=== PATIENT | male | born 1970 | race African-American/Black ===

== ENCOUNTER 2017-12-04 23:56 | Inpatient (IN) | payer SELFPAY ==
[2017-12-05 01:46] LABS: Absolute Lymphocytes (CBC) 1.4 K/uL (0.7-4.9); Absolute Monocytes 0.8 K/uL (0.1-1.3); Absolute Neutrophil 8.3 K/uL (1.8-8.0); Basophils % 0.5 % (0-1.3); Eosinophils % 2.3 % (0-4.4); Hematocrit 28.5 % (39.6-49.0); Lymphocytes % 12.9 % (15.3-44.8); MCH 25.9 pg (27.0-35.0); MCV 79.7 fL (80-100); MPV 8.2 fL (7.6-11.3); Monocytes % 7.1 % (3.3-12.3); RBC Red Blood Cell Count 3.58 M/uL (4.33-5.43)
[2017-12-05 01:47] LABS: Protime INR 1.27
[2017-12-05 01:53] LABS: Bicarbonate 27 mEq/L (21-31); Lipase 10 U/L (22-51); Potassium 4.7 mEq/L (3.6-5.0); Sodium Level 133 mEq/L (135-145)
[2017-12-05 02:01] LABS: ALT/SGPT 15 IU/L (10-60); AST/SGOT 14 IU/L (10-42); Albumin 3.2 g/dL (3.2-5.5); Alkaline Phosphatase 71 IU/L (42-121); BUN Blood Urea Nitrogen 13 mg/dL (6-20); Bilirubin Direct 0.1 mg/dL (0-0.2); Bilirubin Total 0.3 mg/dL (0.3-1.2); C-Reactive Protein 89.6 mg/L (<10.0); Glomerular Filtration Rate > 90 mL/min (=/>90); Protein, Total 7.6 g/dL (6.0-8.3)
[2017-12-05] MEDS ORDERED: ONDANSETRON 4 MG/2 ML VIAL ONE (02:03)
[2017-12-05] MEDS ORDERED: MORPHINE 4 MG/ML SYR ONE (02:03)
[2017-12-05] MEDS ORDERED: NA CHLORIDE 0.9% 1,000 ML ONE ×2 (02:03→03:19)
--- NOTE | 2017-12-05 02:03 | P.HP ---
Certification for Inpatient Patient admitted to: Inpatient With expected LOS: >2 Midnights Practitioner: I am a practitioner with admitting privileges, knowledge of patient current condition, hospital course, and medical plan of care. Services: Services provided to patient in accordance with Admission requirements found in Title 42 Section 412.3 of the Code of Federal Regulations Patient History Date of Service: 12/05/17 Reason for admission: diabetic ulcer History of Present Illness: Mr Del Valle is a 47 years old male with history of DM II, HTN, DVT anticoagulated with Eliquis, with multiple chronic diabetic ulcers in both feet. On his right foot, he use to have a small callous in the plantar area. About 1 month ago, the wound got worse, he went to [facility], and got wound care. About 1 week ago, his lesion expanded and become ulcerated on the stump of previously amputated toe. At this time he came back to [facility] and he was prescribed oral Clindamycin. Today, he was having dinner, when he start shaking and feeling pain all over. His took his temp and was 101.3 F, he then took Tylenol. At arrival to ED his temp was 100.2 F. Lab work shows normal WBC count. Allergies ketorolac tromethamine [From Toradol] Allergy (Unknown, Verified 12/22/12 00:49) Shortness of breath azithromycin [From Zithromax] Allergy (Unverified 04/13/17 05:32) Unknown promethazine [From Phenergan] Allergy (Unverified 05/14/17 22:09) Unknown sulfamethoxazole [From Bactrim] Allergy (Unverified 04/13/17 05:32) Unknown trimethoprim [From Bactrim] Allergy (Unverified 04/13/17 05:32) Unknown NSAIDS Allergy (Uncoded 04/13/17 05:32) Unknown - Past Medical/Surgical History -: diabetes mellitus II -: Hx of DVT -: HTN -: toes amputation - Family History Family History: Reviewed- Non-Contributory - Social History Smoking Status: Never smoker Alcohol use: Yes CD- Drugs: No Place of Residence: Home Review of Systems 10-point ROS is otherwise unremarkable Physical Examination - Physical Exam General: Alert, In no apparent distress HEENT: Atraumatic, PERRLA, Mucous membr. moist/pink, EOMI, Sclerae nonicteric Neck: Supple, 2+ carotid pulse no bruit, No LAD, Without JVD or thyroid abnormality Respiratory: Clear to auscultation bilaterally, Normal air movement Cardiovascular: Regular rate/rhythm, Normal S1 S2 Gastrointestinal: Normal bowel sounds, No tenderness Musculoskeletal: No tenderness Integumentary: Skin breakdown, Diabetic ulcer (bilateral feet ulcers. On the right foot, has an open wound with yellowish secretion on the stump of second toe previously amputated.) Neurological: Normal speech, Normal strength at 5/5 x4 extr, Normal tone, Normal affect Lymphatics: No axilla or inguinal lymphadenopathy - Studies Laboratory Data (last 24 hrs) 12/05/17 01:10: PT 15.0 H, INR 1.27, APTT 27.7 12/05/17 01:10: WBC 10.7, Hgb 9.3 L, Hct 28.5 L, Plt Count 517 H Assessment and Plan - Problems (Diagnosis) (1) diabetic ulcer Current Visit: Yes Status: Acute (2) Diabetes mellitus Current Visit: Yes Status: Acute Qualifiers: Diabetes mellitus type: type 2 Diabetes mellitus fci insulin use: without fci use Diabetes mellitus complication status: with skin complications Diabetes mellitus complication detail: with foot ulcer Qualified Code(s): E11.621 - Type 2 diabetes mellitus with foot ulcer; L97.509 - Non-pressure chronic ulcer of other part of unspecified foot with unspecified severity; L97.509 - Non-pressure chronic ulcer of other part of unspecified foot with unspecified severity; L97.509 - Non-pressure chronic ulcer of other part of unspecified foot with unspecified severity; L97.509 - Non-pressure chronic ulcer of other part of unspecified foot with unspecified severity (3) HTN (hypertension) Current Visit: Yes Status: Acute Qualifiers: Hypertension type: essential hypertension Qualified Code(s): I10 - Essential (primary) hypertension (4) Hx of deep venous thrombosis Current Visit: Yes Status: Acute - Plan Mr Del Valle will be admitted to the hospital due to worsening chronic diabetic ulcers. He has normal WBC count but is febrile. Procalcitonin is pending, lactic acid normal. He will be admitted to start IV abx, will consult surgery team, wound care team. Check HgbA1c, continue SSI for BS control while is in the hospital. - Advance Directives Does patient have a Living Will: No Does patient have a Durable POA for Healthcare: No - Code Status/Comfort Care Code Status Assessed: Yes Code Status: Full Code
[2017-12-05 02:09] LABS: Glucose Level 396 mg/dL (65-120)
--- NOTE | 2017-12-05 02:28 | ER ---
Nurse's Notes [facility] Name: Flex Del Valle Age: 47 yrs Sex: Male : 1970 Arrival Date: 12/05/2017 Time: 00:00 Bed 17 Private MD: Diagnosis: Cellulitis of right lower limb;Open wound of foot-Bilateral Presentation: 12/05 00:23 Presenting complaint: Patient states: diabetic foot ulcer to R foot for several days. aa1 States, "Even with my neuropathy it still hurts all the way up my leg." Pt currently taking clindamycin. Transition of care: patient was not received from another setting of care. Onset of symptoms was November 29, 2017. Care prior to arrival: None. 00:23 Method Of Arrival: Ambulatory aa1 00:23 Acuity: AB 3 aa1 Triage Assessment: 00:26 General: Appears in no apparent distress. comfortable, Behavior is calm, cooperative, aa1 appropriate for age. Historical: - Allergies: 00:26 Bactrim; aa1 00:26 NSAIDS; aa1 00:26 Phenergan; aa1 00:26 Zithromax; aa1 00:26 Baclofen; aa1 00:26 Toradol; aa1 00:26 Ibuprofen; aa1 - Home Meds: 00:26 Clindamycin Oral [Active]; aa1 - PMHx: 00:26 Diabetes - NIDDM; DVT; Hypertension; neuropathy; aa1 - PSHx: 00:26 multiple toe amputations; aa1 - Immunization history:: Flu vaccine is up to date. - Social history:: Smoking status: Patient/guardian denies using tobacco. Screenin:43 Abuse screen: Denies threats or abuse. Denies injuries from another. Nutritional bp screening: No deficits noted. Tuberculosis screening: No symptoms or risk factors identified. Fall Risk None identified. Assessment: 00:54 General: Appears in no apparent distress. uncomfortable, Behavior is calm, cooperative, bp appropriate for age. Pain: Complains of pain in right foot. Neuro: Level of Consciousness is awake, alert, obeys commands, Oriented to person, place, time, situation, Appropriate for age. Cardiovascular: Denies. Respiratory: Airway is patent Respiratory effort is even, unlabored, Respiratory pattern is regular, symmetrical. GI: No signs and/or symptoms were reported involving the gastrointestinal system. : No signs and/or symptoms were reported regarding the genitourinary system. EENT: No deficits noted. Derm: Wound noted right foot. Musculoskeletal: Circulation, motion, and sensation intact. Range of motion: intact in all extremities. 02:30 Reassessment: ALL CURRENT ORDERS COMPLETE, VS STABLE ON MONITOR. ADMIT PENDING. bp 03:49 Reassessment: ADMIT IN PROCESS. PT HAVE GLOBAL URTICARIA WITH SOME MILD AIRWAY bp INVOLVEMENT AFTER START OF LEVAQUIN. MD NOTIFIED AND MED ADMINISTERED. PT VS REMAIN STABLE ON MONITOR. Vital Signs: 00:26 BP 134 / 90; Pulse 111; Resp 18; Temp 100.2(O); Pulse Ox 98% on R/A; Weight 98.43 kg; aa1 Height 6 ft. 1 in. (185.42 cm); Pain 10/10; 02:01 BP 135 / 84; Pulse 101; Resp 18; Pulse Ox 99% ; bp 04:14 BP 136 / 89; Pulse 95; Resp 16; Pulse Ox 99% ; bp 00:26 Body Mass Index 28.63 (98.43 kg, 185.42 cm) aa1 ED Course: 00:00 Patient arrived in ED. al2 00:14 Saad Perez, ALF is Primary Nurse. bp 00:16 Jaime Ramirez PA is PHCP. cp 00:16 Bert Holder MD is Attending Physician. cp 00:24 Triage completed. aa1 00:26 Arm band placed on right wrist. Patient placed in an exam room, on a stretcher. aa1 00:43 Patient has correct armband on for positive identification. Bed in low position. Call bp light in reach. Side rails up X2. Adult w/ patient. 01:29 Wound culture swab sent to lab. Inserted saline lock: 20 gauge in right forearm, using kb1 aseptic technique. Blood collected. 01:39 XRAY Foot LEFT 2 View In Process Unspecified. EDMS 01:39 XRAY Foot RIGHT 2 View In Process Unspecified. EDMS 01:58 Wound Culture Sent. bp 02:05 X-ray completed. Portable x-ray completed in exam room. Patient tolerated procedure kp1 well. 02:26 Kd Cali MD is Hospitalizing Provider. cp 03:48 Urine Dipstick--Ancillary (enter results) Sent. bp 03:50 No provider procedures requiring assistance completed. Patient admitted, IV remains in bp place. Administered Medications: 01:30 Drug: NS 0.9% 1000 ml Route: IV; Rate: 1 bolus; Site: right forearm; bp 03:18 Follow up: IV Status: Completed infusion bp 01:59 Drug: morphine 4 mg Route: IVP; Site: right forearm; bp 02:30 Follow up: Response: Pain is decreased bp 02:00 Drug: Zofran 4 mg Route: IVP; Site: right forearm; bp 02:30 Follow up: Response: Pain is decreased bp 02:45 Drug: Insulin Regular Human 10 units {Co-Signature: kb1 (Colleen Knight RN).} Route: bp IVP; Site: right forearm; 03:49 Follow up: Response: No adverse reaction bp 02:45 Drug: LevaQUIN 750 mg Volume: 150 ml; Route: IVPB; Infused Over: 90 mins; Site: right bp forearm; 03:46 Follow up: IV Status: Order to discontinue infusion; PT EXPERIENCING ALLERGIC RXN bp 02:45 Drug: NS 0.9% 1000 ml Route: IV; Rate: 1 bolus; Site: right forearm; bp 04:56 Follow up: IV Status: Completed infusion bp 03:47 Drug: diphenhydrAMINE 25 mg Route: IVP; Site: right forearm; bp 03:48 Follow up: Response: Marked relief of symptoms bp 03:48 Not Given (Patient Refused; PT STATES HAS BLURRED VISION WITH VANCOMYCIN): vancoMYCIN 1 bp grams IVPB once over 2 hrs Point of Care Testing: Blood Glucose: 02:30 Blood Glucose: 381 mg/dL; bp 04:45 Blood Glucose: 296 mg/dL; bp Ranges: Intake: Outcome: 02:27 Decision to Hospitalize by Provider. cp 04:46 Admitted to Tele accompanied by nurse, via wheelchair, room 407, with chart, Report bp called to GOLDY MILNER 04:46 Condition: stable 04:46 Instructed on the need for admit. 05:18 Patient left the ED. bp Signatures: Dispatcher [employer] EDMS Shalonda Holman, RN RN aa1 Jaime Ramirez PA PA cp Poole, Kathy kp1 Saad Perez RN RN bp Love, Angelica al2 Brown, Kristina, RN RN kb1 Colleen Knight RN kb1 Corrections: (The following items were deleted from the chart) 00:55 00:44 General: Appears bp bp
--- NOTE | 2017-12-05 02:28 | EDPHYS ---
Physician Documentation [facility] Name: Flex Del Valle Age: 47 yrs Sex: Male : 1970 Arrival Date: 12/05/2017 Time: 00:00 Bed 17 Private MD: ED Physician Bert Holder HPI: 12/05 01:29 This 47 yrs old Black Male presents to ER via Ambulatory with complaints of BODY ACHES, cp Fever, Puncture Wound To Foot. Historical: - Allergies: 00:26 Bactrim; aa1 00:26 NSAIDS; aa1 00:26 Phenergan; aa1 00:26 Zithromax; aa1 00:26 Baclofen; aa1 00:26 Toradol; aa1 00:26 Ibuprofen; aa1 - Home Meds: 00:26 Clindamycin Oral [Active]; aa1 - PMHx: 00:26 Diabetes - NIDDM; DVT; Hypertension; neuropathy; aa1 - PSHx: 00:26 multiple toe amputations; aa1 - Immunization history:: Flu vaccine is up to date. - Social history:: Smoking status: Patient/guardian denies using tobacco. ROS: 01:35 Constitutional: Positive for body aches, fever, Negative for poor PO intake. cp 01:35 Eyes: Negative for injury, pain, redness, and discharge, ENT: Negative for injury, cp pain, and discharge, Cardiovascular: Negative for chest pain, palpitations, and edema, Respiratory: Negative for shortness of breath, cough, wheezing, and pleuritic chest pain, Abdomen/GI: Negative for abdominal pain, nausea, vomiting, diarrhea, and constipation. 01:35 Skin: Positive for of the right foot and left foot, open wounds. 01:35 Neuro: Negative for altered mental status, dizziness, headache, weakness. 01:35 All other systems are negative. Exam: 01:42 Head/Face: Normocephalic, atraumatic. cp 01:42 Constitutional: The patient appears in no acute distress, alert, awake, non-diaphoretic, non-toxic, well developed, well nourished. 01:42 Eyes: Periorbital structures: appear normal, Conjunctiva: normal, no exudate, no cp injection, Sclera: no appreciated abnormality, Lids and lashes: appear normal, bilaterally. 01:42 ENT: External ear(s): are unremarkable, Nose: is normal, Mouth: Lips: moist, Oral mucosa: pink and intact, moist, Posterior pharynx: is normal, airway is patent, no erythema, no exudate, Voice: is normal. 01:42 Neck: ROM/movement: is normal, is supple, without pain, no range of motions limitations, no nuchal rigidity. 01:42 Chest/axilla: Inspection: normal, Palpation: is normal, no crepitus, no tenderness. 01:42 Cardiovascular: Rate: tachycardic, Rhythm: regular, Pulses: Pulses are 2+ in right radial artery, right dorsalis pedis artery, left radial artery and left dorsalis pedis artery. Edema: is not appreciated, JVD: is not appreciated. 01:42 Respiratory: the patient does not display signs of respiratory distress, Respirations: normal, no use of accessory muscles, no retractions, no splinting, no tachypnea, Breath sounds: are clear throughout, no decreased breath sounds, no stridor, no wheezing. 01:42 Abdomen/GI: Inspection: abdomen appears normal, Bowel sounds: active, all quadrants, Palpation: abdomen is soft and non-tender, in all quadrants, rebound tenderness, is not appreciated, voluntary guarding, is not appreciated, involuntary guarding, is not appreciated. 01:42 Skin: noted multiple deep open wounds to bilateral feet with purulent material draining from dorsal wound noted to distal second metatarsal right foot. bilateral second toe amputation noted. 01:42 Neuro: Orientation: to person, place \T\ time. Mentation: lucid, able to follow commands, Cerebellar function: is grossly normal, Motor: moves all fours, strength is normal, Gait: is steady. 02:00 ECG was reviewed by the Attending Physician. cp Vital Signs: 00:26 BP 134 / 90; Pulse 111; Resp 18; Temp 100.2(O); Pulse Ox 98% on R/A; Weight 98.43 kg; aa1 Height 6 ft. 1 in. (185.42 cm); Pain 10/10; 02:01 BP 135 / 84; Pulse 101; Resp 18; Pulse Ox 99% ; bp 04:14 BP 136 / 89; Pulse 95; Resp 16; Pulse Ox 99% ; bp 00:26 Body Mass Index 28.63 (98.43 kg, 185.42 cm) aa1 MDM: 00:16 Patient medically screened. cp 02:20 Data reviewed: vital signs, nurses notes, lab test result(s), radiologic studies, plain cp films. 02:20 Counseling: I had a detailed discussion with the patient and/or guardian regarding: the cp historical points, exam findings, and any diagnostic results supporting the discharge/admit diagnosis, lab results, the need for further work-up and treatment in the hospital. 12/05 00:46 Order name: Wound Culture cp 12/05 00:46 Order name: Basic Metabolic Panel; Complete Time: 02:14 cp 12/05 02:14 Interpretation: Normal except: NA 133; CL 100; GLUC 396. cp 12/05 00:46 Order name: Blood Culture Adult (2) cp 12/05 00:46 Order name: C-Reactive Protein; Complete Time: 02:14 cp 12/05 00:46 Order name: CBC with Diff; Complete Time: 02:16 cp 12/05 02:15 Interpretation: Normal except: RBC 3.58; HGB 9.3; HCT 28.5; MCV 79.7; MCH 25.9; PLT cp 517; LATRICIA% 77.2; LYM% 12.9; NEUT A 8.3. 12/05 00:46 Order name: Lactate; Complete Time: 02:14 cp 12/05 00:46 Order name: LFT's; Complete Time: 02:14 cp 12/05 00:46 Order name: Lipase; Complete Time: 02:14 cp 12/05 00:46 Order name: Procalcitonin; Complete Time: 02:57 cp 12/05 02:57 Interpretation: Reviewed. cp 12/05 00:46 Order name: Protime (+inr); Complete Time: 02:14 cp 12/05 00:46 Order name: Ptt, Activated; Complete Time: 02:14 cp 12/05 00:46 Order name: Sed Rate; Complete Time: 02:16 cp 12/05 01:37 Order name: Wound Culture EDMS 12/05 03:00 Order name: Urine Dipstick--Ancillary (enter results) fc 12/05 00:46 Order name: XRAY Foot LEFT 2 View cp 12/05 00:46 Order name: XRAY Foot RIGHT 2 View cp 12/05 00:46 Order name: Accucheck; Complete Time: 01:59 cp 12/05 00:46 Order name: Cardiac monitoring; Complete Time: 01:27 cp 12/05 00:46 Order name: EKG - Nurse/Tech; Complete Time: 01:58 cp 12/05 00:46 Order name: IV Saline Lock - Large Bore; Complete Time: 01:30 cp 12/05 00:46 Order name: Labs collected and sent; Complete Time: 01:27 cp 12/05 03:42 Order name: Urine Dipstick-Ancillary EDMS 12/05 00:46 Order name: O2 Per Protocol; Complete Time: 01:27 cp 12/05 00:46 Order name: O2 Sat Monitoring; Complete Time: 01:26 cp 12/05 00:46 Order name: Urine Dipstick-Ancillary (obtain specimen); Complete Time: 02:59 cp EC:00 Rate is 93 beats/min. Rhythm is regular. RI interval is normal. QRS interval is normal. cp QT interval is normal. No ST changes noted. Interpreted by me. Reviewed by me. Administered Medications: 01:30 Drug: NS 0.9% 1000 ml Route: IV; Rate: 1 bolus; Site: right forearm; bp 03:18 Follow up: IV Status: Completed infusion bp 01:59 Drug: morphine 4 mg Route: IVP; Site: right forearm; bp 02:30 Follow up: Response: Pain is decreased bp 02:00 Drug: Zofran 4 mg Route: IVP; Site: right forearm; bp 02:30 Follow up: Response: Pain is decreased bp 02:45 Drug: Insulin Regular Human 10 units {Co-Signature: kb1 (Colleen Knight RN).} Route: bp IVP; Site: right forearm; 03:49 Follow up: Response: No adverse reaction bp 02:45 Drug: LevaQUIN 750 mg Volume: 150 ml; Route: IVPB; Infused Over: 90 mins; Site: right bp forearm; 03:46 Follow up: IV Status: Order to discontinue infusion; PT EXPERIENCING ALLERGIC RXN bp 02:45 Drug: NS 0.9% 1000 ml Route: IV; Rate: 1 bolus; Site: right forearm; bp 04:56 Follow up: IV Status: Completed infusion bp 03:47 Drug: diphenhydrAMINE 25 mg Route: IVP; Site: right forearm; bp 03:48 Follow up: Response: Marked relief of symptoms bp 03:48 Not Given (Patient Refused; PT STATES HAS BLURRED VISION WITH VANCOMYCIN): vancoMYCIN 1 bp grams IVPB once over 2 hrs Point of Care Testing: Blood Glucose: 02:30 Blood Glucose: 381 mg/dL; bp 04:45 Blood Glucose: 296 mg/dL; bp Ranges: Critical Glucose Levels:Adult <50 mg/dl or >400 mg/dl <40 mg/dl or >180 mg/dl Disposition: 03:00 Co-signature as Attending Physician, Bert Holder MD I agree with the assessment and tw4 plan of care. Disposition: 12/05/17 02:27 Hospitalization ordered by Kd Cali for Inpatient Admission. Preliminary diagnosis are Cellulitis of right lower limb, Open wound of foot - Bilateral. - Bed requested for Telemetry/MedSurg (Inpatient). - Status is Inpatient Admission. bp - Condition is Stable. - Problem is an ongoing problem. - Symptoms are unchanged. UTI on Admission? No Signatures: Dispatcher [employer] EDMS Wendie Saldaña RN RN Shalonda Mcgee RN RN aa1 Jaime Ramirez PA PA Saad Messina, Bert Patricio RN, MD MD tw4 Colleen Knight RN kb1 Corrections: (The following items were deleted from the chart) 02:14 02:14 Normal except: NA 133; CL 100. cp cp
[2017-12-05] MEDS ORDERED: INSULIN -REGULAR HUMAN 50 UNIT/0.5 ML ML ONE (03:18)
[2017-12-05] MEDS ORDERED: VANCOMYCIN/NS 1 gm 1 GM/250 ML BAG ONE (03:19)
[2017-12-05] MEDS ORDERED: Levofloxacin 750mg IV 750 MG/150 ML BAG IV ONE (03:19)
[2017-12-05 03:42] LABS: Urine Blood 1+ (NEG); Urine Glucose 2+ (NEG); Urine Protein NEGATIVE (NEG); Urine pH 5.5 (5.0-7.0)
[2017-12-05] MEDS ORDERED: DIPHENHYDRAMINE 50 MG/ML VIAL ONE (04:02)
[2017-12-05] MEDS ORDERED: ONDANSETRON 4 MG/2 ML VIAL IV PRN (04:23)
[2017-12-05] MEDS ORDERED: ACETAMINOPHEN 500 MG TAB PO PRN (04:23)
[2017-12-05] MEDS ORDERED: Levofloxacin 750mg IV 750 MG/150 ML BAG IV SCH (04:23)
[2017-12-05] MEDS: NA CHLORIDE 0.9% 1,000 ML IV SCH ×2 (05:51→15:03)
[2017-12-05] MEDS: PIPER/TAZO/NS 3.375gm 3.375 GM/100 ML BAG IVPB SCH ×2 (08:08→17:50)
[2017-12-05] MEDS: LINEZOLID 600 MG IVPB 600 MG/300 ML BAG IV SCH ×2 (08:08→21:04)
[2017-12-05] MEDS: INSULIN -REGULAR HUMAN 50 UNIT/0.5 ML ML SQ SCH ×5 (08:09→21:02)
[2017-12-05] MEDS ORDERED: VANCOMYCIN 1 GM in NA CHLORIDE 0.9% 500 ML IVPB SCH (09:00)
[2017-12-05 09:17] LABS: A1c Component 1.02 mg/dL; Hemoglobin A1c 11.9 % (4-6.0)
[2017-12-05] MEDS ORDERED: D50W 25 GM/50 ML SYRINGE IV PRN (10:51)
[2017-12-05] MEDS ORDERED: GLUCAGON 1 MG/VIAL IM PRN (10:51)
[2017-12-05] MEDS ORDERED: MAGNESIUM SULFATE 1 gm IVPB 1 GM/100 ML BAG IV ONE (11:00)
--- NOTE | 2017-12-05 11:14 | RAD REPORT ---
EXAM DESCRIPTION: RAD - Foot Right 2 View - 12/05/2017 1:39 am CLINICAL HISTORY: Diabetic foot ulcer COMPARISON: None. FINDINGS: The majority of the second toe is missing. Destructive changes involves the distal second toe metatarsal. A large soft tissue ulceration with swelling is present in the region. IMPRESSION: Osteomyelitis involving the distal second metatarsal with the majority of the second toe missing.
--- NOTE | 2017-12-05 11:19 | RAD REPORT ---
EXAM DESCRIPTION: RAD - Foot Left 2 View - 12/05/2017 1:39 am CLINICAL HISTORY: Diabetic foot ulcer. COMPARISON: None. FINDINGS: Partial amputation of the second toe seen. Amputation of the third toe also present. Erosi on at the distal aspect of the proximal phalanx of the great toe with adjacent soft tissue swelling i s likely related to gout. Ulceration is noted in the region of the heel.
--- NOTE | 2017-12-05 12:03 | EKG ---
Test Date: 2017-12-05 Test Time: 01:53:21 Stereo Compiler: BP MEASUREMENT RESULTS: Intervals: Rate: 93 LA: 154 QRSD: 86 QT: 354 QTc: 440 [place]: P: 49 LA: 154 QRS: 40 T: 43 INTERPRETIVE STATEMENTS: Normal sinus rhythm Normal ECG No previous ECG available for comparison Electronically Signed On 12-05-17 12:02:15 CDT by Garo Curiel
[2017-12-05] MEDS ORDERED: INSULIN DETEMIR 100 UNIT/1 ML INSULIN SQ ONE (12:28)
[2017-12-05] MEDS: COLLAGENASE 30 GM OINTMENT TOP SCH (12:58)
--- NOTE | 2017-12-05 13:49 | CON ---
Date of Consultation: 12/05/2017 Reason For Consultation: Infected wound, right foot. Ulcers, left foot. History Of Present Illness: The patient is a 47-year-old gentleman with multiple medical problems. Had chronic diabetic ulcers in both feet. On his right feet, he has small callus which got worse. H e went to Wound Care and became bigger, ulcerated, oozing pus and he had a fever. He was prescribed clindamycin and he continued to have temperature, therefore he came to the emergency room. He is awake, alert. No significant increasing pain in the foot because of his diabetic neuropathy. No sore throat, runny nose, cough, headaches, or dizziness. No chest pain. Review of Systems: Otherwise unremarkable. Medications: Azithromycin, promethazine, sulfa, trimethoprim, NSAIDS, Toradol. Past Medical History: Significant for type 2 diabetes, history of DVT, hypertension. Past Surgical History: Right second toe partial toe amputation. He does not smoke. Physical Examination: Vital Signs: Stable. He is afebrile. General: He is awake, alert, orient x3. Head and Neck: Cranial nerves 2 through 12 are grossly within normal limits. No neck masses. No JV D. Throat clear. Neck is supple. Chest: Clear. Heart: S1, S2. Abdomen: Soft. Extremities: Palpable dorsalis pedis and posterior tibial pulses, 2+ equal bilaterally. On the left heel there is a superficial ulcer stage 2-3 approximately 3 x 4 cm. No surrounding erythema, warmth , edema or purulence on the toe plantar aspect of the left great toe. There is also a superficial ul cer, again no evidence of infection. On the right foot in the second toe area, partial toe is expose d with a wound that is oozing pus. There is a swollen, red obvious infection. There is a plantar ul cer approximately 2 cm as well involved in the area. It is a bad diabetic infection. Laboratory Data: White count is 10.7, platelets are 517, sedimentation rate is 95, INR is 1.27. Didi christopher reviewed, glucose is 375, procalcitonin is 0.09, lactic acid is 12.3. X-ray results are pendi ng. Assessment: A 47-year-old gentleman with multiple medical problems with a diabetic foot infection, s evere on the right foot and couple of ulcers on the left foot. Recommendation: Continue IV antibiotics is ordered. The patient will need right second toe transmet atarsal amputation as this area will not heal with antibiotics alone. Details of the surgery, risks benefits and alternatives were explained to the patient. He understands and agrees; therefore we zuhair villarreal proceed with a right foot second toe transmetatarsal amputation. As he has been on Eliquis, subha villarreal wait until tomorrow to do the surgery and the plan of care was also discussed with /[place] Voice ID: [id number] Report ID: [id number]
[2017-12-05] MEDS: HYDROCODONE/APAP 7.5/325 MG TAB PO PRN ×2 (15:02→21:04)
--- NOTE | 2017-12-05 15:31 | PN ---
Subjective: The patient is seen and examined. Chart reviewed. Case discussed with RN and Dr. Hernandez . The patient is scheduled for surgery in a.m. He states that his pain and swelling is still there in his foot. The patient states that he has not taken Eliquis since May of last year. Review of Systems: Negative except as above. Medications: Reviewed. Physical Examination: Vital Signs: Temperature 98.6, heart rate 82, blood pressure 118/71, respirations 14, and O2 saturat ion 95% on room air. General: Awake, alert, oriented x3, in some mild distress. Somewhat ill-appearing male. CV: S1, S2. Regular rate and rhythm. Peripheral pulses are weak bilaterally. No murmurs. Respiratory: Moving air well bilaterally. No wheezing. Gastrointestinal: Abdomen is soft, nontender, nondistended. Positive bowel sounds. Extremities: No clubbing, cyanosis, or edema. Skin: The patient has both feet wrapped, clean, dry, and intact. Musculoskeletal: The patient has multiple toe amputations bilaterally. Neurologic: Nonfocal. The patient does have decreased sensation in his feet. Laboratory Data: Sodium 133, potassium 4.7, chloride 100, CO2 of 27, BUN 13, creatinine 0.85, and gl ucose 396. Hemoglobin A1c 11.9. Lactic acid 12.3. Calcium 8.9. Procalcitonin 0.09. Magnesium 1.7 . WBC 10.9, H and H 9.3 and 28.5, and platelets 517. Blood cultures pending. Foot x-ray pending. No physical report present. Assessment And Plan: A 47-year-old male with; 1.Diabetic foot ulcer, left. We will continue with IV antibiotics. Follow up on cultures. Dr. Ramírez sutherland is on the case. Plan is to take the patient to OR in a.m. The patient is not on any anticoagul ation. 2.Diabetes mellitus type 2 with hyperglycemia with long-term use of insulin, uncontrolled. Hemoglob in A1c 11.9%. We will continue sliding scale insulin. 3.History of lower extremity deep venous thrombosis provoked after surgery. The patient took Eliqui s for 1 month last year. We will repeat Doppler sonogram to rule out DVT. 4.Essential hypertension, stable. 5.Hypomagnesemia. We will replace and monitor. 6.Microcytic hypochromic anemia, likely anemia of chronic disease. We will monitor H and H. 7.Gastrointestinal and deep venous thrombosis prophylaxis with PPI and no Lovenox due to impending s urgery. /[place] Voice ID: [id number] Report ID: [id number]
--- NOTE | 2017-12-05 17:45 | RAD REPORT ---
EXAM DESCRIPTION: VAS - Extrem Venous W Compress Lito - 12/05/2017 5:28 pm CLINICAL HISTORY: Bilateral leg edema and swelling. COMPARISON: None. TECHNIQUE: Real-time sonographic interrogation of the left and right lower extremity deep venous sys tems was performed. FINDINGS: Normal compressibility, flow augmentation, phasic flow and spontaneous flow is identified in both the left and right lower extremity deep venous systems. IMPRESSION: No sonographic evidence of left or right lower extremity deep venous thrombosis.
[2017-12-05] MEDS: MORPHINE 4 MG/ML SYR IV PRN ×2 (17:49→23:10)
[2017-12-05] MEDS ORDERED: INSULIN DETEMIR 100 UNIT/1 ML INSULIN SQ SCH (21:00)
[2017-12-06] MEDS: NA CHLORIDE 0.9% 1,000 ML IV SCH ×6 (00:23→20:23)
[2017-12-06] MEDS: PIPER/TAZO/NS 3.375gm 3.375 GM/100 ML BAG IVPB SCH ×3 (00:45→16:24)
[2017-12-06] MEDS: MORPHINE 4 MG/ML SYR IV PRN ×4 (04:47→20:33)
[2017-12-06 06:27] LABS: Absolute Lymphocytes (CBC) 2.7 K/uL (0.7-4.9); Absolute Monocytes 0.6 K/uL (0.1-1.3); Absolute Neutrophil 3.4 K/uL (1.8-8.0); Basophils % 0.7 % (0-1.3); Eosinophils % 4.1 % (0-4.4); Hematocrit 28.6 % (39.6-49.0); Lymphocytes % 38.3 % (15.3-44.8); MCH 25.9 pg (27.0-35.0); MCV 80.1 fL (80-100); MPV 8.3 fL (7.6-11.3); Monocytes % 8.2 % (3.3-12.3); RBC Red Blood Cell Count 3.56 M/uL (4.33-5.43)
[2017-12-06 06:53] LABS: ALT/SGPT 12 IU/L (10-60); AST/SGOT 11 IU/L (10-42); Albumin 2.7 g/dL (3.2-5.5); Alkaline Phosphatase 65 IU/L (42-121); BUN Blood Urea Nitrogen 9 mg/dL (6-20); Bicarbonate 28 mEq/L (21-31); Bilirubin Total 0.4 mg/dL (0.3-1.2); Glomerular Filtration Rate > 90 mL/min (=/>90); Glucose Level 388 mg/dL (65-120); Magnesium 1.6 mg/dL (1.8-2.5); Potassium 4.6 mEq/L (3.6-5.0); Protein, Total 6.8 g/dL (6.0-8.3); Sodium Level 134 mEq/L (135-145)
[2017-12-06] MEDS ORDERED: MAGNESIUM SULFATE 1 gm IVPB 1 GM/100 ML BAG IV ONE (06:59)
[2017-12-06] MEDS: INSULIN -REGULAR HUMAN 50 UNIT/0.5 ML ML SQ SCH ×4 (07:30→20:35)
[2017-12-06] MEDS ORDERED: PROPOFOL 200 MG/20 ML VIAL IV ONE (07:37)
[2017-12-06] MEDS ORDERED: LIDOCAINE 2% MPF 5 ML VIAL ONE (07:38)
[2017-12-06] MEDS ORDERED: MEPERIDINE HCL 25 MG/0.5 ML ONE ×3 (08:16→09:39)
[2017-12-06] MEDS ORDERED: FENTANYL CITR 100 MCG/2 ML ONE ×3 (08:23→08:50)
[2017-12-06] MEDS ORDERED: ONDANSETRON 4 MG/2 ML VIAL ONE (08:33)
[2017-12-06] MEDS ORDERED: DEXAMETHASONE 10 MG/ML VIAL ONE (08:34)
--- NOTE | 2017-12-06 08:35 | P.OP ---
Preoperative diagnosis: Right Foot 2nd Toe osteo and diabetic infection with abscess Postoperative diagnosis: same Primary procedure: Right 2nd Toe T-M Amputation Anesthesia: gen Estimated blood loss: min Specimen: bone and infected tissue and pus Findings: as above Complications: None Transferred to: Recovery Room Condition: Good
[2017-12-06] MEDS ORDERED: INSULIN DETEMIR 100 UNIT/1 ML INSULIN SQ SCH (09:00)
[2017-12-06] MEDS: LINEZOLID 600 MG IVPB 600 MG/300 ML BAG IV SCH ×2 (09:00→20:38)
[2017-12-06] MEDS: COLLAGENASE 30 GM OINTMENT TOP SCH (09:00)
[2017-12-06] MEDS: MUPIROCIN 2% OINT 22GM TUBE TOP SCH ×2 (09:17→20:37)
[2017-12-06] MEDS ORDERED: CHLORHEXIDINE GLUCO 4% 120 ML TOP SCH (09:17)
[2017-12-06] MEDS: ASCORBIC ACID 500 MG TABLET PO SCH (10:11)
[2017-12-06] MEDS: ZINC SULFATE 220 MG CAP PO SCH (10:11)
[2017-12-06] MEDS: INSULIN DETEMIR 100 UNIT/1 ML INSULIN SQ SCH (10:12)
[2017-12-06] MEDS: HYDROCODONE/APAP 7.5/325 MG TAB PO PRN ×2 (14:10→21:47)
--- NOTE | 2017-12-06 15:39 | PN ---
Date of Progress Note: 12/06/2017 Subjective: The patient is seen and examined. Chart reviewed, case discussed with RN and Dr. Hernandez. The patient tolerated the procedure well. A chest pain is well controlled. Review of Systems: Negative except as above. Medications: Reviewed. Physical Examination: Vital Signs: Temperature 98.3, heart rate 92, blood pressure 129/79, respirations 20, O2 98% on room air. General: Awake, alert, oriented x3 in no acute distress. Obese, BMI 30.6. CV: S1, S2. No murmurs. Regular rate and rhythm. Peripheral pulses are present bilaterally. Respiratory: Moving air well bilaterally. No wheezing. No stridor. Gastrointestinal: Abdomen is soft, nontender, nondistended. Positive bowel sounds. Extremities: No clubbing, cyanosis, or edema. Musculoskeletal: The left right foot second toe amputation. Skin: Bilateral feet bandaged. Right foot incision site appear intact. Neurologic: Nonfocal. Decreased sensation in lower extremity. Laboratory Data: Sodium 134, potassium 4.6, chloride 101, CO2 28, BUN 9, creatinine 0.73, glucose 38 8, calcium 9, magnesium 1.6, albumin 2.78. WBC 7, H and H 9.2 and 28.6, platelets 512. Assessment And Plan: A 47-year-old male with. 1.Right foot diabetic wound infection ulcer with osteomyelitis, status post second toe amputation. 2.Diabetes mellitus type 2 with hyperglycemia with long-term use of insulin, uncontrolled. Hemoglob in A1c 11.9%. Levemir adjusted. We will switch over to moderate sliding scale. Diabetes education. Patient counseled. 3.History of lower extremity DVT on the left leg provoked after surgery. Repeat Doppler negative fo r any deep venous thrombosis. The patient has not been on any anticoagulation since last year. 4.Essential hypertension stable. 5.Hypomagnesemia, replace and monitor. 6.Microcytic hypochromic anemia, likely anemia of chronic disease. We will continue to monitor H an d H. 7.Obesity, BMI 30, counseled. 8.Gastrointestinal and deep venous thrombosis prophylaxis with PPI and we will initiate Lovenox 24 h ours post surgery. We will continue with SCDs for now. Plan ID consultation. Surgery recommends wo und care, collagenase with dry dressings. The patient is not a candidate for wound VAC due to lack o f insurance. SA/MODL Voice ID: [id number] Report ID: [id number]
[2017-12-06] MEDS: INSULIN LISPRO 100 UNIT/1 ML SQ SCH (16:23)
--- NOTE | 2017-12-06 20:24 | OP ---
Date of Procedure: 12/06/2017 Surgeon: Robert Hernandez MD Preoperative Diagnosis: Right foot second toe diabetic foot infection with osteomyelitis and abscess . Postoperative Diagnosis: Right foot second toe diabetic foot infection with osteomyelitis and absces s. Procedure: Right second toe transmetatarsal amputation. Estimated Blood Loss: Minimal. Specimen: Pus, necrotic tissue, and infected bone. Finding: As above. Anesthesia: General. Complications: None. Disposition: The patient tolerated the procedure in stable condition and taken to Recovery in good g eneral condition. Procedure In Detail: The patient was brought to the OR and placed in supine position. General anest hesia was began. The patient was prepped and draped in the usual sterile fashion. Marcaine 0.5% was infiltrated locally. A 15 blade and cautery used to make an ellipse of skin from the dorsum of the foot down through the first and second web space and down covering the plantar ulcer that was present . All tissue in this area was removed. Once this was removed, the metatarsal head was floating in t he wound. Without any bone cutters the head was removed and cultures were done. Cultures were done of the pus that was present as well. Then rongeurs were used to smooth out the rough edges of the me tatarsal shaft and a rasp was used to smoothen out the rough edges as well, and then wound was irriga judith. Bleeding controlled with cautery. All necrotic tissue was debrided and then collagenase dressi ng was applied. The patient tolerated the procedure in stable condition and taken to Recovery in good general condition. LING/MIREYAL Voice ID: [id number] Report ID: [id number]
[2017-12-07] MEDS: PIPER/TAZO/NS 3.375gm 3.375 GM/100 ML BAG IVPB SCH ×3 (00:54→17:00)
[2017-12-07] MEDS: MORPHINE 4 MG/ML SYR IV PRN ×2 (00:54→17:11)
[2017-12-07] MEDS: NA CHLORIDE 0.9% 1,000 ML IV SCH ×3 (00:58→16:23)
[2017-12-07] MEDS: HYDROCODONE/APAP 7.5/325 MG TAB PO PRN ×2 (04:21→11:22)
[2017-12-07 04:23] LABS: Absolute Lymphocytes (CBC) 2.2 K/uL (0.7-4.9); Absolute Monocytes 0.8 K/uL (0.1-1.3); Absolute Neutrophil 5.7 K/uL (1.8-8.0); Basophils % 0.9 % (0-1.3); Eosinophils % 0.3 % (0-4.4); Hematocrit 25.7 % (39.6-49.0); Lymphocytes % 24.6 % (15.3-44.8); MCH 26.2 pg (27.0-35.0); MCV 78.7 fL (80-100); MPV 8.2 fL (7.6-11.3); Monocytes % 8.9 % (3.3-12.3); RBC Red Blood Cell Count 3.26 M/uL (4.33-5.43)
[2017-12-07 04:35] LABS: ALT/SGPT 11 IU/L (10-60); AST/SGOT 11 IU/L (10-42); Albumin 2.6 g/dL (3.2-5.5); Alkaline Phosphatase 57 IU/L (42-121); BUN Blood Urea Nitrogen 11 mg/dL (6-20); Bicarbonate 26 mEq/L (21-31); Bilirubin Total 0.4 mg/dL (0.3-1.2); Glomerular Filtration Rate > 90 mL/min (=/>90); Glucose Level 366 mg/dL (65-120); Magnesium 1.6 mg/dL (1.8-2.5); Protein, Total 6.9 g/dL (6.0-8.3); Sodium Level 134 mEq/L (135-145)
[2017-12-07] MEDS ORDERED: MAGNESIUM SULFATE 1 gm IVPB 1 GM/100 ML BAG IV ONE (05:35)
[2017-12-07 06:24] VITALS: BMI 30.7
[2017-12-07] MEDS: INSULIN -REGULAR HUMAN 50 UNIT/0.5 ML ML SQ SCH ×3 (09:07→17:38)
[2017-12-07] MEDS: INSULIN LISPRO 100 UNIT/1 ML SQ SCH ×3 (09:07→17:39)
[2017-12-07] MEDS: INSULIN DETEMIR 100 UNIT/1 ML INSULIN SQ SCH (09:08)
[2017-12-07] MEDS: ZINC SULFATE 220 MG CAP PO SCH (09:09)
[2017-12-07] MEDS: ASCORBIC ACID 500 MG TABLET PO SCH (09:09)
[2017-12-07 10:26] VITALS: O2SAT 100
[2017-12-07] MEDS ORDERED: ACETIC ACID 0.25% IRRIG IRR ONE (10:26)
[2017-12-07] MEDS: MUPIROCIN 2% OINT 22GM TUBE TOP SCH (11:22)
[2017-12-07] MEDS: LINEZOLID 600 MG IVPB 600 MG/300 ML BAG IV SCH (15:08)
--- NOTE | 2017-12-07 15:43 | PN ---
Date of Progress Note: 12/07/2017 Subjective: The patient is awake, alert, feels better today. Objective: Vital Signs: Stable. Afebrile. Laboratory Data: Wound cultures done Thursday are growing Pseudomonas Klebsiella and Serratia. Sens itivities were reviewed. His white count is 8.8, platelets are down to 436. His left shift has norm alized. His dressing is clean, dry, intact. The toes around on the wound viable with good circulation. Assessment: Status post right foot second toe transmetatarsal amputation with a nonhealing wound. Recommendation: We will await the OR cultures, and then proceed with oral antibiotics as patient's s ource of osteo has been surgically removed. Wound care is ordered to rule out acetic acid to it for the Pseudomonas and once he is discharged, he can [facility]. Lia n of care discussed with Dr. Persaud. /[place] Voice ID: [id number] Report ID: [id number]
[2017-12-07 16:46] VITALS: BP 140/88; TEMP 98
[2017-12-07] MEDS: COLLAGENASE 30 GM OINTMENT TOP SCH (16:48)
--- NOTE | 2017-12-07 19:10 | P.DS ---
Admission Date: 12/05/17 Discharge Date: 12/07/17 Disposition: ROUTINE DISCHARGE Discharge Condition: GOOD Reason for Admission: diabetic ulcer Consultations: Gen Surgery ID Procedures: Procedure: Right second toe transmetatarsal amputation. - Problems (1) Diabetes mellitus Onset Date: 12/07/17 Status: Acute Qualifiers: Diabetes mellitus type: type 2 Diabetes mellitus correction insulin use: without correction use Diabetes mellitus complication status: with skin complications Diabetes mellitus complication detail: with foot ulcer Qualified Code(s): E11.621 - Type 2 diabetes mellitus with foot ulcer; L97.509 - Non-pressure chronic ulcer of other part of unspecified foot with unspecified severity; L97.509 - Non-pressure chronic ulcer of other part of unspecified foot with unspecified severity; L97.509 - Non-pressure chronic ulcer of other part of unspecified foot with unspecified severity; L97.509 - Non-pressure chronic ulcer of other part of unspecified foot with unspecified severity (2) HTN (hypertension) Onset Date: 12/07/17 Status: Acute Qualifiers: Hypertension type: essential hypertension Qualified Code(s): I10 - Essential (primary) hypertension (3) Hx of deep venous thrombosis Onset Date: 12/07/17 Status: Acute (4) diabetic ulcer Onset Date: 12/07/17 Status: Acute Brief History of Present Illness: Mr Del Valle is a 47 years old male with history of DM II, HTN, DVT anticoagulated with Eliquis, with multiple chronic diabetic ulcers in both feet. On his right foot, he use to have a small callous in the plantar area. About 1 month ago, the wound got worse, he went to [facility], and got wound care. About 1 week ago, his lesion expanded and become ulcerated on the stump of previously amputated toe. At this time he came back to [facility] and he was prescribed oral Clindamycin. Today, he was having dinner, when he start shaking and feeling pain all over. His took his temp and was 101.3 F, he then took Tylenol. At arrival to ED his temp was 100.2 F. Lab work shows normal WBC count. Hospital Course: Overall during the hospital stay patient remained stable. Patient was initially admitted to the hospital for right foot diabetic wound infection. Was found to have osteomyelitis. General surgery was consulted. Who took the patient to the OR and had right metatarsal amputation. Patient improved well after the amputation. Wound cultures were collected which grew Pseudomonas Serratia and Klebsiella from bilateral lower extremity. Patient was initially started on IV antibiotics and was switched over to p.o. Levaquin as the bacteria was sensitive to to Levaquin. ID was also consulted who agreed with the plan. Patient initially had a wound VAC placed however due to lack of insurance patient will not be able to get wound VAC at home. Surgery thus recommended acetic acid trip dressings along with collagenase. Patient was taught wound care along with . Patient to do self wound care at home. Will follow up with Surgery and ID specialist in 1-2 days. Patient to get Levaquin for total of 14 days. Patient was educated extensively in controlling diabetic mellitus here in the hospital and outside. Patient was educated again on diet and exercise as well. Long-term complications were also explained. All other chronic conditions remained stable while here in the hospital Vital Signs/Physical Exam: Temp Pulse Resp BP Pulse Ox 98.0 F 76 18 140/88 98 12/07/17 16:00 12/07/17 16:00 12/07/17 16:00 12/07/17 16:00 12/07/17 16:00 General: Alert, In no apparent distress HEENT: Atraumatic, PERRLA, EOMI Neck: Supple, JVD not distended Respiratory: Clear to auscultation bilaterally, Normal air movement Cardiovascular: Regular rate/rhythm, Normal S1 S2 Gastrointestinal: Normal bowel sounds, No tenderness Musculoskeletal: No tenderness Integumentary: Diabetic ulcer Neurological: Normal speech, Normal tone, Normal affect Lymphatics: No axilla or inguinal lymphadenopathy Laboratory Data at Discharge: WBC 8.8 K/uL (4.3-10.9) D 12/07/17 03:44 Hgb 8.5 g/dL (13.6-17.9) L 12/07/17 03:44 Hct 25.7 % (39.6-49.0) L 12/07/17 03:44 Plt Count 436 K/uL (152-406) H 12/07/17 03:44 PT 15.0 SECONDS (9.5-12.5) H 12/05/17 01:10 INR 1.27 12/05/17 01:10 APTT 27.7 SECONDS (24.3-36.9) 12/05/17 01:10 Sodium 134 mEq/L (135-145) L 12/07/17 03:44 Potassium 4.0 mEq/L (3.6-5.0) 12/07/17 03:44 BUN 11 mg/dL (6-20) 12/07/17 03:44 Creatinine 0.76 mg/dL (0.61-1.24) 12/07/17 03:44 Glucose 366 mg/dL (65-120) H 12/07/17 03:44 Magnesium 1.6 mg/dL (1.8-2.5) L 12/07/17 03:44 Total Bilirubin 0.4 mg/dL (0.3-1.2) 12/07/17 03:44 AST 11 IU/L (10-42) 12/07/17 03:44 ALT 11 IU/L (10-60) 12/07/17 03:44 Alkaline Phosphatase 57 IU/L (42-121) 12/07/17 03:44 Lipase 10 U/L (22-51) L 12/05/17 01:10 Home Medications: Metformin ER [Glucophage ER*] 1,000 mg PO BID 12/05/17 Levofloxacin [Levaquin] 750 mg PO DAILY #14 tab 12/07/17 New Medications: Levofloxacin [Levaquin] 750 mg PO DAILY #14 tab Patient Discharge Instructions: Please f/u with Dr Mcdaniels and Dr Hernandez in 1 week post discharge. New medication. Levofloxacin 500mg Daily for 14 days. Diet: Regular Activity: Ad henry Followup: Ruddy Mcdaniels MD [ACTIVE - CAN ADMIT] - 1-2 Weeks Robert Hernandez MD [ACTIVE - CAN ADMIT] - 1-2 Weeks
== END 2017-12-07 18:57 | disposition home or self-care (01) | DRG 617 ==
LOC: ER 23:56 → ERHOLD 12-05 02:27 → 4TH 12-05 04:24
PROVIDERS: ADMIT Internal Medicine; ATTEND Family Medicine
PROC: 0Y6R0Z0 Detachment at Right 2nd Toe, Complete, Open Approach (ICD-10-PCS; principal; 2017-12-06 08:00)
DX: E11.69 Type 2 diabetes mellitus with other specified complication (principal); M86.8X7 Other osteomyelitis, ankle and foot; E11.621 Type 2 diabetes mellitus with foot ulcer; E11.65 Type 2 diabetes mellitus with hyperglycemia; E83.42 Hypomagnesemia; D50.9 Iron deficiency anemia, unspecified; I10 Essential (primary) hypertension; E66.9 Obesity, unspecified; Z86.718 Personal history of other venous thrombosis and embolism
CPT/HCPCS: 36415; 80048; 80053; 80076; 81003; 82962; 83036; 83605; 83690; 83735; 84145; 85025; 85610; 85652; 85730; 86140; 87040; 87070; 87075; 87077; 87176; 87186; 87205; 88305; 88311; 93005; 93970; 96361; 96365; 96375; 97163; 99285; J1100; J2175; J2405; J2543; J3010; J3370; J3475; J3590; J7030

== ENCOUNTER 2018-11-03 11:07 | Emergency (ER) | payer SELFPAY ==
--- OUTSIDE RECORDS SUMMARY | 2018-11-03 11:08 | XMS REPORT ---
:1970 [facility] Address [address] [place] [address] Dr. Lee [address] [place] [id number] Care Team Providers Name Role Phone Unavailable Unavailable Unavailable Problems This patient has no known problems. Allergies, Adverse Reactions, Alerts This patient has no known allergies or adverse reactions. Medications This patient has no known medications.
--- NOTE | 2018-11-03 12:25 | RAD REPORT ---
EXAM DESCRIPTION: USExtrem Venous W Compress Bil11/03/2018 12:15 pm CLINICAL HISTORY: Bilateral leg pain COMPARISON: November 2017 FINDINGS: The common femoral, superficial femoral, popliteal and posterior tibial veins bilaterally are compressible and demonstrate augmentation. Doppler demonstrates good flow. IMPRESSION: No evidence of deep venous thrombosis involving either lower extremity.
[2018-11-03] MEDS ORDERED: HYDROCODONE/APAP 5/325 MG TAB ONE (13:25)
[2018-11-03 13:40] LABS: BUN Blood Urea Nitrogen 12 mg/dL (7-18); Bicarbonate 29 mmol/L (21-32); Glucose Level 262 mg/dL (74-106); Potassium 4.2 mmol/L (3.5-5.1); Sodium Level 138 mmol/L (136-145)
--- NOTE | 2018-11-03 14:12 | RAD REPORT ---
EXAM DESCRIPTION: CT - Chest For Pe Angio - 11/03/2018 1:58 pm CLINICAL HISTORY: Chest pain. bilateral leg swelling COMPARISON: Extrem Venous W Compress Lito dated 11/03/2018 TECHNIQUE: CT angiogram of the pulmonary arteries was performed with MIP. All CT scans are performed using dose optimization technique as appropriate and may include automated exposure control or mA/KV adjustment according to patient size. FINDINGS: No evidence of pulmonary thromboembolism. No acute aortic finding demonstrated. The lungs are clear. No significant pericardial or pleural fluid. No concerning bony finding. Bilateral renal stones seen. IMPRESSION: No evidence of pulmonary thromboembolism. No acute lung findings.
--- NOTE | 2018-11-03 14:15 | EDPHYS ---
Physician Documentation [facility] Name: Flex Del Valle Age: 48 yrs Sex: Male : 1970 Arrival Date: 11/03/2018 Time: 11:17 Bed 20 Private MD: out of town, doctor ED Physician Abdulaziz Booth HPI: 11/03 13:00 This 48 yrs old Black Male presents to ER via Wheelchair with complaints of Bilateral pm1 Leg Pain. 13:00 The patient presents with pain, that is acute. The complaints affect the left leg and pm1 right leg. Context: The problem was sustained at home, resulted from Long driving trip, the patient can fully bear weight, the patient is able to ambulate. Onset: The symptoms/episode began/occurred Onset since October 19, 2018. Modifying factors: The symptoms are alleviated by nothing. the symptoms are aggravated by nothing. Associated signs and symptoms: Pertinent positives: calf tenderness, Pertinent negatives fever, nausea, numbness, rash, swelling, tingling, vomiting, warmth, weakness, SOB, chest pain. Treatment prior to arrival includes: no previous treatment. Severity of symptoms: in the emergency department the symptoms are unchanged. The patient has experienced similar episodes in the past, a few times. The patient has not recently seen a physician. 13:00 Patient reports that he had a long car drive with his brother to [place] on October 19 pm1 th and was diagnosed with a DVT. Patient could not afford the Eliquis so he never took it. Historical: - Allergies: 11:34 Zithromax; tw2 11:34 Toradol; tw2 11:34 Phenergan; tw2 11:34 NSAIDS; tw2 11:34 Ibuprofen; tw2 11:34 Bactrim; tw2 11:34 BACLOFEN; tw2 11:34 Clindamycin; tw2 - PMHx: 11:34 Diabetes - NIDDM; DVT; Hypertension; neuropathy; tw2 - PSHx: 11:34 multiple toe amputations; tw2 - Immunization history:: Adult Immunizations. - Social history:: Smoking status: . - Ebola Screening: : Patient denies travel to an Ebola-affected area in the 21 days before illness onset. ROS: 13:00 Constitutional: Negative for fever, chills, and weight loss, Eyes: Negative for injury, pm1 pain, redness, and discharge, ENT: Negative for injury, pain, and discharge, Neck: Negative for injury, pain, and swelling, Cardiovascular: Negative for chest pain, palpitations, and edema, Respiratory: Negative for shortness of breath, cough, wheezing, and pleuritic chest pain, Abdomen/GI: Negative for abdominal pain, nausea, vomiting, diarrhea, and constipation, Back: Negative for injury and pain, : Negative for injury, bleeding, discharge, and swelling. 13:00 Skin: Negative for injury, rash, and discoloration, Neuro: Negative for headache, weakness, numbness, tingling, and seizure. 13:00 MS/extremity: Positive for pain, of the right leg and left leg, Negative for decreased range of motion, deformity. Exam: 13:00 Constitutional: This is a well developed, well nourished patient who is awake, alert, pm1 and in no acute distress. Head/Face: Normocephalic, atraumatic. Eyes: Pupils equal round and reactive to light, extra-ocular motions intact. Lids and lashes normal. Conjunctiva and sclera are non-icteric and not injected. Cornea within normal limits. Periorbital areas with no swelling, redness, or edema. ENT: Nares patent. No nasal discharge, no septal abnormalities noted. Tympanic membranes are normal and external auditory canals are clear. Oropharynx with no redness, swelling, or masses, exudates, or evidence of obstruction, uvula midline. Mucous membranes moist. Neck: Trachea midline, no thyromegaly or masses palpated, and no cervical lymphadenopathy. Supple, full range of motion without nuchal rigidity, or vertebral point tenderness. No Meningismus. Chest/axilla: Normal chest wall appearance and motion. Nontender with no deformity. No lesions are appreciated. Cardiovascular: Regular rate and rhythm with a normal S1 and S2. No gallops, murmurs, or rubs. Normal PMI, no JVD. No pulse deficits. Respiratory: Lungs have equal breath sounds bilaterally, clear to auscultation and percussion. No rales, rhonchi or wheezes noted. No increased work of breathing, no retractions or nasal flaring. Abdomen/GI: Soft, non-tender, with normal bowel sounds. No distension or tympany. No guarding or rebound. No evidence of tenderness throughout. Back: No spinal tenderness. No costovertebral tenderness. Full range of motion. Skin: Warm, dry with normal turgor. Normal color with no rashes, no lesions, and no evidence of cellulitis. 13:00 Musculoskeletal/extremity: Extremities: all appear grossly normal, with no appreciated pain with palpation, ROM: intact in all extremities, Sensation intact. 13:00 Neuro: Orientation: is normal, Motor: moves all fours, Sensation: is normal, no obvious gross deficits, Gait: is steady, at a normal pace, without difficulty. Vital Signs: 11:33 BP 133 / 82; Pulse 87; Resp 17; Temp 98.8(O); Pulse Ox 99% on R/A; Weight 111.13 kg tw2 (R); Height 6 ft. 1 in. (185.42 cm); Pain 8/10; 13:45 BP 128 / 76; Pulse 88; Resp 16; Temp 98.4(O); Pulse Ox 99% on R/A; Pain 3/10; ls4 11:33 Body Mass Index 32.32 (111.13 kg, 185.42 cm) tw2 MDM: 11:38 Patient medically screened. pm1 12:38 ED course: Patient surprised ultrasound is negative for DVT. I will get Ct chest. pm1 Patient currently without any shortness of breath or chest pain. 14:14 Data reviewed: vital signs. Data interpreted: Pulse oximetry: on room air is 99 %. pm1 Interpretation: normal. Counseling: I had a detailed discussion with the patient and/or guardian regarding: the historical points, exam findings, and any diagnostic results supporting the discharge/admit diagnosis, lab results, radiology results, the need for outpatient follow up, to return to the emergency department if symptoms worsen or persist or if there are any questions or concerns that arise at home. 03 12:38 Order name: BMP; Complete Time: 13:56 pm1 11/03 11:38 Order name: Extrem Venous W Compression Lito US; Complete Time: 12:30 pm1 11/03 12:38 Order name: IV Saline Lock; Complete Time: 12:52 pm1 11/03 12:38 Order name: CT Chest For PE Angio; Complete Time: 14:14 pm1 Administered Medications: 13:06 Drug: [place] 5 mg-325 mg 1 tabs Route: PO; ls4 13:36 Follow up: Response: No adverse reaction; Marked relief of symptoms ls4 Disposition: 11/04 07:24 Co-signature as Attending Physician, Abdulaziz Booth MD I agree with the assessment and kdr plan of care. Disposition: 11/03/18 14:15 Discharged to Home. Impression: Pain in left leg, Pain in right leg. - Condition is Stable. - Discharge Instructions: Musculoskeletal Pain. - Medication Reconciliation Form, Thank You Letter, Prescription Opioid Use form. - Follow up: Emergency Department; When: As needed; Reason: Worsening of condition. Follow up: Private Physician; When: 2 - 3 days; Reason: Recheck today's complaints, Continuance of care, Re-evaluation by your physician. - Problem is new. - Symptoms have improved. Signatures: Dispatcher [employer] EDMS Abdulaziz Booth MD MD [facility] Reji Asencio NP [employer] pm1 Niya Dinh RN RN tw2 Mary Ybarra RN RN ls4 Corrections: (The following items were deleted from the chart) 11/03 14:25 14:15 11/03/2018 14:15 Discharged to Home. Impression: Pain in left leg; Pain in right ls4 leg. Condition is Stable. Forms are Medication Reconciliation Form, Thank You Letter, Antibiotic Education, Prescription Opioid Use. Follow up: Emergency Department; When: As needed; Reason: Worsening of condition. Follow up: Private Physician; When: 2 - 3 days; Reason: Recheck today's complaints, Continuance of care, Re-evaluation by your physician. Problem is new. Symptoms have improved. pm1
--- NOTE | 2018-11-03 14:15 | ER ---
Nurse's Notes [facility] Name: lFex Del Valle Age: 48 yrs Sex: Male : 1970 Arrival Date: 11/03/2018 Time: 11:17 Bed 20 Private MD: out of town, doctor Diagnosis: Pain in left leg;Pain in right leg Presentation: 11/03 11:31 Presenting complaint: Patient states: i am having pain in my legs, it started a while tw2 back, my mother passed on the last month and we drove to [place], and i believe i have blood clots, more the left leg than the right. Transition of care: patient was not received from another setting of care. Onset of symptoms was November 03, 2018. Risk Assessment: Do you want to hurt yourself or someone else? Patient reports no desire to harm self or others. Initial Sepsis Screen: Does the patient meet any 2 criteria? No. Patient's initial sepsis screen is negative. Does the patient have a suspected source of infection? No. Patient's initial sepsis screen is negative. Care prior to arrival: None. 11:31 Method Of Arrival: Wheelchair tw2 11:31 Acuity: AB 4 tw2 Triage Assessment: 11:34 General: Appears in no apparent distress. Behavior is calm, cooperative, appropriate tw2 for age. Pain: Complains of pain in right leg and left leg. Historical: - Allergies: 11:34 Zithromax; tw2 11:34 Toradol; tw2 11:34 Phenergan; tw2 11:34 NSAIDS; tw2 11:34 Ibuprofen; tw2 11:34 Bactrim; tw2 11:34 BACLOFEN; tw2 11:34 Clindamycin; tw2 - PMHx: 11:34 Diabetes - NIDDM; DVT; Hypertension; neuropathy; tw2 - PSHx: 11:34 multiple toe amputations; tw2 - Immunization history:: Adult Immunizations. - Social history:: Smoking status: . - Ebola Screening: : Patient denies travel to an Ebola-affected area in the 21 days before illness onset. Screenin:46 Abuse screen: Denies threats or abuse. Denies injuries from another. Nutritional ls4 screening: No deficits noted. Tuberculosis screening: No symptoms or risk factors identified. Fall Risk None identified. Assessment: 11:59 General: Appears in no apparent distress. Behavior is calm, cooperative. Neuro: No ls4 deficits noted. Cardiovascular: Capillary refill < 3 seconds Patient's skin is warm and dry. Respiratory: No deficits noted. Musculoskeletal: Circulation, motion, and sensation intact. Capillary refill < 3 seconds, Range of motion: intact in all extremities. 12:38 Reassessment: Patient appears in no apparent distress at this time. Patient and/or ls4 family updated on plan of care and expected duration. Pain level reassessed. Patient is alert, oriented x 3, equal unlabored respirations, skin warm/dry/pink. 13:45 Reassessment: Patient appears in no apparent distress at this time. Patient and/or ls4 family updated on plan of care and expected duration. Pain level reassessed. Patient is alert, oriented x 3, equal unlabored respirations, skin warm/dry/pink. Vital Signs: 11:33 BP 133 / 82; Pulse 87; Resp 17; Temp 98.8(O); Pulse Ox 99% on R/A; Weight 111.13 kg tw2 (R); Height 6 ft. 1 in. (185.42 cm); Pain 8/10; 13:45 BP 128 / 76; Pulse 88; Resp 16; Temp 98.4(O); Pulse Ox 99% on R/A; Pain 3/10; ls4 11:33 Body Mass Index 32.32 (111.13 kg, 185.42 cm) tw2 ED Course: 11:17 Patient arrived in ED. mr 11:18 out of town, doctor is Private Physician. mr 11:32 Triage completed. tw2 11:34 Arm band placed on. tw2 11:37 Reji Asencio NP is PHCP. pm1 11:37 Abdulaziz Booth MD is Attending Physician. pm1 11:45 Mary Ybarra, ALF is Primary Nurse. ls4 11:46 Patient has correct armband on for positive identification. Bed in low position. Call ls4 light in reach. Side rails up X 1. 12:00 No provider procedures requiring assistance completed. ls4 12:15 Ultrasound completed. Patient tolerated well. Patient moved back from ultrasound. aa4 12:15 Extrem Venous W Compression Lito US In Process Unspecified. EDMS 12:50 Radiology exam delayed due to lab results not completed at this time. (BUN/Creatinine). jg6 12:52 Initial lab(s) drawn, by me, sent to lab. Inserted saline lock: 20 gauge in right ls4 antecubital area, using aseptic technique. Blood collected. 13:54 CT completed. Patient tolerated procedure well. Patient moved to CT via wheelchair. jg6 13:59 CT Chest For PE Angio In Process Unspecified. EDMS 14:24 IV discontinued, intact, bleeding controlled, No redness/swelling at site. Pressure ls4 dressing applied. Administered Medications: 13:06 Drug: [place] 5 mg-325 mg 1 tabs Route: PO; ls4 13:36 Follow up: Response: No adverse reaction; Marked relief of symptoms ls4 Outcome: 14:15 Discharge ordered by MD. pm1 14:24 Discharged to home ambulatory, with family. ls4 14:24 Condition: stable 14:24 Discharge instructions given to patient, family, Instructed on discharge instructions, follow up and referral plans. medication usage, Demonstrated understanding of instructions, follow-up care, medications. 14:25 Patient left the ED. ls4 Signatures: Dispatcher [employer] EDBernadine Bhatti mr Betancur, Yesy aa4 Reji Asencio, PIECER UP PIECER UP pm1 Niya Dinh RN RN tw2 Amparo David jg6 Mary Ybarra, RN RN ls4
[2018-11-03 14:32] VITALS: O2SAT 99
[2018-11-03 14:34] VITALS: BP 128/76; TEMP 98.4
== END 2018-11-03 14:25 | disposition home or self-care (01) ==
LOC: ER 11:07
DX: M79.604 Pain in right leg (principal); I10 Essential (primary) hypertension; Z88.1 Allergy status to other antibiotic agents; Z88.3 Allergy status to other anti-infective agents; Z88.5 Allergy status to narcotic agent; Z88.6 Allergy status to analgesic agent; Z88.8 Allergy status to other drugs, medicaments and biological substances; Z86.718 Personal history of other venous thrombosis and embolism
CPT/HCPCS: 36415; 71275; 80048; 93970; 99284; Q9967

== ENCOUNTER 2018-12-15 18:28 | Inpatient (IN) | payer OTHER, SELFPAY ==
--- OUTSIDE RECORDS SUMMARY | 2018-12-15 18:29 | XMS REPORT ---
:1970 [facility] Address [address] [place] [address] [address] [place] [address] Care Team Providers Name Role Phone Unavailable Unavailable Unavailable Problems This patient has no known problems. Allergies, Adverse Reactions, Alerts This patient has no known allergies or adverse reactions. Medications This patient has no known medications.
[2018-12-15 19:44] LABS: Absolute Lymphocytes (CBC) 1.8 K/uL (0.7-4.9); Absolute Monocytes 0.8 K/uL (0.1-1.3); Basophils % 0.4 % (0-1.3); Eosinophils % 0.5 % (0-4.4); Hematocrit 40.7 % (39.6-49.0); Monocytes % 6.5 % (3.3-12.3); RBC Red Blood Cell Count 4.83 M/uL (4.33-5.43)
[2018-12-15 19:45] LABS: Protime INR 1.07
[2018-12-15] MEDS ORDERED: NA CHLORIDE 0.9% 1,000 ML ONE ×2 (19:58→21:00)
[2018-12-15] MEDS ORDERED: FENTANYL CITR 100 MCG/2 ML ONE (19:58)
[2018-12-15] MEDS ORDERED: ONDANSETRON 4 MG/2 ML VIAL ONE (19:58)
[2018-12-15 20:05] LABS: ALT/SGPT 25 U/L (12-78); AST/SGOT 9 U/L (15-37); Albumin 4.3 g/dL (3.4-5.0); Alkaline Phosphatase 107 U/L (45-117); BUN Blood Urea Nitrogen 14 mg/dL (7-18); Bicarbonate 28 mmol/L (21-32); Bilirubin Direct 0.2 mg/dL (0-0.2); Bilirubin Total 0.7 mg/dL (0.2-1.0); Glucose Level 221 mg/dL (74-106); Magnesium 1.9 mg/dL (1.8-2.4); NT PRO-BNP 6 pg/mL (<125); Sodium Level 140 mmol/L (136-145); Troponin (Emerg Dept Use Only) < 0.02 ng/mL (0.0-0.045)
--- NOTE | 2018-12-15 20:23 | RAD REPORT ---
EXAM DESCRIPTION: Ian Single View12/15/2018 8:14 pm CLINICAL HISTORY: Chest pain COMPARISON: none FINDINGS: The lungs appear clear of acute infiltrate. The heart is normal size IMPRESSION: No acute abnormalities displayed
--- NOTE | 2018-12-15 20:29 | RAD REPORT ---
EXAM DESCRIPTION: USExtrem Venous W Compress Bil12/15/2018 8:24 pm CLINICAL HISTORY: Leg pain COMPARISON: October 2018 FINDINGS: The common femoral, superficial femoral, popliteal and posterior tibial veins bilaterally are compressible and demonstrate augmentation. Doppler demonstrates good flow. IMPRESSION: No evidence of deep venous thrombosis involving either lower extremity.
--- NOTE | 2018-12-15 21:20 | EDPHYS ---
Physician Documentation [facility] Name: Flex Del Valle Age: 48 yrs Sex: Male : 1970 Arrival Date: 12/15/2018 Time: 18:30 Bed 28 Private MD: ED Physician Figueroa Ramirez HPI: 12/15 19:10 This 48 yrs old Black Male presents to ER via Wheelchair with complaints of Leg Pain, cp Chest Pain. 19:10 The patient presents with pain, swelling, tenderness. The complaints affect the right cp leg and left leg. Context: resulted from an unknown cause, the patient can fully bear weight. Onset: The symptoms/episode began/occurred gradually, and became worse today. 19:10 Associated signs and symptoms: Pertinent positives: calf tenderness, warmth, Pertinent cp negatives vomiting. 19:10 Treatment prior to arrival includes: no previous treatment. cp Historical: - Allergies: 18:40 BACLOFEN; sv 18:40 Bactrim; sv 18:40 Clindamycin; sv 18:40 Ibuprofen; sv 18:40 NSAIDS; sv 18:40 Phenergan; sv 18:40 Toradol; sv 18:40 Zithromax; sv - PMHx: 18:40 Diabetes - NIDDM; DVT; Hypertension; neuropathy; sv - PSHx: 18:40 multiple toe amputations; sv - Immunization history:: Adult Immunizations up to date. - Social history:: Smoking status: Patient/guardian denies using tobacco, Patient/guardian denies using alcohol. - Ebola Screening: : No symptoms or risks identified at this time. ROS: 19:20 Constitutional: Positive for low grade fever, Negative for body aches, chills, poor PO cp intake. 19:20 Cardiovascular: Positive for chest pain, of the anterior aspect of left upper chest, cp Negative for palpitations. 19:20 ENT: Negative for drainage from ear(s), ear pain, sore throat, difficulty swallowing, cp difficulty handling secretions. 19:20 Respiratory: Negative for cough, shortness of breath, wheezing. 19:20 Abdomen/GI: Negative for abdominal pain, vomiting, diarrhea, constipation, black/tarry stool, rectal bleeding. 19:20 MS/extremity: Positive for pain, of the right leg and left leg. 19:20 Skin: Positive for of the right foot, pressure ulcers. 19:20 Neuro: Negative for altered mental status, headache, weakness. 19:20 All other systems are negative. Exam: 18:55 ECG was reviewed by the Attending Physician. cp 19:25 Constitutional: The patient appears in no acute distress, alert, awake, cp non-diaphoretic, non-toxic, well developed, well nourished, uncomfortable. 19:25 Head/Face: Normocephalic, atraumatic. cp 19:25 Eyes: Periorbital structures: appear normal, Conjunctiva: normal, no exudate, no injection, Sclera: no appreciated abnormality, Lids and lashes: appear normal, bilaterally. 19:25 ENT: External ear(s): are unremarkable, Ear canal(s): are normal, clear, TM's: dullness, bilaterally, Nose: is normal, Mouth: Lips: moist, Oral mucosa: pink and intact, moist, Posterior pharynx: is normal, airway is patent, no erythema, no exudate. 19:25 Chest/axilla: Inspection: normal, Palpation: is normal, no crepitus, no tenderness. 19:25 Cardiovascular: Rate: normal, Rhythm: regular. 19:25 Respiratory: the patient does not display signs of respiratory distress, Respirations: normal, no use of accessory muscles, no retractions, no splinting, no tachypnea, labored breathing, is not present, Breath sounds: are clear throughout, no decreased breath sounds, no stridor, no wheezing. 19:25 Abdomen/GI: Inspection: abdomen appears normal, Bowel sounds: active, all quadrants, Palpation: abdomen is soft and non-tender, in all quadrants, rebound tenderness, is not appreciated, voluntary guarding, is not appreciated, involuntary guarding, is not appreciated. 19:25 Musculoskeletal/extremity: tenderness noted medial aspect of right leg. 19:25 Skin: noted multiple pressure ulcer plantar surface of right foot, right great toe with erythema, mild swelling. Vital Signs: 18:40 BP 128 / 76; Pulse 99; Resp 20; Temp 100.3(O); Pulse Ox 96% ; sv 20:00 BP 122 / 84; Pulse 96; Resp 16; Pulse Ox 96% on R/A; jb4 21:00 BP 132 / 82; Pulse 88; Resp 19; Pulse Ox 100% on R/A; jb4 22:45 BP 122 / 82; Pulse 83; Resp 16; Pulse Ox 95% on R/A; jb4 23:15 BP 128 / 91; Pulse 83; Resp 16; Temp 97.9(O); Pulse Ox 95% on R/A; jb4 MDM: 19:08 Patient medically screened. cp 21:00 Data reviewed: vital signs, nurses notes, lab test result(s), EKG, radiologic studies, cp ultrasound. 21:00 Test interpretation: by ED physician or midlevel provider: ECG. Counseling: I had a cp detailed discussion with the patient and/or guardian regarding: the historical points, exam findings, and any diagnostic results supporting the discharge/admit diagnosis, lab results, radiology results, the need for further work-up and treatment in the hospital. Response to treatment: the patient's symptoms have mildly improved after treatment. 21:03 Physician consultation: Kd Cali MD was called at 21:00, was contacted at 21:00, cp regarding admission, to the medical/surgical unit. patient's condition, and will see patient in ED. 22:48 Physician consultation: Robert Hernandez MD was called at 22:48, was contacted at 22:48, regarding consult, patient's condition, and will see patient tomorrow. 12/15 19:27 Order name: Basic Metabolic Panel; Complete Time: 20:33 cp 12/15 20:34 Interpretation: Normal except: GLUC 221; GFR 85. cp 12/15 19:27 Order name: CBC with Diff; Complete Time: 20:33 cp 12/15 20:34 Interpretation: Normal except: WBC 12.8; HGB 13.1; MCV 84.3; LATRICIA% 78.6; LYM% 14.0; NEUT cp A 10.0. 12/15 19:27 Order name: LFT's; Complete Time: 20:33 cp 12/15 20:34 Interpretation: Normal except: AST 9; TP 9.0; GLOB 4.7; A/G 0.9. cp 12/15 19:27 Order name: Magnesium; Complete Time: 20:33 cp 12/15 19:27 Order name: NT PRO-BNP; Complete Time: 20:33 cp 12/15 19:27 Order name: PT-INR; Complete Time: 20:33 cp 12/15 19:27 Order name: Troponin (emerg Dept Use Only); Complete Time: 20:33 cp 12/15 19:27 Order name: XRAY Chest (1 view); Complete Time: 20:33 cp 12/15 19:31 Order name: Blood Culture Adult (2) cp 12/15 19:31 Order name: Procalcitonin cp 12/15 19:31 Order name: Lactate; Complete Time: 20:33 cp 12/15 20:35 Interpretation: Abnormal: LAC 2.2. cp 12/15 19:31 Order name: US Extremity Venous W Compression Lito; Complete Time: 20:33 cp 12/15 18:48 Order name: EKG; Complete Time: 18:49 sv 12/15 18:48 Order name: EKG - Nurse/Tech; Complete Time: 18:48 sv 12/15 19:27 Order name: Cardiac monitoring; Complete Time: 19:35 cp 12/15 19:27 Order name: IV Saline Lock; Complete Time: 19:35 cp 12/15 19:27 Order name: Labs collected and sent; Complete Time: 19:35 cp 12/15 19:27 Order name: O2 Per Protocol; Complete Time: 19:35 cp 12/15 19:27 Order name: O2 Sat Monitoring; Complete Time: 19:35 cp EC:55 Rate is 101 beats/min. Rhythm is regular. OH interval is normal. QRS interval is cp normal. QT interval is normal. Interpreted by me. Reviewed by me. Administered Medications: 19:50 Drug: Zofran 4 mg Route: IVP; Site: left forearm; mg2 21:24 Follow up: Response: No adverse reaction; Nausea is decreased jb4 19:50 Drug: fentaNYL (PF) 25 mcg Route: IVP; Site: left forearm; mg2 20:30 Follow up: Response: No adverse reaction; Pain is decreased jb4 19:50 Drug: NS 0.9% 1000 ml Route: IV; Rate: 1 bolus; Site: left forearm; mg2 20:45 Follow up: Response: No adverse reaction; IV Status: Completed infusion; IV Intake: jb4 1000ml 20:55 Drug: NS 0.9% 1000 ml Route: IV; Rate: 1 bolus; Site: left forearm; jb4 21:46 Follow up: Response: No adverse reaction; IV Status: Completed infusion; IV Intake: jb4 1000ml 20:58 Drug: fentaNYL (PF) 25 mcg Route: IVP; Site: left forearm; jb4 21:20 Follow up: Response: No adverse reaction; Pain is unchanged, physician notified jb4 21:28 Drug: morphine 4 mg Route: IVP; Site: left forearm; jb4 22:45 Follow up: Response: No adverse reaction; Pain is decreased jb4 21:30 Drug: Zosyn 3.375 grams Route: IVPB; Infused Over: 60 mins; Site: left forearm; jb4 22:30 Follow up: Response: No adverse reaction; IV Status: Completed infusion; IV Intake: jb4 100ml 22:56 Drug: vancoMYCIN 1 grams Route: IVPB; Infused Over: 2 hrs; Site: left forearm; jb4 23:27 Follow up: Response: No adverse reaction; IV Status: Infusion continued upon admission jb4 Disposition: 23:45 Chart complete. cp Disposition: 12/15/18 21:20 Hospitalization ordered by Kd Cali for Inpatient Admission. Preliminary diagnosis is Cellulitis and acute lymphangitis of other parts of limb - Right foot and leg. - Bed requested for Telemetry/MedSurg (Inpatient). - Status is Inpatient Admission. jb4 - Condition is Stable. - Problem is new. - Symptoms have improved. UTI on Admission? No Addendum: 12/21/2018 23:23 Co-signature as Attending Physician, Figueroa Ramirez MD. r n Signatures: Dispatcher [employer] EDTatyana Hill RN RN Figueroa Ramirez MD MD rn Page, Corey, PA PA Saba David RN RN Ernesto Mayorga RN RN [facility] Blaze Shepard RN RN mg2 Corrections: (The following items were deleted from the chart) 12/15 22:45 21:20 Hospitalization Ordered by Kd Cali MD for Inpatient Admission. Preliminary cg diagnosis is Cellulitis and acute lymphangitis of other parts of limb - Right foot and leg. Bed requested for Telemetry/MedSurg (Inpatient). Status is Inpatient Admission. Condition is Stable. Problem is new. Symptoms have improved. UTI on Admission? No. cp 23:32 22:45 12/15/2018 21:20 Hospitalization Ordered by Kd Cali MD for Inpatient jb4 Admission. Preliminary diagnosis is Cellulitis and acute lymphangitis of other parts of limb - Right foot and leg. Bed requested for Telemetry/MedSurg (Inpatient). Status is Inpatient Admission. Condition is Stable. Problem is new. Symptoms have improved. UTI on Admission? No. cg
--- NOTE | 2018-12-15 21:20 | ER ---
Nurse's Notes [facility] Name: Flex Del Valle Age: 48 yrs Sex: Male : 1970 Arrival Date: 12/15/2018 Time: 18:30 Bed 28 Private MD: Diagnosis: Cellulitis and acute lymphangitis of other parts of limb-Right foot and leg Presentation: 12/15 18:37 Transition of care: patient was not received from another setting of care. sv 18:37 Method Of Arrival: Wheelchair sv 18:37 Presenting complaint: Patient states: RLE pain started yesterday and reports chest pain sv a couple of days ago as well. Onset of symptoms was December 14, 2018. 18:37 Acuity: AB 3 sv 19:00 Risk Assessment: Do you want to hurt yourself or someone else? Patient reports no jb4 desire to harm self or others. Initial Sepsis Screen: Does the patient meet any 2 criteria? HR > 90 bpm. Yes Does the patient have a suspected source of infection? No. Patient's initial sepsis screen is negative. Care prior to arrival: None. Historical: - Allergies: 18:40 BACLOFEN; sv 18:40 Bactrim; sv 18:40 Clindamycin; sv 18:40 Ibuprofen; sv 18:40 NSAIDS; sv 18:40 Phenergan; sv 18:40 Toradol; sv 18:40 Zithromax; sv - PMHx: 18:40 Diabetes - NIDDM; DVT; Hypertension; neuropathy; sv - PSHx: 18:40 multiple toe amputations; sv - Immunization history:: Adult Immunizations up to date. - Social history:: Smoking status: Patient/guardian denies using tobacco, Patient/guardian denies using alcohol. - Ebola Screening: : No symptoms or risks identified at this time. Screenin:20 Abuse screen: Denies threats or abuse. Nutritional screening: No deficits noted. jb4 Tuberculosis screening: No symptoms or risk factors identified. Fall Risk IV access (20 points). Ambulatory Aid- Crutches/Cane/Walker (15 pts). Gait- Normal/Bed Rest/Wheelchair (0 pts) Mental Status- Oriented to own ability (0 pts). Total Virk Fall Scale indicates Low Risk Score (25-44 pts). Fall prevention measures have been instituted. Side Rails Up X 2 Placed close to Nursing Station Frequent Obs/Assesments occuring Family Present and informed to notify staff if they need to leave bedside. Assessment: 19:20 General: Appears in no apparent distress. uncomfortable, Behavior is calm, cooperative, jb4 appropriate for age. Pain: Complains of pain in anterior aspect of left upper chest and right foot Pain radiates to right leg Pain Quality of pain is described as aching, throbbing, Deep and tender. Pain began 2-3 days ago. Is continuous. Neuro: Level of Consciousness is awake, alert, obeys commands, Oriented to person, place, time, situation. Cardiovascular: Patient's skin is warm and dry. Rhythm is sinus tachycardia. Respiratory: Airway is patent Respiratory effort is even, unlabored, Respiratory pattern is regular, symmetrical. GI: No signs and/or symptoms were reported involving the gastrointestinal system. : No signs and/or symptoms were reported regarding the genitourinary system. EENT: No signs and/or symptoms were reported regarding the EENT system. Derm: Skin is dry, Skin is normal, Skin temperature is warm Reports Diabetic ulcers to the feet. 20:40 Reassessment: Patient appears in no apparent distress at this time. Patient and/or jb4 family updated on plan of care and expected duration. Pain level reassessed. Patient is alert, oriented x 3, equal unlabored respirations, skin warm/dry/pink. PT reports increase in pain after ultrasound. Provider notified, see MAR for orders. 21:20 Reassessment: Patient appears in no apparent distress at this time. Patient and/or jb4 family updated on plan of care and expected duration. Pain level reassessed. Patient is alert, oriented x 3, equal unlabored respirations, skin warm/dry/pink. PT reports that pain medication did not help, Provider notified, see MAR for orders. 22:20 Reassessment: Patient appears in no apparent distress at this time. Patient and/or jb4 family updated on plan of care and expected duration. Pain level reassessed. Patient is alert, oriented x 3, equal unlabored respirations, skin warm/dry/pink. Patient states feeling better. 23:30 Reassessment: Patient appears in no apparent distress at this time. Patient and/or jb4 family updated on plan of care and expected duration. Pain level reassessed. Patient is alert, oriented x 3, equal unlabored respirations, skin warm/dry/pink. PT transported upstairs to new room via wheelchair with cardio tech. Vancomycin infusion paused during transport. Report called to [facility]. Pt is awake, alert, and oriented x4. No s/s of distress noted. reports still having some pain but overall pain is better. has a 20 gauge IV to the left forearm, dressing is clean dry and intact. Family is with the patient during transport. Patient states feeling better. Vital Signs: 18:40 BP 128 / 76; Pulse 99; Resp 20; Temp 100.3(O); Pulse Ox 96% ; sv 20:00 BP 122 / 84; Pulse 96; Resp 16; Pulse Ox 96% on R/A; jb4 21:00 BP 132 / 82; Pulse 88; Resp 19; Pulse Ox 100% on R/A; jb4 22:45 BP 122 / 82; Pulse 83; Resp 16; Pulse Ox 95% on R/A; jb4 23:15 BP 128 / 91; Pulse 83; Resp 16; Temp 97.9(O); Pulse Ox 95% on R/A; jb4 ED Course: 18:30 Patient arrived in ED. mr 18:39 Triage completed. sv 18:40 Arm band placed on. sv 18:48 EKG completed in triage. Results shown to . sv 18:50 Placed in gown. Bed in low position. Call light in reach. Side rails up X 1. jp3 18:58 Ernesto Mayorga RN is Primary Nurse. jb4 19:02 Jaime Ramirez PA is PHCP. cp 19:02 Figueroa Ramirez MD is Attending Physician. cp 19:20 Inserted saline lock: 20 gauge in left forearm, using aseptic technique. Blood jb4 collected. Patient maintains SpO2 saturation greater than 95% on room air. 19:20 First set of blood cultures drawn by me. jb4 19:30 Warm blanket given. Pillow given. Pulse ox on. NIBP on. jp3 19:35 Second set of blood cultures drawn by me. jb4 19:50 Lactate Sent. jp3 19:50 Blood Culture Adult (2) Sent. jp3 19:50 Procalcitonin Sent. jp3 20:15 XRAY Chest (1 view) In Process Unspecified. EDMS 20:24 US Extremity Venous W Compression Lito In Process Unspecified. EDMS 21:19 Kd Cali MD is Hospitalizing Provider. cp 23:25 No provider procedures requiring assistance completed. Patient admitted, IV remains in jb4 place. Administered Medications: 19:50 Drug: Zofran 4 mg Route: IVP; Site: left forearm; mg2 21:24 Follow up: Response: No adverse reaction; Nausea is decreased jb4 19:50 Drug: fentaNYL (PF) 25 mcg Route: IVP; Site: left forearm; mg2 20:30 Follow up: Response: No adverse reaction; Pain is decreased jb4 19:50 Drug: NS 0.9% 1000 ml Route: IV; Rate: 1 bolus; Site: left forearm; mg2 20:45 Follow up: Response: No adverse reaction; IV Status: Completed infusion; IV Intake: jb4 1000ml 20:55 Drug: NS 0.9% 1000 ml Route: IV; Rate: 1 bolus; Site: left forearm; jb4 21:46 Follow up: Response: No adverse reaction; IV Status: Completed infusion; IV Intake: jb4 1000ml 20:58 Drug: fentaNYL (PF) 25 mcg Route: IVP; Site: left forearm; jb4 21:20 Follow up: Response: No adverse reaction; Pain is unchanged, physician notified jb4 21:28 Drug: morphine 4 mg Route: IVP; Site: left forearm; jb4 22:45 Follow up: Response: No adverse reaction; Pain is decreased jb4 21:30 Drug: Zosyn 3.375 grams Route: IVPB; Infused Over: 60 mins; Site: left forearm; jb4 22:30 Follow up: Response: No adverse reaction; IV Status: Completed infusion; IV Intake: jb4 100ml 22:56 Drug: vancoMYCIN 1 grams Route: IVPB; Infused Over: 2 hrs; Site: left forearm; jb4 23:27 Follow up: Response: No adverse reaction; IV Status: Infusion continued upon admission jb4 Intake: 20:45 IV: 1000ml; Total: 1000ml. jb4 21:46 IV: 1000ml; Total: 2000ml. jb4 22:30 IV: 100ml; Total: 2100ml. jb4 Outcome: 21:20 Decision to Hospitalize by Provider. cp 23:25 Admitted to [facility] accompanied by tech, via wheelchair, room 407, with chart, Report jb4 called to [facility] 23:25 Condition: stable 23:25 Discharge instructions given to patient, family, Instructed on the need for admit, Demonstrated understanding of instructions. 23:32 Patient left the ED. jb4 Signatures: Dispatcher [employer] EDTatyana Hill RN RN sv RiveraBernadine mr Ashley, IESHA Sandoval cp, James, RN RN jb4 Blaze Shepard RN RN [facility] Cayetano Petersen jp3
[2018-12-15] MEDS ORDERED: MORPHINE 4 MG/ML SYR ONE (21:40)
[2018-12-15] MEDS ORDERED: PIPER/TAZO/NS 3.375gm 3.375 GM/100 ML BAG ONE (21:41)
[2018-12-15] MEDS ORDERED: VANCOMYCIN 1 GM/VIAL ONE (21:41)
[2018-12-15] MEDS ORDERED: NA CHLORIDE 0.9% 250 ML ONE (21:41)
--- NOTE | 2018-12-15 22:50 | P.HP ---
Certification for Inpatient Patient admitted to: Inpatient With expected LOS: >2 Midnights Practitioner: I am a practitioner with admitting privileges, knowledge of patient current condition, hospital course, and medical plan of care. Services: Services provided to patient in accordance with Admission requirements found in Title 42 Section 412.3 of the Code of Federal Regulations Patient History Date of Service: 12/15/18 Reason for admission: diabetic foot ulcer History of Present Illness: Mr Del Valle is a 48 years old male with history of DM II poorly controlled, DVT/PE , diabetic neuropathy, chronic diabetic ulcer on his right foot, having frequent wound care follow up at [facility], last visit was today, and he was recommended to go to ER due to worsening wound condition. He also has had fever since yesterday, max temp at home was 100.9 F, no history of SOB, cough, but has had nausea and vomiting. Also he is complaining of right leg pain since yesterday as well. In ER temp was 100.4 F, lab work shows leukocytosis 12.8, elevated lactate and normal procalcitonin. Right foot ulcer has changed its color, has yellowish secretion. Allergies vancomycin Allergy (Intermediate, Verified 12/05/17 04:20) makes me unable to see ketorolac tromethamine [From Toradol] Allergy (Unknown, Verified 12/22/12 00:49) Shortness of breath azithromycin [From Zithromax] Allergy (Verified 12/06/17 07:33) Unknown baclofen Allergy (Verified 12/06/17 07:33) Unknown ibuprofen Allergy (Verified 12/06/17 07:33) Unknown levofloxacin [From Levaquin] Allergy (Verified 12/05/17 04:20) Itching/Hives/Rash promethazine [From Phenergan] Allergy (Verified 12/06/17 07:33) Unknown sulfamethoxazole [From Bactrim] Allergy (Verified 12/06/17 07:33) Unknown trimethoprim [From Bactrim] Allergy (Verified 12/06/17 07:33) Unknown NSAIDS Allergy (Uncoded 12/06/17 07:33) Unknown Home Medications: Metformin ER [Glucophage ER*] 1,000 mg PO BID 12/05/17 levoFLOXacin [Levaquin] 750 mg PO DAILY #14 tab 12/07/17 - Past Medical/Surgical History Diabetic: Yes -: diabetes mellitus II -: Hx of DVT -: HTN -: toes amputation - Family History Father -: Hypertension Mother -: Diabetes - Social History Smoking Status: Never smoker Alcohol use: Yes CD- Drugs: No Caffeine use: Yes Place of Residence: Home Review of Systems 10-point ROS is otherwise unremarkable Physical Examination - Physical Exam General: Alert, In no apparent distress HEENT: Atraumatic, PERRLA, Mucous membr. moist/pink, EOMI, Sclerae nonicteric Neck: Supple, 2+ carotid pulse no bruit, No LAD, Without JVD or thyroid abnormality Respiratory: Clear to auscultation bilaterally, Normal air movement Cardiovascular: Regular rate/rhythm, Normal S1 S2 Gastrointestinal: Normal bowel sounds, No tenderness Musculoskeletal: No tenderness Integumentary: Skin lesion, Tenderness/swelling, Warmth, Diabetic ulcer (right foot) Neurological: Normal gait, Normal speech, Normal strength at 5/5 x4 extr, Normal tone, Normal affect Lymphatics: No axilla or inguinal lymphadenopathy - Studies Laboratory Data (last 24 hrs) 12/15/18 19:35: PT 12.6 H, INR 1.07 12/15/18 19:35: WBC 12.8 H, Hgb 13.1 L, Hct 40.7, Plt Count 227 12/15/18 19:35: Sodium 140, Potassium 4.0, BUN 14, Creatinine 1.11, Glucose 221 H, Magnesium 1.9, Total Bilirubin 0.7, AST 9 L, ALT 25, Alkaline Phosphatase 107 Assessment and Plan - Problems (Diagnosis) (1) Diabetes mellitus Onset Date: 12/07/17 Current Visit: No Status: Acute Qualifiers: Diabetes mellitus type: type 2 Diabetes mellitus oysterman insulin use: without oysterman use Diabetes mellitus complication status: with skin complications Diabetes mellitus complication detail: with foot ulcer Qualified Code(s): E11.621 - Type 2 diabetes mellitus with foot ulcer; L97.509 - Non-pressure chronic ulcer of other part of unspecified foot with unspecified severity; L97.509 - Non-pressure chronic ulcer of other part of unspecified foot with unspecified severity; L97.509 - Non-pressure chronic ulcer of other part of unspecified foot with unspecified severity; L97.509 - Non-pressure chronic ulcer of other part of unspecified foot with unspecified severity (2) HTN (hypertension) Onset Date: 12/07/17 Current Visit: No Status: Acute Qualifiers: Hypertension type: essential hypertension Qualified Code(s): I10 - Essential (primary) hypertension (3) Hx of deep venous thrombosis Onset Date: 12/07/17 Current Visit: No Status: Acute (4) diabetic ulcer Onset Date: 12/07/17 Current Visit: No Status: Acute - Plan Will admit the patient to start empiric IV antibiotics, blood culture are in process, consult Dr Hernandez for evaluation and recommendations. Will keep the patient NPO after MN. - Advance Directives Does patient have a Living Will: No Does patient have a Durable POA for Healthcare: No - Code Status/Comfort Care Code Status Assessed: Yes Code Status: Full Code
[2018-12-15] MEDS ORDERED: ACETAMINOPHEN 500 MG TAB PO PRN (23:38)
[2018-12-15] MEDS ORDERED: DAPTOMYCIN IVPB SCH (23:38)
[2018-12-15] MEDS ORDERED: NA CHLORIDE 0.9% IVPB SCH (23:38)
[2018-12-15 23:55] VITALS: BMI 33.3
[2018-12-16] MEDS: NA CHLORIDE 0.9% 1,000 ML IV SCH ×4 (01:14→19:38)
[2018-12-16] MEDS ORDERED: TRAMADOL HCL 50 MG TAB PO ONE (02:14)
[2018-12-16] MEDS ORDERED: PIPER/TAZO/NS 3.375gm 3.375 GM/100 ML BAG ONE ×2 (02:38→06:04)
[2018-12-16 04:18] LABS: Absolute Lymphocytes (CBC) 2.1 K/uL (0.7-4.9); Absolute Monocytes 0.9 K/uL (0.1-1.3); Absolute Neutrophil 7.3 K/uL (1.8-8.0); Basophils % 0.6 % (0-1.3); Eosinophils % 1.2 % (0-4.4); Hematocrit 32.8 % (39.6-49.0); Lymphocytes % 20.1 % (15.3-44.8); MPV 9.4 fL (7.6-11.3); Monocytes % 8.5 % (3.3-12.3); RBC Red Blood Cell Count 3.93 M/uL (4.33-5.43)
[2018-12-16 04:38] LABS: BUN Blood Urea Nitrogen 13 mg/dL (7-18); Bicarbonate 28 mmol/L (21-32); Glucose Level 218 mg/dL (74-106); Potassium 4.1 mmol/L (3.5-5.1); Sodium Level 142 mmol/L (136-145)
--- NOTE | 2018-12-16 05:09 | EKG ---
Test Date: 2018-12-15 Test Time: 18:45:22 Machine Baster: ALLEGRA MEASUREMENT RESULTS: Intervals: Rate: 101 DC: 146 QRSD: 84 QT: 332 QTc: 430 Dunlap: P: 54 DC: 146 QRS: 69 T: 65 INTERPRETIVE STATEMENTS: Sinus tachycardia Otherwise normal ECG Compared to ECG 12/05/2017 01:53:21 Sinus rhythm no longer present Electronically Signed On 12-16-18 05:08:27 CDT by Garo Curiel
[2018-12-16] MEDS: PIPER/TAZO/NS 3.375gm 3.375 GM/100 ML BAG IVPB SCH ×3 (05:59→16:08)
[2018-12-16] MEDS: MORPHINE 2 MG/ML SYR IV PRN ×3 (06:40→19:54)
[2018-12-16] MEDS ORDERED: GLUCAGON 1 MG/VIAL IM PRN (06:48)
[2018-12-16] MEDS ORDERED: D50W 25 GM/50 ML SYRINGE IV PRN (06:48)
[2018-12-16] MEDS: INSULIN -REGULAR HUMAN 50 UNIT/0.5 ML ML SQ SCH ×4 (07:30→21:48)
[2018-12-16] MEDS ORDERED: REGADENOSON 0.4 MG/5 ML SYR IV ONE (08:50)
[2018-12-16] MEDS ORDERED: AMLODIPINE 10 MG TAB PO SCH (09:00)
[2018-12-16] MEDS ORDERED: LOSARTAN POTASSIUM 50 MG TABLET PO SCH (09:00)
[2018-12-16] MEDS: DAPTOmycin 400 MG in NA CHLORIDE 0.9% 100 ML IVPB SCH (09:15)
--- NOTE | 2018-12-16 09:42 | P.PN ---
Subjective Date of Service: 12/16/18 Primary Care Provider: Dr. Ernst([place], [place]); Wound care-Dr. Holder Chief Complaint: diabetic foot ulcer Subjective: Other (reported some chest pain.) Physical Examination - Vital Signs Temperature: 98.9 F Blood Pressure: 97/55 Pulse: 83 Respirations: 16 Pulse Ox (%): 96 - Physical Exam General: Alert, In no apparent distress, Oriented x3, Cooperative HEENT: Atraumatic Neck: Supple Respiratory: Clear to auscultation bilaterally, Normal air movement Cardiovascular: Normal pulses, Regular rate/rhythm Gastrointestinal: Normal bowel sounds, Soft and benign, Non-distended, No masses , No rebound, No guarding Integumentary: Other (Swelling to the right great toe. Mild erythema) Neurological: Normal speech, Normal strength at 5/5 x4 extr, Normal tone - Studies Laboratory Data (last 24 hrs) 12/15/18 19:35: PT 12.6 H, INR 1.07 12/15/18 19:35: WBC 12.8 H, Hgb 13.1 L, Hct 40.7, Plt Count 227 12/15/18 19:35: Sodium 140, Potassium 4.0, BUN 14, Creatinine 1.11, Glucose 221 H, Magnesium 1.9, Total Bilirubin 0.7, AST 9 L, ALT 25, Alkaline Phosphatase 107 Medications List Reviewed: Yes Assessment & Plan Discharge Plan: Home Plan to discharge in: 72 Hours Physician Review Additional Text: Impression: Right great toe diabetic ulcer and cellulitis suspect osteomyelitis with history of prior toe amputations bilaterally Diabetes mellitus type 2 Hypertension Chest pain Suspect PVD Suspect hyperlipidemia Obesity, BMI 33 Plan: Right great toe diabetic ulcer and cellulitis suspect osteomyelitis with history of prior toe amputations bilaterally: Continue IV antibiotic therapy. Will obtain MRI to evaluate for osteomyelitis. Will obtain arterial Doppler to evaluate for PVD. Venous Doppler negative. Blood cultures obtained. Patient may require debridement. Case discussed with surgery. Await MRI to determine plan of care. Diabetes mellitus type 2: Will provide sliding scale. Will start basal insulin. Will check A1c. Hypertension: Blood pressure slightly decreased this morning. Will monitor closely Chest pain: Repeat troponin unremarkable. Will check EKG. Will obtain echocardiogram to further evaluate. Cardiology consulted for further recommendation. Patient may require cardiac evaluation as CAD is likely. Suspect PVD: Check arterial Doppler to further evaluate. Will start DVT prophylaxis. Suspect hyperlipidemia: Will check fasting lipid panel. Will consider medication if abnormal. Obesity, BMI 33: Will continue to provide lifestyle modification education. Time Spent Managing Pts Care (In Minutes): 55
[2018-12-16] MEDS ORDERED: HYDRALAZINE HCL 20 MG/ML VIAL IV PRN (09:51)
--- NOTE | 2018-12-16 10:35 | RAD REPORT ---
EXAM DESCRIPTION: US - Upper Lower Extrem Art Multi - 12/16/2018 10:27 am CLINICAL HISTORY: evaluate for PVD COMPARISON: Extrem Venous W Compress Lito dated 12/15/2018 TECHNIQUE: Bilateral lower extremity arterial Doppler examination was performed with waveform tracin g and ankle brachial pressure measurements. FINDINGS: Symmetric brachial pressure measurements are noted. Triphasic waveforms are seen throughout both lower extremity arterial systems to the level of the ashanti salis pedis arteries. Right ankle brachial index measures 1.2, normal. Left ankle brachial index measures 1.2, normal. IMPRESSION: No evidence of significant peripheral vascular disease.
--- NOTE | 2018-12-16 12:09 | RAD REPORT ---
EXAM DESCRIPTION: MRI - Foot Right Wo Cont - 12/16/2018 11:47 am CLINICAL HISTORY: Right great toe cellulitis, suspect osteo Pain and swelling to great toe along the right COMPARISON: No comparisons FINDINGS: Moderate abnormal skin thickening and subcutaneous edematous changes are present involving the great toe particularly medially. Evidence of previous amputation of the second toe noted. Subcut aneous fluid is present along the medial margin of the proximal great toe measuring 36 mm in length a nd 8 mm in thickness. Abnormal diminished T1 signal is seen in the distal aspect of the proximal phal anx of the great toe with mild T2/IR signal abnormality present compatible with mild osteomyelitis. No additional areas of pathologic marrow replacement seen. IMPRESSION: Mild to moderate osteomyelitis is present involving the distal aspect of the proximal ph alanx of the great toe. Adjacent oblong fluid collection is seen in the subcutaneous space medially m easuring 36 x 8 mm. This may represent reactive fluid collection or subcutaneous abscess.
--- NOTE | 2018-12-16 12:37 | CON ---
Reason For Consult: Chest pain. History Of Present Illness: Mr. Del Valle has been having chest pain for 3 days, it is in the left pecto ral muscle, medial part. It comes and goes, lasts 8-12 seconds. He points to one area and then he s tarts grabbing his pectoral muscle to indicate where it is. Not related to exertion or body position , but he tends to put his arms above his head a lot. He has diabetes and hypertension. He has had a lot of toe amputations, both sides. Now he seems to have cellulitis within the fairly recent past. He had amputation of second digit on his right foot. It was actually a re-amputation where it went deeper into the metatarsal. There was osteomyelitis and now he is admitted for pain in the right fitz t. There is not much swelling at the old surgical site. Mr. Del Valle has never had myocardial infarcti on, stroke, or any vascular interventions. Medications: His home medicines are amlodipine, insulin, losartan. Allergies: HE IS ALLERGIC TO VANCOMYCIN, KETOROLAC, AZITHROMYCIN, BACLOFEN. Social History: He uses no tobacco. No illegal drugs. Alcohol use minimal. Physical Examination: General: 6 feet 1 inch. 252 pounds. HEENT: Normal. Lungs: Clear. Heart: Within normal limits. No friction or rub. Abdomen: Soft. Extremities: Normal. Distal pulses are normal. There is amputation of just the second on the right and second and third on the left. The wound appears to be closed. There is not much redness, but t here is tenderness in the right leg below the knee. His EKG is within normal limits. Troponins are normal. I will recommend that he do a pharmacologic nuclear stress test to see if there is any underlying isc hemic heart disease. His pain is atypical. I think we want some assurance that we can not have to e ngage in a cardiac cath at this point. NEHA/ORLANDO Voice ID: [id number] Report ID: [id number]
--- NOTE | 2018-12-16 14:32 | RAD REPORT ---
EXAM DESCRIPTION: NM - Rest Stress Cardiac Imaging - 12/16/2018 2:12 pm CLINICAL HISTORY: Chest pain COMPARISON: None. TECHNIQUE: The patient was administered approximately 10 mCi of Tc 99m Sestamibi prior to resting SP ECT imaging of the heart. The patient was then administered approximately 30 mCi of Tc 99m Sestamibi following exercise or pharmacologic stress. Multiplanar SPECT images were reviewed. FINDINGS: The end diastolic volume is 143 ml, the end systolic volume is 61 ml, and the ejection fra ction is 57 %. Physiologic distribution of the radiopharmaceutical through the myocardium is noted. No stress induce d ischemic defect is seen to suggest stress induced ischemia. No focal scarring seen. IMPRESSION: No stress induced ischemia or other suspicious findings. End-diastolic volume is enlarged to 143 milliliters. EF is normal at 57%.
--- NOTE | 2018-12-16 16:01 | CON ---
Date of Consultation: 12/16/2018 Reason: Infected wound, right foot. History Of Present Illness: The patient is a 48-year-old gentleman with history of poorly controlled diabetes type 2, DVT, PE, diabetic neuropathy, and chronic ulcer on his right foot. He has been fol lowed up in [facility], and he had a worsening of his right toe woun d, and he was advised to go to the ER. He has had some fever with a maximum of 100.9 at home. No sh ortness of breath, cough. He does have some nausea, occasional vomiting. He is complaining of incre asing leg pain as well all the way to the groin and minimal discharge. There is redness and warmth p resent. Review of Systems: Otherwise unremarkable. Past Medical History: Significant for type 2 diabetes, history of DVT, hypertension. Past Surgical History: Right second toe transmetatarsal amputation by me last year. He has had othe r foot surgeries on his left foot as well. Allergies: MULTIPLE INCLUDE VANCOMYCIN, TORADOL, AZITHROMYCIN, BACLOFEN, IBUPROFEN, LEVAQUIN, PROMET HAZINE, SULFA, TRIMETHOPRIM, NSAIDS. Social History: He does not smoke. Drinks alcohol occasionally. Family History: Significant for diabetes and hypertension. Physical Examination: Vital Signs: Stable. Blood pressure is 97/55, and he is afebrile. General: He is awake, alert, orient x3. Head and Neck: Cranial nerves 2 through 12 grossly within normal limits. No neck masses. No JVD. Throat clear. Neck is supple. Chest: Clear. Heart: S1, S2. Abdomen: Soft. Extremity: Palpable dorsalis pedis and posterior tibial pulses. There is an ulcer on the right grea t toe, surrounded by infected tissue, developing purulence, erythema, warmth, and edema along the ashanti sum of the foot extending towards the leg. Minimal discharge. Laboratory Data: White count is 12.8 on admission with a left shift. INR is 1.07. Chemistry shows a lactic acid of 0.9. It was 2.2 on admission. Procalcitonin was 0.05. The patient had a Doppler s tudy, which shows no significant peripheral vascular disease. He had a venous study, which shows no DVT. Currently, the patient is on daptomycin, Zosyn, and Lovenox. Assessment: A 48-year-old gentleman, diabetic with a right great toe wound with surrounding signific ant diabetic infection. Recommendation: We will await MRI, which is scheduled for today, and tomorrow we will take him to [facility] OR for debridement of the infected wound. The patient understands the risks, benefits, and alterna tives and agrees to procedure. As most of the toe is viable, I do not think an amputation at this ti me is necessary, but should he not improve that may lead to an amputation of the big toe, requiring f urther surgery. Risks, benefits and alternatives were explained to the patient. He understood and a greed. Continue antibiotics as ordered. /MODL Voice ID: [id number] Report ID: [id number]
[2018-12-16] MEDS: ENOXAPARIN 40 MG/0.4 ML SQ SCH (16:07)
--- NOTE | 2018-12-16 16:56 | ECHO ---
HEIGHT: 6 ft 1 in WEIGHT: 252 lb 3.2 oz DATE OF STUDY: 12/16/[address]: Garo Curiel MD 2-DIMENSIONAL: YES M.MODE: YES DOPPLER: YES COLOR FLOW: YES TDS: PORTABLE: DEFINITY: BUBBLE STUDY: DIAGNOSIS: CHEST PAIN CARDIAC HISTORY: CATHERIZATION: NO SURGERY: NO PROSTHETIC VALVE: NO PACEMAKER: NO MEASUREMENTS (cm) DIASTOLIC (NORMALS) SYSTOLIC (NORMALS) IVSd 1.2 (0.6-1.2) LA Diam 3.2 (1.9-4.0) LVEF 70% LVIDd 4.4 (3.5-5.7) LVIDs 2.6 (2.0-3.5) %FS 39% LVPWd 1.2 (0.6-1.2) Ao Diam 3.0 (2.0-3.7) 2 DIMENSIONAL ASSESSMENT: RIGHT ATRIUM: NORMAL LEFT ATRIUM: NORMAL RIGHT VENTRICLE: NORMAL LEFT VENTRICLE: NORMAL TRICUSPID VALVE: NORMAL MITRAL VALVE: NORMAL PULMONIC VALVE: NORMAL AORTIC VALVE: NORMAL PERICARDIAL EFFUSION: NONE AORTIC ROOT: NORMAL LEFT VENTRICULAR WALL MOTION: NORMAL DOPPLER/COLOR FLOW: NORMAL COMMENTS: NORMAL TWO DIMENSIONAL ECHOCARDIOGRAM WITH DOPPLER. TECHNOLOGIST: ENOCH GUTIÉRREZ
[2018-12-16] MEDS: ATORVASTATIN 40 MG TAB PO SCH (21:48)
[2018-12-16] MEDS: INSULIN GLARGINE 100 UNITS/ML SQ SCH (21:49)
[2018-12-17] MEDS: MORPHINE 2 MG/ML SYR IV PRN ×5 (00:07→22:19)
[2018-12-17] MEDS: PIPER/TAZO/NS 3.375gm 3.375 GM/100 ML BAG IVPB SCH ×3 (00:08→16:34)
[2018-12-17] MEDS ORDERED: TRAMADOL HCL 50 MG TAB PO ONE (02:08)
[2018-12-17] MEDS: NA CHLORIDE 0.9% 1,000 ML IV SCH ×2 (04:27→16:38)
[2018-12-17 06:29] LABS: Absolute Lymphocytes (CBC) 1.4 K/uL (0.7-4.9); Absolute Monocytes 0.6 K/uL (0.1-1.3); Absolute Neutrophil 3.9 K/uL (1.8-8.0); Basophils % 0.4 % (0-1.3); Eosinophils % 3.3 % (0-4.4); Hematocrit 32.1 % (39.6-49.0); Lymphocytes % 23.5 % (15.3-44.8); MPV 9.2 fL (7.6-11.3); Monocytes % 9.4 % (3.3-12.3); RBC Red Blood Cell Count 3.89 M/uL (4.33-5.43)
[2018-12-17 06:42] LABS: BUN Blood Urea Nitrogen 8 mg/dL (7-18); Bicarbonate 30 mmol/L (21-32); Glucose Level 100 mg/dL (74-106); Potassium 3.3 mmol/L (3.5-5.1); Sodium Level 144 mmol/L (136-145)
[2018-12-17] MEDS: INSULIN -REGULAR HUMAN 50 UNIT/0.5 ML ML SQ SCH ×4 (07:30→22:19)
[2018-12-17] MEDS: KCL 20 MEQ/100 mL IVPB 20 MEQ/100 ML BAG IV SCH ×2 (07:33→11:31)
--- NOTE | 2018-12-17 07:56 | TREADPHA ---
DX: CHEST PAIN Date of Study: 12/16/2018 Ht: 6 1 Wt: 252 lb 3.2 oz Consulting Physician: WINSTON MEDICATIONS: TYLENOL, NORVASC, DEXTROSE, LOVENOX, NOVOLIN-R HISTORY: 48 YEAR OLD MALE HERE FOR CHEST PAIN. HISTORY OF DIABETES, DVT, HYPERTENSION, NEUROPATHY. PHYSICIAL EXAMINATION: RESTING B.P.: 135/96 RESTING H.R.: 69 RESTING EKG: NORMAL PROTOCOL: LEXISCAN EXERCISE TIME: 3:30 B.P. AT PEAK STRESS: 140/85 IMPRESSION: LEXISCAN STRESS TEST PERFORMED. CARDIOLITE INJECTED PER PROTOCOL. COMPLAINTS OF CHEST PAIN 6/10 INTERMITTENT LEFT CHEST PAIN AND TIGHTNESS. NO ARRHYTHMIAS NOTED. SEE NUCLEAR MEDICINE REPORT. NON DIAGNOSTIC EKG WITH LEXISCAN STRESS.
[2018-12-17] MEDS ORDERED: NA CHLORIDE 0.9% 1,000 ML ONE (09:43)
[2018-12-17] MEDS ORDERED: MIDAZOLAM HCL 2 MG/2 ML INJ ONE (09:51)
[2018-12-17] MEDS ORDERED: PROPOFOL 200 MG/20 ML VIAL IV ONE (09:51)
[2018-12-17] MEDS ORDERED: LIDOCAINE 1% MPF 2 ML AMPULE ONE (09:52)
[2018-12-17] MEDS ORDERED: BUPIVACAINE 0.5% PF 10 ML VIAL ONE (09:56)
--- NOTE | 2018-12-17 10:11 | P.PN ---
Subjective Date of Service: 12/17/18 Primary Care Provider: Dr. Ernst([place], [place]); Wound care-Dr. Holder Chief Complaint: diabetic foot ulcer Subjective: Other (Patient doing well at this time. Patient NPO for surgery) Physical Examination - Vital Signs Temperature: 97.5 F Blood Pressure: 126/77 Pulse: 81 Respirations: 20 Pulse Ox (%): 95 - Physical Exam General: Alert, In no apparent distress, Oriented x3, Cooperative HEENT: Atraumatic Neck: Supple Respiratory: Clear to auscultation bilaterally, Normal air movement Cardiovascular: Normal pulses, Regular rate/rhythm Gastrointestinal: Normal bowel sounds, Soft and benign, Non-distended Integumentary: Other (No significant change to the right great toe.) - Studies Medications List Reviewed: Yes Assessment & Plan Discharge Plan: Home Plan to discharge in: Greater than 2 days Physician Review Additional Text: Impression: Right great toe diabetic ulcer and cellulitis with osteomyelitis with history of prior toe amputations bilaterally Diabetes mellitus type 2 Hypertension Chest pain Obesity, BMI 33 Plan: Right great toe diabetic ulcer and cellulitis with osteomyelitis with history of prior toe amputations bilaterally: MRI showed osteomyelitis. Case discussed with surgery. Patient NPO at this time. Patient to have surgical intervention today. Patient will require IV antibiotic therapy long-term for at least 6 weeks. Patient now with PICC line. Patient has no insurance at this time. He has applied for disability and is expected to have approval soon. He will contact his field marketing associate to confirm. This may help with set up of IV antibiotic therapy. If disability is not in place then IV antibiotic therapy to be arranged by hospital with follow up with Dr. Tong to initiate IV antibiotic therapy. I have discussed the case with Dr. Tong who agrees to accept patient. Will discuss with public health social worker. Arrangements will likely not occur until early next week. Will continue with IV antibiotic therapy. Await further recommendations from surgery Diabetes mellitus type 2: Will provide sliding scale and basal insulin. Will continue to monitor and adjust. Hypertension: Blood pressure stable at this time. Will continue to monitor and adjust Chest pain: Patient had cardiac stress test showing no stress-induced ischemia. Patient stable this time. Will review echocardiogram. Obesity, BMI 33: Will continue to provide lifestyle modification education. Time Spent Managing Pts Care (In Minutes): 55
--- NOTE | 2018-12-17 10:24 | P.OP ---
Preoperative diagnosis: Infected wound right great toe with osteo Postoperative diagnosis: same Primary procedure: Debridement Right great toe wound 4x4 cmto sq Anesthesia: gen Estimated blood loss: min Specimen: pus and necrotic tissue Findings: as above Complications: None Transferred to: Recovery Room Condition: Good
[2018-12-17] MEDS ORDERED: COLLAGENASE 30 GM OINTMENT TOP ONE (10:32)
--- NOTE | 2018-12-17 10:52 | RAD REPORT ---
EXAM DESCRIPTION: Ian Single View12/17/2018 2:02 am CLINICAL HISTORY: 48 years Male, PICC Placement COMPARISON: None FINDINGS: Placement of right upper extremity PICC terminating in the distal SVC. Prominence of the perihilar structures and interstitium. No pleural effusion. No pneumothorax. Cardiac silhouette is within normal limits. No acute osseous abnormality. IMPRESSION: Appropriately placed right upper extremity PICC. Suggestion of central and peripheral vascular congestion Electronically signed by: Stef Santana DO 12/17/2018 2:08 AM CDT Due to temporary technical issues with the PACS/Fluency reporting system, reports are being signed by the in house radiologist as a courtesy to ensure prompt reporting. The interpreting radiologist is f ully responsible for the content of the report.
[2018-12-17] MEDS: DAPTOmycin 400 MG in NA CHLORIDE 0.9% 100 ML IVPB SCH (13:30)
--- NOTE | 2018-12-17 15:10 | P.CNS ---
Date of Consult: 12/17/18 Patient is a gentleman with a history of diabetes. His a1c is approx 8. He came in with a non healing ulcer on the right great toe. The MRI showed osteomyleitis. He is having debridement with Dr. Hernandez today. He needs 6 weeks of iv antibiotics ENVIRONMENTAL REMEDIATION SPECIALIST AAO x3 Heent PERRLA, EOM +, no cervical LAD CVS R1, R2, RRR, no murmurs RS LCTA Abdomen, soft non tender, no organomegaly, good bowel sounds EXt stage 2 diabetic ulcer on the distal right 1st toe A/p 1. Osteomyelitis. Plans for debridement of the wound. I will manage the out patient antibiotics. 2. Diabetes. He is on metformin. Will refer to the [facility] out pt diabetic education.
[2018-12-17] MEDS: ENOXAPARIN 40 MG/0.4 ML SQ SCH (16:37)
[2018-12-17] MEDS ORDERED: POTASSIUM CL SA 10 MEQ TAB PO ONE (21:00)
--- NOTE | 2018-12-17 21:41 | OP ---
Date of Procedure: 12/17/2018 Surgeon: Robert Hernandez MD Preoperative Diagnosis: Infected wound, right great toe. Postoperative Diagnosis: Infected wound, right great toe. Procedure Performed: Debridement of right great toe infected wound, 4 x 4 cm, to subcutaneous tissue . Estimated Blood Loss: Minimal. Specimen: Pus and necrotic tissue. Finding: As above. Anesthesia: General. Complications: None. Disposition: The patient tolerated the procedure in stable condition, taken to Recovery in good gene ral condition. Procedure In Detail: The patient was brought to the OR, placed in supine position, and general anest hesia was began. The patient was prepped and draped in the usual sterile fashion. Marcaine 0.5% was infiltrated locally with a 15-blade and sharp dissection utilized on the medial and plantar aspect o f the right great toe. There was pus underneath the wound. Cultures were done. Necrotic tissue was debrided down through the subcutaneous tissue. The area debrided was approximately 4 x 4 cm. Bleed ing was controlled with pressure. Collagenase dressing was applied. The patient tolerated the procedure in stable condition and taken to Recovery in good general condition. LING/ORLANDO Voice ID: [id number] Report ID: [id number]
[2018-12-17] MEDS: ATORVASTATIN 40 MG TAB PO SCH (22:18)
[2018-12-17] MEDS: INSULIN GLARGINE 100 UNITS/ML SQ SCH (22:19)
[2018-12-18] MEDS: PIPER/TAZO/NS 3.375gm 3.375 GM/100 ML BAG IVPB SCH ×2 (00:22→08:08)
[2018-12-18] MEDS: NA CHLORIDE 0.9% 1,000 ML IV SCH ×3 (01:38→21:27)
[2018-12-18] MEDS: MORPHINE 2 MG/ML SYR IV PRN ×6 (02:03→23:30)
[2018-12-18] MEDS: ONDANSETRON 4 MG/2 ML VIAL IV PRN ×4 (04:47→21:25)
[2018-12-18 05:38] LABS: Absolute Lymphocytes (CBC) 2.4 K/uL (0.7-4.9); Absolute Monocytes 0.5 K/uL (0.1-1.3); Basophils % 0.8 % (0-1.3); Eosinophils % 4.4 % (0-4.4); Lymphocytes % 38.8 % (15.3-44.8); MPV 9.4 fL (7.6-11.3); Monocytes % 7.8 % (3.3-12.3); RBC Red Blood Cell Count 3.95 M/uL (4.33-5.43)
[2018-12-18 05:45] LABS: BUN Blood Urea Nitrogen 11 mg/dL (7-18); Bicarbonate 28 mmol/L (21-32); Glucose Level 221 mg/dL (74-106); Magnesium 1.8 mg/dL (1.8-2.4); Potassium 3.9 mmol/L (3.5-5.1); Sodium Level 142 mmol/L (136-145)
[2018-12-18] MEDS ORDERED: MAGNESIUM SULFATE 1 gm IVPB 1 GM/100 ML BAG IV ONE (05:54)
[2018-12-18] MEDS ORDERED: POTASSIUM CL SA 10 MEQ TAB PO ONE (07:00)
[2018-12-18] MEDS: INSULIN -REGULAR HUMAN 50 UNIT/0.5 ML ML SQ SCH ×4 (07:30→21:00)
[2018-12-18] MEDS: PANTOPRAZOLE 40MG TABLET PO SCH (08:08)
[2018-12-18] MEDS: DAPTOmycin 400 MG in NA CHLORIDE 0.9% 100 ML IVPB SCH (09:00)
--- NOTE | 2018-12-18 09:28 | RAD REPORT ---
EXAM DESCRIPTION: RAD - Chest Pa And Lat (2 Views) - 12/18/2018 9:15 am CLINICAL HISTORY: PICC line placement, chest discomfort COMPARISON: December 17 TECHNIQUE: PA and lateral views of the chest were obtained. FINDINGS: The lungs are clear. Lung markings are similar to comparison. Heart size is normal and ce ntral vasculature is within normal limits. No pleural fluid collection. No acute bony finding noted. No aortic abnormality. No pneumothorax is present. No change in positioning of the PICC line. Tip remains in the mid SVC. No bend, kink or other positioning abnormality. IMPRESSION: No acute cardiopulmonary process. No change to PICC line positioning since earlier study. No abnormal bend, kink or other positioning a bnormality.
--- NOTE | 2018-12-18 10:19 | P.PN ---
Subjective Date of Service: 12/18/18 Primary Care Provider: Dr. Ernst([place], [place]); Wound care-Dr. Holder Chief Complaint: diabetic foot ulcer Subjective: Other (Patient stable this time. Patient reports some discomfort from PICC line) Physical Examination - Vital Signs Temperature: 98.5 F Blood Pressure: 132/82 Pulse: 68 Respirations: 18 Pulse Ox (%): 95 - Physical Exam General: Alert, In no apparent distress, Oriented x3, Cooperative HEENT: Atraumatic Neck: Supple Respiratory: Clear to auscultation bilaterally, Normal air movement Cardiovascular: Normal pulses, Regular rate/rhythm Gastrointestinal: Normal bowel sounds, Soft and benign, Non-distended, No tenderness, No masses, No rebound, No guarding Integumentary: Other (Diabetic boot in place. Bandage to the right foot) Neurological: Normal speech, Normal strength at 5/5 x4 extr, Normal tone, Normal affect - Studies Medications List Reviewed: Yes Assessment & Plan Discharge Plan: Home Plan to discharge in: 48 Hours Physician Review Additional Text: Impression: Right great toe diabetic ulcer and cellulitis with osteomyelitis with history of prior toe amputations bilaterally status post I and Diabetes mellitus type 2 Hypertension Chest pain Obesity, BMI 33 Plan: Right great toe diabetic ulcer and cellulitis with osteomyelitis with history of prior toe amputations bilaterally status post I and D: MRI showed osteomyelitis. Surgery performed I and D yesterday. Continue with current wound care. Antibiotic coverage discuss with pharmacy. Will change antibiotics to Zyvox IV twice daily. Await final culture results. So far blood cultures negative. Patient will require IV antibiotic therapy long-term for at least 6 weeks. Patient now with PICC line. Chest x-ray shows no dysfunction with PICC line. Patient has no insurance at this time. He has applied for disability and is expected to have approval soon. He will contact his workers compensation attorney to confirm. This may help with set up of IV antibiotic therapy. If disability is not in place then IV antibiotic therapy to be arranged by hospital with follow up with Dr. Tong to continue with IV antibiotic therapy. I have discussed the case with Dr. Tong who agrees to accept patient. Continue to work with social service technician to help arrange IV antibiotic therapy at discharge. Hopefully this can be set up early next week. Diabetes mellitus type 2: Continue to adjust basal insulin. Will continue to monitor and adjust. Hypertension: Blood pressure stable at this time. Will continue to monitor and adjust. Will consider low-dose SYEDA-inhibitor. Chest pain: Patient had cardiac stress test showing no stress-induced ischemia. Patient stable this time. Will review echocardiogram. Obesity, BMI 33: Will continue to provide lifestyle modification education. Time Spent Managing Pts Care (In Minutes): 55
[2018-12-18] MEDS: LINEZOLID 600 MG IVPB 600 MG/300 ML BAG IV SCH ×2 (11:56→21:26)
--- NOTE | 2018-12-18 12:54 | PN ---
Date of Progress Note: 12/18/2018 Subjective: The patient is awake, alert. Vital Signs is stable. Afebrile. No complaint with the l eft foot and leg pain is better. Laboratory data reviewed. White count is normal. Dressing is ho n, dry, and intact. He does have a PICC line in place. Assessment: Status post debridement of infected wound right great toe with osteomyelitis. Recommendation: Discharge planning. IV antibiotics. Wound care was ordered. /MODL Voice ID: [id number] Report ID: [id number]
[2018-12-18] MEDS: ENOXAPARIN 40 MG/0.4 ML SQ SCH (16:25)
[2018-12-18] MEDS ORDERED: INSULIN GLARGINE 100 UNITS/ML SQ SCH (21:00)
[2018-12-18] MEDS: ATORVASTATIN 40 MG TAB PO SCH (21:26)
[2018-12-19] MEDS: ONDANSETRON 4 MG/2 ML VIAL IV PRN ×3 (01:53→14:59)
[2018-12-19] MEDS: MORPHINE 2 MG/ML SYR IV PRN ×4 (03:37→21:26)
[2018-12-19 04:47] LABS: Absolute Lymphocytes (CBC) 2.4 K/uL (0.7-4.9); Absolute Monocytes 0.5 K/uL (0.1-1.3); Absolute Neutrophil 2.3 K/uL (1.8-8.0); Basophils % 0.9 % (0-1.3); Eosinophils % 5.1 % (0-4.4); Hematocrit 31.6 % (39.6-49.0); Lymphocytes % 44.3 % (15.3-44.8); MPV 9.1 fL (7.6-11.3); Monocytes % 8.9 % (3.3-12.3); RBC Red Blood Cell Count 3.81 M/uL (4.33-5.43)
[2018-12-19 05:03] LABS: BUN Blood Urea Nitrogen 9 mg/dL (7-18); Bicarbonate 30 mmol/L (21-32); Glucose Level 272 mg/dL (74-106); Magnesium 1.7 mg/dL (1.8-2.4); Potassium 4.2 mmol/L (3.5-5.1); Sodium Level 140 mmol/L (136-145)
[2018-12-19] MEDS ORDERED: MAGNESIUM SULFATE 1 gm IVPB 1 GM/100 ML BAG IV ONE (05:09)
[2018-12-19] MEDS: PANTOPRAZOLE 40MG TABLET PO SCH (05:48)
[2018-12-19] MEDS: NA CHLORIDE 0.9% 1,000 ML IV SCH (07:38)
[2018-12-19] MEDS: INSULIN -REGULAR HUMAN 50 UNIT/0.5 ML ML SQ SCH ×4 (08:32→20:46)
--- NOTE | 2018-12-19 09:08 | P.PN ---
Subjective Date of Service: 12/19/18 Primary Care Provider: Dr. Ernst([place], [place]); Wound care-Dr. Holder Chief Complaint: diabetic foot ulcer Subjective: Doing well (Patient reports no significant allergy to vancomycin. PICC line was removed yesterday due to discomfort. Patient to have PICC line replaced today.) Physical Examination - Vital Signs Temperature: 98.3 F Blood Pressure: 125/77 Pulse: 70 Respirations: 16 Pulse Ox (%): 96 - Physical Exam General: Alert, In no apparent distress, Oriented x3, Cooperative HEENT: Atraumatic Neck: Supple Respiratory: Clear to auscultation bilaterally, Normal air movement Cardiovascular: Normal pulses, Regular rate/rhythm Gastrointestinal: Normal bowel sounds, Soft and benign, Non-distended, No tenderness, No masses, No rebound, No guarding Musculoskeletal: No erythema, No tenderness, No warmth Integumentary: Other (Due to noted to the right foot. Bandage in place.) - Studies Medications List Reviewed: Yes Assessment & Plan Discharge Plan: Home Plan to discharge in: 24 Hours Physician Review Additional Text: Impression: Right great toe diabetic ulcer and cellulitis with osteomyelitis with history of prior toe amputations bilaterally status post I and, wound culture positive for methicillin-resistant Staph aureus Diabetes mellitus type 2 Hypertension Chest pain Anemia likely of chronic disease Diabetic neuropathy Obesity, BMI 33 Plan: Right great toe diabetic ulcer and cellulitis with osteomyelitis with history of prior toe amputations bilaterally status post I and D, wound culture positive for methicillin-resistant Staph aureus: MRI showed osteomyelitis. Arterial Doppler shows no peripheral vascular disease. Wound culture positive for methicillin Staph aureus. Patient has had I and D by surgery during this hospitalization. Patient reported PICC line discomfort. PICC line removed yesterday. This is to be replaced today. Antibiotics and allergies reviewed. Patient does not have significant allergy to vancomycin. IV Zyvox changed to Vancomycin. This was discussed with pharmacy. Patient will likely require BID dosing at discharge. Patient will continue with IV vancomycin for 6 weeks. Social work to help arrangements for continued IV antibiotic therapy as an outpatient with the help of hospital administration as the patient is unfunded. Patient working to get approval for his disability insurance. Dr. Tong has agreed to have patient establish care with him and to continue/monitor/adjust IV antibiotic therapy as an outpatient. Dr. Tong has seen patient already. Anticipate arrangements for IV antibiotic therapy as early as tomorrow with possible discharge as early as tomorrow. I will turn the service over to Dr. Persaud tomorrow. I will go over the plan of care with her. Diabetes mellitus type 2: Blood sugar still elevated. Continue to adjust basal insulin for better control. Will continue to monitor and adjust. Hypertension: Blood pressure stable at this time. Will continue to monitor and adjust. Will consider low-dose SYEDA-inhibitor at discharge. Chest pain: Patient had cardiac stress test showing no stress-induced ischemia. Echo unremarkable. Patient stable this time. No need for further cardiac intervention. Anemia likely of chronic disease: Will check iron and B12 studies. Diabetic neuropathy: Will start Neurontin 3 times a day as needed. Will limit IV narcotic medication. Obesity, BMI 33: Will continue to provide lifestyle modification education. Time Spent Managing Pts Care (In Minutes): 55
[2018-12-19] MEDS ORDERED: GABAPENTIN 100 MG CAP PO PRN (09:10)
[2018-12-19] MEDS ORDERED: VANCOMYCIN 3 GM in NA CHLORIDE 0.9% 500 ML IVPB ONE (10:00)
[2018-12-19] MEDS ORDERED: LORAZEPAM 0.5 MG TABLET PO PRN (11:08)
[2018-12-19 11:12] LABS: Ferritin 88.4 ng/mL (26-388)
--- NOTE | 2018-12-19 14:40 | RAD REPORT ---
EXAM DESCRIPTION: RAD - Chest Single View - 12/19/2018 2:35 pm CLINICAL HISTORY: Device placement PICC line placement FINDINGS: A PICC line has been inserted with its tip in the superior vena cava. The lungs appear clear of acute infiltrate. The heart is normal size. IMPRESSION: PICC line with its tip in the mid superior vena cava
[2018-12-19] MEDS: ENOXAPARIN 40 MG/0.4 ML SQ SCH (16:43)
[2018-12-19] MEDS ORDERED: SODIUM CHLORIDE 0.9% 10ML INJ IV PRN ×2 (19:00)
[2018-12-19] MEDS ORDERED: INSULIN GLARGINE 100 UNITS/ML SQ SCH (21:00)
[2018-12-19] MEDS: SODIUM CHLORIDE 0.9% 10ML INJ IV SCH (21:27)
[2018-12-19] MEDS: VANCOMYCIN 2 GM in NA CHLORIDE 0.9% 500 ML IVPB SCH (21:27)
[2018-12-20] MEDS: MORPHINE 2 MG/ML SYR IV PRN ×3 (01:52→09:58)
[2018-12-20] MEDS: PANTOPRAZOLE 40MG TABLET PO SCH (05:56)
[2018-12-20 06:06] LABS: BUN Blood Urea Nitrogen 8 mg/dL (7-18); Bicarbonate 31 mmol/L (21-32); Glucose Level 215 mg/dL (74-106); Magnesium 1.8 mg/dL (1.8-2.4); Sodium Level 141 mmol/L (136-145)
[2018-12-20] MEDS: INSULIN -REGULAR HUMAN 50 UNIT/0.5 ML ML SQ SCH ×2 (07:30→11:30)
[2018-12-20] MEDS ORDERED: MAGNESIUM SULFATE 1 gm IVPB 1 GM/100 ML BAG IV ONE (08:00)
[2018-12-20] MEDS: VANCOMYCIN 2 GM in NA CHLORIDE 0.9% 500 ML IVPB SCH (09:05)
[2018-12-20] MEDS: SODIUM CHLORIDE 0.9% 10ML INJ IV SCH (09:05)
[2018-12-20] MEDS: ONDANSETRON 4 MG/2 ML VIAL IV PRN (10:23)
[2018-12-20 10:39] VITALS: O2SAT 96
--- NOTE | 2018-12-20 10:54 | P.DS ---
Admission Date: 12/15/18 Discharge Date: 12/20/18 Primary Care Provider: Dr. Ernst([place], [place]); Wound care-Dr. Holder Disposition: ROUTINE DISCHARGE Discharge Condition: FAIR Reason for Admission: diabetic foot ulcer Consultations: General Surgery Dr. Tong ID Procedures: I&D - Problems (1) diabetic ulcer Onset Date: 12/07/17 Current Visit: No Status: Acute (2) Osteomyelitis Current Visit: Yes Status: Acute Qualifiers: Osteomyelitis type: acute hematogenous Osteomyelitis location: foot Laterality: right Qualified Code(s): M86.071 - Acute hematogenous osteomyelitis, right ankle and foot (3) Diabetes mellitus Onset Date: 12/07/17 Current Visit: No Status: Chronic Qualifiers: Diabetes mellitus type: type 2 Diabetes mellitus long term acute care registered nurse insulin use: without long term acute care registered nurse use Diabetes mellitus complication status: with skin complications Diabetes mellitus complication detail: with foot ulcer Qualified Code(s): E11.621 - Type 2 diabetes mellitus with foot ulcer; L97.509 - Non-pressure chronic ulcer of other part of unspecified foot with unspecified severity (4) HTN (hypertension) Onset Date: 12/07/17 Current Visit: No Status: Chronic Qualifiers: Hypertension type: essential hypertension Qualified Code(s): I10 - Essential (primary) hypertension (5) Hx of deep venous thrombosis Onset Date: 12/07/17 Current Visit: No Status: Chronic Brief History of Present Illness: See HPI Hospital Course: Overall stay patient remained stable Patient was initially admitted to the hospital for diabetic foot ulcer to the right great toe. Patient has prior history of amputation bilaterally to the affected area as well. General Surgery was consulted. Patient was taken down for incision and drainage. Initially patient was started on broad-spectrum antibiotics. Blood culture was collected along with wound culture. Wound cultures were also be collected during the incision and drainage. Blood cultures remained negative. Wound cultures were positive for MRSA. Patient had an MRI done here in the hospital the right foot which was positive for osteomyelitis. Patient also had arterial and venous Dopplers done which was negative for DVT. Patient's antibiotics were then DS related to IV vancomycin 2 g q.12 hr to cover for MRSA. Infectious Disease was consulted who recommended total 6 weeks of IV antibiotics. Given the fact that patient not have any insurance patient was set up for outpatient surgery here in the hospital for IV antibiotics. Patient to come to outpatient surgery during weekdays twice daily to get his IV vancomycin and ER on the weekend. Patient will follow up with Dr. Tong the outpatient for IV antibiotics and wound checks. Patient also had vanc trough done before the 3rd dose and antibiotics will be adjusted per Dr. Tong is recommendation at that time. Once the antibiotics were set up patient was then discharged home under stable condition was asked to follow up with general surgery and Dr. Tong and about 1-2 days post discharge. Vital Signs/Physical Exam: Temp Pulse Resp BP Pulse Ox 98.7 F 66 16 151/85 H 96 12/20/18 08:00 12/20/18 08:00 12/20/18 08:00 12/20/18 08:00 12/20/18 08:00 General: Alert, In no apparent distress HEENT: Atraumatic, PERRLA, EOMI Neck: Supple, JVD not distended Respiratory: Clear to auscultation bilaterally, Normal air movement Cardiovascular: Regular rate/rhythm, Normal S1 S2 Gastrointestinal: Normal bowel sounds, No tenderness Musculoskeletal: Erythema, Tenderness, Warmth Integumentary: No rashes Neurological: Normal speech, Normal tone, Normal affect Lymphatics: No axilla or inguinal lymphadenopathy Laboratory Data at Discharge: WBC 5.5 K/uL (4.3-10.9) 12/19/18 04:31 Hgb 10.8 g/dL (13.6-17.9) L 12/19/18 04:31 Hct 31.6 % (39.6-49.0) L 12/19/18 04:31 Plt Count 222 K/uL (152-406) 12/19/18 04:31 PT 12.6 SECONDS (9.5-12.5) H 12/15/18 19:35 INR 1.07 12/15/18 19:35 Sodium 141 mmol/L (136-145) 12/20/18 05:26 Potassium 4.0 mmol/L (3.5-5.1) 12/20/18 05:26 BUN 8 mg/dL (7-18) 12/20/18 05:26 Creatinine 1.04 mg/dL (0.55-1.3) 12/20/18 05:26 Glucose 215 mg/dL (74-106) H 12/20/18 05:26 Magnesium 1.8 mg/dL (1.8-2.4) 12/20/18 05:26 Total Bilirubin 0.7 mg/dL (0.2-1.0) 12/15/18 19:35 AST 9 U/L (15-37) L 12/15/18 19:35 ALT 25 U/L (12-78) 12/15/18 19:35 Alkaline Phosphatase 107 U/L (45-117) 12/15/18 19:35 Troponin I < 0.02 ng/mL (0.0-0.045) 12/16/18 08:13 Triglycerides 88 mg/dL (<150) 12/16/18 03:37 Cholesterol 127 mg/dL (<200) 12/16/18 03:37 HDL Cholesterol 43 mg/dL (40-60) 12/16/18 03:37 Cholesterol/HDL Ratio 2.95 12/16/18 03:37 Home Medications: Amlodipine [Norvasc*] 10 mg PO DAILY 12/16/18 Insulin 70/30 NPH/Reg Human [Novolin 70/30*] 51 units SQ BID 12/16/18 Losartan Potassium 100 mg PO DAILY 12/16/18 Vancomycin [Vancomycin 1 Gram/250 ml Ns Ivpb] 2 gm IV Q12H #84 bag 12/20/18 New Medications: Vancomycin [Vancomycin 1 Gram/250 ml Ns Ivpb] 2 gm IV Q12H #84 bag Patient Discharge Instructions: Please f.u with Dr Tong in 1 to 2 week post discharge. You will need to come to outpatient surgery q12h for IV abx on weekdays and ER on Weekends for total of 42 more days Diet: Regular Activity: Ad henry Followup: Demond Tong MD [ACTIVE - CAN ADMIT] - 1 Week (CALL TO SCHEDULE APPOINTMENT)
[2018-12-20 12:31] VITALS: BP 158/97; TEMP 98.8
== END 2018-12-20 13:01 | disposition home or self-care (01) | DRG 982 ==
LOC: ER 18:28 → ERHOLD 22:49 → 4TH 23:14
PROVIDERS: ADMIT Internal Medicine; ATTEND Family Medicine
PROC: 02HV33Z Insertion of Infusion Device into Superior Vena Cava, Percutaneous Approach (ICD-10-PCS; 2018-12-16)
PROC: 0JDQ0ZZ Extraction of Right Foot Subcutaneous Tissue and Fascia, Open Approach (ICD-10-PCS; principal; 2018-12-17 10:00)
PROC: 02HV33Z Insertion of Infusion Device into Superior Vena Cava, Percutaneous Approach (ICD-10-PCS; 2018-12-19)
DX: E11.69 Type 2 diabetes mellitus with other specified complication (principal); M86.171 Other acute osteomyelitis, right ankle and foot; E11.621 Type 2 diabetes mellitus with foot ulcer; B95.62 Methicillin resistant Staphylococcus aureus infection as the cause of diseases classified elsewhere; L97.519 Non-pressure chronic ulcer of other part of right foot with unspecified severity; E11.628 Type 2 diabetes mellitus with other skin complications; L03.031 Cellulitis of right toe; E11.65 Type 2 diabetes mellitus with hyperglycemia; I10 Essential (primary) hypertension; E11.40 Type 2 diabetes mellitus with diabetic neuropathy, unspecified; R07.9 Chest pain, unspecified; E66.9 Obesity, unspecified; Z68.33 Body mass index [BMI] 33.0-33.9, adult; E78.5 Hyperlipidemia, unspecified; Z79.84 Long term (current) use of oral hypoglycemic drugs; Z86.718 Personal history of other venous thrombosis and embolism; Z89.422 Acquired absence of other left toe(s); Z89.421 Acquired absence of other right toe(s); Z88.1 Allergy status to other antibiotic agents; Z88.6 Allergy status to analgesic agent; Z88.2 Allergy status to sulfonamides
CPT/HCPCS: 36415; 71045; 71046; 78452; 80048; 80061; 80076; 82607; 82728; 82962; 83036; 83540; 83605; 83735; 83880; 84132; 84145; 84466; 84484; 85025; 85610; 87040; 87070; 87077; 87186; 87205; 88304; 93005; 93017; 93306; 93923; 93970; 96361; 96365; 96367; 96375; 97162; 99285; A9500; J0878; J1650; J2001; J2020; J2250; J2270; J2405; J2543; J2704; J2785; J3010; J3475; J3590; J7030

== ENCOUNTER 2018-12-22 20:56 | Emergency (ER) | payer OTHER, SELFPAY ==
--- OUTSIDE RECORDS SUMMARY | 2018-12-22 20:59 | XMS REPORT ---
:1970 [facility] Address [address] [place] [address] [address]. [address] [place] [address] Care Team Providers Name Role Phone Unavailable Unavailable Unavailable Problems This patient has no known problems. Allergies, Adverse Reactions, Alerts This patient has no known allergies or adverse reactions. Medications This patient has no known medications.
[2018-12-22] MEDS ORDERED: NA CHLORIDE 0.9% 500 ML ONE (21:42)
[2018-12-22] MEDS ORDERED: MEPERIDINE HCL 50 MG/ML AMP ONE (21:42)
[2018-12-22 21:58] LABS: Urine Blood TRACE (NEG); Urine Glucose NEGATIVE (NEG); Urine Protein NEGATIVE (NEG); Urine Specific Gravity 1.015 (1.005-1.030)
[2018-12-22 22:18] LABS: Potassium 3.9 mmol/L (3.5-5.1)
--- NOTE | 2018-12-22 22:26 | RAD REPORT ---
EXAM DESCRIPTION: US - Scrotum Testicles - 12/22/2018 9:49 pm CLINICAL HISTORY: Testicular pain COMPARISON: None FINDINGS: Right testicle measures 4.7 x 2.6 x 3.6 7 centimeters. Echotexture is homogeneous. Normal blood flow Left testicle measures 4.6 x 2.4 x 3.5 centimeters. Echotexture is homogeneous. Normal blood flow The epididymides are normal in size and echotexture. Normal blood flow is seen. 4 millimeter left spermatocele IMPRESSION: 4 millimeter left spermatocele
[2018-12-22 23:00] LABS: Urine Bacteria <20 /HPF (NONE SEEN); Urine Culture Reflex Order NOT NEEDED; Urine RBC <5 /HPF (NONE SEEN)
[2018-12-22 23:03] LABS: Absolute Lymphocytes (CBC) 2.7 K/uL (0.7-4.9); Absolute Monocytes 0.6 K/uL (0.1-1.3); Absolute Neutrophil 3.1 K/uL (1.8-8.0); Basophils % 0.9 % (0-1.3); Eosinophils % 4.2 % (0-4.4); Hematocrit 32.7 % (39.6-49.0); Lymphocytes % 39.6 % (15.3-44.8); MPV 8.3 fL (7.6-11.3); Monocytes % 8.9 % (3.3-12.3); RBC Red Blood Cell Count 3.97 M/uL (4.33-5.43)
--- NOTE | 2018-12-22 23:43 | EDPHYS ---
Physician Documentation [facility] Name: Flex Del Valle Age: 48 yrs Sex: Male : 1970 Arrival Date: 12/22/2018 Time: 20:58 Bed 14 Private MD: ED Physician Figueroa Ramirez HPI: 12/22 22:03 This 48 yrs old Black Male presents to ER via Wheelchair with complaints of Testicular rn Pain. 22:03 The patient presents with scrotal pain, LLQ abd pain. Onset: The symptoms/episode rn began/occurred just prior to arrival. Modifying factors: The symptoms are alleviated by nothing, the symptoms are aggravated by nothing. Severity of symptoms: At their worst the symptoms were moderate, in the emergency department the symptoms are unchanged. The patient has experienced similar episodes in the past. + LLQ abd pain that radiates to groin and left testicle, hx of kidney stones and feels similar, no trauma, no fever, no difficulty urinating.. Historical: - Allergies: 21:02 BACLOFEN; jb4 21:02 Bactrim; jb4 21:02 Clindamycin; jb4 21:02 Ibuprofen; jb4 21:02 NSAIDS; jb4 21:02 Phenergan; jb4 21:02 Zithromax; jb4 21:02 Toradol; jb4 21:02 Levaquin; jb4 - Home Meds: 21:02 losartan oral oral [Active]; insulin [Active]; jb4 - PMHx: 21:02 Diabetes - NIDDM; DVT; Hypertension; neuropathy; jb4 - PSHx: 21:02 Lithotripsy; DAVID Feet; jb4 - Immunization history:: Adult Immunizations up to date. - Social history:: Smoking status: Patient/guardian denies using tobacco, Patient uses alcohol, occasionally. - Ebola Screening: : No symptoms or risks identified at this time. - Family history:: not pertinent. - Hospitalizations: : No recent hospitalization is reported. ROS: 22:03 Constitutional: Negative for fever, chills, and weight loss, Eyes: Negative for injury, rn pain, redness, and discharge, Neck: Negative for injury, pain, and swelling, Cardiovascular: Negative for chest pain, palpitations, and edema, Respiratory: Negative for shortness of breath, cough, wheezing, and pleuritic chest pain, Abdomen/GI: + LLQ abd pain Back: Negative for injury and pain, : + left testicular pain MS/Extremity: Negative for injury and deformity, Skin: Negative for injury, rash, and discoloration, Neuro: Negative for headache, weakness, numbness, tingling, and seizure. Exam: 22:03 Constitutional: This is a well developed, well nourished patient who is awake, alert, rn appears uncomfortable Head/Face: Normocephalic, atraumatic. Eyes: Pupils equal round and reactive to light, extra-ocular motions intact. Lids and lashes normal. Conjunctiva and sclera are non-icteric and not injected. Cornea within normal limits. Periorbital areas with no swelling, redness, or edema. Cardiovascular: Regular rate and rhythm. No pulse deficits. Respiratory: No increased work of breathing, no retractions or nasal flaring. Abdomen/GI: soft, mild LLQ tenderness, no rebound Back: No spinal tenderness. No costovertebral tenderness. Full range of motion. Male : Mild tenderness of left testicle without swelling or skin changes MS/ Extremity: Pulses equal, no cyanosis. Neurovascular intact. Full, normal range of motion. Equal circumference. Neuro: Awake and alert, GCS 15, oriented to person, place, time, and situation. Cranial nerves II-XII grossly intact. Motor strength 5/5 in all extremities. Sensory grossly intact. Vital Signs: 21:02 BP 135 / 85; Pulse 88; Resp 18; Temp 98.7(O); Pulse Ox 98% on R/A; Weight 113.4 kg (R); jb4 Height 6 ft. 1 in. (185.42 cm) (R); Pain 10/10; 22:19 BP 124 / 80; Pulse 73; Resp 16; Pulse Ox 97% on R/A; mt 12/23 00:07 BP 116 / 68; Pulse 67; Resp 16; Pulse Ox 97% on R/A; mt 00:49 BP 139 / 92; Pulse 67; Resp 16; Pulse Ox 98% on R/A; jb4 12/22 21:02 Body Mass Index 32.98 (113.40 kg, 185.42 cm) jb4 MDM: 12/22 21:04 Patient medically screened. rn 23:41 Differential diagnosis: nonspecific abdominal pain, UTI, kidney stone, testicular mass rn or torsion. Data reviewed: vital signs, nurses notes, lab test result(s), radiologic studies, CT scan, ultrasound, and as a result, I will discharge patient. Counseling: I had a detailed discussion with the patient and/or guardian regarding: the historical points, exam findings, and any diagnostic results supporting the discharge/admit diagnosis, lab results, radiology results, the need for outpatient follow up, to return to the emergency department if symptoms worsen or persist or if there are any questions or concerns that arise at home. Response to treatment: the patient's symptoms have markedly improved after treatment, and as a result, I will discharge patient. Special discussion: Based on the patient's Hx, exam, and Dx evaluation, there is no indication for emergent surgery or inpatient Tx. It is understood by the patient/guardian that if the Sx's persist or worsen they need to return immediately for re-evaluation. I discussed with the patient/guardian in detail that at this point there is no indication for admission to the hospital. It is understood, however, that if the symptoms persist or worsen the patient needs to return immediately for re-evaluation. ED course: NO acute finding on u/s or ct abdomen, + spermatocele, possible passed kidney stone.. 12/22 21:10 Order name: Basic Metabolic Panel; Complete Time: 22:56 12/22 21:10 Order name: CBC with Diff; Complete Time: 23:13 12/22 21:10 Order name: CT Stone Protocol rn 12/22 21:10 Order name: US Scrotum Testicles; Complete Time: 22:56 12/22 21:10 Order name: Urine Microscopic Only; Complete Time: 23:13 12/22 21:54 Order name: Urine Dipstick--Ancillary (enter results); Complete Time: 22:56 2 12/22 21:10 Order name: IV Saline Lock; Complete Time: 21:25 rn 12/22 21:10 Order name: Labs collected and sent; Complete Time: 21:49 rn 12/22 21:10 Order name: Urine Dipstick-Ancillary (obtain specimen); Complete Time: 21:48 rn Administered Medications: 21:59 Drug: Demerol 50 mg Route: IVP; Site: PICC; [facility] 22:20 Follow up: Response: No adverse reaction; Pain is decreased jb4 22:03 Drug: NS 0.9% 500 ml Route: IV; Rate: bolus; Site: PICC; jb4 23:03 Follow up: Response: No adverse reaction; IV Status: Completed infusion; IV Intake: jb4 500ml 22:03 Drug: vancoMYCIN 2 grams Route: IVPB; Rate: calculated rate; Site: PIC; jb4 12/23 00:03 Follow up: Response: No adverse reaction; IV Status: Completed infusion; IV Intake: jb4 500ml 00:06 Drug: morphine 4 mg Route: IVP; Site: PIC; jb4 00:53 Follow up: Response: No adverse reaction; Pain is decreased jb4 Disposition: 12/22/18 23:42 Discharged to Home. Impression: Lower abdominal pain, unspecified, Spermatocele of epididymis, unspecified. - Condition is Stable. - Discharge Instructions: Abdominal Pain, Adult, Spermatocele. - Medication Reconciliation Form, Thank You Letter, Antibiotic Education, Prescription Opioid Use form. - Follow up: Private Physician; When: As needed; Reason: Recheck today's complaints, Re-evaluation by your physician. - Problem is new. - Symptoms have improved. Signatures: Dispatcher [employer] EDMS Figueroa Ramirez MD MD rn Bryson, James, RN RN jb4 Corrections: (The following items were deleted from the chart) 00:53 12/22 23:42 12/22/2018 23:42 Discharged to Home. Impression: Lower abdominal pain, jb4 unspecified; Spermatocele of epididymis, unspecified. Condition is Stable. Forms are Medication Reconciliation Form, Thank You Letter, Antibiotic Education, Prescription Opioid Use. Follow up: Private Physician; When: As needed; Reason: Recheck today's complaints, Re-evaluation by your physician. Problem is new. Symptoms have improved. rn
--- NOTE | 2018-12-22 23:43 | ER ---
Nurse's Notes [facility] Name: Flex Del Valle Age: 48 yrs Sex: Male : 1970 Arrival Date: 12/22/2018 Time: 20:58 Bed 14 Private MD: Diagnosis: Lower abdominal pain, unspecified;Spermatocele of epididymis, unspecified Presentation: 12/22 21:02 Presenting complaint: Patient states: I am having left lower abdominal pain that jb4 radiates to my left testicle that started earlier today. 21:02 Transition of care: patient was not received from another setting of care. Onset of jb4 symptoms was December 22, 2018. Risk Assessment: Do you want to hurt yourself or someone else? Patient reports no desire to harm self or others. Initial Sepsis Screen: Does the patient meet any 2 criteria? No. Patient's initial sepsis screen is negative. Does the patient have a suspected source of infection? No. Patient's initial sepsis screen is negative. Care prior to arrival: None. 21:02 Method Of Arrival: Wheelchair jb4 21:02 Acuity: AB 3 jb4 Historical: - Allergies: 21:02 BACLOFEN; jb4 21:02 Bactrim; jb4 21:02 Clindamycin; jb4 21:02 Ibuprofen; jb4 21:02 NSAIDS; jb4 21:02 Phenergan; jb4 21:02 Zithromax; jb4 21:02 Toradol; jb4 21:02 Levaquin; jb4 - Home Meds: 21:02 losartan oral oral [Active]; insulin [Active]; jb4 - PMHx: 21:02 Diabetes - NIDDM; DVT; Hypertension; neuropathy; jb4 - PSHx: 21:02 Lithotripsy; DAVID Feet; jb4 - Immunization history:: Adult Immunizations up to date. - Social history:: Smoking status: Patient/guardian denies using tobacco, Patient uses alcohol, occasionally. - Ebola Screening: : No symptoms or risks identified at this time. - Family history:: not pertinent. - Hospitalizations: : No recent hospitalization is reported. Screenin:02 Abuse screen: Denies threats or abuse. Nutritional screening: No deficits noted. jb4 Tuberculosis screening: No symptoms or risk factors identified. Fall Risk IV access (20 points). Ambulatory Aid- Crutches/Cane/Walker (15 pts). Total Virk Fall Scale indicates Low Risk Score (25-44 pts). Fall prevention measures have been instituted. Side Rails Up X 2 Placed close to Nursing Station 1:1 attendant Assigned to Pt. Frequent Obs/Assesments occuring. Assessment: 21:02 General: Appears in no apparent distress. uncomfortable, Behavior is calm, cooperative, jb4 appropriate for age. Pain: Complains of pain in left lower quadrant Pain radiates to left testicle Pain currently is 10 out of 10 on a pain scale. Quality of pain is described as stabbing. Neuro: Level of Consciousness is awake, alert, obeys commands, Oriented to person, place, time, situation. Cardiovascular: Patient's skin is warm and dry. Respiratory: Airway is patent Respiratory effort is even, unlabored, Respiratory pattern is regular, symmetrical. GI: No signs and/or symptoms were reported involving the gastrointestinal system. : No signs and/or symptoms were reported regarding the genitourinary system. Denies pain in left lower quadrant(s). EENT: No signs and/or symptoms were reported regarding the EENT system. Derm: Skin is intact, Skin is dry, Skin is normal, Skin temperature is warm. Musculoskeletal: Circulation, motion, and sensation intact. 22:25 Reassessment: Patient appears in no apparent distress at this time. Patient and/or jb4 family updated on plan of care and expected duration. Pain level reassessed. Patient is alert, oriented x 3, equal unlabored respirations, skin warm/dry/pink. 12/23 00:00 Reassessment: Patient appears in no apparent distress at this time. Patient and/or jb4 family updated on plan of care and expected duration. Pain level reassessed. Patient is alert, oriented x 3, equal unlabored respirations, skin warm/dry/pink. Patient states feeling better. 00:49 Reassessment: Patient appears in no apparent distress at this time. Patient and/or jb4 family updated on plan of care and expected duration. Pain level reassessed. Patient is alert, oriented x 3, equal unlabored respirations, skin warm/dry/pink. Patient states feeling better. Vital Signs: 12/22 21:02 BP 135 / 85; Pulse 88; Resp 18; Temp 98.7(O); Pulse Ox 98% on R/A; Weight 113.4 kg (R); jb4 Height 6 ft. 1 in. (185.42 cm) (R); Pain 10/10; 22:19 BP 124 / 80; Pulse 73; Resp 16; Pulse Ox 97% on R/A; mt 12/23 00:07 BP 116 / 68; Pulse 67; Resp 16; Pulse Ox 97% on R/A; mt 00:49 BP 139 / 92; Pulse 67; Resp 16; Pulse Ox 98% on R/A; jb4 12/22 21:02 Body Mass Index 32.98 (113.40 kg, 185.42 cm) jb4 ED Course: 12/22 20:58 Patient arrived in ED. am2 21:02 Arm band placed on right wrist. jb4 21:02 Patient has correct armband on for positive identification. Bed in low position. Call jb4 light in reach. Side rails up X 1. Pulse ox on. NIBP on. 21:02 Accessed PICC line. jb4 21:04 Figueroa Ramirez MD is Attending Physician. rn 21:15 Ernesto Mayorga, SOFIA is Primary Nurse. jb4 21:17 Triage completed. jb4 21:22 CT completed. Patient tolerated procedure well. Patient moved to CT. Patient moved back ak from CT. 21:36 CT Stone Protocol In Process Unspecified. EDMS 21:48 US Scrotum Testicles In Process Unspecified. EDMS 12/23 00:50 No provider procedures requiring assistance completed. Patient did not have IV access jb4 during this emergency room visit. Administered Medications: 12/22 21:59 Drug: Demerol 50 mg Route: IVP; Site: PICC; jb4 22:20 Follow up: Response: No adverse reaction; Pain is decreased jb4 22:03 Drug: NS 0.9% 500 ml Route: IV; Rate: bolus; Site: PICC; jb4 23:03 Follow up: Response: No adverse reaction; IV Status: Completed infusion; IV Intake: jb4 500ml 22:03 Drug: vancoMYCIN 2 grams Route: IVPB; Rate: calculated rate; Site: PICC; jb4 12/23 00:03 Follow up: Response: No adverse reaction; IV Status: Completed infusion; IV Intake: jb4 500ml 00:06 Drug: morphine 4 mg Route: IVP; Site: PICC; jb4 :53 Follow up: Response: No adverse reaction; Pain is decreased jb4 Intake: 12/22 23:03 IV: 500ml; Total: 500ml. jb4 12/23 00:03 IV: 500ml; Total: 1000ml. jb4 Outcome: 12/22 23:42 Discharge ordered by . sofia 12/23 00:52 Discharged to home ambulatory, with significant other. jb4 Condition: stable Discharge instructions given to patient, significant other, Instructed on discharge instructions, follow up and referral plans. Demonstrated understanding of instructions, follow-up care. 00:53 Patient left the ED. jb4 Signatures: Dispatcher [employer] EDFigueroa Saldana MD MD rn Bryson, James, RN RN jb4 Cornel Ruffin Amanda am2 Thompson, Moriah mt
[2018-12-23] MEDS ORDERED: MORPHINE 4 MG/ML SYR ONE (00:03)
[2018-12-23 01:22] VITALS: TEMP 98.7
[2018-12-23 01:26] VITALS: BP 139/92; O2SAT 98
--- NOTE | 2018-12-23 11:33 | RAD REPORT ---
EXAM DESCRIPTION: CT - Stone Protocol - 12/22/2018 9:59 pm CLINICAL HISTORY: 48 years Male LLQ pain, hx of stones COMPARISON: None TECHNIQUE: Images were obtained in axial, sagittal, and coronal planes. No intravenous or oral contr ast was administered. This exam was performed according to our departmental dose-optimization program which includes use of Automated Exposure Control, adjustment of the mA and/or kV according to patient size and/or use of i terative reconstruction technique FINDINGS: At least three nonobstructing calcifications inferior right kidney. The largest measures 1 .1 cm in greatest anterior posterior dimension. Multiple nonobstructing calcifications left kidney. T he largest is seen inferiorly measuring 9 mm. No hydronephrosis bilaterally. No perinephric stranding . No definite ureteral calculi bilaterally. Pelvic calcifications thought to be vascular in nature. M ucosal thickening versus incomplete distention involving the bladder. Appendix within normal limits. No bowel obstruction, perforation, or inflammation. Moderate to marked constipation. No abnormality involving the liver, mass lesion, pancreas, or adrenal glands bilaterally. Mildly cont racted gallbladder. No dilatation abdominal aorta. No adenopathy or abnormal fluid collections seen. Small periumbilical hernia which contains only mesenteric fat. No abnormality lower lungs bilaterally. No acute osseous abnormality. IMPRESSION: Multiple nonobstructing calcifications kidneys bilaterally. No hydronephrosis bilaterall y. Incomplete distention versus inflammatory change involving the bladder. Moderate to marked constipation. Electronically signed by: Maria Luisa Rutledge MD 12/22/2018 9:45 PM CDT Due to temporary technical issues with the PACS/Fluency reporting system, reports are being signed by the in house radiologist as a courtesy to ensure prompt reporting. The interpreting radiologist is f ully responsible for the content of the report.
== END 2018-12-23 00:53 | disposition home or self-care (01) ==
LOC: ER 20:56
DX: N43.41 Spermatocele of epididymis, single (principal); E11.9 Type 2 diabetes mellitus without complications; I10 Essential (primary) hypertension; Z88.6 Allergy status to analgesic agent; Z88.1 Allergy status to other antibiotic agents
CPT/HCPCS: 36415; 74176; 76377; 76870; 80048; 81003; 81015; 85025; 96365; 96366; 96375; 99285; J2175

== ENCOUNTER 2019-01-12 21:41 | Emergency (ER) | payer OTHER, SELFPAY ==
--- OUTSIDE RECORDS SUMMARY | 2019-01-12 21:44 | XMS REPORT ---
:1970 [facility] Address [address] [place] [address] Dr. Lee [address] [place] [address] Care Team Providers Name Role Phone Unavailable Unavailable Unavailable Problems This patient has no known problems. Allergies, Adverse Reactions, Alerts This patient has no known allergies or adverse reactions. Medications This patient has no known medications.
[2019-01-12 23:03] LABS: Absolute Lymphocytes (CBC) 2.4 K/uL (0.7-4.9); Absolute Monocytes 0.4 K/uL (0.1-1.3); Absolute Neutrophil 2.3 K/uL (1.8-8.0); Eosinophils % 5.1 % (0-4.4); Hematocrit 36.4 % (39.6-49.0); Lymphocytes % 43.4 % (15.3-44.8); MPV 9.2 fL (7.6-11.3); RBC Red Blood Cell Count 4.25 M/uL (4.33-5.43)
[2019-01-12 23:21] LABS: ALT/SGPT 29 U/L (12-78); AST/SGOT 19 U/L (15-37); Albumin 3.5 g/dL (3.4-5.0); Alkaline Phosphatase 96 U/L (45-117); BUN Blood Urea Nitrogen 10 mg/dL (7-18); Bicarbonate 27 mmol/L (21-32); Bilirubin Direct < 0.1 mg/dL (0-0.2); Bilirubin Total 0.3 mg/dL (0.2-1.0); Glucose Level 315 mg/dL (74-106); Lipase 34 U/L (73-393); Potassium 3.9 mmol/L (3.5-5.1); Protein, Total 7.5 g/dL (6.4-8.2); Sodium Level 140 mmol/L (136-145)
[2019-01-12] MEDS ORDERED: FENTANYL CITR 100 MCG/2 ML ONE (23:22)
[2019-01-12] MEDS ORDERED: ONDANSETRON 4 MG/2 ML VIAL ONE (23:22)
[2019-01-12 23:54] LABS: Urine Bacteria <20 /HPF (NONE SEEN); Urine Culture Reflex Order REFLEXED; Urine RBC <5 /HPF (NONE SEEN)
[2019-01-12 23:55] LABS: Urine Blood TRACE (NEG); Urine Glucose 2+ (NEG); Urine Protein NEGATIVE (NEG)
--- NOTE | 2019-01-13 01:40 | ER ---
Nurse's Notes [facility] Name: Flex Del Valle Age: 48 yrs Sex: Male : 1970 Arrival Date: 01/12/2019 Time: 21:42 Bed 27 Private MD: Diagnosis: Acute Right Side Abdominal Pain Presentation: 01/12 21:49 Presenting complaint: Patient states: I woke up from a nap to sudden onset severe right la1 flank pain, pt reports hx of kidney stones. Transition of care: patient was not received from another setting of care. Onset of symptoms was January 12, 2019. Risk Assessment: Do you want to hurt yourself or someone else? Patient reports no desire to harm self or others. Initial Sepsis Screen: Does the patient meet any 2 criteria? No. Patient's initial sepsis screen is negative. Does the patient have a suspected source of infection? No. Patient's initial sepsis screen is negative. Care prior to arrival: None. 21:49 Method Of Arrival: Wheelchair la1 21:49 Acuity: AB 2 la1 Historical: - Allergies: 21:50 BACLOFEN; la1 21:50 Bactrim; la1 21:50 Clindamycin; la1 21:50 Ibuprofen; la1 21:50 NSAIDS; la1 21:50 Levaquin; la1 21:50 Phenergan; la1 21:50 Toradol; la1 21:50 Zithromax; la1 - Home Meds: 23:27 insulin [Active]; losartan Oral [Active]; mg2 - PMHx: 21:50 Diabetes - NIDDM; DVT; Hypertension; neuropathy; la1 - Immunization history:: Adult Immunizations up to date. - Social history:: Smoking status: Patient/guardian denies using tobacco. - Ebola Screening: : No symptoms or risks identified at this time. - Family history:: not pertinent. - Hospitalizations: : No recent hospitalization is reported. Screenin:23 Abuse screen: Denies threats or abuse. Denies injuries from another. Nutritional mg2 screening: No deficits noted. Tuberculosis screening: No symptoms or risk factors identified. Fall Risk IV access (20 points). Assessment: 23:25 General: Appears in no apparent distress. comfortable, Behavior is calm, cooperative. mg2 Pain: Complains of pain in abdomen Pain does not radiate. Pain currently is 8 out of 10 on a pain scale. Quality of pain is described as aching, Pain began gradually, 4 hours ago. Is intermittent. Neuro: Level of Consciousness is awake, alert, obeys commands, Oriented to person, place, time, situation. Cardiovascular: Capillary refill < 3 seconds Patient's skin is warm and dry. Respiratory: Airway is patent Respiratory effort is even, unlabored, Respiratory pattern is regular, symmetrical. GI: Bowel sounds present X 4 quads. Abd is soft and non tender. : see urine dip. EENT: No signs and/or symptoms were reported regarding the EENT system. Derm: Skin is intact, is healthy with good turgor, Skin is pink, warm \T\ dry. normal. Musculoskeletal: Circulation, motion, and sensation intact. Capillary refill < 3 seconds. 01/13 00:30 Reassessment: No changes from previously documented assessment. patient complained of mg2 abdominal pain. provider informed. 01:15 Reassessment: Patient appears in no apparent distress at this time. Patient and/or mg2 family updated on plan of care and expected duration. Pain level reassessed. Patient is alert, oriented x 3, equal unlabored respirations, skin warm/dry/pink. 01:58 Reassessment: Patient states feeling better. Patient states symptoms have improved. mg2 Vital Signs: 01/12 21:50 BP 132 / 83; Pulse 99; Resp 16; Temp 98.7; Pulse Ox 98% on R/A; Weight 117.93 kg; la1 Height 6 ft. 1 in. (185.42 cm); Pain 9/10; 23:40 BP 134 / 82; Pulse 82; Resp 18; Temp 98.7; Pulse Ox 98% on R/A; mg2 01/13 00:46 BP 134 / 79; Pulse 97; Resp 18; Temp 98.8; Pulse Ox 98% on R/A; mg2 01/12 21:50 Body Mass Index 34.30 (117.93 kg, 185.42 cm) la1 ED Course: 01/12 21:42 Patient arrived in ED. ds1 21:50 Triage completed. la1 21:51 Arm band placed on left wrist. la1 21:53 Phu Bennett MD is Attending Physician. wa 21:56 Blaze Shepard RN is Primary Nurse. mg2 22:23 No provider procedures requiring assistance completed. Inserted saline lock: 20 gauge mg2 in right antecubital area, using aseptic technique. Blood collected. Accessed PICC line. using ,sterile technique, Clean \T\ dry. Dressing intact. No blood return. Flushes easily. 23:27 Patient has correct armband on for positive identification. Door closed. Warm blanket mg2 given. 23:55 CT completed. Patient tolerated procedure well. Patient moved to ND via wheelchair. Patient moved back from ND. 01/13 00:02 Stone Protocol In Process Unspecified. EDMS 01:45 Phu Paz MD is Referral Physician. wa 01:59 IV discontinued, intact, bleeding controlled, No redness/swelling at site. Pressure mg2 dressing applied. Administered Medications: 01/12 23:25 Drug: fentaNYL (PF) 100 mcg Route: IVP; Site: right antecubital; mg2 01/13 00:01 Follow up: Response: No adverse reaction; Marked relief of symptoms mg2 01/12 23:25 Drug: Zofran 4 mg Route: IVP; Site: right antecubital; mg2 01/13 00:00 Follow up: Response: No adverse reaction; Marked relief of symptoms mg2 Outcome: 01:40 Discharge ordered by . wa 01:59 Discharged to home ambulatory, with family. mg2 01:59 Condition: stable 01:59 Discharge instructions given to patient, family, Instructed on discharge instructions, follow up and referral plans. medication usage, Demonstrated understanding of instructions, follow-up care, medications, Prescriptions given X 2. 02:00 Patient left the ED. mg2 Signatures: Dispatcher [employer] EDME Cuate Dorsey Eulalia Dasilva ds1 Edy Hook, ALF RN la1 Phu Bennett MD MD wa Gardose, Michele, RN RN mg2
--- NOTE | 2019-01-13 01:41 | EDPHYS ---
Physician Documentation [facility] Name: Flex Del Valle Age: 48 yrs Sex: Male : 1970 Arrival Date: 01/12/2019 Time: 21:42 Bed 27 Private MD: ED Physician Phu Bennett HPI: 01/13 08:34 This 48 yrs old Black Male presents to ER via Wheelchair with complaints of Abdominal wa Pain. 08:34 The patient presents with abdominal pain R flank pain. Onset: The symptoms/episode wa began/occurred just prior to arrival. The symptoms radiate to R groin. Associated signs and symptoms: Pertinent positives: nausea, Pertinent negatives: vomiting. The symptoms are described as achy. Modifying factors: The symptoms are alleviated by nothing, the symptoms are aggravated by nothing. Severity of pain: At its worst the pain was moderate in the emergency department the pain is actually worse moderately. The patient has experienced similar episodes in the past, several times. The patient has not recently seen a physician. sudden onset R side abd and flank pain. Historical: - Allergies: 01/12 21:50 BACLOFEN; la1 21:50 Bactrim; la1 21:50 Clindamycin; la1 21:50 Ibuprofen; la1 21:50 NSAIDS; la1 21:50 Levaquin; la1 21:50 Phenergan; la1 21:50 Toradol; la1 21:50 Zithromax; la1 - Home Meds: 23:27 insulin [Active]; losartan Oral [Active]; mg2 - PMHx: 21:50 Diabetes - NIDDM; DVT; Hypertension; neuropathy; la1 - Immunization history:: Adult Immunizations up to date. - Social history:: Smoking status: Patient/guardian denies using tobacco. - Ebola Screening: : No symptoms or risks identified at this time. - Family history:: not pertinent. - Hospitalizations: : No recent hospitalization is reported. ROS: 01/13 08:37 Constitutional: Negative for fever, chills, and weight loss, Eyes: Negative for injury, wa pain, redness, and discharge, ENT: Negative for injury, pain, and discharge, Neck: Negative for injury, pain, and swelling, Cardiovascular: Negative for chest pain, palpitations, and edema, Respiratory: Negative for shortness of breath, cough, wheezing, and pleuritic chest pain, Back: Negative for injury and pain, : Negative for injury, bleeding, discharge, and swelling, MS/Extremity: Negative for injury and deformity, Skin: Negative for injury, rash, and discoloration, Neuro: Negative for headache, weakness, numbness, tingling, and seizure, Psych: Negative for depression, anxiety, suicide ideation, homicidal ideation, and hallucinations. Abdomen/GI: Positive for abdominal pain, nausea, Negative for vomiting, diarrhea. Exam: 08:37 Constitutional: This is a well developed, well nourished patient who is awake, alert, wa and in no acute distress. Head/Face: Normocephalic, atraumatic. Eyes: Pupils equal round and reactive to light, extra-ocular motions intact. Lids and lashes normal. Conjunctiva and sclera are non-icteric and not injected. Cornea within normal limits. Periorbital areas with no swelling, redness, or edema. ENT: Nares patent. No nasal discharge, no septal abnormalities noted. Tympanic membranes are normal and external auditory canals are clear. Oropharynx with no redness, swelling, or masses, exudates, or evidence of obstruction, uvula midline. Mucous membranes moist. Neck: Trachea midline, no thyromegaly or masses palpated, and no cervical lymphadenopathy. Supple, full range of motion without nuchal rigidity, or vertebral point tenderness. No Meningismus. Chest/axilla: Normal chest wall appearance and motion. Nontender with no deformity. No lesions are appreciated. Cardiovascular: Regular rate and rhythm with a normal S1 and S2. No gallops, murmurs, or rubs. Normal PMI, no JVD. No pulse deficits. Respiratory: Lungs have equal breath sounds bilaterally, clear to auscultation and percussion. No rales, rhonchi or wheezes noted. No increased work of breathing, no retractions or nasal flaring. Back: No spinal tenderness. No costovertebral tenderness. Full range of motion. Male : Normal genitalia with no discharge or lesions. Skin: Warm, dry with normal turgor. Normal color with no rashes, no lesions, and no evidence of cellulitis. MS/ Extremity: Pulses equal, no cyanosis. Neurovascular intact. Full, normal range of motion. Neuro: Awake and alert, GCS 15, oriented to person, place, time, and situation. Cranial nerves II-XII grossly intact. Motor strength 5/5 in all extremities. Sensory grossly intact. Cerebellar exam normal. Normal gait. Psych: Awake, alert, with orientation to person, place and time. Behavior, mood, and affect are within normal limits. 08:37 Abdomen/GI: Inspection: abdomen appears normal, Bowel sounds: normal, in all quadrants, Palpation: moderate abdominal tenderness, in the right lower quadrant, no appreciated organomegaly. Vital Signs: 01/12 21:50 BP 132 / 83; Pulse 99; Resp 16; Temp 98.7; Pulse Ox 98% on R/A; Weight 117.93 kg; la1 Height 6 ft. 1 in. (185.42 cm); Pain 9/10; 23:40 BP 134 / 82; Pulse 82; Resp 18; Temp 98.7; Pulse Ox 98% on R/A; mg2 01/13 00:46 BP 134 / 79; Pulse 97; Resp 18; Temp 98.8; Pulse Ox 98% on R/A; mg2 01/12 21:50 Body Mass Index 34.30 (117.93 kg, 185.42 cm) la1 MDM: 01/12 21:53 Patient medically screened. nc 01/13 08:37 Differential diagnosis: diverticulitis, non-specific abd pain, Pyelonephritis, nc Ureterolithiasis, urinary tract infection. 08:38 Data reviewed: vital signs, nurses notes. Test interpretation: by ED physician or nc midlevel provider: labs and CT noted wnl. . Response to treatment: the patient's symptoms have markedly improved after treatment. 01/12 22:21 Order name: Basic Metabolic Panel [facility] 01/12 22:21 Order name: CBC with Diff [facility] 01/12 22:21 Order name: Creatinine for Radiology [facility] 01/12 22:21 Order name: Hepatic Function [facility] 01/12 22:21 Order name: Lipase [facility] 01/12 22:49 Order name: Urine Microscopic Only nc 01/12 22:21 Order name: IV Saline Lock; Complete Time: 22:21 [facility] 01/12 22:21 Order name: Labs collected and sent; Complete Time: 22:22 [facility] 01/12 23:18 Order name: Stone Protocol [facility] 01/12 23:27 Order name: Urine Dipstick--Ancillary (enter results) 2 01/12 23:55 Order name: Urine Culture [facility] 01/12 22:49 Order name: Urine Dipstick-Ancillary (obtain specimen); Complete Time: 23:25 nc Administered Medications: 01/12 23:25 Drug: fentaNYL (PF) 100 mcg Route: IVP; Site: right antecubital; mg2 01/13 00:01 Follow up: Response: No adverse reaction; Marked relief of symptoms mg2 01/12 23:25 Drug: Zofran 4 mg Route: IVP; Site: right antecubital; mg2 01/13 00:00 Follow up: Response: No adverse reaction; Marked relief of symptoms mg2 Disposition: 01/13/19 01:40 Discharged to Home. Impression: Acute Right Side Abdominal Pain. - Condition is Stable. - Discharge Instructions: Abdominal Pain, Adult, [id number]. - Prescriptions for Tylenol- Codeine #3 300-30 mg Oral Tablet - take 2 tablets by ORAL route every 8 hours As needed; 15 tablet. Zofran 4 mg Oral Tablet - take 1 tablet by ORAL route every 12 hours As needed; 20 tablet. - Medication Reconciliation Form, Thank You Letter, Antibiotic Education, Prescription Opioid Use form. - Follow up: Private Physician; When: 2 - 3 days; Reason: Recheck today's complaints. Follow up: Phu Paz MD; When: 1 - 2 days; Reason: Recheck today's complaints. - Problem is new. - Symptoms have improved. - Notes: follow up with Dr. Paz in next day for further evaluation of your abdominal pain Signatures: Dispatcher [employer] [facility] Edy Hook RN RN la1 Phu Bennett MD MD nc Blaze Shepard RN RN mg2 Corrections: (The following items were deleted from the chart) 01/12 23:18 22:59 Abdomen Pelvis Wo [id number].BRZ ordered. [facility] 01/13 01:45 01:40 01/13/2019 01:40 Discharged to Home. Impression: Acute Right Side Abdominal Pain. nc Condition is Stable. Forms are Medication Reconciliation Form, Thank You Letter, Antibiotic Education, Prescription Opioid Use. Follow up: Private Physician; When: 2 - 3 days; Reason: Recheck today's complaints. Problem is new. Symptoms have improved. nc 02:00 01:45 01/13/2019 01:40 Discharged to Home. Impression: Acute Right Side Abdominal Pain. mg2 Condition is Stable. Discharge Instructions: Abdominal Pain, Adult, [id number]. Prescriptions for Tylenol-Codeine #3 300-30 mg Oral Tablet - take 2 tablets by ORAL route every 8 hours As needed; 15 tablet, Zofran 4 mg Oral Tablet - take 1 tablet by ORAL route every 12 hours As needed; 20 tablet. and Forms are Medication Reconciliation Form, Thank You Letter, Antibiotic Education, Prescription Opioid Use. Follow up: Private Physician; When: 2 - 3 days; Reason: Recheck today's complaints. Follow up: Phu Paz; When: 1 - 2 days; Reason: Recheck today's complaints. Problem is new. Symptoms have improved. wa
[2019-01-13 06:42] VITALS: O2SAT 98
[2019-01-13 06:45] VITALS: BP 134/79; TEMP 98.8
--- NOTE | 2019-01-17 15:36 | RAD REPORT ---
EXAM DESCRIPTION: CT - Stone Protocol - 01/13/2019 6:39 am CLINICAL HISTORY: The patient is 48 years old and is Male; R flank and abd pain TECHNIQUE: Axial computed tomography images of the abdomen and pelvis without intravenous contrast. Sagittal and coronal reformatted images were created and reviewed. This CT exam was performed usi ng one or more of the following dose reduction techniques: automated exposure control, adjustment o f the mA and/or kV according to patient size, and/or use of iterative reconstruction technique. COMPARISON: CT abdomen and pelvis without contrast dated December 22, 2018. FINDINGS: LUNG BASES: Unremarkable. No mass. No consolidation. ABDOMEN: LIVER: Unremarkable. GALLBLADDER AND BILE DUCTS: Contracted gallbladder, likely postprandial. No calcified stones. No ductal dilation. PANCREAS: Mild fatty infiltration of the pancreas. No ductal dilation. SPLEEN: Unremarkable. No splenomegaly. ADRENALS: Unremarkable. No mass. KIDNEYS AND URETERS: Redemonstration of multiple large bilateral calcified renal stones. Largest r ight renal stone measures 1.2 cm in the inferior pole. Largest left renal stone measures 1 cm in the inferior pole. No hydronephrosis or hydroureter. STOMACH AND BOWEL: Unremarkable. No obstruction. No mucosal thickening. PELVIS: APPENDIX: The appendix is seen and is within normal limits. BLADDER: Mild thickening of the bladder wall, unchanged from prior exam. No stones. REPRODUCTIVE: Unremarkable as visualized. ABDOMEN and PELVIS: INTRAPERITONEAL SPACE: Unremarkable. No free air. No significant fluid collection. BONES/JOINTS: No acute fracture. No dislocation. SOFT TISSUES: Small fat-containing umbilical hernia. VASCULATURE: Unremarkable. No abdominal aortic aneurysm. LYMPH NODES: Unremarkable. No enlarged lymph nodes. IMPRESSION: 1. No acute abdominal or pelvic abnormality. 2. Redemonstration of multiple bilateral nonobstructive nephrolithiasis as detailed above without o bstructive uropathy. Electronically signed by: Stef Santana DO 01/13/2019 12:14 AM CDT Due to temporary technical issues with the PACS/Fluency reporting system, reports are being signed by the in house radiologist as a courtesy to ensure prompt reporting. The interpreting radiologist is f ully responsible for the content of the report.
== END 2019-01-13 02:00 | disposition home or self-care (01) ==
LOC: ER 21:41
DX: R10.9 Unspecified abdominal pain (principal); I10 Essential (primary) hypertension; E11.40 Type 2 diabetes mellitus with diabetic neuropathy, unspecified; Z88.1 Allergy status to other antibiotic agents; Z88.3 Allergy status to other anti-infective agents; Z88.6 Allergy status to analgesic agent; Z79.4 Long term (current) use of insulin
CPT/HCPCS: 36415; 74176; 76377; 80048; 80076; 81003; 81015; 83690; 85025; 87086; 87088; 96374; 96375; 99285; J2405; J3010

== ENCOUNTER 2019-01-16 23:04 | Emergency (ER) | payer OTHER, SELFPAY ==
--- OUTSIDE RECORDS SUMMARY | 2019-01-16 23:07 | XMS REPORT ---
:1970 [facility] Address [address] [place] [address] [address]. Lee [address] [place] [address] Care Team Providers Name Role Phone Unavailable Unavailable Unavailable Problems This patient has no known problems. Allergies, Adverse Reactions, Alerts This patient has no known allergies or adverse reactions. Medications This patient has no known medications.
[2019-01-17 00:45] LABS: Absolute Monocytes 0.5 K/uL (0.1-1.3); Absolute Neutrophil 2.4 K/uL (1.8-8.0); Basophils % 0.8 % (0-1.3); Eosinophils % 3.8 % (0-4.4); Lymphocytes % 38.7 % (15.3-44.8); MPV 8.8 fL (7.6-11.3); Monocytes % 9.5 % (3.3-12.3); RBC Red Blood Cell Count 4.35 M/uL (4.33-5.43)
[2019-01-17 01:01] LABS: ALT/SGPT 25 U/L (12-78); AST/SGOT 14 U/L (15-37); Albumin 3.6 g/dL (3.4-5.0); Alkaline Phosphatase 91 U/L (45-117); BUN Blood Urea Nitrogen 11 mg/dL (7-18); Bicarbonate 28 mmol/L (21-32); Bilirubin Direct < 0.1 mg/dL (0-0.2); Bilirubin Total 0.4 mg/dL (0.2-1.0); Glucose Level 138 mg/dL (74-106); Lipase 41 U/L (73-393); Protein, Total 7.5 g/dL (6.4-8.2); Sodium Level 142 mmol/L (136-145)
[2019-01-17 01:35] LABS: Urine Blood NEGATIVE (NEG); Urine Glucose NEGATIVE (NEG); Urine Protein NEGATIVE (NEG); Urine pH 5.5 (5.0-7.0)
[2019-01-17] MEDS ORDERED: MORPHINE 2 MG/ML SYR ONE (01:39)
[2019-01-17] MEDS ORDERED: ONDANSETRON 4 MG/2 ML VIAL ONE (01:40)
--- NOTE | 2019-01-17 02:29 | ER ---
Nurse's Notes [facility] Name: Flex Del Valle Age: 48 yrs Sex: Male : 1970 Arrival Date: 01/16/2019 Time: 23:07 Bed 10 Private MD: Diagnosis: Abdominal tenderness Presentation: 01/16 23:11 Presenting complaint: Patient states: he is having right flank pain which started bb tonight, pt states he was seen here recently for the same thing and told to follow-up with GI but he has not been able to yet. Pt is here for IV therapy and wants to have abdominal pain checked out. Transition of care: patient was not received from another setting of care. Onset of symptoms was January 16, 2019. Risk Assessment: Do you want to hurt yourself or someone else? Patient reports no desire to harm self or others. Initial Sepsis Screen: Does the patient meet any 2 criteria? No. Patient's initial sepsis screen is negative. Does the patient have a suspected source of infection? No. Patient's initial sepsis screen is negative. Care prior to arrival: None. 23:11 Method Of Arrival: Ambulatory bb 23:11 Acuity: AB 3 bb Historical: - Allergies: 23:13 BACLOFEN; bb 23:13 Bactrim; bb 23:13 Clindamycin; bb 23:13 Ibuprofen; bb 23:13 Levaquin; bb 23:13 NSAIDS; bb 23:13 Phenergan; bb 23:13 Toradol; bb 23:13 Zithromax; bb - Home Meds: 23:13 insulin [Active]; losartan Oral [Active]; bb - PMHx: 23:13 Diabetes - NIDDM; DVT; Hypertension; neuropathy; bb - Immunization history:: Adult Immunizations up to date. - Social history:: Smoking status: unknown. - Ebola Screening: : No symptoms or risks identified at this time. Screenin:14 Abuse screen: Denies threats or abuse. Nutritional screening: No deficits noted. bb Tuberculosis screening: No symptoms or risk factors identified. Fall Risk None identified. Assessment: 23:14 General: Appears in no apparent distress. uncomfortable, Behavior is calm, cooperative, bb Reports right flank pain which started again tonight pain is a constant dull ache 10/10. Pain: Complains of pain in right flank Pain currently is 10 out of 10 on a pain scale. Neuro: Level of Consciousness is awake, alert, obeys commands, Oriented to person, place, time, situation. Cardiovascular: Heart tones S1 S2 present. Respiratory: Respiratory effort is even, unlabored, Respiratory pattern is regular, Breath sounds are clear bilaterally. GI: Abdomen is non-distended, Bowel sounds present X 4 quads. Abd is soft X 4 quads. Derm: Skin is dry, Skin is normal, Skin temperature is warm. Musculoskeletal: Circulation, motion, and sensation intact. 01/17 00:33 Reassessment: Patient and/or family updated on plan of care and expected duration. Pain bb level reassessed. Patient is alert, oriented x 3, equal unlabored respirations, skin warm/dry/pink. pt resting quietly IV antibiotics infusing to left PICC line, labs drawn from right AC and sent to lab. 01:17 Reassessment: pt transported to CT scan via wheelchair accompanied by diagnostic technician. bb 02:38 Reassessment: Patient and/or family updated on plan of care and expected duration. Pain bb level reassessed. Patient is alert, oriented x 3, equal unlabored respirations, skin warm/dry/pink. pt verbalized understanding of and agrees to plan of care discharge instructions given pt ambulated by crutches to exit accompanied by spouse Patient states feeling better. Vital Signs: 01/16 23:13 BP 143 / 89; Pulse 84; Resp 18 S; Temp 96.2(O); Pulse Ox 99% on R/A; Weight 117.93 kg bb (R); Height 6 ft. 1 in. (185.42 cm) (R); Pain 10/10; 01/17 01:18 BP 143 / 91; Pulse 96; Resp 16 S; Temp 96.3(O); Pulse Ox 99% on R/A; bb 02:39 BP 143 / 80; Pulse 84; Resp 16 S; Temp 97.2(O); Pulse Ox 98% on R/A; Pain 5/10; bb 01/16 23:13 Body Mass Index 34.30 (117.93 kg, 185.42 cm) bb ED Course: 01/16 23:07 Patient arrived in ED. es 23:12 Triage completed. bb 23:13 Arm band placed on Patient placed in an exam room. Family accompanied patient. bb 23:14 Patient has correct armband on for positive identification. Call light in reach. Warm bb blanket given. 23:14 IV pt has PICC line left upper extremity which is currently being used for IV therapy. bb 23:43 Bert Holder MD is Attending Physician. tw01/17 00:33 Initial lab(s) drawn, by me, sent to lab. bb 01:04 Radiology exam delayed due to Patient receiving IV treatment at this time. 01:17 Urine collected: clean catch specimen, clear. bb 01:41 CT Stone Protocol In Process Unspecified. EDMS 02:40 No provider procedures requiring assistance completed. pt has PICC line. bb Administered Medications: 01:40 Drug: morphine 2 mg Route: IVP; Site: PICC; bb 02:30 Follow up: Response: Pain is decreased bb 01:40 Drug: Zofran 4 mg Route: IVP; Site: PICC; bb 02:42 Follow up: Response: Pain is decreased bb Outcome: 02:28 Discharge ordered by . tw4 02:41 Discharged to home with family. bb 02:41 Condition: stable 02:41 Discharge instructions given to patient, Instructed on discharge instructions, follow up and referral plans. medication usage, Demonstrated understanding of instructions, follow-up care, medications, Prescriptions given X 1. 02:41 Patient left the ED. bb Signatures: Dispatcher [employer] Yuliya Solomon Ervin Sabine Montgomery, RN RN Bert Sam MD MD
--- NOTE | 2019-01-17 02:29 | EDPHYS ---
Physician Documentation [facility] Name: Flex Del Valle Age: 48 yrs Sex: Male : 1970 Arrival Date: 01/16/2019 Time: 23:07 Bed 10 Private MD: ED Physician Bert Holder HPI: 01/17 04:43 This 48 yrs old Black Male presents to ER via Ambulatory with complaints of Abdominal tw4 Pain. 04:43 The patient presents with abdominal pain in the right upper quadrant. Onset: The tw4 symptoms/episode began/occurred today. The symptoms radiate to the right flank. Associated signs and symptoms: none. The symptoms are described as dull. Modifying factors: The symptoms are alleviated by nothing, the symptoms are aggravated by nothing. The patient has not experienced similar symptoms in the past. Historical: - Allergies: 01/16 23:13 BACLOFEN; bb 23:13 Bactrim; bb 23:13 Clindamycin; bb 23:13 Ibuprofen; bb 23:13 Levaquin; bb 23:13 NSAIDS; bb 23:13 Phenergan; bb 23:13 Toradol; bb 23:13 Zithromax; bb - Home Meds: 23:13 insulin [Active]; losartan Oral [Active]; bb - PMHx: 23:13 Diabetes - NIDDM; DVT; Hypertension; neuropathy; bb - Immunization history:: Adult Immunizations up to date. - Social history:: Smoking status: unknown. - Ebola Screening: : No symptoms or risks identified at this time. ROS: 01/17 04:43 Constitutional: Negative for fever, chills, and weight loss, Eyes: Negative for injury, tw4 pain, redness, and discharge, Cardiovascular: Negative for chest pain, palpitations, and edema, Respiratory: Negative for shortness of breath, cough, wheezing, and pleuritic chest pain, Back: Negative for injury and pain. Abdomen/GI: Positive for abdominal pain, Negative for nausea and vomiting, nausea, vomiting, and diarrhea, nausea, abdominal cramps, abdominal distension, anorexia, black/tarry stool, rectal bleeding. Exam: 04:43 Constitutional: This is a well developed, well nourished patient who is awake, alert, tw4 and in no acute distress. Head/Face: Normocephalic, atraumatic. Chest/axilla: Normal chest wall appearance and motion. Nontender with no deformity. No lesions are appreciated. Cardiovascular: Regular rate and rhythm with a normal S1 and S2. No gallops, murmurs, or rubs. Normal PMI, no JVD. No pulse deficits. Respiratory: Lungs have equal breath sounds bilaterally, clear to auscultation and percussion. No rales, rhonchi or wheezes noted. No increased work of breathing, no retractions or nasal flaring. 04:43 Skin: Warm, dry with normal turgor. Normal color with no rashes, no lesions, and no evidence of cellulitis. Neuro: Awake and alert, GCS 15, oriented to person, place, time, and situation. Cranial nerves II-XII grossly intact. Motor strength 5/5 in all extremities. Sensory grossly intact. Cerebellar exam normal. Normal gait. 04:43 Abdomen/GI: Inspection: abdomen appears normal, Bowel sounds: normal, Palpation: abdomen is soft and non-tender. 04:43 Back: pain, that is very mild, ROM is decreased, CVA tenderness, that is mild, is noted on the right. Vital Signs: 01/16 23:13 BP 143 / 89; Pulse 84; Resp 18 S; Temp 96.2(O); Pulse Ox 99% on R/A; Weight 117.93 kg bb (R); Height 6 ft. 1 in. (185.42 cm) (R); Pain 10/10; 01/17 01:18 BP 143 / 91; Pulse 96; Resp 16 S; Temp 96.3(O); Pulse Ox 99% on R/A; bb 02:39 BP 143 / 80; Pulse 84; Resp 16 S; Temp 97.2(O); Pulse Ox 98% on R/A; Pain 5/10; bb 01/16 23:13 Body Mass Index 34.30 (117.93 kg, 185.42 cm) bb MDM: 01/16 23:45 Patient medically screened. tw4 01/17 04:43 Differential diagnosis: myocardia ischemia or infarction, pancreatitis, Peptic Ulcer tw4 Disease, Perf. Duodenal Ulcer, Perf. Gastric Ulcer, Pyelonephritis, Ureterolithiasis, urinary tract infection. Data reviewed: vital signs, nurses notes. Data interpreted: awake overnight monitor: rhythm is normal sinus rhythm, Pulse oximetry: Interpretation: normal. Test interpretation: by ED physician or midlevel provider: plain radiologic studies. Counseling: I had a detailed discussion with the patient and/or guardian regarding: the historical points, exam findings, and any diagnostic results supporting the discharge/admit diagnosis, lab results, radiology results. Special discussion: I discussed with the patient/guardian in detail that at this point there is no indication for admission to the hospital. It is understood, however, that if the symptoms persist or worsen the patient needs to return immediately for re-evaluation. 01/17 00:22 Order name: Basic Metabolic Panel 01/17 00:22 Order name: CBC with Diff 01/17 00:22 Order name: Creatinine for Radiology 01/17 00:22 Order name: Hepatic Function 01/17 00:22 Order name: Lipase 01/17 00:22 Order name: IV Saline Lock; Complete Time: 00:25 [facility] 01/17 00:22 Order name: Labs collected and sent; Complete Time: 00:33 [facility] 01/17 00:54 Order name: CT Stone Protocol [facility] 01/17 00:54 Order name: Urine Dipstick-Ancillary (obtain specimen); Complete Time: 01:19 [facility] 01/17 01:16 Order name: Urine Dipstick--Ancillary (enter results) bb Administered Medications: 01:40 Drug: morphine 2 mg Route: IVP; Site: PICC; bb 02:30 Follow up: Response: Pain is decreased bb 01:40 Drug: Zofran 4 mg Route: IVP; Site: PICC; bb 02:42 Follow up: Response: Pain is decreased bb Disposition: 01/17/19 02:28 Discharged to Home. Impression: Abdominal tenderness. - Condition is Stable. - Discharge Instructions: Abdominal Pain, Adult, [id number]. - Prescriptions for Bentyl 20 mg Oral Tablet - take 1 tablet by ORAL route every 6 hours As needed; 20 tablet. - Medication Reconciliation Form, Thank You Letter, Antibiotic Education, Prescription Opioid Use form. - Follow up: Private Physician; When: Upon discharge from the Emergency Department; Reason: If symptoms return, Recheck today's complaints, Continuance of care. - Problem is new. - Symptoms have improved. Signatures: Dispatcher [employer] EDCO Sabine Montgomery RN RN bb Bert Holder MD MD tw4 Corrections: (The following items were deleted from the chart) 01:34 00:55 UA MICROSCOPIC+U.LAB.BRZ ordered. EDCO EDMS 02:41 02:28 01/17/2019 02:28 Discharged to Home. Impression: Abdominal tenderness. Condition bb is Stable. Forms are Medication Reconciliation Form, Thank You Letter, Antibiotic Education, Prescription Opioid Use. Follow up: Private Physician; When: Upon discharge from the Emergency Department; Reason: If symptoms return, Recheck today's complaints, Continuance of care. Problem is new. Symptoms have improved. tw4
[2019-01-17 04:39] VITALS: BP 143/80; TEMP 97.2; O2SAT 98
--- NOTE | 2019-01-17 11:32 | RAD REPORT ---
EXAM DESCRIPTION: CT - Stone Protocol - 01/17/2019 1:40 am CLINICAL HISTORY: The patient is 48 years old and is Male; Flank pain;Abd pain TECHNIQUE: Axial computed tomography images of the abdomen and pelvis without intravenous contrast. Sagittal and coronal reformatted images were created and reviewed. This CT exam was performed usi ng one or more of the following dose reduction techniques: automated exposure control, adjustment o f the mA and/or kV according to patient size, and/or use of iterative reconstruction technique. COMPARISON: CT abdomen and pelvis without contrast dated 01/12/2019. FINDINGS: LUNG BASES: Unremarkable. No mass. No consolidation. ABDOMEN: LIVER: Unremarkable. GALLBLADDER AND BILE DUCTS: Unremarkable. No calcified stones. No ductal dilation. PANCREAS: Unremarkable. No ductal dilation. SPLEEN: Unremarkable. No splenomegaly. ADRENALS: Unremarkable. No mass. KIDNEYS AND URETERS: Unchanged multiple right renal stones in the inferior pole measuring up to 1. 1 cm. Unchanged scattered innumerable left renal stones. The largest of which is seen in the infer ior pole measuring up to 1.1 cm. No ureteral stone, hydronephrosis or hydroureter. STOMACH AND BOWEL: Unremarkable. No obstruction. No mucosal thickening. PELVIS: APPENDIX: The appendix is seen and is within normal limits. BLADDER: Unchanged mild thickening of the bladder wall. No stones. REPRODUCTIVE: Unremarkable as visualized. ABDOMEN and PELVIS: INTRAPERITONEAL SPACE: Unremarkable. No free air. No significant fluid collection. BONES/JOINTS: No acute fracture. No dislocation. SOFT TISSUES: Fat-containing umbilical hernia. VASCULATURE: Unremarkable. No abdominal aortic aneurysm. LYMPH NODES: Unremarkable. No enlarged lymph nodes. IMPRESSION: 1. No acute abdominal or pelvic abnormality. 2. No significant change when compared to prior exam with multiple bilateral renal stone as detaile d above. No hydronephrosis. Electronically signed by: Stef Santana DO 01/17/2019 2:00 AM CDT Due to temporary technical issues with the PACS/Fluency reporting system, reports are being signed by the in house radiologist as a courtesy to ensure prompt reporting. The interpreting radiologist is f ully responsible for the content of the report.
== END 2019-01-17 02:41 | disposition home or self-care (01) ==
LOC: ER 23:04
DX: R10.811 Right upper quadrant abdominal tenderness (principal); I10 Essential (primary) hypertension; E11.9 Type 2 diabetes mellitus without complications; Z79.4 Long term (current) use of insulin; Z88.1 Allergy status to other antibiotic agents; Z88.5 Allergy status to narcotic agent; Z88.6 Allergy status to analgesic agent; Z88.8 Allergy status to other drugs, medicaments and biological substances; Z86.718 Personal history of other venous thrombosis and embolism
CPT/HCPCS: 36415; 74176; 76377; 80048; 80076; 81003; 83690; 85025; 96374; 96375; 99284; J2270; J2405

== ENCOUNTER 2019-01-18 23:13 | Emergency (ER) | payer OTHER, SELFPAY ==
--- OUTSIDE RECORDS SUMMARY | 2019-01-18 23:15 | XMS REPORT ---
:1970 [facility] [address] [place] [address] [address] [place] [address] Care Team Providers Name Role Phone Unavailable Unavailable Unavailable Problems This patient has no known problems. Allergies, Adverse Reactions, Alerts This patient has no known allergies or adverse reactions. Medications This patient has no known medications.
[2019-01-19] MEDS ORDERED: HYDROCODONE/APAP 7.5/325 MG TAB ONE (00:56)
--- NOTE | 2019-01-19 02:23 | ER ---
Nurse's Notes [facility] Name: Flex Del Valle Age: 48 yrs Sex: Male : 1970 Arrival Date: 01/18/2019 Time: 23:20 Bed 13 Private MD: Diagnosis: Pain in right knee;Edema, unspecified Presentation: 01/18 23:20 Presenting complaint: Patient states: he noticed his left lower leg with swelling today ak1 and has had right knee pain started today. pt came in to ER for his regular scheduled IV therapy and choose to check himself in for the bilateral leg pain. Transition of care: patient was not received from another setting of care. Onset of symptoms was January 18, 2019. Risk Assessment: Do you want to hurt yourself or someone else? Patient reports no desire to harm self or others. Initial Sepsis Screen: Does the patient meet any 2 criteria? No. Patient's initial sepsis screen is negative. Does the patient have a suspected source of infection? No. Patient's initial sepsis screen is negative. Care prior to arrival: None. 23:20 Method Of Arrival: Carried ak1 23:20 Acuity: AB 3 ak1 Triage Assessment: 23:22 General: Appears in no apparent distress. Behavior is calm, cooperative. ak1 Historical: - Allergies: 23:22 BACLOFEN; ak1 23:22 Bactrim; ak1 23:22 Clindamycin; ak1 23:22 Ibuprofen; ak1 23:22 Levaquin; ak1 23:22 Toradol; ak1 23:22 Zithromax; ak1 23:22 Phenergan; ak1 23:22 NSAIDS; ak1 - Home Meds: 23:22 insulin [Active]; losartan Oral [Active]; ak1 - PMHx: 23:22 Diabetes - NIDDM; DVT; Hypertension; neuropathy; ak1 - Immunization history:: Adult Immunizations unknown. - Social history:: Smoking status: unknown. - Ebola Screening: : No symptoms or risks identified at this time. Screenin:23 Abuse screen: Denies threats or abuse. Denies injuries from another. Nutritional ak1 screening: No deficits noted. Tuberculosis screening: No symptoms or risk factors identified. Fall Risk Ambulatory Aid- Crutches/Cane/Walker (15 pts). Assessment: 23:40 General: Appears in no apparent distress. Behavior is calm, cooperative, appropriate ea for age. Pain: Complains of pain in right knee. Neuro: Level of Consciousness is awake, alert, obeys commands, Oriented to person, place, time, situation. Cardiovascular: Patient's skin is warm and dry. Respiratory: Airway is patent Respiratory effort is even, unlabored, Respiratory pattern is regular, symmetrical. Derm: Skin is dry, Skin is normal, Skin temperature is warm. 01/19 00:00 Reassessment: Patient and/or family updated on plan of care and expected duration. Pain ea level reassessed. Patient is alert, oriented x 3, equal unlabored respirations, skin warm/dry/pink. Awaiting on ultrasound. 01:00 Reassessment: Patient and/or family updated on plan of care and expected duration. Pain ea level reassessed. Patient is alert, oriented x 3, equal unlabored respirations, skin warm/dry/pink. Awaiting on ultrasound. 02:35 Reassessment: Patient and/or family updated on plan of care and expected duration. Pain ea level reassessed. Patient is alert, oriented x 3, equal unlabored respirations, skin warm/dry/pink. Discharge instruction given to patient, verbalized the understanding of instruction. Pt left ED via crutches, pt tolerating well. Patient states feeling better. Vital Signs: 01/18 23:28 BP 138 / 95; Pulse 100; Resp 16; Temp 98.3; Pulse Ox 97% on R/A; Weight 90.72 kg (R); ea Height 6 ft. 2 in. (187.96 cm) (R); Pain 5/10; 01/19 00:00 BP 134 / 89; Pulse 96; Resp 18; Pulse Ox 99% on R/A; ea 01:00 BP 125 / 78; Pulse 98; Resp 18; Pulse Ox 99% ; ea 02:20 BP 128 / 80; Pulse 98; Resp 18; Temp 98; Pulse Ox 100% ; Pain 3/10; ea 01/18 23:28 Body Mass Index 25.68 (90.72 kg, 187.96 cm) ea ED Course: 01/18 23:20 Patient arrived in ED. ak1 23:21 Bolivar Spears PA is PHCP. jr8 23:21 Marcelo, Jaime, MD is Attending Physician. jr8 23:22 Triage completed. ak1 23:22 Arm band placed on Patient placed in an exam room, on a stretcher, on pulse oximetry, ak1 Patient notified of wait time. 23:23 Allergy band placed. Bed in low position. Call light in reach. Side rails up X 1. Pulse ak1 ox on. NIBP on. 23:40 Jessi Vlilatoro, RN is Primary Nurse. ea 23:58 Knee Right 2 View In Process Unspecified. EDMS 01/19 02:28 US Extremity Venous Unilateral Ltd In Process Unspecified. EDMS 02:41 No provider procedures requiring assistance completed. Pt has PICC line in place for IV ea therapy, PICC line remains in place. Administered Medications: 00:44 Drug: Tippo (7.5 mg-325 mg) 1 tabs Route: PO; ea 01:40 Follow up: Response: No adverse reaction; Pain is decreased ea Outcome: 02:22 Discharge ordered by MD. jr8 02:41 Discharged to home ambulatory. ea 02:41 Condition: improved 02:41 Discharge instructions given to patient, Instructed on discharge instructions, follow up and referral plans. Demonstrated understanding of instructions, follow-up care. 02:43 Patient left the ED. ea Signatures: Dispatcher [employer] EDID Bolivar Spears PA PA jr8 Alice Pendleton RN RN ak1 Jessi Villatoro, RN RN ea Corrections: (The following items were deleted from the chart) 02:42 02:41 Patient did not have IV access during this emergency room visit. ea ea
--- NOTE | 2019-01-19 02:23 | EDPHYS ---
Physician Documentation [facility] Name: Flex Del Valle Age: 48 yrs Sex: Male : 1970 Arrival Date: 01/18/2019 Time: 23:20 Bed 13 Private MD: ED Physician Jaime Robertson HPI: 01/18 23:54 This 48 yrs old Black Male presents to ER via Carried with complaints of left lower leg jr8 swelling, right knee pain. 23:54 The patient presents with pain. The complaints affect the right knee. Context: The jr8 problem was sustained at an unknown site, resulted from an unknown cause, the patient can fully bear weight, the patient is able to ambulate. Onset: The symptoms/episode began/occurred gradually, 2 week(s) ago, and became worse and became persistent. Modifying factors: The symptoms are alleviated by nothing. the symptoms are aggravated by nothing. Associated signs and symptoms: The patient has no apparent associated signs or symptoms. Severity of symptoms: At their worst the symptoms were mild, in the emergency department the symptoms are unchanged. The patient has not experienced similar symptoms in the past. The patient has not recently seen a physician. Stated that he also has increased left lower extremity swelling. History of DVT in past and currently is not on any anticoagulation therapy . Historical: - Allergies: 23:22 BACLOFEN; ak1 23:22 Bactrim; ak1 23:22 Clindamycin; ak1 23:22 Ibuprofen; ak1 23:22 Levaquin; ak1 23:22 Toradol; ak1 23:22 Zithromax; ak1 23:22 Phenergan; ak1 23:22 NSAIDS; ak1 - Home Meds: 23:22 insulin [Active]; losartan Oral [Active]; ak1 - PMHx: 23:22 Diabetes - NIDDM; DVT; Hypertension; neuropathy; ak1 - Immunization history:: Adult Immunizations unknown. - Social history:: Smoking status: unknown. - Ebola Screening: : No symptoms or risks identified at this time. ROS: 23:54 Eyes: Negative for injury, pain, redness, and discharge, ENT: Negative for injury, jr8 pain, and discharge, Neck: Negative for injury, pain, and swelling, Cardiovascular: Negative for chest pain, palpitations, and edema, Respiratory: Negative for shortness of breath, cough, wheezing, and pleuritic chest pain, Abdomen/GI: Negative for abdominal pain, nausea, vomiting, diarrhea, and constipation, Back: Negative for injury and pain, Skin: Negative for injury, rash, and discoloration, Neuro: Negative for headache, weakness, numbness, tingling, and seizure. 23:54 MS/extremity: Positive for pain, swelling, tenderness. Exam: 23:54 Eyes: Pupils equal round and reactive to light, extra-ocular motions intact. Lids and jr8 lashes normal. Conjunctiva and sclera are non-icteric and not injected. Cornea within normal limits. Periorbital areas with no swelling, redness, or edema. ENT: Nares patent. No nasal discharge, no septal abnormalities noted. Tympanic membranes are normal and external auditory canals are clear. Oropharynx with no redness, swelling, or masses, exudates, or evidence of obstruction, uvula midline. Mucous membranes moist. Neck: Trachea midline, no thyromegaly or masses palpated, and no cervical lymphadenopathy. Supple, full range of motion without nuchal rigidity, or vertebral point tenderness. No Meningismus. Cardiovascular: Regular rate and rhythm with a normal S1 and S2. No gallops, murmurs, or rubs. Normal PMI, no JVD. No pulse deficits. Respiratory: Lungs have equal breath sounds bilaterally, clear to auscultation and percussion. No rales, rhonchi or wheezes noted. No increased work of breathing, no retractions or nasal flaring. Abdomen/GI: Soft, non-tender, with normal bowel sounds. No distension or tympany. No guarding or rebound. No evidence of tenderness throughout. Back: No spinal tenderness. No costovertebral tenderness. Full range of motion. Skin: Warm, dry with normal turgor. Normal color with no rashes, no lesions, and no evidence of cellulitis. Neuro: Awake and alert, GCS 15, oriented to person, place, time, and situation. Cranial nerves II-XII grossly intact. Motor strength 5/5 in all extremities. Sensory grossly intact. Cerebellar exam normal. Normal gait. 23:54 Musculoskeletal/extremity: Extremities: grossly normal except: noted in the right knee: pain, tenderness, No swelling, erythema, ecchymosis or any other acute finding. Mild tenderness to medial joint line present , noted in the left lower leg: swelling, ROM: intact in all extremities, full active range of motion, full passive range of motion, Circulation is intact in all extremities. Sensation intact. DVT Exam: negative Homans' sign noted on exam, no appreciated bluish discoloration, no erythema, no increased warmth, pain, that is mild, of the left leg, swelling, that is mild, of the left leg, tenderness, that is mild, of the left leg. Vital Signs: 23:28 BP 138 / 95; Pulse 100; Resp 16; Temp 98.3; Pulse Ox 97% on R/A; Weight 90.72 kg (R); ea Height 6 ft. 2 in. (187.96 cm) (R); Pain 5/10; 01/19 00:00 BP 134 / 89; Pulse 96; Resp 18; Pulse Ox 99% on R/A; ea 01:00 BP 125 / 78; Pulse 98; Resp 18; Pulse Ox 99% ; ea 02:20 BP 128 / 80; Pulse 98; Resp 18; Temp 98; Pulse Ox 100% ; Pain 3/10; ea 01/18 23:28 Body Mass Index 25.68 (90.72 kg, 187.96 cm) ea MDM: 01/18 23:21 Patient medically screened. jr8 01/19 02:22 Data reviewed: vital signs, nurses notes, radiologic studies, plain films, ultrasound. jr8 Data interpreted: Pulse oximetry: on room air is 97 %. Interpretation: normal. Counseling: I had a detailed discussion with the patient and/or guardian regarding: the historical points, exam findings, and any diagnostic results supporting the discharge/admit diagnosis, radiology results, the need for outpatient follow up, a family practitioner, to return to the emergency department if symptoms worsen or persist or if there are any questions or concerns that arise at home. 01/18 23:32 Order name: US Extremity Venous Unilateral Ltd jr8 01/18 23:38 Order name: Knee Right 2 View EDMS Administered Medications: 00:44 Drug: [place] (7.5 mg-325 mg) 1 tabs Route: PO; ea 01:40 Follow up: Response: No adverse reaction; Pain is decreased ea Disposition: 06:40 Co-signature as Attending Physician, Jaime Robertson MD I agree with the assessment and geoffrey plan of care. Disposition: 01/19/19 02:22 Discharged to Home. Impression: Pain in right knee, Edema, unspecified. - Condition is Stable. - Discharge Instructions: Edema, Knee Pain. - Medication Reconciliation Form, Thank You Letter, Antibiotic Education, Prescription Opioid Use form. - Follow up: Private Physician; When: 2 - 3 days; Reason: Recheck today's complaints, Continuance of care, Re-evaluation by your physician. - Problem is new. - Symptoms have improved. Signatures: Dispatcher [employer] [facility] Jaime Robertson MD MD cha Roszak, Josh, PA PA jr8 Alice Pendleton, RN RN ak1 Jessi Villatoro, RN RN ea Corrections: (The following items were deleted from the chart) 01/18 23:38 23:32 Knee Right 3 View+RAD.RAD.BRZ ordered. [facility] 01/19 02:43 02:22 01/19/2019 02:22 Discharged to Home. Impression: Pain in right knee; Edema, ea unspecified. Condition is Stable. Forms are Medication Reconciliation Form, Thank You Letter, Antibiotic Education, Prescription Opioid Use. Follow up: Private Physician; When: 2 - 3 days; Reason: Recheck today's complaints, Continuance of care, Re-evaluation by your physician. Problem is new. Symptoms have improved. jr8
[2019-01-19 04:32] VITALS: BP 128/80; TEMP 98; O2SAT 100
--- NOTE | 2019-01-19 07:01 | RAD REPORT ---
EXAM DESCRIPTION: US - Extremity Venous Uni Ltd - 01/19/2019 2:28 am CLINICAL HISTORY: Left leg pain and swelling COMPARISON: None. TECHNIQUE: Real-time sonographic evaluation of the left lower extremity deep venous system was perfo rmed. FINDINGS: Normal compressibility, flow augmentation, phasic flow and spontaneous flow are identified in the left lower extremity common femoral, superficial femoral, popliteal and posterior tibial vein s. No intraluminal filling defects seen. IMPRESSION: No DVT in the left lower extremity.
--- NOTE | 2019-01-19 08:20 | RAD REPORT ---
EXAM DESCRIPTION: RAD - Knee Right 2 View - 01/18/2019 11:57 pm CLINICAL HISTORY: Nontraumatic right knee pain COMPARISON: None. FINDINGS: No fracture, dislocation or periosteal reaction.No joint effusion seen. No joint space alma rowing. No foreign body or soft tissue abnormality. IMPRESSION: Negative right knee. Clinical concerns for internal derangement or occult bony injury could be further assessed with MR imaging.
== END 2019-01-19 02:43 | disposition home or self-care (01) ==
LOC: ER 23:13
DX: M25.561 Pain in right knee (principal); M25.461 Effusion, right knee; E11.21 Type 2 diabetes mellitus with diabetic nephropathy; I10 Essential (primary) hypertension; Z88.1 Allergy status to other antibiotic agents; Z88.3 Allergy status to other anti-infective agents; Z88.6 Allergy status to analgesic agent; Z79.4 Long term (current) use of insulin
CPT/HCPCS: 93971; 99284

== ENCOUNTER 2019-01-26 22:10 | Emergency (ER) | payer OTHER, SELFPAY ==
[2019-01-26 23:36] LABS: Urine Blood TRACE (NEG); Urine Glucose 1+ (NEG); Urine Protein NEGATIVE (NEG); Urine pH 5.5 (5.0-7.0)
[2019-01-26] MEDS ORDERED: HYDROCODONE/APAP 10/325 TAB ONE (23:50)
--- NOTE | 2019-01-27 00:52 | EDPHYS ---
Physician Documentation [facility] Name: Flex Del Valle Age: 48 yrs Sex: Male : 1970 Arrival Date: 01/26/2019 Time: 22:12 Bed 13 Private MD: ED Physician Figueroa aRmirez HPI: 01/26 23:28 This 48 yrs old Black Male presents to ER via Ambulatory with complaints of Abdominal rn Pain, flank pain. 23:28 The patient presents with abdominal pain right side/flank. Onset: The symptoms/episode rn began/occurred just prior to arrival. The symptoms radiate to abdomen. The symptoms are described as achy. Modifying factors: The symptoms are alleviated by nothing, the symptoms are aggravated by nothing. Severity of pain: At its worst the pain was moderate in the emergency department the pain is unchanged. The patient has experienced similar episodes in the past. Reports right flank pain, began 2 hours ago, here for IV therapy but wants to be evaluated, had a ct abdomen without acute findings last weeks, states this feels similar to but also different than previous kidney stones. No fever/vomiting/diarrhea/trauma. . Historical: - Allergies: 22:16 BACLOFEN; ch 22:16 Bactrim; ch 22:16 Clindamycin; ch 22:16 Ibuprofen; ch 22:16 Levaquin; ch 22:16 NSAIDS; ch 22:16 Phenergan; ch 22:16 Toradol; ch 22:16 Zithromax; ch - PMHx: 22:16 Diabetes - NIDDM; DVT; Hypertension; neuropathy; Kidney stones; edema; ch 22:17 osteomyolitis; ch - PSHx: 22:16 picc line L arm; ch 22:17 toe amputations; ch - Immunization history:: Adult Immunizations up to date. - Social history:: Smoking status: Patient/guardian denies using tobacco, Patient uses alcohol, occasionally. - Ebola Screening: : Patient negative for fever greater than or equal to 101.5 degrees Fahrenheit, and additional compatible Ebola Virus Disease symptoms Patient denies exposure to infectious person Patient denies travel to an Ebola-affected area in the 21 days before illness onset No symptoms or risks identified at this time. - Family history:: not pertinent. - Hospitalizations: : No recent hospitalization is reported. ROS: 23:28 Constitutional: Negative for fever, chills, and weight loss, Eyes: Negative for injury, rn pain, redness, and discharge, Cardiovascular: Negative for chest pain, palpitations, and edema, Respiratory: Negative for shortness of breath, cough, wheezing, and pleuritic chest pain, Abdomen/GI: + right flank pain and abd pain MS/Extremity: Negative for injury and deformity, Skin: Negative for injury, rash, and discoloration, Neuro: Negative for headache, weakness, numbness, tingling, and seizure. Exam: 23:28 Constitutional: This is a well developed, well nourished patient who is awake, alert, rn and in no acute distress. Sleeping with in bed when I arrived. Head/Face: Normocephalic, atraumatic. ENT: MMM Respiratory: No increased work of breathing, no retractions or nasal flaring. Abdomen/GI: soft, mild right sided abd tenderness, no rebound/masses Back: No spinal tenderness. No costovertebral tenderness. Full range of motion. Skin: Warm, dry Neuro: Awake and alert, GCS 15, oriented to person, place, time, and situation. Cranial nerves II-XII grossly intact. Motor strength 5/5 in all extremities. Sensory grossly intact. Cerebellar exam normal. Normal gait. Vital Signs: 22:17 BP 130 / 91; Pulse 81; Resp 16; Temp 98.2; Pulse Ox 99% on R/A; Weight 113.4 kg; Height ch 6 ft. 1 in. (185.42 cm); Pain 9/10; 23:39 BP 131 / 98; Pulse 78; Resp 16; Pulse Ox 98% on R/A; jb4 01/27 01:19 BP 127 / 72; Pulse 72; Resp 16; Pulse Ox 98% on R/A; jb4 01/26 22:17 Body Mass Index 32.98 (113.40 kg, 185.42 cm) [facility]: 01/26 22:37 Patient medically screened. rn 01/27 00:50 Differential diagnosis: gastritis, gastroesophageal reflux disease, Ureterolithiasis, rn urinary tract infection. Data reviewed: vital signs, nurses notes, lab test result(s), urinalysis, radiologic studies, CT scan, and as a result, I will discharge patient. Counseling: I had a detailed discussion with the patient and/or guardian regarding: the historical points, exam findings, and any diagnostic results supporting the discharge/admit diagnosis, lab results, radiology results, the need for outpatient follow up, to return to the emergency department if symptoms worsen or persist or if there are any questions or concerns that arise at home. Response to treatment: the patient's symptoms have markedly improved after treatment, sleeping, and as a result, I will discharge patient. Special discussion: I discussed with the patient/guardian in detail that at this point there is no indication for admission to the hospital. It is understood, however, that if the symptoms persist or worsen the patient needs to return immediately for re-evaluation. 01/26 23:09 Order name: Urine Dipstick--Ancillary (enter results); Complete Time: 23:39 ak1 01/26 23:15 Order name: CT Stone Protocol rn 01/26 22:39 Order name: Urine Dipstick-Ancillary (obtain specimen); Complete Time: 23:07 rn Administered Medications: 01/26 23:39 Drug: [place] 10 mg-325 mg 1 tabs Route: PO; jb4 01/27 00:00 Follow up: Response: No adverse reaction; Pain is decreased jb4 Point of Care Testing: Blood Glucose: 00:35 Blood Glucose: 45 mg/dL; jb4 01:18 Blood Glucose: 100 mg/dL; jb4 Ranges: Critical Glucose Levels:Adult <50 mg/dl or >400 mg/dl <40 mg/dl or >180 mg/dl Disposition: 01/27/19 00:51 Discharged to Home. Impression: Unspecified abdominal pain. - Condition is Stable. - Discharge Instructions: Abdominal Pain, Adult. - Medication Reconciliation Form, Thank You Letter, Antibiotic Education, Prescription Opioid Use form. - Follow up: Private Physician; When: As needed; Reason: Recheck today's complaints, Re-evaluation by your physician. - Problem is new. - Symptoms have improved. Signatures: Dispatcher [employer] Laurence Hsu RN Figueroa Jesus ch, MD MD rn Bryson, James, RN RN jb4 Corrections: (The following items were deleted from the chart) 01:21 00:51 01/27/2019 00:51 Discharged to Home. Impression: Unspecified abdominal pain. jb4 Condition is Stable. Forms are Medication Reconciliation Form, Thank You Letter, Antibiotic Education, Prescription Opioid Use. Follow up: Private Physician; When: As needed; Reason: Recheck today's complaints, Re-evaluation by your physician. Problem is new. Symptoms have improved. rn
--- NOTE | 2019-01-27 00:52 | ER ---
Nurse's Notes [facility] Name: Flex Del Valle Age: 48 yrs Sex: Male : 1970 Arrival Date: 01/26/2019 Time: 22:12 Bed 13 Private MD: Diagnosis: Unspecified abdominal pain Presentation: 01/26 22:13 Presenting complaint: Patient states: flank pain, started approx 2 hrs ago. feels like ch a kidney stone. denies nvd, or fever. pt is here for IV therapy but wants to have his abdominal pain checked. Transition of care: patient was not received from another setting of care. Onset of symptoms was January 26, 2019 at 20:00. Risk Assessment: Do you want to hurt yourself or someone else? Patient reports no desire to harm self or others. Initial Sepsis Screen: Does the patient meet any 2 criteria? No. Patient's initial sepsis screen is negative. Does the patient have a suspected source of infection? No. Patient's initial sepsis screen is negative. Care prior to arrival: None. 22:13 Method Of Arrival: Ambulatory 22:13 Acuity: AB 4 ch Triage Assessment: 22:17 General: Appears in no apparent distress. uncomfortable, Behavior is calm, cooperative, ch appropriate for age. Pain: Complains of pain in anterior aspect of right lateral abdomen and posterior aspect of right lateral abdomen Pain currently is 9 out of 10 on a pain scale. Pain began suddenly. GI: Abdomen is round non-distended, Abd is soft and non tender. Historical: - Allergies: 22:16 BACLOFEN; ch 22:16 Bactrim; ch 22:16 Clindamycin; ch 22:16 Ibuprofen; ch 22:16 Levaquin; ch 22:16 NSAIDS; ch 22:16 Phenergan; ch 22:16 Toradol; ch 22:16 Zithromax; ch - PMHx: 22:16 Diabetes - NIDDM; DVT; Hypertension; neuropathy; Kidney stones; edema; ch 22:17 osteomyolitis; ch - PSHx: 22:16 picc line L arm; ch 22:17 toe amputations; ch - Immunization history:: Adult Immunizations up to date. - Social history:: Smoking status: Patient/guardian denies using tobacco, Patient uses alcohol, occasionally. - Ebola Screening: : Patient negative for fever greater than or equal to 101.5 degrees Fahrenheit, and additional compatible Ebola Virus Disease symptoms Patient denies exposure to infectious person Patient denies travel to an Ebola-affected area in the 21 days before illness onset No symptoms or risks identified at this time. - Family history:: not pertinent. - Hospitalizations: : No recent hospitalization is reported. Screenin:45 Abuse screen: Denies threats or abuse. Nutritional screening: No deficits noted. jb4 Tuberculosis screening: No symptoms or risk factors identified. Fall Risk IV access (20 points). Ambulatory Aid- Crutches/Cane/Walker (15 pts). Total Virk Fall Scale indicates Low Risk Score (25-44 pts). Fall prevention measures have been instituted. Side Rails Up X 2 Placed close to Nursing Station Frequent Obs/Assesments occuring Family Present and informed to notify staff if they need to leave bedside As available Patient and Family Educated on Fall Prevention Program and strategies. Assessment: 22:45 General: Appears in no apparent distress. uncomfortable, Behavior is. Pain: Complains jb4 of pain in right low back and right lower quadrant Pain does not radiate. Pain currently is 10 out of 10 on a pain scale. Neuro: Level of Consciousness is awake, alert, obeys commands, Oriented to person, place, time, situation. Cardiovascular: Patient's skin is warm and dry. Respiratory: Airway is patent Respiratory effort is even, unlabored, Respiratory pattern is regular, symmetrical. GI: Reports lower abdominal pain. : Reports pain in right flank(s). EENT: No signs and/or symptoms were reported regarding the EENT system. Derm: Skin is intact, Skin is dry, Skin is normal, Skin temperature is warm. Musculoskeletal: Circulation, motion, and sensation intact. 23:40 Reassessment: Patient appears in no apparent distress at this time. Patient and/or jb4 family updated on plan of care and expected duration. Pain level reassessed. Patient is alert, oriented x 3, equal unlabored respirations, skin warm/dry/pink. 01/27 00:35 Reassessment: Patient appears in no apparent distress at this time. Patient and/or jb4 family updated on plan of care and expected duration. Pain level reassessed. Patient is alert, oriented x 3, equal unlabored respirations, skin warm/dry/pink. Pt reports feeling like they have low blood sugar. BGL 45, provider notified, pt given rowena crackers, peanut butter, soda, orange juice, and a sandwhich. 00:53 Reassessment: PT reports starting to feel better after eating. jb4 01:18 Reassessment: Patient appears in no apparent distress at this time. Patient and/or jb4 family updated on plan of care and expected duration. Pain level reassessed. Patient is alert, oriented x 3, equal unlabored respirations, skin warm/dry/pink. PT BGL 100 Patient states feeling better. Vital Signs: 01/26 22:17 BP 130 / 91; Pulse 81; Resp 16; Temp 98.2; Pulse Ox 99% on R/A; Weight 113.4 kg; Height ch 6 ft. 1 in. (185.42 cm); Pain 9/10; 23:39 BP 131 / 98; Pulse 78; Resp 16; Pulse Ox 98% on R/A; jb4 01/27 01:19 BP 127 / 72; Pulse 72; Resp 16; Pulse Ox 98% on R/A; jb4 01/26 22:17 Body Mass Index 32.98 (113.40 kg, 185.42 cm) ED Course: 01/26 22:12 Patient arrived in ED. ds1 22:15 Triage completed. ch 22:17 Arm band placed on left wrist. Patient placed in an exam room, on a stretcher. ch 22:37 Figueroa Ramirez MD is Attending Physician. rn 22:41 Ernesto Mayorga RN is Primary Nurse. jb4 22:45 Patient has correct armband on for positive identification. Bed in low position. Call jb4 light in reach. Side rails up X 1. Pulse ox on. NIBP on. 22:45 Accessed PICC line. Clean \T\ dry. Dressing intact. Flushes easily. jb4 01/27 00:14 CT Stone Protocol In Process Unspecified. EDMS 01:18 No provider procedures requiring assistance completed. Patient did not have IV access jb4 during this emergency room visit. intact, bleeding controlled, No redness/swelling at site. Administered Medications: 01/26 23:39 Drug: [place] 10 mg-325 mg 1 tabs Route: PO; jb4 01/27 00:00 Follow up: Response: No adverse reaction; Pain is decreased jb4 Point of Care Testing: Blood Glucose: 00:35 Blood Glucose: 45 mg/dL; jb4 01:18 Blood Glucose: 100 mg/dL; jb4 Ranges: Outcome: 00:51 Discharge ordered by . rn 01:18 Discharged to home ambulatory, with family. jb4 01:18 Condition: stable 01:18 Discharge instructions given to patient, family, Instructed on discharge instructions, follow up and referral plans. Demonstrated understanding of instructions, follow-up care. 01:21 Patient left the ED. jb4 Signatures: Dispatcher [employer] Laurence Hsu, RN RN Eulalia Chandler ds1 Figueroa Ramirez MD MD rn Bryson, James, RN RN jb4
[2019-01-27 01:38] VITALS: TEMP 98.2
[2019-01-27 01:39] VITALS: O2SAT 98
[2019-01-27 01:41] VITALS: BP 127/72
--- OUTSIDE RECORDS SUMMARY | 2019-01-27 12:40 | XMS REPORT ---
:1970 [facility] Address [address] [place] [address] [address] [place] [address] Care Team Providers Name Role Phone Unavailable Unavailable Unavailable Problems This patient has no known problems. Allergies, Adverse Reactions, Alerts This patient has no known allergies or adverse reactions. Medications This patient has no known medications.
--- NOTE | 2019-01-27 14:06 | RAD REPORT ---
EXAM DESCRIPTION: CT - Stone Protocol - 01/27/2019 11:43 am CLINICAL HISTORY: Abdominal pain. COMPARISON: January 17, 2019 TECHNIQUE: Computed axial tomography of the abdomen pelvis was obtained without oral or IV contrast. Lack of IV and oral contrast limits evaluation of solid organs, bowel, and vessels. Coronal reformat judith images were obtained and reviewed. All CT scans are performed using dose optimization technique as appropriate and may include automated exposure control or mA/KV adjustment according to patient size. FINDINGS: Multiple, bilateral renal calculi without hydronephrosis An ureteral calculus is not noted . A bladder calculus is not present. The liver, spleen, pancreas and adrenals appear grossly normal There is no evidence of diverticulitis. The appendix appears normal Prostate gland is mildly enlarged. Spondylolysis L5-S1 IMPRESSION: Multiple, bilateral nonobstructing renal calculi
[2019-01-27] MEDS ORDERED: VANCOMYCIN 1 GM/VIAL ONE (23:54)
[2019-01-27] MEDS ORDERED: NA CHLORIDE 0.9% 500 ML ONE (23:55)
== END 2019-01-27 01:21 | disposition home or self-care (01) ==
LOC: ER 22:10
DX: R10.9 Unspecified abdominal pain (principal); Z88.6 Allergy status to analgesic agent; Z88.3 Allergy status to other anti-infective agents; Z88.1 Allergy status to other antibiotic agents
CPT/HCPCS: 74176; 76377; 81003; 82962; 99284

== ENCOUNTER 2019-08-31 09:17 | Emergency (ER) | payer SELFPAY ==
--- OUTSIDE RECORDS SUMMARY | 2019-08-31 09:19 | XMS REPORT ---
:1970 [facility] Address [address] [place] [address] [address] [place] [address] Care Team Providers Name Role Phone Unavailable Unavailable Unavailable Problems This patient has no known problems. Allergies, Adverse Reactions, Alerts This patient has no known allergies or adverse reactions. Medications This patient has no known medications.
[2019-08-31] MEDS ORDERED: ONDANSETRON 4 MG/2 ML VIAL ONE (09:42)
[2019-08-31] MEDS ORDERED: MORPHINE 4 MG/ML SYR ONE (09:42)
[2019-08-31 10:23] LABS: Absolute Lymphocytes (CBC) 1.3 K/uL (0.7-4.9); Basophils % 0.3 % (0-1.3); Hematocrit 45.8 % (39.6-49.0); Lymphocytes % 14.4 % (15.3-44.8); MPV 9.7 fL (7.6-11.3); RBC Red Blood Cell Count 5.32 M/uL (4.33-5.43)
[2019-08-31 10:34] LABS: Potassium 4.3 mmol/L (3.5-5.1)
--- NOTE | 2019-08-31 10:43 | RAD REPORT ---
EXAM DESCRIPTION: CT - Stone Protocol - 08/31/2019 9:56 am CLINICAL HISTORY: Right flank pain, history of kidney stone CT stone December 2018 COMPARISON: None. TECHNIQUE: Axial 5 mm thick images were obtained without oral or IV contrast. The [id number] span s the entirety of the system including uppermost abdomen and lung bases. All CT scans are performed using dose optimization technique as appropriate and may include automated exposure control or mA/KV adjustment according to patient size. FINDINGS: No hydronephrosis is present and no obstructing ureteral calculi. The patient has multiple nonobstructing calculi up to 12 mm in size. No change in the left-side calcification pattern. There is been some movement or migration of the calculi in the right kidney. However, no calculus is not an obstructive position. No suspicious renal masses. Isodense masses and pyelonephritis are not exclude d on a stone protocol CT scan. No urinary bladder suspicious finding. No significant adrenal finding. Imaged portions of the liver, spleen and pancreas show no suspicious findings on non-contrast imaging . No gallbladder or biliary tree abnormality identified. No suspicious bowel findings. The appendix is normal. Moderate stool volume fills the entirety of the colon without dilatation. A focal colon process is not seen. No mass or bulky lymphadenopathy. Small fat only umbilical hernia present. No free air, free fluid or inflammatory stranding. No significant bony abnormality. IMPRESSION: No hydronephrosis, obstructing calculus or acute finding seen. Patient has multiple bilateral renal calculi. Right calcifications have shown movement or migration w ithin the pelvis and calices. No calcification is currently in an obstructive position. Isodense masses and pyelonephritis are not excluded on stone protocol technique. No appendicitis or acute GI finding.
[2019-08-31] MEDS ORDERED: NA CHLORIDE 0.9% 1,000 ML ONE (11:12)
--- NOTE | 2019-08-31 11:46 | ER ---
Nurse's Notes [facility] Name: Flex Del Valle Age: 49 yrs Sex: Male : 1970 Arrival Date: 08/31/2019 Time: 09:18 Bed 2 Private MD: Diagnosis: Flank Pain;Hyperglycemia, unspecified Presentation: 08/31 09:29 Presenting complaint: Patient states: right flank pain since last night, +hx of kidney iw stones. Transition of care: patient was not received from another setting of care. Onset of symptoms was August 30, 2019. Risk Assessment: Do you want to hurt yourself or someone else? Patient reports no desire to harm self or others. Initial Sepsis Screen: Does the patient meet any 2 criteria? No. Patient's initial sepsis screen is negative. Does the patient have a suspected source of infection? No. Patient's initial sepsis screen is negative. Care prior to arrival: None. 09:29 Method Of Arrival: Wheelchair iw 09:29 Acuity: AB 3 iw Historical: - Allergies: 09:30 BACLOFEN; iw 09:30 Bactrim; iw 09:30 Clindamycin; iw 09:30 Ibuprofen; iw 09:30 Levaquin; iw 09:30 NSAIDS; iw 09:30 Phenergan; iw 09:30 Toradol; iw 09:30 Zithromax; iw - Home Meds: 11:23 insulin [Active]; losartan Oral [Active]; jl7 - PMHx: 09:30 Diabetes - NIDDM; DVT; EDEMA; Hypertension; Kidney stones; neuropathy; osteomyolitis; iw - PSHx: 09:30 toe amputations; iw - Immunization history:: Adult Immunizations not up to date. - Social history:: Smoking status: Patient/guardian denies using tobacco. - Ebola Screening: : Patient negative for fever greater than or equal to 101.5 degrees Fahrenheit, and additional compatible Ebola Virus Disease symptoms Patient denies exposure to infectious person Patient denies travel to an Ebola-affected area in the 21 days before illness onset No symptoms or risks identified at this time. Screenin:45 Abuse screen: Denies threats or abuse. Denies injuries from another. Nutritional jl7 screening: No deficits noted. Tuberculosis screening: No symptoms or risk factors identified. Fall Risk IV access (20 points). Total Virk Fall Scale indicates No Risk (0-24 pts). Assessment: 09:45 General: Appears in no apparent distress. uncomfortable, Behavior is cooperative, jl7 anxious. Pain: Complains of pain in right flank and right lower quadrant Pain currently is 10 out of 10 on a pain scale. Quality of pain is described as sharp, shooting, Pain began 1 day ago. Is continuous. Neuro: Level of Consciousness is awake, alert, obeys commands, Oriented to person, place, time, situation. Cardiovascular: Patient's skin is warm and dry. Respiratory: Airway is patent Respiratory effort is even, unlabored, Respiratory pattern is regular, symmetrical. GI: Bowel sounds present X 4 quads. Abd is soft Abdomen is tender to palpation in suprapubic area and right lower quadrant. : Reports inability to void, pain in right flank(s). EENT: No signs and/or symptoms were reported regarding the EENT system. Derm: Skin is pink, warm \\T\\ dry. Musculoskeletal: No signs and/or symptoms reported regarding the musculoskeletal system. 10:00 Reassessment: Pt reports "I can't pee." Instructed pt to provide urine sample as soon jl7 as possible. Pt verbalized understanding. 11:19 Reassessment: Patient appears in no apparent distress at this time. Patient and/or jl7 family updated on plan of care and expected duration. Pain level reassessed. Patient is alert, oriented x 3, equal unlabored respirations, skin warm/dry/pink. pain rated 8/10 at this time. 12:00 Reassessment: Pt will be discharged after [facility]SBG recheck. jl7 Vital Signs: 09:30 BP 171 / 107; Pulse 90; Resp 16; Temp 97.8; Pulse Ox 100% on R/A; Weight 99.79 kg; iw Height 6 ft. 1 in. (185.42 cm); Pain 10/10; 11:21 BP 171 / 109; Pulse 77; Resp 17 S; Pulse Ox 99% on R/A; Pain 8/10; jl7 12:30 BP 158 / 102; Pulse 75; Resp 14 S; Pulse Ox 100% on R/A; jl7 09:30 Body Mass Index 29.03 (99.79 kg, 185.42 cm) iw ED Course: 09:18 Patient arrived in ED. as 09:30 Triage completed. iw 09:30 Arm band placed on. iw 09:34 Alexandra Calvert FNP-C is [facility]. kb 09:34 Fabian Ramirez MD is Attending Physician. kb 09:42 Cornell Gay, ALF is Primary Nurse. jl7 09:45 Patient has correct armband on for positive identification. Bed in low position. Call jl7 light in reach. Side rails up X 1. Pulse ox on. NIBP on. 09:56 CT completed. Patient moved back from CT. bq 09:56 CT Stone Protocol In Process Unspecified. EDMS 10:13 Initial lab(s) drawn, by me, sent to lab. Inserted saline lock: 20 gauge in left jl7 antecubital area, using aseptic technique. Blood collected. 12:37 No provider procedures requiring assistance completed. IV discontinued, intact, jl7 bleeding controlled, No redness/swelling at site. Pressure dressing applied. Administered Medications: 10:13 Drug: morphine 4 mg Route: IVP; Site: left antecubital; jl7 10:40 Follow up: Response: No adverse reaction; Pain is decreased; RASS: Alert and Calm (0) jl7 10:13 Drug: Zofran 4 mg Route: IVP; Site: left antecubital; jl7 11:22 Follow up: Response: No adverse reaction jl7 11:11 Drug: NS 0.9% 1000 ml Route: IV; Rate: 1000 ml; Site: left antecubital; jl7 11:57 Drug: Insulin Regular Human 10 units {Co-Signature: hb (Enedina Xavier RN).} {Note: VO jl7 received from [facility] to give 5 units IVP now and recheck FSBG in 20 min.} Route: IVP; Site: left antecubital; 12:36 Follow up: Response: Blood sugar is lowered jl7 12:06 Drug: Towner 10 mg-325 mg 1 tabs Route: PO; jl7 12:36 Follow up: Response: No adverse reaction jl7 Point of Care Testing: Blood Glucose: 12:25 Blood Glucose: 315 mg/dL; jl7 Ranges: Outcome: 11:45 Discharge ordered by . kb 12:37 Discharged to home via wheelchair, with family. jl7 12:37 Condition: stable 12:37 Discharge instructions given to patient, family, Instructed on discharge instructions, follow up and referral plans. medication usage, Demonstrated understanding of instructions, follow-up care, medications, Prescriptions given X 2. 12:37 Patient left the ED. jl7 Signatures: Dispatcher [employer] EDAlexandra Wells, STAVE BOLT EQUALIZER-C STAVE BOLT EQUALIZER-Michelle Martini Amelia as Williams, Irene, RN RN iw Cornell Gay RN RN jl7 Enedina Xavier RN Corrections: (The following items were deleted from the chart) 11:21 10:00 BP 171 / 109; Pulse 77bpm; Resp 17bpm; Spontaneous; Pulse Ox 99% RA; Pain 04/09; usama jl7
--- NOTE | 2019-08-31 11:47 | EDPHYS ---
Physician Documentation [facility] Name: Flex Del Valle Age: 49 yrs Sex: Male : 1970 Arrival Date: 08/31/2019 Time: 09:18 Bed 2 Private MD: ED Physician Fabian Ramirez HPI: 08/31 11:17 This 49 yrs old Black Male presents to ER via Wheelchair with complaints of Possible kb Kidney Stone. 11:17 The patient complains of pain in the right flank. The pain radiates to the abdomen. kb Onset: The symptoms/episode began/occurred last night. Modifying factors: The symptoms are alleviated by nothing. the symptoms are aggravated by nothing. Associated signs and symptoms: The patient has no apparent associated signs or symptoms. Severity of pain: At its worst the pain was moderate severe in the emergency department the pain is unchanged. The patient has experienced similar episodes in the past, multiple times. The patient has not recently seen a physician. Pt reports he believes he is passing a kidney stone. Right flank pain began last night. Historical: - Allergies: 09:30 BACLOFEN; iw 09:30 Bactrim; iw 09:30 Clindamycin; iw 09:30 Ibuprofen; iw 09:30 Levaquin; iw 09:30 NSAIDS; iw 09:30 Phenergan; iw 09:30 Toradol; iw 09:30 Zithromax; iw - Home Meds: 11:23 insulin [Active]; losartan Oral [Active]; jl7 - PMHx: 09:30 Diabetes - NIDDM; DVT; EDEMA; Hypertension; Kidney stones; neuropathy; osteomyolitis; iw - PSHx: 09:30 toe amputations; iw - Immunization history:: Adult Immunizations not up to date. - Social history:: Smoking status: Patient/guardian denies using tobacco. - Ebola Screening: : Patient negative for fever greater than or equal to 101.5 degrees Fahrenheit, and additional compatible Ebola Virus Disease symptoms Patient denies exposure to infectious person Patient denies travel to an Ebola-affected area in the 21 days before illness onset No symptoms or risks identified at this time. ROS: 11:16 Constitutional: Negative for fever, chills, and weight loss, ENT: Negative for injury, kb pain, and discharge, Neck: Negative for injury, pain, and swelling, Cardiovascular: Negative for chest pain, palpitations, and edema, Respiratory: Negative for shortness of breath, cough, wheezing, and pleuritic chest pain, MS/Extremity: Negative for injury and deformity, Skin: Negative for injury, rash, and discoloration, Neuro: Negative for headache, weakness, numbness, tingling, and seizure. 11:16 Abdomen/GI: Positive for abdominal pain. 11:16 Back: Positive for flank pain, on the right. Exam: 11:15 Constitutional: This is a well developed, well nourished patient who is awake, alert, kb and in no acute distress. Head/Face: Normocephalic, atraumatic. ENT: Nares patent. No nasal discharge, no septal abnormalities noted. Tympanic membranes are normal and external auditory canals are clear. Oropharynx with no redness, swelling, or masses, exudates, or evidence of obstruction, uvula midline. Mucous membranes moist. Neck: Trachea midline, no thyromegaly or masses palpated, and no cervical lymphadenopathy. Supple, full range of motion without nuchal rigidity, or vertebral point tenderness. No Meningismus. Chest/axilla: Normal chest wall appearance and motion. Nontender with no deformity. No lesions are appreciated. Cardiovascular: Regular rate and rhythm with a normal S1 and S2. No gallops, murmurs, or rubs. Normal PMI, no JVD. No pulse deficits. Respiratory: Lungs have equal breath sounds bilaterally, clear to auscultation and percussion. No rales, rhonchi or wheezes noted. No increased work of breathing, no retractions or nasal flaring. Skin: Warm, dry with normal turgor. Normal color with no rashes, no lesions, and no evidence of cellulitis. MS/ Extremity: Pulses equal, no cyanosis. Neurovascular intact. Full, normal range of motion. Neuro: Awake and alert, GCS 15, oriented to person, place, time, and situation. Cranial nerves II-XII grossly intact. Motor strength 5/5 in all extremities. Sensory grossly intact. Cerebellar exam normal. Normal gait. 11:15 Abdomen/GI: Inspection: abdomen appears normal, Bowel sounds: normal, in all quadrants, Palpation: soft, in all quadrants, moderate abdominal tenderness, in all quadrants. 11:15 Back: CVA tenderness, that is moderate, is noted on the right. Vital Signs: 09:30 BP 171 / 107; Pulse 90; Resp 16; Temp 97.8; Pulse Ox 100% on R/A; Weight 99.79 kg; iw Height 6 ft. 1 in. (185.42 cm); Pain 10/10; 11:21 BP 171 / 109; Pulse 77; Resp 17 S; Pulse Ox 99% on R/A; Pain 8/10; jl7 12:30 BP 158 / 102; Pulse 75; Resp 14 S; Pulse Ox 100% on R/A; jl7 09:30 Body Mass Index 29.03 (99.79 kg, 185.42 cm) iw MDM: 09:35 Patient medically screened. kb 11:15 Data reviewed: vital signs, nurses notes. Data interpreted: Pulse oximetry: on room air kb is 100 %. Interpretation: normal. 11:45 Counseling: I had a detailed discussion with the patient and/or guardian regarding: the kb historical points, exam findings, and any diagnostic results supporting the discharge/admit diagnosis, lab results, radiology results, the need for outpatient follow up, a family practitioner, to return to the emergency department if symptoms worsen or persist or if there are any questions or concerns that arise at home. 08/31 09:38 Order name: CBC with Diff; Complete Time: 10:28 kb 08/31 09:38 Order name: Basic Metabolic Panel; Complete Time: 10:34 kb 08/31 09:38 Order name: CT Stone Protocol; Complete Time: 10:45 kb 08/31 09:38 Order name: IV Start; Complete Time: 10:13 kb 08/31 11:10 Order name: Urine Dipstick-Ancillary (obtain specimen); Complete Time: 11:09 kb Administered Medications: 10:13 Drug: morphine 4 mg Route: IVP; Site: left antecubital; jl7 10:40 Follow up: Response: No adverse reaction; Pain is decreased; RASS: Alert and Calm (0) jl7 10:13 Drug: Zofran 4 mg Route: IVP; Site: left antecubital; jl7 11:22 Follow up: Response: No adverse reaction jl7 11:11 Drug: NS 0.9% 1000 ml Route: IV; Rate: 1000 ml; Site: left antecubital; jl7 11:57 Drug: Insulin Regular Human 10 units {Co-Signature: hb (Enedina Xavier RN).} {Note: VO jl7 received from [facility] to give 5 units IVP now and recheck [facility]SB[facility] in 20 min.} Route: IVP; Site: left antecubital; 12:36 Follow up: Response: Blood sugar is lowered jl7 12:06 Drug: Anderson 10 mg-325 mg 1 tabs Route: PO; jl7 12:36 Follow up: Response: No adverse reaction jl7 Point of Care Testing: Blood Glucose: 12:25 Blood Glucose: 315 mg/dL; jl7 Ranges: Critical Glucose Levels:Adult <50 mg/dl or >400 mg/dl <40 mg/dl or >180 mg/dl Disposition: 13:36 Co-signature as Attending Physician, Fabian Ramirez MD. ma2 Disposition: 08/31/19 11:45 Discharged to Home. Impression: Flank Pain, Hyperglycemia, unspecified. - Condition is Stable. - Discharge Instructions: Hyperglycemia, Itlt-od-Qiao, Flank Pain, [id number]-[id number]. - Prescriptions for Zofran 4 mg Oral Tablet - take 1 tablet by ORAL route every 6 hours As needed; 20 tablet. Tramadol 50 mg Oral Tablet - take 1 tablet by ORAL route every 8 hours as needed; 12 tablet. - Medication Reconciliation Form, Thank You Letter, Antibiotic Education, Prescription Opioid Use form. - Follow up: Private Physician; When: 2 - 3 days; Reason: Recheck today's complaints, Continuance of care, Re-evaluation by your physician. Follow up: Emergency Department; When: As needed; Reason: Worsening of condition. Signatures: Dispatcher [employer] Alexandra Perez, TOUR BUS DRIVER-C TOUR BUS DRIVER-Ckb Trisha Renee, RN RN Edy Whitney FNP-C TOUR BUS DRIVER-Cla1 Cornell Gay RN RN jl7 Fabian Ramirez MD MD ma2 Enedina barrios Corrections: (The following items were deleted from the chart) 12:37 11:45 08/31/2019 11:45 Discharged to Home. Impression: Flank Pain; Hyperglycemia, jl7 unspecified. Condition is Stable. Forms are Medication Reconciliation Form, Thank You Letter, Antibiotic Education, Prescription Opioid Use. Follow up: Private Physician; When: 2 - 3 days; Reason: Recheck today's complaints, Continuance of care, Re-evaluation by your physician. Follow up: Emergency Department; When: As needed; Reason: Worsening of condition. kb
[2019-08-31] MEDS ORDERED: INSULIN -REGULAR HUMAN 50 UNIT/0.5 ML ML ONE (11:57)
[2019-08-31] MEDS ORDERED: HYDROCODONE/APAP 10/325 TAB ONE (12:03)
[2019-08-31 12:50] VITALS: TEMP 97.8
[2019-08-31 12:52] VITALS: BP 158/102; O2SAT 100
[2019-08-31 12:52] LABS: Urine Blood TRACE (NEG); Urine Glucose 2+ (NEG); Urine Protein NEGATIVE (NEG); Urine Specific Gravity 1.015 (1.005-1.030); Urine pH 6.5 (5.0-7.0)
== END 2019-08-31 12:37 | disposition home or self-care (01) ==
LOC: ER 09:17
DX: E11.65 Type 2 diabetes mellitus with hyperglycemia (principal); I10 Essential (primary) hypertension; Z79.4 Long term (current) use of insulin; Z87.442 Personal history of urinary calculi; Z88.1 Allergy status to other antibiotic agents; Z88.3 Allergy status to other anti-infective agents; Z88.5 Allergy status to narcotic agent; Z88.6 Allergy status to analgesic agent; Z88.8 Allergy status to other drugs, medicaments and biological substances
CPT/HCPCS: 36415; 74176; 76377; 80048; 81003; 82947; 85025; 96374; 96375; 99284; J2405; J7030

== ENCOUNTER 2019-09-23 16:27 | Inpatient (IN) | payer SELFPAY ==
--- OUTSIDE RECORDS SUMMARY | 2019-09-23 16:30 | XMS REPORT ---
:1970 [facility] Address [address] [place] [address] Care Team Providers Name Role Phone Unavailable Unavailable Unavailable Payers Payer Name Policy Type Policy Number Effective Date Expiration Date Problems This patient has no known problems. Allergies, Adverse Reactions, Alerts Allergy Name Allergy Status Severity Reaction(s) Onset Inactive Treating Comments Type Date Date Clinician sulfamethoxazol DA Active U 2020-0 e 1-04 00:00: 00 trimethoprim DA Active U 2020-0 1-04 00:00: 00 promethazine DA Active U 2020-0 1-04 00:00: 00 vancomycin DA Active U 2020-0 1-04 00:00: 00 levofloxacin DA Active U 2020-0 1-04 00:00: 00 flurbiprofen DA Active MO 0 2-12 00:00: 00 azithromycin DA Active LA 2-12 00:00: 00 ketorolac DA Active MO 0 2-12 00:00: 00 Medications This patient has no known medications. Results Test Description Test Time Test Comments Text Results Atomic Results Result Comments GLUBED 2019-09-05 16:22:00 Test Item Value Reference Range Comments GLUBED (test code=GLUBED) 339 MG/DL 70-110 Performed by certified numerical control router operator at [facility] [id number] 15:12:00 Test Item Value Reference Range Comments GLUBED (test code=GLUBED) 417 MG/DL 70-110 Performed by certified numerical control router operator at [facility] - XR UROGRAM [id number] 13:23:00 FAX: Naeem Messina MD [place]: St: [facility] FAX: Abel Hidalgo [phone] --- Name: GUILLERMINA SHIN [facility] : 1970 Age/S: 49/M [address] [place] [address] Unit #: [id number] Loc: [address] [address] Phys: Abel Piper MD Acct: [id number] Dis Date: Status: ADM IN PHONE #: [phone] Exam Date: 09/05/2019 08 FAX #: [phone] Reason: RT RENAL STONE EXAMS: CPT CODE: [id number] XR UROGRAM RETRO 17101 Intraprocedural fluoroscopy was provided by the Department of Radiology. Any images obtained were interpreted by the surgeon intraoperatively. Reference air kerma: 21.8 mGy, fluoroscopy time 36 seconds SL: [id number] at 1323 Reported and signed by: Hood Bledsoe M.D. CC: Naeem Dickerson MD; Abel Piper MD Technologist: Nirali Mcneil RT(R) Trnscrd Date/Time/By: 09/05/2019 (1913) : By: ChristopherETG Orig Print D/T: S: 01/2020 (2794) PAGE 1 Signed [id number] 11:47:00 Test Item Value Reference Range Comments GLUBED (test code=GLUBED) 417 MG/DL 70-110 Performed by certified numerical control router operator at [facility] [id number] 10:22:00 Test Item Value Reference Range Comments GLUBED (test code=GLUBED) 227 MG/DL 70-110 Performed by certified numerical control router operator at [facility] [id number] 10:13:00 Test Item Value Reference Range Comments GLUBED (test code=GLUBED) 273 MG/DL 70-110 Performed by certified numerical control router operator at [facility] [id number] 08:44:00 Test Item Value Reference Range Comments GLUBED (test code=GLUBED) 229 MG/DL 70-110 Performed by certified numerical control router operator at [facility] CBC W/AUTO [id number] 08:43:00 Test Item Value Reference Range Comments WHITE BLOOD CELL (test code=WBC) 8.02 x10 3/uL 4.5-11.0 RED BLOOD CELL (test code=RBC) 4.57 x10 6/uL 4.00-5.60 HEMOGLOBIN (test code=HGB) 12.5 g/dL 12.5-16.9 HEMATOCRIT (test code=HCT) 39.6 % 37.5-50.7 MEAN CELL VOLUME (test code=MCV) 86.7 fL 81.0-99.0 MEAN CELL HGB (test code=MCH) 27.4 pg 27.0-33.0 MEAN CELL HGB CONCETRATION (test code=MCHC) 31.6 g/dL 33.0-37.0 RED CELL DISTRIBUTION WIDTH CV (test code=RDW) 12.2 % 11.5-14.5 RED CELL DISTRIBUTION WIDTH SD (test 39.0 fL 37.0-54.0 code=RDW-SD) PLATELET COUNT (test code=PLT) 159 x10 3/uL 150-400 MEAN PLATELET VOLUME (test code=MPV) 12.0 fL 7.0-9.0 NEUTROPHIL % (test code=NT%) 64.9 % 56.0-77.0 IMMATURE GRANULOCYTE % (test code=IG%) 0.5 % 0.0-2.0 LYMPHOCYTE % (test code=LY%) 21.9 % 14.0-32.0 MONOCYTE % (test code=MO%) 10.3 % 4.8-9.0 EOSINOPHIL % (test code=EO%) 2.0 % 0.3-3.7 BASOPHIL % (test code=BA%) 0.4 % 0.0-2.0 NUCLEATED RBC % (test code=NRBC%) 0.0 % 0-0 NEUTROPHIL # (test code=NT#) 5.20 x10 3/uL 2.0-7.6 IMMATURE GRANULOCYTE # (test code=IG#) 0.04 x10 3/uL 0.00-0.03 LYMPHOCYTE # (test code=LY#) 1.76 x10 3/uL 1.0-3.8 MONOCYTE # (test code=MO#) 0.83 x10 3/uL 0.1-0.8 EOSINOPHIL # (test code=EO#) 0.16 x10 3/uL 0.0-0.2 BASOPHIL # (test code=BA#) 0.03 x10 3/uL 0.0-0.2 NUCLEATED RBC # (test code=NRBC#) 0.00 x10 3/uL 0.0-0.1 MANUAL DIFF REQUIRED (test code=MDIFF) NO BASIC METABOLIC [id number] 08:40:00 Test Item Value Reference Range Comments SODIUM (test code=NA) 135 mEq/L 134-147 POTASSIUM (test code=K) 3.3 mEq/L 3.4-5.0 CHLORIDE (test code=CL) 105 mEq/L 100-108 CARBON DIOXIDE (test code=CO2) 22 mEq/L 21-33 ANION GAP (test code=GAP) 11 0-20 GLUCOSE (test code=GLU) 148 mg/dL 70-110 BLOOD UREA NITROGEN (test 12 mg/dL 7-18 code=BUN) GLOMERULAR FILTRATION RATE 70.7 90-95 Units of measure=ml/min/1.73 (test code=GFR) m2 CREATININE (test code=CREAT) 1.3 mg/dL 0.6-1.3 CALCIUM (test code=CA) 8.5 mg/dL 8.0-10.5 PROTHROMBIN [id number] 07:11:00 Test Item Value Reference Range Comments PROTHROMBIN TIME PATIENT 13.6 SECONDS 9.3-12.9 (test code=PTP) INTERNATIONAL NORMAL RATIO 1.2 0.8-1.2 TARGET INR BY (test code=INR) INDICATION Indication INR1. Prophylaxis of venous thrombosis 2.0 - 3.0 (orthopedic surgery), Prophylaxis of venous thrombosis (other than high-risk surgery), Treatment of Deep Vein Thrombosis/Pulmonary Embolism, Prevention of systemic embolism - Tissue heart valves, Acute Myocardial Infarction (to prevent systemic embolism), Valvular heart disease, Atrial Fibrillation, Bileaflet mechanical valve in aortic position.2. Mechanical prosthetic valves (high risk), 2.5 - 3.5 Presence of Lupus Anticoagulant or Antiphospholipid Antibodies, Prevention of systemic embolism - Acute Myocardial Infarction (to prevent recurrent infarct). THROMBOPLASTIN TIME [id number] 07:11:00 Test Item Value Reference Range Comments THROMBOPLASTIN TIME PARTIAL 27.3 Seconds 25.0-39.5 Therapeutic Range: (test code=PTT) 50.4 - 88.3 Seconds Effective 12/14/2018 [id number] 20:46:00 Test Item Value Reference Range Comments GLUBED (test code=GLUBED) 305 MG/DL 70-110 Performed by certified numerical control router operator at [facility] [id number] 17:06:00 Test Item Value Reference Range Comments GLUBED (test code=GLUBED) 403 MG/DL 70-110 Performed by certified numerical control router operator at [facility] - XR CHEST 2 [id number] 15:39:00 FAX: Naeem Messina MD [place]: St: ADM FAX: Abel Hidalgo [phone] --- Name: GUILLERMINA SHIN [facility] : 1970 Age/S: 49/M [address] [place] [address] Unit #: [id number] Loc: [address] [address] Phys: Abel Piper MD Acct: [id number] Dis Date: Status: ADM IN PHONE #: [phone] Exam Date: 09/04/2019 9031 FAX #: [phone] Reason: Urological Surgery Pre Op EXAMS: CPT CODE: [id number] XR CHEST 2 V 52667 Patient: GUILLERMINA SHIN. : 1970; Age: 49 years; Gender: Male. MR: [id number]. Ordering physician: Abel Piper MD. CHEST 2 VIEWS: HISTORY: Preoperative evaluation for urological surgery. COMPARISON: Chest x-ray 09/25/2009. FINDINGS: Frontal and lateral views of the chest were obtained. Left lower lung field atelectasis versus pleural parenchymal scarring. No infiltrate, pleural effusion or pneumothorax. The cardiomediastinal silhouette and pulmonary vasculature are unremarkable. The partially visualized upper abdomen is unremarkable. IMPRESSION: No acute disease in the chest. SL: [id number] at 1539 Reported and signed by: Gatito Almanzar M.D. CC: Naeem Dickerson MD; Abel Piper MD Technologist: RT Faisal(R) Trnscrd Date/Time/By: 09/04/2019 (5113) : By: [email or web address] Orig Print D/T: S: 09/04/2019 (9769) PAGE 1 Signed [id number] 11:34:00 Test Item Value Reference Range Comments GLUBED (test code=GLUBED) 328 MG/DL 70-110 Performed by certified numerical control router operator at [facility] CBC W/AUTO [id number] 09:43:00 Test Item Value Reference Range Comments WHITE BLOOD CELL (test code=WBC) 12.02 x10 3/uL 4.5-11.0 RED BLOOD CELL (test code=RBC) 5.15 x10 6/uL 4.00-5.60 HEMOGLOBIN (test code=HGB) 14.3 g/dL 12.5-16.9 HEMATOCRIT (test code=HCT) 43.9 % 37.5-50.7 MEAN CELL VOLUME (test code=MCV) 85.2 fL 81.0-99.0 MEAN CELL HGB (test code=MCH) 27.8 pg 27.0-33.0 MEAN CELL HGB CONCETRATION (test code=MCHC) 32.6 g/dL 33.0-37.0 RED CELL DISTRIBUTION WIDTH CV (test 12.2 % 11.5-14.5 code=RDW) RED CELL DISTRIBUTION WIDTH SD (test 38.0 fL 37.0-54.0 code=RDW-SD) PLATELET COUNT (test code=PLT) 182 x10 3/uL 150-400 MEAN PLATELET VOLUME (test code=MPV) 12.2 fL 7.0-9.0 NEUTROPHIL % (test code=NT%) 79.7 % 56.0-77.0 IMMATURE GRANULOCYTE % (test code=IG%) 0.4 % 0.0-2.0 LYMPHOCYTE % (test code=LY%) 10.6 % 14.0-32.0 MONOCYTE % (test code=MO%) 8.8 % 4.8-9.0 EOSINOPHIL % (test code=EO%) 0.3 % 0.3-3.7 BASOPHIL % (test code=BA%) 0.2 % 0.0-2.0 NUCLEATED RBC % (test code=NRBC%) 0.0 % 0-0 NEUTROPHIL # (test code=NT#) 9.57 x10 3/uL 2.0-7.6 IMMATURE GRANULOCYTE # (test code=IG#) 0.05 x10 3/uL 0.00-0.03 LYMPHOCYTE # (test code=LY#) 1.27 x10 3/uL 1.0-3.8 MONOCYTE # (test code=MO#) 1.06 x10 3/uL 0.1-0.8 EOSINOPHIL # (test code=EO#) 0.04 x10 3/uL 0.0-0.2 BASOPHIL # (test code=BA#) 0.03 x10 3/uL 0.0-0.2 NUCLEATED RBC # (test code=NRBC#) 0.00 x10 3/uL 0.0-0.1 MANUAL DIFF REQUIRED (test code=MDIFF) NO HGBA1C%2019-09-04 09:15:00 Test Item Value Reference Range Comments HGBA1C% (test code=HGBA1C%) 12.6 %A1C 4.8-6.0 COMPREHENSIVE METABOLIC [id number] 09:02:00 Test Item Value Reference Range Comments SODIUM (test code=NA) 136 mEq/L 134-147 POTASSIUM (test code=K) 3.4 mEq/L 3.4-5.0 CHLORIDE (test code=CL) 103 mEq/L 100-108 CARBON DIOXIDE (test code=CO2) 25 mEq/L 21-33 ANION GAP (test code=GAP) 11 0-20 GLUCOSE (test code=GLU) 256 mg/dL 70-110 BLOOD UREA NITROGEN (test 11 mg/dL 7-18 code=BUN) GLOMERULAR FILTRATION RATE 64.9 90-95 Units of (test code=GFR) measure=ml/min/1.73 m2 CREATININE (test code=CREAT) 1.4 mg/dL 0.6-1.3 TOTAL PROTEIN (test code=PROT) 6.8 g/dL 6.4-8.2 ALBUMIN (test code=ALB) 2.70 g/dL 3.4-5.0 CALCIUM (test code=CA) 8.6 mg/dL 8.0-10.5 BILIRUBIN TOTAL (test 0.6 MG/DL <1.5 code=BILT) SGOT/AST (test code=AST) 6 IUnit/L 15-37 SGPT/ALT (test code=ALT) 12 IUnit/L 15-65 ALKALINE PHOSPHATASE TOTAL 81 IUnit/L 20-125 (test code=ALKP) CBC W/AUTO [id number] 08:41:00 Test Item Value Reference Range Comments WHITE BLOOD CELL (test code=WBC) 12.02 x10 3/uL 4.5-11.0 RED BLOOD CELL (test code=RBC) 5.15 x10 6/uL 4.00-5.60 HEMOGLOBIN (test code=HGB) 14.3 g/dL 12.5-16.9 HEMATOCRIT (test code=HCT) 43.9 % 37.5-50.7 MEAN CELL VOLUME (test code=MCV) 85.2 fL 81.0-99.0 MEAN CELL HGB (test code=MCH) 27.8 pg 27.0-33.0 MEAN CELL HGB CONCETRATION (test code=MCHC) 32.6 g/dL 33.0-37.0 RED CELL DISTRIBUTION WIDTH CV (test 12.2 % 11.5-14.5 code=RDW) RED CELL DISTRIBUTION WIDTH SD (test 38.0 fL 37.0-54.0 code=RDW-SD) PLATELET COUNT (test code=PLT) x10 3/uL 150-400 MEAN PLATELET VOLUME (test code=MPV) 12.2 fL 7.0-9.0 NEUTROPHIL % (test code=NT%) 79.7 % 56.0-77.0 IMMATURE GRANULOCYTE % (test code=IG%) 0.4 % 0.0-2.0 LYMPHOCYTE % (test code=LY%) 10.6 % 14.0-32.0 MONOCYTE % (test code=MO%) 8.8 % 4.8-9.0 EOSINOPHIL % (test code=EO%) 0.3 % 0.3-3.7 BASOPHIL % (test code=BA%) 0.2 % 0.0-2.0 NUCLEATED RBC % (test code=NRBC%) 0.0 % 0-0 NEUTROPHIL # (test code=NT#) 9.57 x10 3/uL 2.0-7.6 IMMATURE GRANULOCYTE # (test code=IG#) 0.05 x10 3/uL 0.00-0.03 LYMPHOCYTE # (test code=LY#) 1.27 x10 3/uL 1.0-3.8 MONOCYTE # (test code=MO#) 1.06 x10 3/uL 0.1-0.8 EOSINOPHIL # (test code=EO#) 0.04 x10 3/uL 0.0-0.2 BASOPHIL # (test code=BA#) 0.03 x10 3/uL 0.0-0.2 NUCLEATED RBC # (test code=NRBC#) 0.00 x10 3/uL 0.0-0.1 MANUAL DIFF REQUIRED (test code=MDIFF) NO [id number] 08:10:00 Test Item Value Reference Range Comments GLUBED (test code=GLUBED) 257 MG/DL 70-110 Performed by certified numerical control router operator at [facility] [id number] 21:05:00 Test Item Value Reference Range Comments GLUBED (test code=GLUBED) 312 MG/DL 70-110 Performed by certified numerical control router operator at [facility] [id number] 17:05:00 Test Item Value Reference Range Comments GLUBED (test code=GLUBED) 272 MG/DL 70-110 Performed by certified numerical control router operator at [facility] [id number] 14:12:00 Test Item Value Reference Range Comments GLUBED (test code=GLUBED) 348 MG/DL 70-110 Performed by certified numerical control router operator at [facility] [id number] 10:01:00 Test Item Value Reference Range Comments GLUBED (test code=GLUBED) 372 MG/DL 70-110 Performed by certified numerical control router operator at [facility] [id number] 08:39:00 Test Item Value Reference Range Comments GLUBED (test code=GLUBED) 345 MG/DL 70-110 Performed by certified numerical control router operator at [facility] COMPREHENSIVE METABOLIC [id number] 07:22:00 Test Item Value Reference Range Comments SODIUM (test code=NA) 136 mEq/L 134-147 POTASSIUM (test code=K) 4.7 mEq/L 3.4-5.0 CHLORIDE (test code=CL) 104 mEq/L 100-108 CARBON DIOXIDE (test code=CO2) 25 mEq/L 21-33 ANION GAP (test code=GAP) 12 0-20 GLUCOSE (test code=GLU) 415 mg/dL 70-110 BLOOD UREA NITROGEN (test 11 mg/dL 7-18 code=BUN) GLOMERULAR FILTRATION RATE 70.7 90-95 Units of (test code=GFR) measure=ml/min/1.73 m2 CREATININE (test code=CREAT) 1.3 mg/dL 0.6-1.3 TOTAL PROTEIN (test code=PROT) 6.4 g/dL 6.4-8.2 ALBUMIN (test code=ALB) 2.70 g/dL 3.4-5.0 CALCIUM (test code=CA) 7.1 mg/dL 8.0-10.5 BILIRUBIN TOTAL (test 0.4 MG/DL <1.5 code=BILT) SGOT/AST (test code=AST) 12 IUnit/L 15-37 SGPT/ALT (test code=ALT) 14 IUnit/L 15-65 ALKALINE PHOSPHATASE TOTAL 71 IUnit/L 20-125 (test code=ALKP) COMPREHENSIVE METABOLIC [id number] 07:14:00 Test Item Value Reference Range Comments SODIUM (test code=NA) 136 mEq/L 134-147 POTASSIUM (test code=K) 4.7 mEq/L 3.4-5.0 CHLORIDE (test code=CL) 104 mEq/L 100-108 CARBON DIOXIDE (test code=CO2) 25 mEq/L 21-33 ANION GAP (test code=GAP) 12 0-20 GLUCOSE (test code=GLU) 415 mg/dL 70-110 BLOOD UREA NITROGEN (test code=BUN) 11 mg/dL 7-18 GLOMERULAR FILTRATION RATE (test code=GFR) 90-95 CREATININE (test code=CREAT) mg/dL 0.6-1.3 TOTAL PROTEIN (test code=PROT) g/dL 6.4-8.2 ALBUMIN (test code=ALB) g/dL 3.4-5.0 CALCIUM (test code=CA) 7.1 mg/dL 8.0-10.5 BILIRUBIN TOTAL (test code=BILT) MG/DL <1.5 SGOT/AST (test code=AST) IUnit/L 15-37 SGPT/ALT (test code=ALT) IUnit/L 15-65 ALKALINE PHOSPHATASE TOTAL (test code=ALKP) IUnit/L 20-125 CBC W/AUTO [id number] 07:08:00 Test Item Value Reference Range Comments WHITE BLOOD CELL (test code=WBC) 10.76 x10 3/uL 4.5-11.0 RED BLOOD CELL (test code=RBC) 4.70 x10 6/uL 4.00-5.60 HEMOGLOBIN (test code=HGB) 13.1 g/dL 12.5-16.9 HEMATOCRIT (test code=HCT) 40.9 % 37.5-50.7 MEAN CELL VOLUME (test code=MCV) 87.0 fL 81.0-99.0 MEAN CELL HGB (test code=MCH) 27.9 pg 27.0-33.0 MEAN CELL HGB CONCETRATION (test code=MCHC) 32.0 g/dL 33.0-37.0 RED CELL DISTRIBUTION WIDTH CV (test 12.0 % 11.5-14.5 code=RDW) RED CELL DISTRIBUTION WIDTH SD (test 39.1 fL 37.0-54.0 code=RDW-SD) PLATELET COUNT (test code=PLT) 191 x10 3/uL 150-400 MEAN PLATELET VOLUME (test code=MPV) 12.1 fL 7.0-9.0 NEUTROPHIL % (test code=NT%) 78.9 % 56.0-77.0 IMMATURE GRANULOCYTE % (test code=IG%) 0.4 % 0.0-2.0 LYMPHOCYTE % (test code=LY%) 12.5 % 14.0-32.0 MONOCYTE % (test code=MO%) 7.8 % 4.8-9.0 EOSINOPHIL % (test code=EO%) 0.2 % 0.3-3.7 BASOPHIL % (test code=BA%) 0.2 % 0.0-2.0 NUCLEATED RBC % (test code=NRBC%) 0.0 % 0-0 NEUTROPHIL # (test code=NT#) 8.49 x10 3/uL 2.0-7.6 IMMATURE GRANULOCYTE # (test code=IG#) 0.04 x10 3/uL 0.00-0.03 LYMPHOCYTE # (test code=LY#) 1.35 x10 3/uL 1.0-3.8 MONOCYTE # (test code=MO#) 0.84 x10 3/uL 0.1-0.8 EOSINOPHIL # (test code=EO#) 0.02 x10 3/uL 0.0-0.2 BASOPHIL # (test code=BA#) 0.02 x10 3/uL 0.0-0.2 NUCLEATED RBC # (test code=NRBC#) 0.00 x10 3/uL 0.0-0.1 MANUAL DIFF REQUIRED (test code=MDIFF) NO URINALYSIS [id number] 07:02:00 Test Item Value Reference Range Comments UA COLOR (test code=COLU) YELLOW YEL/STRAW UA APPEARANCE (test code=APPU) CLEAR CLEAR UA GLUCOSE DIPSTICK (test code=DGLUU) 3+ NEGATIVE UA BILIRUBIN DIPSTICK (test code=BILU) NEGATIVE NEGATIVE UA KETONE DIPSTICK (test code=KETU) 1+ NEGATIVE UA SPECIFIC GRAVITY (test code=SGU) 1.021 1.005-1.030 UA BLOOD DIPSTICK (test code=JUAREZ) 2+ NEGATIVE UA PH DIPSTICK (test code=MARIA D) 5.0 5.0-7.0 UA PROTEIN DIPSTICK (test code=PROU) NEGATIVE NEGATIVE UA UROBILINIOGEN DIPSTICK (test code=URO) 0.2 mg/dL 0.2-1.0 UA NITRITE DIPSTICK (test code=CANDY) NEGATIVE NEGATIVE UA LEUKOCYTE ESTERASE DIPSTICK (test NEGATIVE NEGATIVE code=LEUU) UA RBC (test code=RBCU) 4-10 RBC/HPF 0-3 UA WBC NO REFLEX (test code=WBCUCL) 0-3 WBC/HPF 0-3 UA BACTERIA (test code=BACU) NONE SEEN /HPF NONE SEEN UA SQUAMOUS CELLS (test code=SQU) NONE SEEN /HPF NONE SEEN UA MUCUS (test code=MUCU) TRACE /LPF NONE SEEN
[2019-09-23] MEDS ORDERED: FENTANYL CITR 100 MCG/2 ML ONE (17:42)
[2019-09-23] MEDS ORDERED: NA CHLORIDE 0.9% 1,000 ML ONE (17:43)
--- NOTE | 2019-09-23 17:52 | RAD REPORT ---
EXAM DESCRIPTION: RAD - Foot Right 3 View - 09/23/2019 5:42 pm CLINICAL HISTORY: PAIN COMPARISON: Foot Right Wo Cont dated 12/16/2018; Foot Right 2 View dated 12/05/2017 FINDINGS: No fracture, dislocation or periosteal reaction. Degenerative changes are present at the I P joint of the first toe. Soft tissue swelling is present. Degenerative cystic changes seen in the me dial margin of the first proximal phalanx head. This is believed to be degenerative cystic change. Gamal anderson, osteomyelitis was detailed on the November 2018 MRI study in this portion of the first proximal p halanx. No cortical disruption or gross bone destructive process seen. The second toe and second metatarsal head have been resected with well-healed appearance to the secon d metatarsal remnant. The third- fifth toes and metatarsals show no acute findings. No midfoot acute process seen. No air or foreign body in the soft tissues. IMPRESSION: Mild degenerative change present at the IP joint of the first toe. Small focal lucency i n the medial margin of the first proximal phalanx head could be degenerative cystic change or remnant changes related to previously diagnosed osteomyelitis. No progressive bone destructive process. First toe soft tissue swelling without air or foreign body.
[2019-09-23 18:09] LABS: Absolute Lymphocytes (CBC) 2.3 K/uL (0.7-4.9); Basophils % 0.9 % (0-1.3); MPV 9.5 fL (7.6-11.3); RBC Red Blood Cell Count 5.09 M/uL (4.33-5.43)
[2019-09-23 18:10] LABS: Protime INR 1.05
[2019-09-23 18:26] LABS: Albumin 3.5 g/dL (3.4-5.0); Bilirubin Direct 0.1 mg/dL (0-0.2); Bilirubin Total 0.4 mg/dL (0.2-1.0); C-Reactive Protein 11.4 mg/L (<3.00); Potassium 3.7 mmol/L (3.5-5.1); Protein, Total 8.3 g/dL (6.4-8.2)
--- NOTE | 2019-09-23 19:01 | RAD REPORT ---
EXAM DESCRIPTION: US - Extremity Venous Uni Ltd - 09/23/2019 6:13 pm CLINICAL HISTORY: Right leg pain and swelling COMPARISON: None. TECHNIQUE: Real-time sonographic evaluation of the right lower extremity deep venous systems was per formed. FINDINGS: Normal compressibility, flow augmentation, phasic flow and spontaneous flow are identified in the right lower extremity common femoral, superficial femoral, popliteal and posterior tibial vei ns. No intraluminal filling defects seen. IMPRESSION: No DVT in the right lower extremity.
[2019-09-23] MEDS ORDERED: NA CHLORIDE 0.9% 2,000 ML ONE (19:49)
[2019-09-23] MEDS ORDERED: PIPER/TAZO/NS 3.375gm 3.375 GM/100 ML BAG ONE ×2 (19:49→20:01)
[2019-09-23] MEDS ORDERED: INSULIN -REGULAR HUMAN 50 UNIT/0.5 ML ML ONE (19:49)
--- NOTE | 2019-09-23 20:26 | EDPHYS ---
Physician Documentation [facility] Name: Flex Del Valle Age: 49 yrs Sex: Male : 1970 Arrival Date: 09/23/2019 Time: 16:33 Bed 26 Private MD: ED Physician Abdulaziz Booth HPI: 09/23 17:15 This 49 yrs old Black Male presents to ER via Ambulatory with complaints of ulcer on cp bottom of toe. 17:15 The patient presents with pain, swelling, tenderness. The complaints affect the right cp first toe. Context: resulted from an unknown cause. Onset: The symptoms/episode began/occurred gradually. Associated signs and symptoms: Pertinent positives: warmth, radiating to upper right leg, Pertinent negatives: fever. Historical: - Allergies: 16:47 BACLOFEN; aa5 16:47 Bactrim; aa5 16:47 Clindamycin; aa5 16:47 Ibuprofen; aa5 16:47 Levaquin; aa5 16:47 NSAIDS; aa5 16:47 Phenergan; aa5 16:47 Toradol; aa5 16:47 Zithromax; aa5 - PMHx: 16:47 Diabetes - NIDDM; DVT; EDEMA; Hypertension; Kidney stones; neuropathy; osteomyelitis; aa5 - PSHx: 16:47 toe amputations; lithotripsy; aa5 - Immunization history:: Flu vaccine is not up to date. - Coronavirus screen:: The patient has NOT traveled to [place], [place], or [place] in the past 14 days. - Social history:: Smoking status: Patient denies any tobacco usage or history of. - Ebola Screening: : No symptoms or risks identified at this time. ROS: 17:20 Constitutional: Negative for body aches, chills, fever, poor PO intake. cp 17:20 Eyes: Negative for injury, pain, redness, and discharge. cp 17:20 Cardiovascular: Negative for chest pain. 17:20 Respiratory: Negative for cough, shortness of breath, wheezing. 17:20 Abdomen/GI: Negative for abdominal pain, nausea, vomiting, and diarrhea. 17:20 MS/extremity: Negative for injury or acute deformity. 17:20 Skin: Positive for cellulitis, of the right foot. 17:20 Neuro: Negative for altered mental status, dizziness, headache, weakness. 17:20 All other systems are negative. Exam: 17:30 Constitutional: The patient appears in no acute distress, alert, awake, cp non-diaphoretic, non-toxic, well developed, well nourished. 17:30 Head/Face: Normocephalic, atraumatic. cp 17:30 Eyes: Periorbital structures: appear normal, Conjunctiva: normal, no exudate, no injection, Lids and lashes: appear normal, bilaterally. 17:30 ENT: External ear(s): are unremarkable, Nose: is normal, Mouth: Lips: moist, Oral mucosa: pink and intact, moist, Posterior pharynx: is normal, airway is patent, no erythema, no exudate. 17:30 Chest/axilla: Inspection: normal, Palpation: is normal. 17:30 Cardiovascular: Rate: tachycardic, Rhythm: regular, Edema: is not appreciated, JVD: is not appreciated. 17:30 Respiratory: the patient does not display signs of respiratory distress, Respirations: normal, no use of accessory muscles, no retractions, labored breathing, is not present, Breath sounds: are clear throughout, no decreased breath sounds, no stridor, no wheezing. 17:30 Abdomen/GI: Inspection: abdomen appears normal, Palpation: abdomen is soft and non-tender, in all quadrants. 17:30 Skin: cellulitis, that is moderate, on the right foot, noted open wounds to plantar surface of right great toe, skin ulcer to area of amputated right second toe; both with noted swelling and erythema. 17:30 Neuro: Orientation: to person, place \T\ time. Mentation: is normal. Vital Signs: 16:47 BP 166 / 112; Pulse 120; Resp 18 S; Temp 98.2(O); Pulse Ox 100% on R/A; Height 6 ft. 1 aa5 in. (185.42 cm) (R); Pain 7/10; 16:50 Weight 101.79 kg (M); aa5 19:00 BP 147 / 88; Pulse 110; Resp 14; Temp 98.4; Pulse Ox 99% on R/A; Pain 5/10; ls4 20:30 BP 149 / 80; Pulse 102; Resp 20; Pulse Ox 99% on R/A; ls4 21:59 BP 144 / 86; Pulse 106; Resp 18; Temp 98.2; Pulse Ox 99% on R/A; Pain 5/10; ls4 16:50 Body Mass Index 29.61 (101.79 kg, 185.42 cm) aa5 MDM: 17:00 Patient medically screened. cp 18:00 Differential diagnosis: foreign body, gout, cellulitis, sepsis, osteomyelitis. cp 19:35 Data reviewed: vital signs, nurses notes, lab test result(s), EKG, radiologic studies, cp plain films, I have discussed the patient's presentation/case with the attending Emergency Department Physician;. 19:35 Test interpretation: by ED physician or midlevel provider: ECG, plain radiologic cp studies. 20:25 Physician consultation: Nallely Chatman MD was called at 20:25, was contacted at 20:25, cp regarding admission, to the medical/surgical unit. patient's condition. 09/23 17:11 Order name: Wound Culture cp 09/23 17:11 Order name: CRP; Complete Time: 18:52 cp 09/23 17:11 Order name: Sed Rate; Complete Time: 18:52 09/23 17:11 Order name: Basic Metabolic Panel; Complete Time: 18:52 cp 09/23 18:52 Interpretation: Normal except: NA 134; GLUC 381; GFR 81. 09/23 17:11 Order name: CBC with Diff; Complete Time: 18:52 cp 09/23 19:07 Interpretation: Reviewed. 09/23 17:11 Order name: LFT's; Complete Time: 18:52 cp 09/23 19:06 Interpretation: Normal except: AST 10; TP 8.3; GLOB 4.8; A/G 0.7. cp 09/23 17:11 Order name: XRAY Foot RIGHT 3 View: right great toe infection; Complete Time: 18:52 cp 09/23 17:11 Order name: PT-INR; Complete Time: 18:52 cp 09/23 17:11 Order name: Procalcitonin; Complete Time: 19:05 cp 09/23 17:11 Order name: Lactate; Complete Time: 19:31 cp 09/23 17:11 Order name: Blood Culture Adult (2) cp 09/23 17:11 Order name: Urine Culture cp 09/23 17:11 Order name: US Extremity Venous Unilateral Ltd; Complete Time: 19:05 cp 09/23 19:05 Interpretation: Report reviewed. cp 09/23 17:11 Order name: EKG; Complete Time: 17:11 cp 09/23 17:11 Order name: Cardiac monitoring; Complete Time: 17:24 cp 09/23 17:11 Order name: EKG - Nurse/Tech; Complete Time: 17:24 cp 09/23 17:11 Order name: IV Saline Lock; Complete Time: 17:24 cp 09/23 17:11 Order name: Labs collected and sent; Complete Time: 17:24 cp 09/23 17:11 Order name: O2 Per Protocol; Complete Time: 17:24 cp 09/23 17:11 Order name: O2 Sat Monitoring; Complete Time: 17: cp 09/23 17:11 Order name: Urine Dipstick-Ancillary (obtain specimen); Complete Time: 19:09 cp Administered Medications: 17:50 Drug: fentaNYL (PF) 25 mcg Route: IVP; Site: left antecubital; ls4 19:10 Follow up: Response: No adverse reaction; Marked relief of symptoms; Pain is decreased ls4 17:51 Drug: NS 0.9% 1000 ml Route: IV; Rate: 1 bolus; Site: left antecubital; ls4 19:11 Follow up: IV Status: Completed infusion; IV Intake: 1000ml ls4 19:42 Drug: NS 0.9% (30 ml/kg) 2000 ml {Note: 1000 ML ALREADY INFUSED .} Route: IV; Rate: ls4 bolus; Site: left antecubital; 22:02 Follow up: IV Status: Completed infusion; IV Intake: 2000ml ls4 20:40 Drug: Zosyn 3.375 grams Route: IVPB; Infused Over: 60 mins; Site: left antecubital; ls4 21:40 Follow up: IV Status: Completed infusion; IV Intake: 100ml ls4 21:58 Drug: vancoMYCIN 1 grams Route: IVPB; Infused Over: 2 hrs; Site: left antecubital; ls4 22:02 Follow up: IV Status: Infusion continued upon admission ls4 Disposition: 09/24 02:47 Co-signature as Attending Physician, Abdulaziz Booth MD I agree with the assessment and kdr plan of care. Disposition: 09/23/19 20:25 Hospitalization ordered by Nallely Chatman for Inpatient Admission. Preliminary diagnosis are Cellulitis of right lower limb - foot, Diabetes mellitus due to underlying condition with hyperglycemia. - Bed requested for Telemetry/MedSurg (Inpatient). - Status is Inpatient Admission. ls4 - Condition is Stable. - Problem is new. - Symptoms have improved. UTI on Admission? No Signatures: Dispatcher [employer] EDMS Abdulaziz Booth MD MD [facility] Laura Lindsay RN RN aa5 Jaime Ramirez PA PA cp Saba David RN RN Mary Ybarra RN RN ls4 Corrections: (The following items were deleted from the chart) 09/23 20:25 20:25 Hospitalization Ordered by Nallely Chatman MD for Inpatient Admission. Preliminary cp diagnosis is Cellulitis of right lower limb - foot. Bed requested for Telemetry/MedSurg (Inpatient). Status is Inpatient Admission. Condition is Stable. Problem is new. Symptoms have improved. UTI on Admission? No. cp 20:36 20:25 09/23/2019 20:25 Hospitalization Ordered by Nallely Chatman MD for Inpatient cg Admission. Preliminary diagnosis is Cellulitis of right lower limb - foot; Diabetes mellitus due to underlying condition with hyperglycemia. Bed requested for Telemetry/MedSurg (Inpatient). Status is Inpatient Admission. Condition is Stable. Problem is new. Symptoms have improved. UTI on Admission? No. cp 22:20 20:36 09/23/2019 20:25 Hospitalization Ordered by Nallely Chatman MD for Inpatient ls4 Admission. Preliminary diagnosis is Cellulitis of right lower limb - foot; Diabetes mellitus due to underlying condition with hyperglycemia. Bed requested for Telemetry/MedSurg (Inpatient). Status is Inpatient Admission. Condition is Stable. Problem is new. Symptoms have improved. UTI on Admission? No. cg
--- NOTE | 2019-09-23 20:26 | ER ---
Nurse's Notes [facility] Name: Flex Del Valle Age: 49 yrs Sex: Male : 1970 Arrival Date: 09/23/2019 Time: 16:33 Bed 26 Private MD: Diagnosis: Cellulitis of right lower limb-foot;Diabetes mellitus due to underlying condition with hyperglycemia Presentation: 09/23 16:44 Presenting complaint: Patient states: "I have a wound on my right great toe and last aa5 year I did IV therapy for a while and it closed for the most part but now it started getting worse a few days ago". Transition of care: patient was not received from another setting of care. Onset of symptoms was August 2019. Risk Assessment: Do you want to hurt yourself or someone else? Patient reports no desire to harm self or others. Initial Sepsis Screen: Does the patient meet any 2 criteria? HR > 90 bpm. Does the patient have a suspected source of infection? Yes: Skin breakdown/wound. Care prior to arrival: None. 16:44 Acuity: AB 3 aa5 16:44 Method Of Arrival: Ambulatory aa5 Triage Assessment: 17:00 General: Appears in no apparent distress. uncomfortable, Behavior is calm, cooperative. ls4 Historical: - Allergies: 16:47 BACLOFEN; aa5 16:47 Bactrim; aa5 16:47 Clindamycin; aa5 16:47 Ibuprofen; aa5 16:47 Levaquin; aa5 16:47 NSAIDS; aa5 16:47 Phenergan; aa5 16:47 Toradol; aa5 16:47 Zithromax; aa5 - PMHx: 16:47 Diabetes - NIDDM; DVT; EDEMA; Hypertension; Kidney stones; neuropathy; osteomyelitis; aa5 - PSHx: 16:47 toe amputations; lithotripsy; aa5 - Immunization history:: Flu vaccine is not up to date. - Coronavirus screen:: The patient has NOT traveled to [place], [place], or [place] in the past 14 days. - Social history:: Smoking status: Patient denies any tobacco usage or history of. - Ebola Screening: : No symptoms or risks identified at this time. Screenin:44 Abuse screen: Denies threats or abuse. Denies injuries from another. Nutritional ls4 screening: No deficits noted. Tuberculosis screening: No symptoms or risk factors identified. Fall Risk None identified. Assessment: 16:50 General: Appears in no apparent distress. uncomfortable, Behavior is calm, cooperative. ls4 Pain: Complains of pain in plantar aspect of right first toe, right first toe and Right first toenail Pain currently is 9 out of 10 on a pain scale. Quality of pain is described as aching. Neuro: No deficits noted. Cardiovascular: No deficits noted. Respiratory: No deficits noted. GI: No deficits noted. : No deficits noted. Derm: Decubitus located on right DORSUM BIG TOE approximately 7.6 cm to 20 cm is unstageable. has denuded edges bed has eschar present is draining none noted. Musculoskeletal: Circulation, motion, and sensation intact. Capillary refill < 3 seconds, Range of motion: intact in all extremities. 18:00 Reassessment: Patient appears in no apparent distress at this time. No changes from ls4 previously documented assessment. Patient and/or family updated on plan of care and expected duration. Pain level reassessed. Patient is alert, oriented x 3, equal unlabored respirations, skin warm/dry/pink. 19:00 Reassessment: Patient appears in no apparent distress at this time. No changes from ls4 previously documented assessment. Patient and/or family updated on plan of care and expected duration. Pain level reassessed. Patient is alert, oriented x 3, equal unlabored respirations, skin warm/dry/pink. 20:00 Reassessment: Patient appears in no apparent distress at this time. No changes from ls4 previously documented assessment. Patient and/or family updated on plan of care and expected duration. Pain level reassessed. Patient is alert, oriented x 3, equal unlabored respirations, skin warm/dry/pink. 21:13 Reassessment: Patient appears in no apparent distress at this time. No changes from ls4 previously documented assessment. Patient and/or family updated on plan of care and expected duration. Pain level reassessed. Patient is alert, oriented x 3, equal unlabored respirations, skin warm/dry/pink. Vital Signs: 16:47 BP 166 / 112; Pulse 120; Resp 18 S; Temp 98.2(O); Pulse Ox 100% on R/A; Height 6 ft. 1 aa5 in. (185.42 cm) (R); Pain 7/10; 16:50 Weight 101.79 kg (M); aa5 19:00 BP 147 / 88; Pulse 110; Resp 14; Temp 98.4; Pulse Ox 99% on R/A; Pain 5/10; ls4 20:30 BP 149 / 80; Pulse 102; Resp 20; Pulse Ox 99% on R/A; ls4 21:59 BP 144 / 86; Pulse 106; Resp 18; Temp 98.2; Pulse Ox 99% on R/A; Pain 5/10; ls4 16:50 Body Mass Index 29.61 (101.79 kg, 185.42 cm) aa5 ED Course: 16:33 Patient arrived in ED. as 16:44 Patient has correct armband on for positive identification. Bed in low position. Call ls4 light in reach. Side rails up X2. hall monitor on. Pulse ox on. NIBP on. Warm blanket given. Verbal reassurance given. 16:44 No provider procedures requiring assistance completed. ls4 16:46 Triage completed. aa5 16:47 Arm band placed on. aa5 16:51 Jaime Ramirez PA is PHCP. cp 16:51 Abdulaziz Booth MD is Attending Physician. cp 17:07 Mary Ybarra, ALF is Primary Nurse. ls4 17:42 XRAY Foot RIGHT 3 View: right great toe infection In Process Unspecified. EDMS 17:48 Initial lab(s) drawn, by me, sent to lab. First set of blood cultures drawn by me, lt1 Second set of blood cultures drawn by me. 17:52 Missed attempt(s): 22 gauge in right forearm. lt1 17:53 Inserted saline lock: 20 gauge in left antecubital area, using aseptic technique. lt1 17:54 Blood Culture Adult (2) Sent. lt1 18:13 US Extremity Venous Unilateral Ltd In Process Unspecified. EDMS 20:24 Nallely Chatman MD is Hospitalizing Provider. cp 22:01 Patient admitted, IV remains in place. intact, No redness/swelling at site. ls4 Administered Medications: 17:50 Drug: fentaNYL (PF) 25 mcg Route: IVP; Site: left antecubital; ls4 19:10 Follow up: Response: No adverse reaction; Marked relief of symptoms; Pain is decreased ls4 17:51 Drug: NS 0.9% 1000 ml Route: IV; Rate: 1 bolus; Site: left antecubital; ls4 19:11 Follow up: IV Status: Completed infusion; IV Intake: 1000ml ls4 19:42 Drug: NS 0.9% (30 ml/kg) 2000 ml {Note: 1000 ML ALREADY INFUSED .} Route: IV; Rate: ls4 bolus; Site: left antecubital; 22:02 Follow up: IV Status: Completed infusion; IV Intake: 2000ml ls4 20:40 Drug: Zosyn 3.375 grams Route: IVPB; Infused Over: 60 mins; Site: left antecubital; ls4 21:40 Follow up: IV Status: Completed infusion; IV Intake: 100ml ls4 21:58 Drug: vancoMYCIN 1 grams Route: IVPB; Infused Over: 2 hrs; Site: left antecubital; ls4 22:02 Follow up: IV Status: Infusion continued upon admission ls4 Intake: 19:11 IV: 1000ml; Total: 1000ml. ls4 21:40 IV: 100ml; Total: 1100ml. ls4 22:02 IV: 2000ml; Total: 3100ml. ls4 Outcome: 20:25 Decision to Hospitalize by Provider. cp 22:00 Admitted to Med/surg via wheelchair, room 213, with chart, Report called to CHACHA VARGAS 22:00 Condition: stable 22:00 Discharge instructions given to patient, Instructed on the need for admit. 22:20 Patient left the ED. ls4 Signatures: Dispatcher [employer] Nia Pacheco Audri RN RN [id number] Jaime Ramirez PA PA Mary Albert RN RN ls4 Princess Tate 1 Corrections: (The following items were deleted from the chart) 19:10 19:10 Response: No adverse reaction ls4 ls4
[2019-09-23] MEDS ORDERED: NA CHLORIDE 0.9% 250 ML ONE (21:30)
[2019-09-23] MEDS ORDERED: VANCOMYCIN 1 GM/VIAL ONE (21:30)
[2019-09-23] MEDS ORDERED: MORPHINE 4 MG/ML SYR IV PRN (21:58)
[2019-09-23] MEDS ORDERED: ONDANSETRON 4 MG/2 ML VIAL IV PRN ×2 (21:58→22:18)
[2019-09-23] MEDS ORDERED: ACETAMINOPHEN 500 MG TAB PO PRN (21:58)
[2019-09-23] MEDS ORDERED: Pharmacy Consult 1 EA XX PRN (21:58)
[2019-09-23] MEDS: NA CHLORIDE 0.9% 1,000 ML IV SCH (22:31)
[2019-09-23] MEDS: INSULIN -REGULAR HUMAN 50 UNIT/0.5 ML ML SQ SCH (23:33)
--- NOTE | 2019-09-23 23:56 | P.HP ---
Certification for Inpatient With expected LOS: >2 Midnights Practitioner: I am a practitioner with admitting privileges, knowledge of patient current condition, hospital course, and medical plan of care. Services: Services provided to patient in accordance with Admission requirements found in Title 42 Section 412.3 of the Code of Federal Regulations Patient History Date of Service: 09/24/19 Reason for admission: right foot pain History of Present Illness: buddy padilla is [id number] w/ pmhx of htn, poorly controlled DM complicated by neuropathy and chronic ulcers. previous h/x of osteo of the right 2nd toe complicated by amputation who presents due to right leg pain that he reports that he just noticed along w/ noticing a great toe ulceration with tunneling but no drainage. In the ed he is evaluated and deemed necessary for evaluation of the foot as well as BGL control. general surgery called/notified from the ER with acceptance of consultation. he refuses to provide any details of the events surrounding his foot ulceration, thus information taken from ER staff. while in the ER he is started on IV abx w/ no xray evidence of osteo, and no leucocytosis. he is sleeping comfortably, is in no distress MD was unable to complete the ROS due to pt's lack of cooperation. Allergies ketorolac tromethamine [From Toradol] Allergy (Unknown, Verified 09/23/19 22:54) Shortness of breath azithromycin [From Zithromax] Allergy (Verified 09/23/19 22:54) Unknown baclofen Allergy (Verified 09/23/19 22:54) Unknown ibuprofen Allergy (Verified 09/23/19 22:54) Unknown levofloxacin [From Levaquin] Allergy (Verified 09/23/19 22:54) Itching/Hives/Rash promethazine [From Phenergan] Allergy (Verified 09/23/19 22:54) Unknown sulfamethoxazole [From Bactrim] Allergy (Verified 09/23/19 22:54) Unknown trimethoprim [From Bactrim] Allergy (Verified 09/23/19 22:54) Unknown NSAIDS Allergy (Uncoded 09/23/19 22:54) Unknown Home Medications: Insulin 70/30 NPH/Reg Human [Novolin 70/30*] See Protocol SQ BID 12/16/18 - Past Medical/Surgical History Has patient received pneumonia vaccine in the past: No Diabetic: Yes -: diabetes mellitus II -: Hx of DVT-2 left leg/1 on the right leg -: HTN -: MRSA left foot -: kidney stones -: toes amputation - bilateral feet -: right kidney stent(2-3 weeks ago) -: Lithotripsy - Family History Father -: Hypertension Mother -: Diabetes, Other (see notes) Notes: - Social History Smoking Status: Former smoker Alcohol use: Yes CD- Drugs: No Caffeine use: Yes Place of Residence: Home Physical Examination - Vital Signs Temperature: 98.2 F Blood Pressure: 144/86 Pulse: 106 Respirations: 18 - Physical Exam General: Alert, In no apparent distress, Other (sleeping comfortably, refuses to engage with MD quezada. ) HEENT: Atraumatic, EOMI Neck: Supple Respiratory: Clear to auscultation bilaterally Cardiovascular: Edema (of the right foot up to 1/3 the ankle) Gastrointestinal: Normal bowel sounds, Soft and benign, Non-distended Musculoskeletal: No clubbing Integumentary: No erythema, No warmth External genitalia: Deferred Rectal: Deferred - Studies Laboratory Data (last 24 hrs) 09/23/19 17:48: PT 12.4, INR 1.05 09/23/19 17:48: WBC 6.6, Hgb 14.0, Hct 43.0, Plt Count 331 09/23/19 17:48: Sodium 134 L, Potassium 3.7, BUN 8, Creatinine 1.16, Glucose 381 H, Total Bilirubin 0.4, AST 10 L, ALT 23, Alkaline Phosphatase 104 Assessment and Plan - Plan 49 yoM admitted w/ diabetic foot ulceration w/ h/ox osteo broad spectrum IV abx IVF and o2 per protocol general surgery consulted for evaluation and intervention as deemed necessary. obtain a1c, tsh, lipid panel will order drug screen, esr f/u w/ wound and blood cultures DM - likely uncontrolled obtain A1C start on SSI and monitor FSBG to adjust SSI . htn monitor BP - once med reconcile completed will restart home meds add prn as needed. Discharge Plan: Home - Advance Directives Does patient have a Living Will: No Does patient have a Durable POA for Healthcare: No
[2019-09-24 00:06] VITALS: BMI 29.7
[2019-09-24] MEDS ORDERED: PIPER/TAZO/NS 3.375gm 3.375 GM/100 ML BAG IVPB SCH (01:00)
[2019-09-24] MEDS: PIPER/TAZO/NS 3.375gm 3.375 GM/100 ML BAG IVPB SCH ×3 (02:14→16:06)
[2019-09-24] MEDS ORDERED: PIPER/TAZO/NS 3.375gm 3.375 GM/100 ML BAG ONE (02:14)
[2019-09-24 05:35] LABS: Absolute Lymphocytes (CBC) 2.8 K/uL (0.7-4.9); Basophils % 0.7 % (0-1.3); Hematocrit 37.2 % (39.6-49.0); Lymphocytes % 39.7 % (15.3-44.8); MPV 9.2 fL (7.6-11.3); RBC Red Blood Cell Count 4.43 M/uL (4.33-5.43)
[2019-09-24 05:38] LABS: Protime INR 0.97
[2019-09-24 05:55] LABS: ALT/SGPT 20 U/L (12-78); AST/SGOT 9 U/L (15-37); Albumin 2.5 g/dL (3.4-5.0); Alkaline Phosphatase 82 U/L (45-117); BUN Blood Urea Nitrogen 8 mg/dL (7-18); Bicarbonate 28 mmol/L (21-32); Bilirubin Total 0.3 mg/dL (0.2-1.0); Glucose Level 213 mg/dL (74-106); HDL Cholesterol 39 mg/dL (40-60); LDL Cholesterol, Calculated 56 (<130); Magnesium 1.7 mg/dL (1.8-2.4); Protein, Total 6.4 g/dL (6.4-8.2); Sodium Level 140 mmol/L (136-145)
[2019-09-24] MEDS: INSULIN -REGULAR HUMAN 50 UNIT/0.5 ML ML SQ SCH ×5 (08:52→20:52)
[2019-09-24] MEDS: MORPHINE 4 MG/ML SYR IV PRN ×2 (08:53→21:02)
[2019-09-24 09:45] LABS: Barbiturates NEGATIVE (NEGATIVE); Benzodiazepines NEGATIVE (NEGATIVE); Cocaine NEGATIVE (NEGATIVE); METHAMPHETAM POSITIVE (NEGATIVE); Methadone NEGATIVE (NEGATIVE); Opiates NEGATIVE (NEGATIVE); Phencyclidine NEGATIVE (NEGATIVE); THC Cannibis NEGATIVE (NEGATIVE)
[2019-09-24] MEDS: VANCOMYCIN 1.75 GM in NA CHLORIDE 0.9% 500 ML IV SCH ×2 (10:10→20:54)
[2019-09-24] MEDS: NA CHLORIDE 0.9% 1,000 ML IV SCH (10:11)
[2019-09-24 10:48] LABS: Urine Appearance CLOUDY; Urine Bilirubin NEGATIVE (NEG); Urine Blood 3+ (NEG); Urine Color YELLOW; Urine Glucose 2+ (NEG); Urine Microscopic Reflex ORDER UMIC; Urine Protein 1+ (NEG); Urine Specific Gravity 1.015 (1.005-1.030); Urine Urobilinogen 0.2 mg/dL (0.2-1.0)
[2019-09-24 11:18] LABS: Urine Bacteria <20 /HPF (NONE SEEN); Urine Mucus 1+ /HPF (NONE SEEN); Urine RBC 20-50 /HPF (NONE SEEN); Urine Urothelial Cells <5 /HPF (NONE SEEN)
[2019-09-24 11:20] LABS: Urine Culture Reflex Order NOT NEEDED
--- NOTE | 2019-09-24 11:52 | PN ---
Date of Progress Note: 09/24/2019 History Of Present Illness: Patient seen and examined, chart reviewed and case discussed with RN and Dr. Hernandez. Patient not very cooperative with history taking or physical exam and does not seem interested in answering my questions regarding his disease process, stating that he is hungry and wants to eat. Medications: Reviewed. Physical Examination: Vital Signs: Temperature 98.2, heart rate 106, blood pressure 144/86, respirations 18, O2 94% on room air. General: Awake, alert, oriented x3, not in any acute distress. CV: S1, S2. Regular rate and rhythm. Peripheral pulses present. Respiratory: Moving air well bilaterally. No wheezing or stridor. Gastrointestinal: Abdomen is soft, nontender, nondistended. Positive bowel sounds. Extremities: No clubbing, cyanosis, or edema. Neuro: Patient has diminished sensation to light touch in lower extremities. Skin: Skin of the right foot, ulceration on the first toe. No drainage. Minimal erythema. Laboratory Data: Sodium 140, potassium 4, chloride 107, CO2 28, BUN 8, creatinine 0.96, glucose 213. Hemoglobin A1c is 13.4%. Lactate 2.2, calcium 8.2, magnesium 1.7, albumin 2.5, triglycerides 208, cholesterol 137, LDL 56, HDL 39. WBC 7.1, H and H 12.3 and 37.2, platelets 277, neutrophils 47%, INR 0.97. UA; negative nitrite, 2+ leukocyte esterase, 20 to 50 rbc's, 10 to 20 wbc 's. UDS positive for amphetamines. Blood culture and wound culture are pending. Wound culture growing out 2+ gram-negative rods and 4+ beta-hemolytic strep, likely skin contaminant. Doppler sonogram, no DVT in right lower extremity. Foot x-ray shows mild degenerative change present at the IP joint of the first toe. Small focal lucency in the medial margin of the first proximal phalanx, could be generative cystic change or remnant changes related to previously diagnosed osteomyelitis. No progressive bone destructive process. First toe soft tissue swelling without air or foreign body. Assessment: 49-year-old male with; 1. Diabetic foot ulcer with history of osteo. Foot x-ray does not show any bone destructive process. I spoke with Dr. Hernandez, he recommends bedside debridement. Continue with IV antibiotics. 2. Diabetes mellitus type 2, insulin-requiring, uncontrolled. Hemoglobin A1c is greater than 13%. Patient has been counseled. Diabetic education. Adjust sliding scale insulin. 3. Amphetamine abuse, counseled. 4. Essential hypertension, stable. 5. History of deep vein thrombosis, not on any anticoagulation at this time. 6. Diabetic neuropathy. 7. Right kidney stent 2 to 3 weeks ago. Patient's UA does show some leukocyte esterase, positive wbc's and rbc's. We will follow along with the urine culture, likely asymptomatic bacteriuria. 8. Diabetic foot ulcer with cellulitis. Continue IV antibiotics. Plan: 1. Continue IV antibiotics. Follow up on cultures. Wound cultures are growing out gram-negative rods. Anticipate debridement at the bedside, likely discharge in the next 24 to 48 hours depending on clinical response. GRAHAM Voice ID: [id number] Report ID: [id number]
--- NOTE | 2019-09-24 12:36 | CON ---
Date of Consultation: 09/23/2019 Reason For Consultation: Wound, right foot. History Of Present Illness: The patient is a 49-year-old gentleman who I saw back in November last year and debrided infected wound with osteo and he was given IV antibiotics and he did not follow up with me at that point. He followed up in [place]. I do not know what kind of care he got there. Patient is very reluctant to talk and provided adequate review of systems because of lack of cooperation, bu t he states that he is having pain in his right groin and right foot. No fevers or chills. No purul ent discharge. No sore throat, runny nose, cough, headaches, or dizziness. Complains of a tunneling . Review of Systems: Otherwise unremarkable. Past Medical History: Significant for type 2 diabetes, history of DVT in the left leg and right leg, hypertension, kidney stones. Past Surgical History: Significant for toe amputation, kidney stents placed 2 to 3 weeks ago, lithot ripsy. Allergies: REVIEWED AND INCLUDE TORADOL, ZITHROMAX, BACLOFEN, IBUPROFEN, LEVAQUIN, PROMETHAZINE, SUL FAMETHOXAZOLE, TRIMETHOPRIM, NSAIDS. Social History: He used to smoke, does not currently. Does drink alcohol. Family History: Significant for diabetes and hypertension. Physical Examination: Vital Signs: Stable. He is afebrile. General: He is awake, alert, and oriented x3. Head and Neck: Cranial nerves 2 through 12 are grossly within normal limits. No neck masses. No JV D. Throat clear. Neck is supple. Chest: Clear. Heart: S1, S2. Abdomen: Soft. Extremities: Neurovascularly intact. No diminished sensation in the lower foot there is wound on th e plantar aspect of the distal phalanx of the right great toe with tunneling of the skin between the 2, but there is good granulation tissue. There is minimal edema, but no surrounding erythema or warm th, no purulence. Laboratory Data: White count is normal. Sedimentation rate is 20. Chemistry reviewed, his sugar is elevated. Lactic acid on admission was 2.2. Procalcitonin is 0.05. X-ray does not show any eviden ce of osteo. Extremity venous study does not show any DVT. Assessment: 49-year-old gentleman with a wound on his right foot and possible mild cellulitis. Recommendations: We will keep him on antibiotics. I have ordered Medih[facility] for his wound care. As there is a bridge between the 2 areas, I can debride this at the bedside tomorrow and then patient ca n be discharged home after that. He needs to follow up and nutritional optimization and vitamins as needed and offloading. Surgical shoe will be provided for the patient. LING/[place] Voice ID: [id number] Report ID: [id number]
[2019-09-24] MEDS ORDERED: D50W 25 GM/50 ML SYRINGE/VIAL IV PRN (18:25)
[2019-09-24] MEDS ORDERED: GLUCAGON 1 MG/VIAL IM PRN (18:25)
[2019-09-24] MEDS ORDERED: INSULIN 70/30 100 UNITS/ML SQ SCH (21:00)
[2019-09-24] MEDS ORDERED: INSULIN GLARGINE 100 UNITS/ML SQ SCH (21:00)
[2019-09-25] MEDS: PIPER/TAZO/NS 3.375gm 3.375 GM/100 ML BAG IVPB SCH ×2 (00:14→10:21)
[2019-09-25] MEDS: NA CHLORIDE 0.9% 1,000 ML IV SCH ×2 (00:17→03:58)
[2019-09-25 03:23] VITALS: O2SAT 92
[2019-09-25 05:05] LABS: Absolute Lymphocytes (CBC) 2.7 K/uL (0.7-4.9); Basophils % 0.8 % (0-1.3); Hematocrit 37.6 % (39.6-49.0); Lymphocytes % 41.6 % (15.3-44.8); MPV 9.2 fL (7.6-11.3)
[2019-09-25 05:09] LABS: Albumin 2.5 g/dL (3.4-5.0); Bilirubin Total 0.3 mg/dL (0.2-1.0); Potassium 3.9 mmol/L (3.5-5.1); Protein, Total 6.4 g/dL (6.4-8.2)
[2019-09-25] MEDS: MORPHINE 4 MG/ML SYR IV PRN (06:46)
[2019-09-25] MEDS ORDERED: LIDOCAINE 1% MPF 30 ML VIAL SQ ONE (07:41)
[2019-09-25] MEDS: INSULIN -REGULAR HUMAN 50 UNIT/0.5 ML ML SQ SCH (08:03)
[2019-09-25] MEDS: VANCOMYCIN 1.75 GM in NA CHLORIDE 0.9% 500 ML IV SCH (08:08)
[2019-09-25] MEDS ORDERED: MEDIHONEY 44 ML TOPICAL TUBE TOP SCH (09:00)
[2019-09-25 09:35] VITALS: BP 149/78; TEMP 97.7
--- NOTE | 2019-09-25 11:31 | PN ---
Date of Progress Note: 09/25/2019 Patient is awake, alert, no complaints. Vital signs stable, afebrile. Cultures reviewed growing Pro teus. Physical exam shows no significant difference. Procedure Note: Under clean condition, the bridge of tissue that was between the 2 wounds that was u ndermining was debrided with sharp debridement and under sterile condition. Patient tolerated the pr ocedure in stable condition. Assessment: Infected wound, right great toe. Recommendations: Antibiotics based on cultures will be given to the patient orally. Dressing as ord ered. Follow up in the wound healing center in 1 week. Plan of care discussed with Dr. Ortega and mora pedro patient. Patient is cleared from surgery for discharge. /MODL Voice ID: [id number] Report ID: [id number]
--- NOTE | 2019-09-26 06:24 | DS ---
Date of Discharge: 09/25/2019 Consultants: Dr. Hernandez with General Surgery. Procedures: On 09/25/2019, bedside debridement of the left first toe. Admitting Diagnoses: 1.Diabetic foot ulceration with history of osteo. 2.Diabetic foot wound with cellulitis. 3.Diabetes mellitus type 2 with hyperglycemia, insulin requiring. 4.Essential hypertension. 5.Previous history of deep vein thrombosis. Discharge Diagnoses: 1.Diabetic foot ulcer with history of osteo secondary to Proteus, status post bedside debridement. 2.Diabetic foot wound on the left with cellulitis, improving. 3.Diabetes mellitus type 2, insulin requiring. Uncontrolled hemoglobin A1c greater than 13%. 4.Amphetamine abuse, counseled. 5.Essential hypertension. 6.Diabetic neuropathy. 7.Overweight, BMI of 29. 8.Right kidney stent several weeks. Hospital Course: Patient is a 49-year-old male with poorly controlled diabetes comes in with right f oot pain, was found to have cellulitis of the foot and has some chronic and multiple acute ulcers on the right foot including the first toe. X-ray was done, did not show any evidence of osteo or free a ir. Patient was started on IV antibiotics. Cultures were obtained, negative to date except for the wound cultures, which were positive for Proteus, sensitive to Augmentin. Patient was seen by Dr. Ramírez garcia's of General Surgery. Bedside debridement was done and he will need to follow up with Dr. David moore 1 [facility]. Patient has a very poorly controlled diabetes. He was counseled extensively. He understands that di abetes uncontrolled can lead to neuropathy, nephropathy, and retinopathy amongst other complications including worsening infections, which may lead to further amputations, sepsis, and even . He co ntinued to be noncompliant with his diabetes including diabetic diet with his significant other bring ing in outside food. Blood sugars were greater than 500. His insulin dose was adjusted. He was sta rted on long-acting insulin and premeal insulin. He will need to follow up with Endocrinology and en couraged to check his blood sugars at least 3 times a day and to keep a log and to contact his physic kody if greater than 300. Patient's triglycerides were elevated as well. He was counseled regarding his diet. He did not have any signs of sepsis. Procalcitonin was negative. Lactate was minimally e levated at 2.2. His white blood cell count was normal. He was also found to have amphetamines in hi s UDS. He was counseled. Patient was then cleared for discharge. He is doing well postoperatively. No signs of sepsis and no fevers. Patient to follow up with primary care physician in 2 to 3 days. Follow up with surgeon, Dr. Hernandez in 1 [facility] and to follow up with kidney do ctor Urology for his recently placed kidney stent. Diet: Diabetic. Activity: As tolerated. No operating heavy machinery or driving while on narcotics. Medications: As per medication reconciliation list. Followup: Follow up with PCP in 2 to 3 days. Follow up with Dr. Hernandez in 1 week. Return to ER for worsening condition. Physical Examination: General: Awake, alert, oriented x3. No acute distress. CV: S1, S2. Respiratory: Moving air well bilaterally. Abdomen: Soft, nontender, nondistended. Positive bowel sounds. Extremities: No clubbing, cyanosis, or edema. Neurologic: Nonfocal. Skin: Right foot bandaged. SA/MODL Voice ID: [id number] Report ID: [id number]
== END 2019-09-25 11:33 | disposition home or self-care (01) | DRG 638 ==
LOC: ER 16:27 → ERHOLD 20:11 → 2ND 22:03
PROVIDERS: ADMIT Internal Medicine; ATTEND Internal Medicine
PROC: 0HDMXZZ Extraction of Right Foot Skin, External Approach (ICD-10-PCS; principal; 2019-09-25)
DX: E11.621 Type 2 diabetes mellitus with foot ulcer (principal); L03.115 Cellulitis of right lower limb; E11.65 Type 2 diabetes mellitus with hyperglycemia; L97.519 Non-pressure chronic ulcer of other part of right foot with unspecified severity; F15.10 Other stimulant abuse, uncomplicated; I10 Essential (primary) hypertension; E11.40 Type 2 diabetes mellitus with diabetic neuropathy, unspecified; E66.3 Overweight; Z68.29 Body mass index [BMI] 29.0-29.9, adult; B96.4 Proteus (mirabilis) (morganii) as the cause of diseases classified elsewhere; Z91.11 Patient's noncompliance with dietary regimen; Z88.2 Allergy status to sulfonamides; Z86.718 Personal history of other venous thrombosis and embolism
CPT/HCPCS: 36415; 80048; 80053; 80061; 80076; 80202; 80307; 81003; 81015; 82947; 83036; 83605; 83735; 84145; 85025; 85610; 85652; 86140; 87040; 87070; 87077; 87086; 87088; 87186; 87205; 93971; 96361; 96365; 96375; 99285; J1815; J2543; J3010; J7030; J7040

== ENCOUNTER 2020-01-17 15:27 | Inpatient (IN) | payer SELFPAY ==
--- OUTSIDE RECORDS SUMMARY | 2020-01-17 15:42 | XMS REPORT ---
:1970 Author Organization [facility] t Address [address] [place] [address] Care Team Providers Name Role Phone Unavailable Unavailable Unavailable Payers Payer Name Policy Type Policy Number Effective Date Expiration Date S ource Problems This patient has no known problems. Allergies, Adverse Reactions, Alerts Allergy Allergy Status Severity Reaction(s) Onset Inactive Treating Comm ents Source Name Type Date Date Clinician sulfamet DA Active U 2020-0 [facility] hoxazole 1-04 Clear 00:00: [facility] trimetho DA Active U 2020-0 [facility] prim 1-04 Clear 00:00: [facility] prometha DA Active U 2020-0 [facility] zine -04 Clear 00:00: [facility] vancomyc DA Active U 2020-0 [facility] in 1-04 Clear 00:00: [facility] levoflox DA Active U 2020-0 [facility] acin 04 Clear 00:00: [facility] flurbipr DA Active [place] [facility] ofen 2-12 Clear 00:00: [facility] azithrom DA Active [place] [facility] ycin 2-12 Clear 00:00: [facility] ketorola DA Active [place] [facility] c 2-12 Clear 00:00: [facility] Medications This patient has no known medications. Procedures This patient has no known procedures. Results Test Description Test Time Test Comments Results Result Comments Source GLUBED 2019-09-05 16:22:00 Test Item Value Reference Range Interpretation Comme nts GLUBED (test code = GLUBED) 339 MG/DL 70-110 H Performed by certified jig box operator at [facility] [id number] 15:12:00 Test Item Value Reference Range Interpretation Comments GLUBED (test code = 417 MG/DL 70-110 H Performe d by certified GLUBED) jig box operator at [facility] - XR UROGRAM [id number] 13:23:00 FAX: Naeem Messina MD [phone] [place]: St: ADM FAX: Abel Hidalgo [phone] Name: GUILLERMINA SHIN [facility] : 1970 Age/S: 49/M [address] [place] [address] Unit #: [id number] Loc: G.22 [place] [address] Phys: Abel Piper MD Acct: [id number] Dis Date: Status: ADM IN PHONE #: [phone] Exam Date: 09/05/2019 0855 FAX #: [phone] Reason: RT RENAL STONE EXAMS: CPT CODE: [id number] XR UROGRAM RETRO [id number] Intraprocedural fluoroscopy was provided by the Department of Radiology. Any images obtained were interpreted by the surgeon intraoperatively. Reference air kerma: 21.8 mGy, fluoroscopy time 36 seconds SL: [id number] at 1323 Reported and signed by: Hood Bledsoe M.D. CC: Naeem Dickerson MD; Abel Piper MD Technologist: Nirali Mcneil, RT(R) Trnmnrd Date/Time/By: 09/05/2019 (1323) : By: [email or web address] Orig Print D/T: S: 09/05/2019 (2656) PAGE 1 Signed ReportGLUBED 2019-09-05 11:47:00 Test Item Value Reference Range Interpretation Comments GLUBED (test code = 417 MG/DL 70-110 H Performe d by certified GLUBED) jig box operator at [facility] [id number] 10:22:00 Test Item Value Reference Range Interpretation Comments GLUBED (test code = 227 MG/DL 70-110 H Performe d by certified GLUBED) jig box operator at [facility] [id number] 10:13:00 Test Item Value Reference Range Interpretation Comments GLUBED (test code = 273 MG/DL 70-110 H Performe d by certified GLUBED) jig box operator at [facility] [id number] 08:44:00 Test Item Value Reference Range Interpretation Comments GLUBED (test code = 229 MG/DL 70-110 H Performe d by certified GLUBED) jig box operator at [facility] CBC W/AUTO [id number] 08:43:00 Test Item Value Reference Range Interpretation Comments WHITE BLOOD CELL (test code = 8.02 x10 3/uL 4.5-11.0 N WBC) RED BLOOD CELL (test code = 4.57 x10 6/uL 4.00-5.60 N RBC) HEMOGLOBIN (test code = HGB) 12.5 g/dL 12.5-16.9 N HEMATOCRIT (test code = HCT) 39.6 % 37.5-50.7 N MEAN CELL VOLUME (test code = 86.7 fL 81.0-99.0 N MCV) MEAN CELL HGB (test code = MCH) 27.4 pg 27.0-33.0 N MEAN CELL HGB CONCETRATION 31.6 g/dL 33.0-37.0 L (test code = MCHC) RED CELL DISTRIBUTION WIDTH CV 12.2 % 11.5-14.5 N (test code = RDW) RED CELL DISTRIBUTION WIDTH SD 39.0 fL 37.0-54.0 N (test code = RDW-SD) PLATELET COUNT (test code = 159 x10 3/uL 150-400 N PLT) MEAN PLATELET VOLUME (test code 12.0 fL 7.0-9.0 H = MPV) NEUTROPHIL % (test code = NT%) 64.9 % 56.0-77.0 N IMMATURE GRANULOCYTE % (test 0.5 % 0.0-2.0 N code = IG%) LYMPHOCYTE % (test code = LY%) 21.9 % 14.0-32.0 N MONOCYTE % (test code = MO%) 10.3 % 4.8-9.0 H EOSINOPHIL % (test code = EO%) 2.0 % 0.3-3.7 N BASOPHIL % (test code = BA%) 0.4 % 0.0-2.0 N NUCLEATED RBC % (test code = 0.0 % 0-0 N NRBC%) NEUTROPHIL # (test code = NT#) 5.20 x10 3/uL 2.0-7.6 N IMMATURE GRANULOCYTE # (test 0.04 x10 3/uL 0.00-0.03 H code = IG#) LYMPHOCYTE # (test code = LY#) 1.76 x10 3/uL 1.0-3.8 N MONOCYTE # (test code = MO#) 0.83 x10 3/uL 0.1-0.8 H EOSINOPHIL # (test code = EO#) 0.16 x10 3/uL 0.0-0.2 N BASOPHIL # (test code = BA#) 0.03 x10 3/uL 0.0-0.2 N NUCLEATED RBC # (test code = 0.00 x10 3/uL 0.0-0.1 N NRBC#) MANUAL DIFF REQUIRED (test code NO = MDIFF) BASIC METABOLIC [id number] 08:40:00 Test Item Value Reference Range Interpretation Comments SODIUM (test code = NA) 135 mEq/L 134-147 N POTASSIUM (test code = 3.3 mEq/L 3.4-5.0 L K) CHLORIDE (test code = 105 mEq/L 100-108 N CL) CARBON DIOXIDE (test 22 mEq/L 21-33 N code = CO2) ANION GAP (test code = 11 0-20 N GAP) GLUCOSE (test code = 148 mg/dL 70-110 H GLU) BLOOD UREA NITROGEN 12 mg/dL 7-18 N (test code = BUN) GLOMERULAR FILTRATION 70.7 90-95 L Units of measure = RATE (test code = GFR) ml/mi n/1.73 m2 CREATININE (test code = 1.3 mg/dL 0.6-1.3 N CREAT) CALCIUM (test code = 8.5 mg/dL 8.0-10.5 N CA) PROTHROMBIN [id number] 07:11:00 Test Item Value Reference Range Interpretation Comments PROTHROMBIN TIME 13.6 SECONDS 9.3-12.9 H PATIENT (test code = PTP) INTERNATIONAL NORMAL 1.2 0.8-1.2 N TARGET RATIO (test code = INR BY IN DICATION INR) Indication INR1. Prophyl axis of venous thrombos is 2.0 - 3. 0 (orthopedic enrique homar), Prophylaxis of venous thrombos is (other than hig h-risk surgery), Breann tment of Deep Vein Thrombosis/Pulm onary Embolism, Preve ntion of systemic emb olism - Tissue heart va lves, Acute Myocardia l Infarction (to prevent systemic embo lism), Valvular heart disease, Atri al Fibrillation, Bileaflet mecha nical valve in aortic position.2. Mec hanical prosthetic valv es (high risk), 2.5 - 3.5 Presence of Lupus Anticoagu lant or Antiphospholi pid Antibodies, Pre vention of systemic e mbolism - Acute Myocard ial Infarction (t o prevent recurre nt infarct). THROMBOPLASTIN TIME [id number] 07:11:00 Test Item Value Reference Range Interpretation Comments THROMBOPLASTIN TIME 27.3 Seconds 25.0-39.5 N Ther apeutic PARTIAL (test code = Range: 50.4 - 88.3 PTT) Seconds Effective 12/14/2018 [id number] 20:46:00 Test Item Value Reference Range Interpretation Comments GLUBED (test code = 305 MG/DL 70-110 H Performe d by certified GLUBED) jig box operator at [facility] [id number] 17:06:00 Test Item Value Reference Range Interpretation Comments GLUBED (test code = 403 MG/DL 70-110 H Performe d by certified GLUBED) jig box operator at [facility] - XR CHEST 2 [id number] 15:39:00 FAX: Naeem Messina MD [phone] [place]: St: ADM FAX: Abel Hidalgo [phone] Name: GUILLERMINA SHIN [facility] : 1970 Age/S: 49/M [address] [place], [place] [address] Unit #: [id number] Loc: G.M122 [place] [address] Phys: Abel Piper MD Acct: G [id number] Dis Date: Status: ADM IN PHONE #: [phone] Exam Date: 09/04/2019 1538 FAX #: [phone] Reason: Urological Surgery Pre Op EXAMS: CPT CODE: [id number] XR CHEST 2 V [id number] Patient: GUILLERMINA SHIN. : 1970; Age: 49 years; Gender: Male. MR: [id number]. Ordering physician: Abel Piper MD. CHEST 2 [...] No acute disease in the chest. SL: [id number] at 1539 Reported and signed by: Gatito Almanzar M.D. CC: Naeem Dickerson MD; Abel Piper MD Technologist: RT Faisal(R) Trnscrd Date/Time/By: 09/04/2019 (1534) : By: [email or web address] Orig Print D/T: S: 09/04/2019 (9578) PAGE 1 Signed [id number] 11:34:00 Test Item Value Reference Range Interpretation Comments GLUBED (test code = 328 MG/DL 70-110 H Performe d by certified GLUBED) jig box operator at [facility] CBC W/AUTO [id number] 09:43:00 Test Item Value Reference Range Interpretation Comments WHITE BLOOD CELL (test code = 12.02 x10 3/uL 4.5-11.0 H WBC) RED BLOOD CELL (test code = 5.15 x10 6/uL 4.00-5.60 N RBC) HEMOGLOBIN (test code = HGB) 14.3 g/dL 12.5-16.9 N HEMATOCRIT (test code = HCT) 43.9 % 37.5-50.7 N MEAN CELL VOLUME (test code = 85.2 fL 81.0-99.0 N MCV) MEAN CELL HGB (test code = 27.8 pg 27.0-33.0 N MCH) MEAN CELL HGB CONCETRATION 32.6 g/dL 33.0-37.0 L (test code = MCHC) RED CELL DISTRIBUTION WIDTH CV 12.2 % 11.5-14.5 N (test code = RDW) RED CELL DISTRIBUTION WIDTH SD 38.0 fL 37.0-54.0 N (test code = RDW-SD) PLATELET COUNT (test code = 182 x10 3/uL 150-400 N PLT) MEAN PLATELET VOLUME (test 12.2 fL 7.0-9.0 H code = MPV) NEUTROPHIL % (test code = NT%) 79.7 % 56.0-77.0 H IMMATURE GRANULOCYTE % (test 0.4 % 0.0-2.0 N code = IG%) LYMPHOCYTE % (test code = LY%) 10.6 % 14.0-32.0 L MONOCYTE % (test code = MO%) 8.8 % 4.8-9.0 N EOSINOPHIL % (test code = EO%) 0.3 % 0.3-3.7 N BASOPHIL % (test code = BA%) 0.2 % 0.0-2.0 N NUCLEATED RBC % (test code = 0.0 % 0-0 N NRBC%) NEUTROPHIL # (test code = NT#) 9.57 x10 3/uL 2.0-7.6 H IMMATURE GRANULOCYTE # (test 0.05 x10 3/uL 0.00-0.03 H code = IG#) LYMPHOCYTE # (test code = LY#) 1.27 x10 3/uL 1.0-3.8 N MONOCYTE # (test code = MO#) 1.06 x10 3/uL 0.1-0.8 H EOSINOPHIL # (test code = EO#) 0.04 x10 3/uL 0.0-0.2 N BASOPHIL # (test code = BA#) 0.03 x10 3/uL 0.0-0.2 N NUCLEATED RBC # (test code = 0.00 x10 3/uL 0.0-0.1 N NRBC#) MANUAL DIFF REQUIRED (test NO code = MDIFF) HGBA1C%2019-09-04 09:15:00 Test Item Value Reference Range Interpretation Comments HGBA1C% (test code = HGBA1C%) 12.6 %A1C 4.8-6.0 H COMPREHENSIVE METABOLIC [id number] 09:02:00 Test Item Value Reference Range Interpretation Comments SODIUM (test code = NA) 136 mEq/L 134-147 N POTASSIUM (test code = 3.4 mEq/L 3.4-5.0 K) CHLORIDE (test code = 103 mEq/L 100-108 N CL) CARBON DIOXIDE (test 25 mEq/L 21-33 N code = CO2) ANION GAP (test code = 11 0-20 N GAP) GLUCOSE (test code = 256 mg/dL 70-110 H GLU) BLOOD UREA NITROGEN 11 mg/dL 7-18 N (test code = BUN) GLOMERULAR FILTRATION 64.9 90-95 L Units of measure = RATE (test code = GFR) ml/mi n/1.73 m2 CREATININE (test code = 1.4 mg/dL 0.6-1.3 H CREAT) TOTAL PROTEIN (test 6.8 g/dL 6.4-8.2 N code = PROT) ALBUMIN (test code = 2.70 g/dL 3.4-5.0 L ALB) CALCIUM (test code = 8.6 mg/dL 8.0-10.5 N CA) BILIRUBIN TOTAL (test 0.6 MG/DL <1.5 code = BILT) SGOT/AST (test code = 6 IUnit/L 15-37 L AST) SGPT/ALT (test code = 12 IUnit/L 15-65 L ALT) ALKALINE PHOSPHATASE 81 IUnit/L 20-125 N TOTAL (test code = ALKP) CBC W/AUTO [id number] 08:41:00 Test Item Value Reference Range Interpretation Comments WHITE BLOOD CELL (test code = 12.02 x10 3/uL 4.5-11.0 H WBC) RED BLOOD CELL (test code = 5.15 x10 6/uL 4.00-5.60 N RBC) HEMOGLOBIN (test code = HGB) 14.3 g/dL 12.5-16.9 N HEMATOCRIT (test code = HCT) 43.9 % 37.5-50.7 N MEAN CELL VOLUME (test code = 85.2 fL 81.0-99.0 N MCV) MEAN CELL HGB (test code = 27.8 pg 27.0-33.0 N MCH) MEAN CELL HGB CONCETRATION 32.6 g/dL 33.0-37.0 L (test code = MCHC) RED CELL DISTRIBUTION WIDTH CV 12.2 % 11.5-14.5 N (test code = RDW) RED CELL DISTRIBUTION WIDTH SD 38.0 fL 37.0-54.0 N (test code = RDW-SD) PLATELET COUNT (test code = x10 3/uL 150-400 N PLT) MEAN PLATELET VOLUME (test 12.2 fL 7.0-9.0 H code = MPV) NEUTROPHIL % (test code = NT%) 79.7 % 56.0-77.0 H IMMATURE GRANULOCYTE % (test 0.4 % 0.0-2.0 N code = IG%) LYMPHOCYTE % (test code = LY%) 10.6 % 14.0-32.0 L MONOCYTE % (test code = MO%) 8.8 % 4.8-9.0 N EOSINOPHIL % (test code = EO%) 0.3 % 0.3-3.7 N BASOPHIL % (test code = BA%) 0.2 % 0.0-2.0 N NUCLEATED RBC % (test code = 0.0 % 0-0 N NRBC%) NEUTROPHIL # (test code = NT#) 9.57 x10 3/uL 2.0-7.6 H IMMATURE GRANULOCYTE # (test 0.05 x10 3/uL 0.00-0.03 H code = IG#) LYMPHOCYTE # (test code = LY#) 1.27 x10 3/uL 1.0-3.8 N MONOCYTE # (test code = MO#) 1.06 x10 3/uL 0.1-0.8 H EOSINOPHIL # (test code = EO#) 0.04 x10 3/uL 0.0-0.2 N BASOPHIL # (test code = BA#) 0.03 x10 3/uL 0.0-0.2 N NUCLEATED RBC # (test code = 0.00 x10 3/uL 0.0-0.1 N NRBC#) MANUAL DIFF REQUIRED (test NO code = MDIFF) [id number] 08:10:00 Test Item Value Reference Range Interpretation Comments GLUBED (test code = 257 MG/DL 70-110 H Performe d by certified GLUBED) jig box operator at [facility] [id number] 21:05:00 Test Item Value Reference Range Interpretation Comments GLUBED (test code = 312 MG/DL 70-110 H Performe d by certified GLUBED) jig box operator at [facility] [id number] 17:05:00 Test Item Value Reference Range Interpretation Comments GLUBED (test code = 272 MG/DL 70-110 H Performe d by certified GLUBED) jig box operator at [facility] [id number] 14:12:00 Test Item Value Reference Range Interpretation Comments GLUBED (test code = 348 MG/DL 70-110 H Performe d by certified GLUBED) jig box operator at [facility] [id number] 10:01:00 Test Item Value Reference Range Interpretation Comments GLUBED (test code = 372 MG/DL 70-110 H Performe d by certified GLUBED) jig box operator at [facility] [id number] 08:39:00 Test Item Value Reference Range Interpretation Comments GLUBED (test code = 345 MG/DL 70-110 H Performe d by certified GLUBED) jig box operator at [facility] COMPREHENSIVE METABOLIC [id number] 07:22:00 Test Item Value Reference Range Interpretation Comments SODIUM (test code = NA) 136 mEq/L 134-147 N POTASSIUM (test code = 4.7 mEq/L 3.4-5.0 N K) CHLORIDE (test code = 104 mEq/L 100-108 N CL) CARBON DIOXIDE (test 25 mEq/L 21-33 N code = CO2) ANION GAP (test code = 12 0-20 N GAP) GLUCOSE (test code = 415 mg/dL 70-110 H GLU) BLOOD UREA NITROGEN 11 mg/dL 7-18 N (test code = BUN) GLOMERULAR FILTRATION 70.7 90-95 L Units of measure = RATE (test code = GFR) ml/mi n/1.73 m2 CREATININE (test code = 1.3 mg/dL 0.6-1.3 N CREAT) TOTAL PROTEIN (test 6.4 g/dL 6.4-8.2 N code = PROT) ALBUMIN (test code = 2.70 g/dL 3.4-5.0 L ALB) CALCIUM (test code = 7.1 mg/dL 8.0-10.5 L CA) BILIRUBIN TOTAL (test 0.4 MG/DL <1.5 N code = BILT) SGOT/AST (test code = 12 IUnit/L 15-37 L AST) SGPT/ALT (test code = 14 IUnit/L 15-65 L ALT) ALKALINE PHOSPHATASE 71 IUnit/L 20-125 N TOTAL (test code = ALKP) COMPREHENSIVE METABOLIC [id number] 07:14:00 Test Item Value Reference Range Interpretation Comments SODIUM (test code = NA) 136 mEq/L 134-147 N POTASSIUM (test code = K) 4.7 mEq/L 3.4-5.0 N CHLORIDE (test code = CL) 104 mEq/L 100-108 N CARBON DIOXIDE (test code = CO2) 25 mEq/L 21-33 N ANION GAP (test code = GAP) 12 0-20 N GLUCOSE (test code = GLU) 415 mg/dL 70-110 H BLOOD UREA NITROGEN (test code = 11 mg/dL 7-18 N BUN) GLOMERULAR FILTRATION RATE (test 90-95 code = GFR) CREATININE (test code = CREAT) mg/dL 0.6-1.3 TOTAL PROTEIN (test code = PROT) g/dL 6.4-8.2 ALBUMIN (test code = ALB) g/dL 3.4-5.0 CALCIUM (test code = CA) 7.1 mg/dL 8.0-10.5 L BILIRUBIN TOTAL (test code = BILT) MG/DL <1.5 SGOT/AST (test code = AST) IUnit/L 15-37 SGPT/ALT (test code = ALT) IUnit/L 15-65 ALKALINE PHOSPHATASE TOTAL (test IUnit/L 20-125 code = ALKP) CBC W/AUTO [id number] 07:08:00 Test Item Value Reference Range Interpretation Comments WHITE BLOOD CELL (test code = 10.76 x10 3/uL 4.5-11.0 N WBC) RED BLOOD CELL (test code = 4.70 x10 6/uL 4.00-5.60 N RBC) HEMOGLOBIN (test code = HGB) 13.1 g/dL 12.5-16.9 N HEMATOCRIT (test code = HCT) 40.9 % 37.5-50.7 N MEAN CELL VOLUME (test code = 87.0 fL 81.0-99.0 N MCV) MEAN CELL HGB (test code = 27.9 pg 27.0-33.0 N MCH) MEAN CELL HGB CONCETRATION 32.0 g/dL 33.0-37.0 L (test code = MCHC) RED CELL DISTRIBUTION WIDTH CV 12.0 % 11.5-14.5 N (test code = RDW) RED CELL DISTRIBUTION WIDTH SD 39.1 fL 37.0-54.0 N (test code = RDW-SD) PLATELET COUNT (test code = 191 x10 3/uL 150-400 N PLT) MEAN PLATELET VOLUME (test 12.1 fL 7.0-9.0 H code = MPV) NEUTROPHIL % (test code = NT%) 78.9 % 56.0-77.0 H IMMATURE GRANULOCYTE % (test 0.4 % 0.0-2.0 N code = IG%) LYMPHOCYTE % (test code = LY%) 12.5 % 14.0-32.0 L MONOCYTE % (test code = MO%) 7.8 % 4.8-9.0 N EOSINOPHIL % (test code = EO%) 0.2 % 0.3-3.7 L BASOPHIL % (test code = BA%) 0.2 % 0.0-2.0 N NUCLEATED RBC % (test code = 0.0 % 0-0 N NRBC%) NEUTROPHIL # (test code = NT#) 8.49 x10 3/uL 2.0-7.6 H IMMATURE GRANULOCYTE # (test 0.04 x10 3/uL 0.00-0.03 H code = IG#) LYMPHOCYTE # (test code = LY#) 1.35 x10 3/uL 1.0-3.8 N MONOCYTE # (test code = MO#) 0.84 x10 3/uL 0.1-0.8 H EOSINOPHIL # (test code = EO#) 0.02 x10 3/uL 0.0-0.2 N BASOPHIL # (test code = BA#) 0.02 x10 3/uL 0.0-0.2 N NUCLEATED RBC # (test code = 0.00 x10 3/uL 0.0-0.1 N NRBC#) MANUAL DIFF REQUIRED (test NO code = MDIFF) URINALYSIS [id number] 07:02:00 Test Item Value Reference Range Interpretation Comments UA COLOR (test code = COLU) YELLOW YEL/STRAW UA APPEARANCE (test code = CLEAR CLEAR APPU) UA GLUCOSE DIPSTICK (test code 3+ NEGATIVE A = DGLUU) UA BILIRUBIN DIPSTICK (test NEGATIVE NEGATIVE code = BILU) UA KETONE DIPSTICK (test code 1+ NEGATIVE A = KETU) UA SPECIFIC GRAVITY (test code 1.021 1.005-1.030 N = SGU) UA BLOOD DIPSTICK (test code = 2+ NEGATIVE A JUAREZ) UA PH DIPSTICK (test code = 5.0 5.0-7.0 N MARIA D) UA PROTEIN DIPSTICK (test code NEGATIVE NEGATIVE = PROU) UA UROBILINIOGEN DIPSTICK 0.2 mg/dL 0.2-1.0 (test code = URO) UA NITRITE DIPSTICK (test code NEGATIVE NEGATIVE = CANDY) UA LEUKOCYTE ESTERASE DIPSTICK NEGATIVE NEGATIVE (test code = LEUU) UA RBC (test code = RBCU) 4-10 RBC/HPF 0-3 UA WBC NO REFLEX (test code = 0-3 WBC/HPF 0-3 WBCUCL) UA BACTERIA (test code = BACU) NONE SEEN /HPF NONE SEEN UA SQUAMOUS CELLS (test code = NONE SEEN /HPF NONE SEEN SQU) UA MUCUS (test code = MUCU) TRACE /LPF NONE SEEN
[2020-01-17] MEDS ORDERED: NA CHLORIDE 0.9% 1,000 ML ONE ×3 (15:46→23:01)
[2020-01-17 15:54] LABS: Arterial Blood Carboxyhemoglob 1.5 % (0-1.5); Blood Gas Oxyhemoglobin 91.2 % (94-97); Blood O2 Saturation 93.5 % (92-98.5)
--- NOTE | 2020-01-17 16:08 | RAD REPORT ---
EXAM DESCRIPTION: RAD - Chest Single View - 01/17/2020 4:03 pm CLINICAL HISTORY: altered mental status Chest pain. COMPARISON: Chest Single View dated 12/19/2018; Chest Pa And Lat (2 Views) dated 12/18/2018; Chest Sin gle View dated 12/17/2018; Chest Single View dated 12/15/2018 FINDINGS: Portable technique limits examination quality. The lungs are grossly clear. The heart is normal in size. No displaced fractures. IMPRESSION: No acute intrathoracic process suspected.
[2020-01-17 16:18] LABS: Absolute Lymphocytes (CBC) 1.6 K/uL (0.7-4.9); Basophils % 0.3 % (0-1.3); Hematocrit 52.6 % (39.6-49.0); Lymphocytes % 12.4 % (15.3-44.8); RBC Red Blood Cell Count 6.18 M/uL (4.33-5.43)
[2020-01-17 16:28] LABS: Protime INR 1.04
[2020-01-17 16:30] LABS: ALT/SGPT 35 U/L (12-78); AST/SGOT 10 U/L (15-37); Albumin 3.6 g/dL (3.4-5.0); Alkaline Phosphatase 124 U/L (45-117); BUN Blood Urea Nitrogen 53 mg/dL (7-18); Bicarbonate 20 mmol/L (21-32); Bilirubin Direct 0.1 mg/dL (0-0.2); Bilirubin Total 0.6 mg/dL (0.2-1.0); Lipase 95 U/L (73-393); NT PRO-BNP 7 pg/mL (<125); Potassium 4.8 mmol/L (3.5-5.1); Protein, Total 9.1 g/dL (6.4-8.2); Sodium Level 142 mmol/L (136-145); Troponin (Emerg Dept Use Only) < 0.02 ng/mL (0.0-0.045)
--- NOTE | 2020-01-17 16:30 | RAD REPORT ---
EXAM DESCRIPTION: CT - Head Brain Wo Cont - 01/17/2020 4:23 pm CLINICAL HISTORY: MENTAL STATUS CHANGE Headache, drowsiness COMPARISON: No comparisons TECHNIQUE: All CT scans are performed using dose optimization technique as appropriate and may inclu de automated exposure control or mA/KV adjustment according to patient size. FINDINGS: No intracranial hemorrhage, hydrocephalus or extra-axial fluid collection.No areas of brai n edema or evidence of midline shift. The paranasal sinuses and mastoids are clear. The calvarium is intact. IMPRESSION: No acute intracranial abnormality.
[2020-01-17] MEDS ORDERED: ONDANSETRON 4 MG/2 ML VIAL IV PRN (17:31)
[2020-01-17 17:33] LABS: Glucose Level 859 mg/dL (74-106)
--- NOTE | 2020-01-17 17:59 | ER ---
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 Coronavirus screen: Patient denies a cough. Patient denies shortness of breath or difficulty breathing. Patient denies measured and/or subjective temperature greater than 100.4F prior to today's visit. Patient denies travel on a cruise ship or to a country the [facility] currently lists as an affected area. Patient denies contact with known and/or suspected case of COVID-19. Ebola Screen: No symptoms or risks identified at this time. Initial Sepsis Screen: Does the patient meet any 2 criteria? RR > 20 per min. Altered Mental Status. HR > 90 bpm. Does the patient have a suspected source of infection? No. Patient's initial sepsis screen is negative. Risk Assessment: Do you want to hurt yourself or someone else? Patient reports no desire to harm self or others. Onset of symptoms was January 17, 2020. 15:34 Method Of Arrival: [facility] 15:34 Acuity: AB 2 ph Triage Assessment: 16:00 General: Appears in no apparent distress. slender, Behavior is drowsy, flat, quiet, ph Smells of ketones. Pain: Unable to use pain scale. Patient is disoriented. Neuro: Level of Consciousness is lethargic, listless, Oriented to person. Cardiovascular: Capillary refill < 3 seconds in bilateral fingers Patient's skin is warm and dry. Cardiovascular: Rhythm is sinus tachycardia. Respiratory: Airway is patent Respiratory effort is even, labored, Respiratory pattern is Kussmaul. GI: Abdomen is flat, non-distended. Derm: Skin is normal, Skin temperature is warm. Historical: - Allergies: 15:56 BACLOFEN; ph 15:56 Bactrim; ph 15:56 Clindamycin; ph 15:56 Ibuprofen; ph 15:56 Levaquin; ph 15:56 NSAIDS; ph 15:56 Phenergan; ph 15:56 Toradol; ph 15:56 Zithromax; ph - PMHx: 15:56 DVT; EDEMA; Hypertension; Kidney stones; neuropathy; osteomyelitis; Diabetes - IDDM; ph - PSHx: 15:56 toe amputations; lithotripsy; ph Screenin:58 Abuse screen: Denies threats or abuse. Denies injuries from another. Nutritional ph screening: No deficits noted. Tuberculosis screening: No symptoms or risk factors identified. Fall Risk None identified. Assessment: 15:45 General: Appears ill, Behavior is uncooperative, responds to painful stimuli. Neuro: Level of Consciousness is confused, lethargic, Pupils are PERRLA, Cardiovascular: Heart tones S1 S2 present Capillary refill < 3 seconds Pulses are palpable in right radial artery and left radial artery Rhythm is sinus tachycardia. Respiratory: Airway is patent Respiratory effort is even, unlabored, Respiratory pattern is regular, symmetrical. GI: Bowel sounds present X 4 quads. : 15:45 EENT: No signs and/or symptoms were reported regarding the EENT system. Derm: right ah great toe has dressing intact. Musculoskeletal: No signs and/or symptoms reported regarding the musculoskeletal system. Capillary refill < 3 seconds. 16:00 Reassessment: Pt is nonverbal at this time. He will open eyes to painful stimuli. 17:40 Reassessment: Received critical glucose level from lab, 859, reported to IESHA Ramos. 17:45 Reassessment: Pt continues to be nonverbal. 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 No response when asked if any pain or nauseo/vomiting. 19:15 Reassessment: FSBS was high so serum sent to lab. Provider informed. 20:15 Reassessment: Called lab for result of serum and they stated that it was still running. 20:16 Reassessment: FSBS 493 at this time. Insulin drip decreased to 4u/hr. 21:20 Reassessment: Obtained FSBS and it read high. Serum collected to send to lab. At this ah time Pt began ripping off leads and rolling in bed. Pt sat up and moved to end of bed and stated that he had to pee. technology consultant came and to assist and Pt began peeing on the floor before he peed in the urinal. Pt put back in the bed and hooked up to monitors.Insulin drip increased to 6u/hr per C IESHA Ramirez. 22:18 Reassessment: Lab in room drawing lab cultures at this time. 01/17 07:00 Reassessment: PT ON ER HOLD. SEE [email or web address] FOR FURTHER DOCUMENTATION. bp 12:56 Reassessment: ADMIT COMPLETE. REPORT TO JAY MILNER FOR ICU 6. PT JESUS. bp Vital Signs: 01/16 15:34 Pulse 137; Resp 32; Temp 98.0; Pulse Ox 98% on R/A; ph 15:57 BP 132 / 114; ph 17:00 BP 149 / 107; Pulse 120; Resp 26; Pulse Ox 97% ; ah 18:00 BP 146 / 106; Pulse 120; Resp 24; Pulse Ox 96% ; ah 19:00 BP 145 / 127; Pulse 120; Resp 25; Pulse Ox 97% ; ah 20:00 BP 141 / 112; Pulse 117; Resp 25; Pulse Ox 95% ; ah 21:00 BP 123 / 87; Pulse 118; Resp 26; Pulse Ox 97% ; ah 22:00 BP 130 / 98; Pulse 117; Resp 18; Pulse Ox 97% ; ah ED Course: 15:31 Patient arrived in ED. bd 15:31 Jaime Ramirez PA is PHCP. cp 15:31 Abdulaziz Booth MD is Attending Physician. cp 15:38 Triage completed. ph 15:41 Adriana Curiel, RN is Primary Nurse. ah 15:58 Patient has correct armband on for positive identification. Placed in gown. Bed in low ph position. Call light in reach. Side rails up X2. alarm security or surveillance monitor on. Pulse ox on. NIBP on. Door closed. Noise minimized. 15:59 Arm band placed on. ph 15:59 Maintain EMS IV. Dressing intact. Good blood return noted. Site clean \T\ dry. Gauge \T\ ph site: 20 RAC, 20 LAC. 16:04 XRAY Chest (1 view) In Process Unspecified. EDMS 16:23 CT Head Brain wo Cont In Process Unspecified. EDMS 16:49 Urine collected: clean catch specimen, clear, muna colored, EKG done, by ED staff, jp3 reviewed by Jaime JULIAN. 17:57 Shayan Arenas MD is Hospitalizing Provider. cp 22:19 No provider procedures requiring assistance completed. Maintain EMS IV. Dressing ah intact. Good blood return noted. Site clean \T\ dry. 23:28 Patient admitted, IV remains in place. ea 01/17 07:59 Arellano cath inserted, using sterile technique, 16 Fr., by md, balloon inflated, to em1 gravity drainage, Patient tolerated well. Administered Medications: 01/16 15:47 Drug: NS 0.9% 1000 ml Route: IV; Rate: 1 bolus; Site: right antecubital; 22:43 Follow up: Response: No adverse reaction; IV Intake: 1000ml 15:48 Drug: NS 0.9% 1000 ml Route: IV; Rate: 1 bolus; Site: right antecubital; 22:43 Follow up: IV Status: Completed infusion; IV Intake: 1000ml 18:05 Drug: Insulin Drip - (Insulin Regular Human 100 units, NS 0.9% 100 ml) {Co-Signature: denis (Enedina Xavier RN).} Route: IV; Rate: 8 units/hr; Site: right antecubital; 23:48 Follow up: Response: No adverse reaction; IV Status: Infusion continued upon admission ea 18:10 Drug: NS 0.9% 1000 ml Route: IV; Rate: 1 bolus; Site: right antecubital; 19:10 Follow up: Response: No adverse reaction; IV Intake: 1000ml 01/17 12:59 Follow up: IV Status: Completed infusion; IV Intake: 1000ml 01/16 23:46 Drug: NS 0.9% 1000 ml Route: IV; Rate: 150 ml/hr; Site: right antecubital; ea 23:46 Follow up: IV Status: Infusion continued upon admission ea 01/17 05:26 Drug: Ativan 2 mg Route: IVP; Site: left antecubital; ea 12:57 Follow up: Response: No adverse reaction bp Intake: 01/16 19:10 IV: 1000ml; Total: 1000ml. 22:43 IV: 1000ml; Total: 2000ml. 22:43 IV: 1000ml; Total: 3000ml. 01/17 12:59 IV: 1000ml; Total: 4000ml. bp Output: 01/16 16:30 Urine: 700ml (Voided); Total: 700ml. 19:20 Urine: 750ml (Voided); Total: 1450ml. 21:30 Urine: 700ml (Voided); Total: 2150ml. Outcome: 17:59 Decision to Hospitalize by Provider. cp 23:27 Admitted to ER Hold. Please see [facility] for further documentation. ea 23:27 Condition: stable 01/17 13:00 Admitted to ICU accompanied by nurse, accompanied by tech, via stretcher, room 6, with bp chart, Report called to JAY MILNER 13:20 Patient left the ED. bp Signatures: Dispatcher [employer] EDMS V[place] Eric em1 Lori Davila, RN RN ph Jaime Ramirez PA PA cp Antunez, Elena, ALF MILNER Saad Perez RN RN Cayetano Stein 3 Adriana Curiel RN RN Enedina Xavier RN Corrections: (The following items were deleted from the chart) 01/16 22:09 21:20 Reassessment: Obtained FSBS and it read high. Serum collected to send to lab. At this time Pt began ripping off leads and rolling in bed. Pt sat up and moved to end of bed and stated that he had to pee. technology consultant came and to assist and Pt began peeing on the floor before he peed in the urinal. Pt put back in the bed and hooked up to monitors. 22:10 22:06 Reassessment: Called lab for result of serum and they stated that it was still running.
--- NOTE | 2020-01-17 17:59 | EDPHYS ---
Physician Documentation [facility] Name: Flex Del Valle Age: 49 yrs Sex: Male : 1970 Arrival Date: 01/17/2020 Time: 15:31 Bed 15 Private MD: ED Physician Abdulaziz Booth HPI: 01/16 15:40 This 49 yrs old Black Male presents to ER via EMS with complaints of Altered Mental cp Status, High Blood Sugar. 15:40 The patient presents with decreased responsiveness. cp 15:40 Onset: The symptoms/episode began/occurred 2 day(s) ago. Possible causes: cp hyperglycemia. Current symptoms: In the emergency department the patient's symptoms are unchanged from the initial presentation, despite EMS interventions. Patient's baseline: Neuro: alert and fully oriented, Motor: no deficits, Ambulation: walks without assistance, Speech: normal. Unable to obtain HPI due to altered mental status. Historical: - Allergies: 15:56 BACLOFEN; ph 15:56 Bactrim; ph 15:56 Clindamycin; ph 15:56 Ibuprofen; ph 15:56 Levaquin; ph 15:56 NSAIDS; ph 15:56 Phenergan; ph 15:56 Toradol; ph 15:56 Zithromax; ph - PMHx: 15:56 DVT; EDEMA; Hypertension; Kidney stones; neuropathy; osteomyelitis; Diabetes - IDDM; ph - PSHx: 15:56 toe amputations; lithotripsy; ph ROS: 15:45 Constitutional: Negative for fever. cp 15:45 Neuro: Positive for altered mental status. cp 15:45 Unable to obtain ROS due to altered mental status. Exam: 15:50 Constitutional: The patient appears in no acute distress, non-diaphoretic, non-toxic, cp well developed, well nourished. 15:50 Head/Face: Normocephalic, atraumatic. cp 15:50 Eyes: Periorbital structures: appear normal, Pupils: equal, round, and reactive to light and accomodation, Conjunctiva: normal, no exudate, no injection, Sclera: no appreciated abnormality, Lids and lashes: appear normal, bilaterally. 15:50 ENT: External ear(s): are unremarkable, Nose: is normal, Mouth: Lips: dry, Oral mucosa: dry, Posterior pharynx: Airway: no evidence of obstruction, patent. 15:50 Neck: ROM/movement: is normal, is supple, no meningismus, no nuchal rigidity. 15:50 Chest/axilla: Inspection: normal, Palpation: crepitus, is not appreciated, tenderness, is not appreciated. 15:50 Cardiovascular: Rate: tachycardic, Rhythm: regular, Edema: is not appreciated, JVD: is not appreciated. 15:50 Respiratory: the patient does not display signs of respiratory distress, Respirations: normal, no use of accessory muscles, no retractions, labored breathing, is not present, Breath sounds: are clear throughout, no decreased breath sounds, no stridor, no wheezing. 15:50 Abdomen/GI: Inspection: abdomen appears normal, Bowel sounds: active, all quadrants, Palpation: soft, in all quadrants, mild abdominal tenderness, in all quadrants, rebound tenderness, is not appreciated, voluntary guarding, is elicited in all quadrants. 15:50 Skin: cellulitis, is not appreciated, no rash present. 15:50 Neuro: Mentation: responsive to pain. 16:00 ECG was reviewed by the Attending Physician. Vital Signs: 15:34 Pulse 137; Resp 32; Temp 98.0; Pulse Ox 98% on R/A; ph 15:57 BP 132 / 114; ph 17:00 BP 149 / 107; Pulse 120; Resp 26; Pulse Ox 97% ; ah 18:00 BP 146 / 106; Pulse 120; Resp 24; Pulse Ox 96% ; ah 19:00 BP 145 / 127; Pulse 120; Resp 25; Pulse Ox 97% ; ah 20:00 BP 141 / 112; Pulse 117; Resp 25; Pulse Ox 95% ; ah 21:00 BP 123 / 87; Pulse 118; Resp 26; Pulse Ox 97% ; ah 22:00 BP 130 / 98; Pulse 117; Resp 18; Pulse Ox 97% ; ah MDM: 15:33 Patient medically screened. 17:00 Data reviewed: vital signs, nurses notes, lab test result(s), EKG, radiologic studies, cp CT scan, plain films, and as a result, I will admit patient. 17:00 Response to treatment: the patient's symptoms have mildly improved after treatment. 01/16 15:33 Order name: Basic Metabolic Panel; Complete Time: 17:45 01/16 17:46 Interpretation: Normal except: CO2 20; GLUC 859; BUN 53; CRE 1.84; GFR 47; CA 10.8. cp 01/16 15:33 Order name: CBC with Diff; Complete Time: 16:47 cp 01/16 16:48 Interpretation: Normal except: WBC 12.6; RBC 6.18; HCT 52.6; MCHC 31.8; LATRICIA% 84.5; LYM% cp 12.4; MN% 2.8; NEUT A 10.6. 01/16 15:33 Order name: LFT's; Complete Time: 17:45 cp 01/16 17:45 Interpretation: Normal except: AST 10; ALK 124; TP 9.1; GLOB 5.5; A/G 0.7. cp 01/16 15:33 Order name: Magnesium; Complete Time: 17:45 cp 01/16 17:45 Interpretation: Abnormal: MG 3.0. cp 01/16 15:33 Order name: NT PRO-BNP; Complete Time: 17:45 cp 01/16 15:33 Order name: PT-INR; Complete Time: 16:47 cp 01/16 15:33 Order name: Troponin (emerg Dept Use Only); Complete Time: 17:45 cp 01/16 15:33 Order name: Lipase; Complete Time: 17:45 cp 01/16 15:33 Order name: ABG; Complete Time: 16:47 cp 01/16 21:37 Interpretation: Normal except: ABGHCO3 19.1; PUNS1HL 91.2. cp 01/16 16:00 Order name: Glucose, Ancillary Testing; Complete Time: 16:22 EDRI 01/16 16:48 Order name: Urine Dipstick--Ancillary (enter results); Complete Time: 21:35 bd 01/16 17:34 Order name: Acetone Level EDRI 01/16 17:34 Order name: Acetone Level; Complete Time: 20:11 EDMS 01/16 17:34 Order name: Acetone Level; Complete Time: 22:26 EDRI 01/16 17:34 Order name: Acetone Level; Complete Time: 07:19 EDMS 01/16 17:34 Order name: Calcium Level EDRI 01/16 17:34 Order name: Calcium Level EDRI 01/16 17:34 Order name: Calcium Level EDRI 01/16 17:34 Order name: Calcium Level EDRI 01/16 17:34 Order name: CBC with Automated Diff EDMS 01/16 17:34 Order name: CBC with Automated Diff; Complete Time: 17:30 EDMS 01/16 17:34 Order name: CBC with Automated Diff EDMS 01/16 17:34 Order name: Lipid Profile EDMS 01/16 17:34 Order name: Lipid Profile; Complete Time: 07:19 EDMS 01/16 17:35 Order name: Magnesium EDMS 01/16 17:35 Order name: Magnesium; Complete Time: 07:19 EDMS 01/16 17:35 Order name: Magnesium EDMS 01/16 17:35 Order name: Magnesium EDMS 01/16 17:35 Order name: Phosphorus EDMS 01/16 17:35 Order name: Phosphorus; Complete Time: 07:19 EDMS 01/16 17:35 Order name: Phosphorus EDMS 01/16 17:35 Order name: Phosphorus EDMS 01/16 19:12 Order name: Glucose hb 01/16 19:23 Order name: Glucose, Ancillary Testing; Complete Time: 20:11 EDMS 01/16 20:30 Order name: Glucose, Ancillary Testing; Complete Time: 21:35 EDMS 01/16 20:35 Order name: Glucose Level; Complete Time: 21:35 EDMS 01/16 21:34 Order name: Glucose 01/16 21:35 Order name: Glucose, Ancillary Testing; Complete Time: 21:35 EDMS 01/16 22:12 Order name: Comprehensive Metabolic Panel; Complete Time: 22:26 EDMS 01/16 22:13 Order name: Glucose Level; Complete Time: 22:26 EDMS 01/16 23:56 Order name: Glucose, Ancillary Testing; Complete Time: 07:19 EDMS 01/17 01:44 Order name: Glucose, Ancillary Testing; Complete Time: 07:19 EDMS 01/17 03:03 Order name: Glucose, Ancillary Testing; Complete Time: 07:19 EDMS 01/17 03:59 Order name: Glucose, Ancillary Testing; Complete Time: 07:19 EDMS 01/17 04:54 Order name: Glucose, Ancillary Testing; Complete Time: 07:19 EDMS 01/17 05:41 Order name: Glucose, Ancillary Testing; Complete Time: 07:19 EDMS 01/17 06:38 Order name: Blood Culture EDMS 01/17 06:39 Order name: Glucose, Ancillary Testing; Complete Time: 07:19 EDMS 01/17 07:18 Order name: Basic Metabolic Panel; Complete Time: 07:19 EDMS 01/17 07:31 Order name: Glucose, Ancillary Testing; Complete Time: 17:30 EDMS 01/17 08:05 Order name: Ammonia; Complete Time: 17:30 EDMS 01/17 08:22 Order name: Acetone Level; Complete Time: 17:30 EDMS 01/17 08:25 Order name: Alcohol Serum/Plasma; Complete Time: 17:30 EDMS 01/17 08:25 Order name: Basic Metabolic Panel; Complete Time: 17:30 EDMS 01/17 08:37 Order name: CBC Smear Scan; Complete Time: 17:30 EDMS 01/17 08:50 Order name: Urine Drug Screen; Complete Time: 17:30 EDMS 01/17 09:09 Order name: Glucose, Ancillary Testing; Complete Time: 17:30 EDMS 01/17 09:16 Order name: Procalcitonin; Complete Time: 17:30 EDMS 01/17 10:17 Order name: Glucose, Ancillary Testing; Complete Time: 17:30 EDMS 01/17 11:13 Order name: Glucose, Ancillary Testing; Complete Time: 17:30 EDMS 01/17 12:14 Order name: Glucose, Ancillary Testing; Complete Time: 17:30 EDMS 01/16 15:33 Order name: XRAY Chest (1 view); Complete Time: 16:22 cp 01/16 15:33 Order name: EKG; Complete Time: 15:34 cp 01/16 15:33 Order name: Cardiac monitoring; Complete Time: 15:48 cp 01/16 15:33 Order name: EKG - Nurse/Tech; Complete Time: 21:10 cp 01/16 15:33 Order name: IV Saline Lock; Complete Time: 15:48 cp 01/16 15:33 Order name: Labs collected and sent; Complete Time: 15:48 cp 01/16 15:33 Order name: O2 Per Protocol; Complete Time: 15:48 cp 01/16 15:33 Order name: O2 Sat Monitoring; Complete Time: 21:05 cp 01/16 15:33 Order name: Accucheck Blood Glucose; Complete Time: 15:49 cp 01/16 15:33 Order name: CT Head Brain wo Cont; Complete Time: 16:47 cp 01/16 16:48 Interpretation: Report reviewed. cp 01/16 16:35 Order name: ARTERIAL BLOOD GAS EDRI 01/16 17:34 Order name: CONS Pharmacy Consult EDRI 01/16 17:34 Order name: Clear Liquid EDRI 01/16 17:34 Order name: NPO EDRI 01/17 09:37 Order name: RAD; Complete Time: 17:30 EDMS 01/17 09:39 Order name: RAD; Complete Time: 17:30 EDRI 01/17 12:16 Order name: Potassium; Complete Time: 17:30 EDMS 01/17 12:22 Order name: Magnesium; Complete Time: 17:30 EDMS EC:00 Rate is 126 beats/min. Rhythm is regular. LA interval is normal. QRS interval is cp normal. T waves are Inverted in lead aVR. Interpreted by me. Reviewed by me. Administered Medications: 15:47 Drug: NS 0.9% 1000 ml Route: IV; Rate: 1 bolus; Site: right antecubital; 22:43 Follow up: Response: No adverse reaction; IV Intake: 1000ml 15:48 Drug: NS 0.9% 1000 ml Route: IV; Rate: 1 bolus; Site: right antecubital; 22:43 Follow up: IV Status: Completed infusion; IV Intake: 1000ml 18:05 Drug: Insulin Drip - (Insulin Regular Human 100 units, NS 0.9% 100 ml) {Co-Signature: [facility] (Enedina Xavier RN).} Route: IV; Rate: 8 units/hr; Site: right antecubital; 23:48 Follow up: Response: No adverse reaction; IV Status: Infusion continued upon admission ea 18:10 Drug: NS 0.9% 1000 ml Route: IV; Rate: 1 bolus; Site: right antecubital; 19:10 Follow up: Response: No adverse reaction; IV Intake: 1000ml 01/17 12:59 Follow up: IV Status: Completed infusion; IV Intake: 1000ml 01/16 23:46 Drug: NS 0.9% 1000 ml Route: IV; Rate: 150 ml/hr; Site: right antecubital; ea 23:46 Follow up: IV Status: Infusion continued upon admission ea 01/17 05:26 Drug: Ativan 2 mg Route: IVP; Site: left antecubital; ea 12:57 Follow up: Response: No adverse reaction bp Disposition: 01/16 17:55 Critical Care:. cp 18:00 Chart complete. cp 01/18 09:07 Co-signature as Attending Physician, Abdulaziz Booth MD I agree with the assessment and kdr plan of care. Disposition: 01/17/20 17:59 Hospitalization ordered by Shayan Arenas for Inpatient Admission. 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 - Bed requested for Intensive Care Unit. - Status is Inpatient Admission. bp - Condition is Serious. - Problem is new. - Symptoms have improved. Critical care time excluding procedures: 01/16 17:55 Critical care time: Bedside Care: 10 minutes, Consultation: 30 minutes. Total time: 40 cp minutes Signatures: Dispatcher [employer] EDMS Wendie Saldaña, RN Abdulaziz Harrell MD MD kdr Hall, Patricia RN Jaime Benz ph, PA PA cp Jessi Villatoro, RN Umer Novak ea RN ALF [facility] Saad Perez RN RN Adriana Prieto, RN RN Enedina Xavier RN hb Corrections: (The following items were deleted from the chart) 16:28 15:53 GLUCOSE+C.LAB.BRZ ordered. EDRI EDMS 17:46 17:45 Normal except: CO2 20; GLUC 859; BUN 53; CRE 1.84; GFR 47. cp cp 17:59 17:59 Hospitalization Ordered by Shayan Arenas MD for Inpatient Admission. 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 Bed requested for Intensive Care Unit. Status is Inpatient Admission. Condition is Serious. Problem is new. Symptoms have improved. cp 19:04 17:59 01/17/2020 17:59 Hospitalization Ordered by Shayan Arenas MD for Inpatient ja1 Admission. 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 Bed requested for Intensive Care Unit. Status is Inpatient Admission. Condition is Serious. Problem is new. Symptoms have improved. cp 22:34 17:35 Physician consultation: Shayan Arenas MD was contacted at 17:25, regarding cp admission, to the ICU, patient's condition, and will see patient in ED, cp 01/17 11:21 01/16 19:04 01/17/2020 17:59 Hospitalization Ordered by Shayan Arenas MD for kl Inpatient Admission. 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 Bed requested for [facility] ER HOLD. Status is Inpatient Admission. Condition is Serious. Problem is new. Symptoms have improved. ja1 01/17 13:20 11:21 01/17/2020 17:59 Hospitalization Ordered by Shayan Arenas MD for Inpatient bp Admission. 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 Bed requested for Intensive Care Unit. Status is Inpatient Admission. Condition is Serious. Problem is new. Symptoms have improved. kl
[2020-01-17] MEDS: NACHLORIDE 0.45% 1,000 ML IV SCH ×2 (18:00→22:00)
[2020-01-17] MEDS ORDERED: INSULIN -REGULAR HUMAN 100 UNIT in NA CHLORIDE 0.9% 100 ML IV SCH (18:00)
[2020-01-17] MEDS: D5 0.45 NS 1,000 ML IV SCH (18:00)
[2020-01-17] MEDS: ENOXAPARIN 40 MG/0.4 ML SQ SCH (18:00)
--- NOTE | 2020-01-17 18:56 | EKG ---
Test Date: 2020-01-17 Test Time: 15:57:43 [place] Carpenter: TWYLA MEASUREMENT RESULTS: Intervals: Rate: 126 NE: 142 QRSD: 88 QT: 318 QTc: 460 Rico: P: 61 NE: 142 QRS: 92 T: 27 INTERPRETIVE STATEMENTS: Sinus tachycardia Rightward axis Borderline ECG Compared to ECG 12/16/2018 08:12:52 Sinus rhythm no longer present Electronically Signed On 01-17-20 18:55:59 CDT by Fransisco Vega
[2020-01-17 20:44] LABS: Urine Blood 2+ (NEG); Urine Glucose 2+ (NEG); Urine Protein NEGATIVE (NEG)
--- NOTE | 2020-01-17 21:10 | P.HP ---
Certification for Inpatient With expected LOS: >2 Midnights Practitioner: I am a practitioner with admitting privileges, knowledge of patient current condition, hospital course, and medical plan of care. Services: Services provided to patient in accordance with Admission requirements found in Title 42 Section 412.3 of the Code of Federal Regulations Patient History Date of Service: 01/18/20 Reason for admission: DKA AMS History of Present Illness: PT is 49 yrs of age Aw AMS, DKA and severe hyperglycemia. Non verbal. LAst admission 08/2019- toe ulceration Allergies ketorolac tromethamine [From Toradol] Allergy (Unknown, Verified 09/23/19 22:54) Shortness of breath azithromycin [From Zithromax] Allergy (Verified 09/23/19 22:54) Unknown baclofen Allergy (Verified 09/23/19 22:54) Unknown ibuprofen Allergy (Verified 09/23/19 22:54) Unknown levofloxacin [From Levaquin] Allergy (Verified 09/23/19 22:54) Itching/Hives/Rash promethazine [From Phenergan] Allergy (Verified 09/23/19 22:54) Unknown sulfamethoxazole [From Bactrim] Allergy (Verified 09/23/19 22:54) Unknown trimethoprim [From Bactrim] Allergy (Verified 09/23/19 22:54) Unknown NSAIDS Allergy (Uncoded 09/23/19 22:54) Unknown Home Medications: Insulin Glargine Human [Lantus*] 15 units SQ BEDTIME #1 vial 09/25/19 Insulin 70/30 NPH/Reg Human [Novolin 70/30*] See Protocol SQ BID 01/18/20 Lisinopril [Zestril] 20 mg PO DAILY 01/18/20 - Past Medical/Surgical History Diabetic: Yes -: diabetes mellitus II -: Hx of DVT-2 left leg/1 on the right leg -: HTN -: MRSA left foot -: kidney stones -: toes amputation - bilateral feet -: right kidney stent(2-3 weeks ago) -: Lithotripsy - Family History Father -: Hypertension Mother -: Diabetes, Other (see notes) Notes: - Social History Alcohol use: Yes CD- Drugs: No Caffeine use: Yes Review of Systems is unable to be obtained Physical Examination - Vital Signs Temperature: 98 F Blood Pressure: 132/114 Pulse: 137 Respirations: 32 Pulse Ox (%): 98 - Physical Exam General: Unresponsive Neck: Supple Cardiovascular: No edema, Regular rate/rhythm Gastrointestinal: Normal bowel sounds, Soft and benign - Studies Laboratory Data (last 24 hrs) 01/17/20 15:52: Glucose Cancelled 01/17/20 15:45: PT 12.3, INR 1.04 01/17/20 15:45: WBC 12.6 H, Hgb 16.7, Hct 52.6 H, Plt Count 287 01/17/20 15:45: Sodium 142, Potassium 4.8, BUN 53 H, Creatinine 1.84 H, Glucose 859 H*, Magnesium 3.0 H D, Total Bilirubin 0.6, AST 10 L, ALT 35, Alkaline Phosphatase 124 H, Lipase 95 Assessment and Plan - Problems (Diagnosis) (1) DKA (diabetic ketoacidoses) Current Visit: Yes Status: Acute Plan: AW DKA, Metabolic acidosis,AMS, Tx with IVF and insulin as per protocol patient has acute on chronic renal failure is on IV fluids of ordered blood cultures white count is mildly elevated no evidence of sepsis blood pressure is elevated continue to monitor patient is non compliant he is not responsive Qualifiers: Diabetes mellitus type: type 1 - Advance Directives Does patient have a Living Will: No Does patient have a Durable POA for Healthcare: No
[2020-01-17 22:11] LABS: Albumin 3.3 g/dL (3.4-5.0); Bilirubin Total 0.4 mg/dL (0.2-1.0); Potassium 4.1 mmol/L (3.5-5.1); Protein, Total 8.5 g/dL (6.4-8.2)
[2020-01-18] MEDS: D5 0.45 NS 1,000 ML IV SCH ×2 (00:40→07:20)
[2020-01-18] MEDS ORDERED: FENTANYL CITR 100 MCG/2 ML IV ONE (00:40)
[2020-01-18] MEDS ORDERED: HALOPERIDOL LACT 5 MG/ML INJ IV ONE (00:41)
[2020-01-18] MEDS: NACHLORIDE 0.45% 1,000 ML IV SCH ×3 (02:00→10:00)
[2020-01-18] MEDS ORDERED: NACHLORIDE 0.45% 1,000 ML IV ONE ×2 (04:40→08:54)
[2020-01-18] MEDS ORDERED: LORazepam 2 MG/ML VIAL ONE ×3 (05:22→09:42)
[2020-01-18 05:42] LABS: Absolute Lymphocytes (CBC) 3.1 K/uL (0.7-4.9); Basophils % 0.5 % (0-1.3); Hematocrit 53.3 % (39.6-49.0); Lymphocytes % 16.3 % (15.3-44.8); MPV 9.7 fL (7.6-11.3); RBC Red Blood Cell Count 6.24 M/uL (4.33-5.43)
[2020-01-18 07:15] LABS: Magnesium 2.8 mg/dL (1.8-2.4); Phosphorus 3.9 mg/dL (2.5-4.9); Potassium 4.4 mmol/L (3.5-5.1)
[2020-01-18] MEDS ORDERED: LORazepam 2 MG/ML VIAL IV ONE (07:37)
[2020-01-18] MEDS ORDERED: WATER FOR INJ,STERILE 10 ML IM PRN (08:13)
[2020-01-18 08:24] LABS: BUN Blood Urea Nitrogen 38 mg/dL (7-18); Bicarbonate 18 mmol/L (21-32); Glucose Level 336 mg/dL (74-106); Potassium 3.4 mmol/L (3.5-5.1); Sodium Level 154 mmol/L (136-145)
[2020-01-18 08:37] LABS: Blood Morphology Comment NOT SEEN (NOT SEEN); Platelet Estimate ADEQ; Urine White Blood Cell Casts OK
[2020-01-18 08:49] LABS: Barbiturates NEGATIVE (NEGATIVE); Benzodiazepines NEGATIVE (NEGATIVE); Cocaine NEGATIVE (NEGATIVE); METHAMPHETAM POSITIVE (NEGATIVE); Methadone NEGATIVE (NEGATIVE); Opiates NEGATIVE (NEGATIVE); Phencyclidine NEGATIVE (NEGATIVE); THC Cannibis NEGATIVE (NEGATIVE)
[2020-01-18] MEDS: ENOXAPARIN 40 MG/0.4 ML SQ SCH (09:00)
[2020-01-18] MEDS: LORazepam 2 MG/ML VIAL IV PRN ×2 (09:30→22:31)
--- NOTE | 2020-01-18 09:36 | RAD REPORT ---
EXAM DESCRIPTION: RAD - Foot Right 3 View - 01/18/2020 8:55 am CLINICAL HISTORY: right great toe infection COMPARISON: Foot Right 3 View dated 09/23/2019; Foot Right Wo Cont dated 12/16/2018 FINDINGS: Previous second toe amputation noted. Soft tissue swelling is seen with small erosive aponte ges along the medial margin of the interphalangeal joint of the great toe. Adjacent areas of soft tis marshall ulceration seen. No radiographic finding to indicate osteomyelitis.
[2020-01-18] MEDS ORDERED: ENOXAPARIN 40 MG/0.4 ML SQ ONE (09:39)
--- NOTE | 2020-01-18 09:39 | RAD REPORT ---
EXAM DESCRIPTION: RAD - Foot Left 2 View - 01/18/2020 8:55 am CLINICAL HISTORY: HX OF OSTEOMYELITIS, COMPARISON Foot pain and swelling COMPARISON: Foot Left 2 View dated 12/05/2017 FINDINGS: Evidence of previous partial amputation of the second toe and third toe amputation again s een. Soft tissue swelling with small non-marginal erosive changes interphalangeal joint of the great toe is noted, which can be seen in cases of gout. Tiny calcaneal spur seen. No radiographic finding t o indicate osteomyelitis.
[2020-01-18] MEDS: METOPROLOL TARTRATE 5 MG/5 ML INJ IV PRN ×2 (10:18→17:03)
[2020-01-18] MEDS ORDERED: METOPROLOL TARTRATE 5 MG/5 ML INJ IV ONE (10:22)
[2020-01-18] MEDS ORDERED: NA CHLORIDE 0.9% 1,000 ML IV ONE (10:59)
[2020-01-18] MEDS: D5.45NS W/KCL 40MEQ 40 MEQ/1,000 ML BAG IV SCH ×2 (11:00→15:00)
[2020-01-18] MEDS ORDERED: GLUCAGON 1 MG/VIAL IM PRN (15:10)
[2020-01-18] MEDS ORDERED: D50W 25 GM/50 ML SYRINGE/VIAL IV PRN (15:10)
[2020-01-18] MEDS: INSULIN GLARGINE 100 UNITS/ML SQ SCH ×2 (15:33→21:45)
[2020-01-18] MEDS ORDERED: D5W 1,000 ML IV SCH (16:00)
--- NOTE | 2020-01-18 16:34 | P.PN ---
Subjective Date of Service: 01/18/20 Chief Complaint: DKA AMS no change patient is still unresponsive/patient is also hypernatremic renal function improving Review of Systems is unable to be obtained Physical Examination - Vital Signs Temperature: 98 F Blood Pressure: 145/108 Pulse: 99 Respirations: 19 Pulse Ox (%): 96 - Physical Exam General: Unresponsive Respiratory: Clear to auscultation bilaterally Cardiovascular: No edema, Normal S1 S2 Gastrointestinal: Normal bowel sounds, Soft and benign Musculoskeletal: Other (Patient has some toe amputation) - Studies Laboratory Data (last 24 hrs) 01/17/20 15:45: Sodium 142, Potassium 4.8, BUN 53 H, Creatinine 1.84 H, Glucose 859 H*, Magnesium 3.0 H D, Total Bilirubin 0.6, AST 10 L, ALT 35, Alkaline Phosphatase 124 H, Lipase 95 Assessment & Plan - Problems (Diagnosis) (1) DKA (diabetic ketoacidoses) Current Visit: Yes Status: Acute Plan: Patient admitted with DKA was not a 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
[2020-01-18] MEDS: INSULIN -REGULAR HUMAN 50 UNIT/0.5 ML ML IV SCH (18:00)
[2020-01-18 23:56] LABS: Potassium 4.4 mmol/L (3.5-5.1)
[2020-01-19] MEDS: D5W 1,000 ML IV SCH ×5 (00:23→21:41)
[2020-01-19] MEDS: ZIPRASIDONE MESYLA 20 MG/VIAL IM PRN ×2 (00:23→10:38)
[2020-01-19] MEDS: INSULIN -REGULAR HUMAN 50 UNIT/0.5 ML ML IV SCH ×3 (00:24→12:00)
[2020-01-19] MEDS: METOPROLOL TARTRATE 5 MG/5 ML INJ IV PRN ×3 (00:31→18:36)
[2020-01-19 01:15] LABS: Urine Protein/Creatinine Ratio 0.31 ratio (<0.15)
[2020-01-19 05:40] LABS: Absolute Lymphocytes (CBC) 2.5 K/uL (0.7-4.9); Basophils % 0.1 % (0-1.3); Hematocrit 52.2 % (39.6-49.0); Lymphocytes % 15.2 % (15.3-44.8); MPV 9.6 fL (7.6-11.3); RBC Red Blood Cell Count 6.18 M/uL (4.33-5.43)
[2020-01-19 06:21] LABS: Albumin 3.1 g/dL (3.4-5.0); Magnesium 2.5 mg/dL (1.8-2.4); Phosphorus 3.1 mg/dL (2.5-4.9); Thyroid Stimulating Hormone 0.988 uIU/mL (0.360-3.740); Uric Acid 7.5 mg/dL (3.5-7.2)
--- NOTE | 2020-01-19 08:36 | P.PN ---
Subjective Date of Service: 01/19/20 Chief Complaint: DKA AMS Is more agitated today still not responsive sodium is declining blood sugar is still high Review of Systems is unable to be obtained Physical Examination - Vital Signs Temperature: 97.3 F Blood Pressure: 126/95 Pulse: 102 Respirations: 17 Pulse Ox (%): 98 - Physical Exam General: Unresponsive Respiratory: Clear to auscultation bilaterally Cardiovascular: No edema, Normal S1 S2 Gastrointestinal: Normal bowel sounds Musculoskeletal: No clubbing, No swelling Assessment & Plan - Problems (Diagnosis) (1) Hypernatremia Current Visit: Yes Status: Acute Plan: Patient admitted with hypernatremia sodium is declining continue with IV fluids patient was agitated was started on some YellowScheduledon labs read (2) Diabetes 1.5, managed as type 1 Current Visit: Yes Status: Acute Plan: Plan is to increase the dose of insulin 30 units of Lantus continue with aggressive sliding scale no evidence of sepsis (3) Chronic renal failure Current Visit: Yes Status: Acute Plan: Patient has chronic renal failure at CT scan in Aug no evidence of any obstruction consult nephrology Qualifiers: Chronic kidney disease stage: stage 3 (moderate) Qualified Code(s): N18.3 - Chronic kidney disease, stage 3 (moderate)
[2020-01-19] MEDS: LORazepam 2 MG/ML VIAL IV PRN ×2 (08:38→14:52)
[2020-01-19] MEDS: ENOXAPARIN 40 MG/0.4 ML SQ SCH (08:45)
[2020-01-19] MEDS ORDERED: GLUCAGON 1 MG/VIAL IM PRN ×3 (09:28→16:18)
[2020-01-19] MEDS ORDERED: D50W 25 GM/50 ML SYRINGE/VIAL IV PRN ×3 (09:28→16:18)
[2020-01-19] MEDS ORDERED: INSULIN GLARGINE 100 UNITS/ML SQ ONE ×2 (09:29→10:00)
[2020-01-19] MEDS: THIAMINE 200 MG/2 ML INJ IVP SCH (09:35)
[2020-01-19] MEDS ORDERED: INSULIN -REGULAR HUMAN 50 UNIT/0.5 ML ML IV ONE ×2 (10:50→16:30)
--- NOTE | 2020-01-19 10:53 | CON ---
Date of Consultation: 01/18/2020 Reason For Consultation: Acidosis, hypernatremia, acute kidney injury. History Of Present Illness: This is a 49-year-old gentleman. All the information has been obtained from the record as the patient has been obtunded. This is a 49-year-old gentleman with significant p ast medical history of diabetes, brought to the hospital because of altered mental status, found to h ave DKA. Primary workup showed elevation of sodium up to . For that reason, we have been consulted. corrected sodium to the glucose around 160. Reviewing the record, the patient is currently agitated, poorly responsive physically. Past Medical History: Diabetes. Allergies: KETOROLAC, AZITHROMYCIN, BACLOFEN, IBUPROFEN, LEVAQUIN. Past Surgical History: Toe amputation and lithotripsy. Home Medications: Insulin and lisinopril. Family History: Positive for hypertension and diabetes. Social History: Unobtainable. Review of Systems: Unobtainable. Physical Examination: Vital Signs: Patient's blood pressure . , creatinine 1.6, glucose 336 , platelets 262. Urinalysis: Specific gravity of 1.010. ABG: pH 7.35, CO2 . Assessment And Plan: 1.Acidosis secondary to diabetic ketoacidosis. I am going to continue with the insulin. We will co ntinue aggressive hydration. 2.Hypokalemia with the presence of acidosis and diabetic ketoacidosis. Patient will be aggressively repleted. We will add to it a bag of 40 of KCl and change IV fluid to normal saline. 3.Hypernatremia secondary to IV fluid to normal saline. Depending on the consecutive lab , we will change the IV fluid. 4.Diabetic ketoacidosis as above. Continue the patient on . 5.Leukocytosis secondary to diabetic ketoacidosis. we will follow up culture. 6. as above. SADI Voice ID: [id number] Report ID: [id number]
--- NOTE | 2020-01-19 16:02 | PN ---
Date of Progress Note: 01/19/2020 Patient was admitted with DKA, severe hyperglycemia, altered mental status. The patient over the nig ht had hypernatremia. Patient being on aggressive hydration. Patient had good urine output. Physical Examination: Vital Signs: When I saw the patient, blood pressure 133/98, pulse of 100, afebrile. Patient had goo d urine output of 600 over the last 4 hours. His I's and O's even. Chest: Clear to auscultation. Heart: S1, S2. Regular. Abdomen: Soft, nontender. Extremities: No edema. Neuro: Moving 4 extremities. No focality. Still sleepy. Laboratory Data: WBC 16.4, H and H 16.6/52.2, platelets 195. Sodium 159, potassium 5, bicarb 27, ch loride 128, BUN 33, creatinine 1.4, glucose above 300, uric acid 7.5, calcium of 10, phosphorus 3, ma gnesium 2.5, albumin 3.1. TSH 0.9. Urine drug screen positive for amphetamine, ketones are negative . Current Medications: The patient on include Lovenox, sedation, Zofran, insulin sliding scale, insuli n Lantus at 30 at night, D5 at 150. Assessment And Plan: 1.Acute kidney injury, normal size kidney with hyperkalemia secondary to glucose diuresis/calcium di uresis, prerenal, nonoliguric. Patient still on the dehydration side. I am going to continue aggres sive hydration. 2.Acidosis secondary to diabetic ketoacidosis, resolved. 3.Severe contraction alkalosis. I am going to continue fluid resuscitation. 4.Hypernatremia secondary to depletion, dehydration. We are going to increase the D5 to 200. I am going to give the patient regular insulin IV 10 units right now and we will repeat the lab after 3 to 4 hours and we will readjust. 5.Patient is going to be allowed to get nasogastric tube. We will start with free water and we will consider hydrochlorothiazide. 6.Diabetes with diabetic ketoacidosis. Diabetic ketoacidosis resolved. Continue current aggressive sliding scale. 7.Altered mental status secondary to diabetic ketoacidosis as by Primary. 8.Peripheral vascular disease status post multiple toe amputations. Follow up with Primary. SADI Voice ID: [id number] Report ID: [id number]
[2020-01-19 16:09] LABS: Potassium 4.1 mmol/L (3.5-5.1)
[2020-01-19] MEDS: HYDRALAZINE HCL 20 MG/ML VIAL IV PRN (16:14)
[2020-01-19] MEDS ORDERED: INSULIN -REGULAR HUMAN 100 UNIT in NA CHLORIDE 0.9% 100 ML IV SCH (17:00)
[2020-01-19] MEDS: MEDIHONEY 44 ML TOPICAL TUBE TOP SCH (18:34)
[2020-01-19] MEDS ORDERED: INSULIN GLARGINE 100 UNITS/ML SQ SCH (21:00)
[2020-01-19 21:07] LABS: Potassium 3.6 mmol/L (3.5-5.1)
[2020-01-19 21:30] VITALS: O2SAT 99
[2020-01-19] MEDS: POTASSIUM CL IV SCH ×2 (22:53)
[2020-01-19] MEDS: D5W IV SCH ×2 (22:53)
[2020-01-19] MEDS ORDERED: KCL 20 MEQ/100 mL IVPB 20 MEQ/100 ML BAG IV ONE (22:55)
[2020-01-20] MEDS: HYDRALAZINE HCL 20 MG/ML VIAL IV PRN (00:31)
[2020-01-20 04:11] VITALS: TEMP 97.9
[2020-01-20 05:26] LABS: Absolute Lymphocytes (CBC) 2.5 K/uL (0.7-4.9); Basophils % 0.4 % (0-1.3); Hematocrit 45.5 % (39.6-49.0); Lymphocytes % 21.1 % (15.3-44.8); MPV 9.7 fL (7.6-11.3); RBC Red Blood Cell Count 5.42 M/uL (4.33-5.43)
[2020-01-20] MEDS ORDERED: KCL 20 MEQ/100 mL IVPB 20 MEQ/100 ML BAG IV ONE (06:05)
[2020-01-20] MEDS ORDERED: D5W 1,000 ML IV ONE (06:05)
[2020-01-20] MEDS: POTASSIUM CL IV SCH ×2 (06:06)
[2020-01-20] MEDS: D5W IV SCH ×2 (06:06)
[2020-01-20 06:15] VITALS: BP 130/101
[2020-01-20 06:28] LABS: Albumin 2.6 g/dL (3.4-5.0); BUN Blood Urea Nitrogen 20 mg/dL (7-18); Bicarbonate 23 mmol/L (21-32); Glucose Level 118 mg/dL (74-106); Magnesium 1.8 mg/dL (1.8-2.4); Phosphorus 3.8 mg/dL (2.5-4.9); Potassium 3.4 mmol/L (3.5-5.1); Sodium Level 150 mmol/L (136-145); Uric Acid 5.5 mg/dL (3.5-7.2)
[2020-01-20 07:16] VITALS: BMI 28.5
[2020-01-20] MEDS ORDERED: POTASSIUM CL 40 MEQ in NA CHLORIDE 0.9% 500 ML IV SCH (08:00)
[2020-01-20] MEDS: ENOXAPARIN 40 MG/0.4 ML SQ SCH (09:10)
[2020-01-20] MEDS: THIAMINE 200 MG/2 ML INJ IVP SCH (09:11)
[2020-01-20] MEDS: MEDIHONEY 44 ML TOPICAL TUBE TOP SCH (09:12)
[2020-01-20] MEDS ORDERED: D5W IV SCH ×2 (10:00)
[2020-01-20] MEDS ORDERED: POTASSIUM CL IV SCH ×2 (10:00)
--- NOTE | 2020-01-20 11:34 | P.PN ---
Subjective Date of Service: 01/20/20 Chief Complaint: DKA AMS Subjective: Improving Patient was admitted with DKA has hypernatremia today sodium down to 150 Agap wnl cont IVF and encouraged PO fluid intake can be discharged from nephrology point of view if Na <150 Physical exam general: AAOX3, NAD , Neck; Supple, No elevated JVD hear: RRR, normal S1,2 no murmur or rub Chest: CTAB, no rales or wheezes Abdomen: Soft , Nt Extremities No edema or ulcer Assessment And Plan: BRIEN resolved due to dehydration DKA gap closing will dc insulin drip once sodiu normalzied hypernatremia due to dehydration and saline improving DM once sodium <150 , will dc D5W total time spent 40min can be discharged from nephrology point of view if Na <150 Physical Examination - Vital Signs Temperature: 97.9 F Blood Pressure: 130/101 Pulse: 99 Respirations: 17 Pulse Ox (%): 97
--- NOTE | 2020-01-20 11:43 | P.PN ---
Subjective Date of Service: 01/20/20 Chief Complaint: DKA AMS Patient is much more alert today wants to leave AMA Review of Systems Unremarkable Physical Examination - Vital Signs Temperature: 97.9 F Blood Pressure: 130/101 Pulse: 99 Respirations: 17 Pulse Ox (%): 97 - Physical Exam General: Alert, Oriented x3 Respiratory: Clear to auscultation bilaterally Cardiovascular: No edema, Normal S1 S2 Integumentary: Other (Patient's right toe was evaluated in the emergency room seen by a wound healing recommended regular dressed dressing change) Assessment & Plan - Problems (Diagnosis) (1) Hypernatremia Current Visit: Yes Status: Acute Plan: Patient's hypernatremia is improving (2) Diabetes 1.5, managed as type 1 Current Visit: Yes Status: Acute Plan: Patient was put back on insulin drip wants to leave AMA (3) Chronic renal failure Current Visit: Yes Status: Acute Plan: Renal function is now normal Qualifiers: Chronic kidney disease stage: stage 3 (moderate) Qualified Code(s): N18.3 - Chronic kidney disease, stage 3 (moderate) Discharge Plan: Home
--- NOTE | 2020-01-20 11:45 | P.DS ---
Admission Date: 01/17/20 Discharge Date: 01/20/20 Reason for Admission: DKA AMS - Problems (1) Hypernatremia Current Visit: Yes Status: Acute (2) Diabetes 1.5, managed as type 1 Current Visit: Yes Status: Acute Brief History of Present Illness: PT is 49 yrs of age Aw AMS, DKA and severe hyperglycemia. Non verbal. LAst admission 08/2019- toe ulceration Hospital Course: Patient is 49 years of age the my progress note today was left AMA blood sugars elevated renal function is now normal is taking insulin at home no evidence of sepsis as much more alert responsive cooperative still mildly hypernatremic probably acute renal failure advice to changed from lisinopril to Norvasc Vital Signs/Physical Exam: Temp Pulse Resp BP Pulse Ox 97.9 F 99 H 17 130/101 H 97 01/20/20 11:43 01/20/20 11:43 01/20/20 11:43 01/20/20 11:43 01/20/20 11:43 Laboratory Data at Discharge: WBC 11.9 K/uL (4.3-10.9) H D 01/20/20 04:03 Hgb 14.5 g/dL (13.6-17.9) 01/20/20 04:03 Hct 45.5 % (39.6-49.0) 01/20/20 04:03 Plt Count 137 K/uL (152-406) L D 01/20/20 04:03 PT 12.3 SECONDS (9.5-12.5) 01/17/20 15:45 INR 1.04 01/17/20 15:45 Sodium Cancelled 01/20/20 07:19 Potassium Cancelled 01/20/20 07:19 BUN Cancelled 01/20/20 07:19 Creatinine Cancelled 01/20/20 07:19 Glucose Cancelled 01/20/20 07:19 Uric Acid 5.5 mg/dL (3.5-7.2) D 01/20/20 04:03 Phosphorus 3.8 mg/dL (2.5-4.9) 01/20/20 04:03 Magnesium 1.8 mg/dL (1.8-2.4) D 01/20/20 04:03 Total Bilirubin 0.4 mg/dL (0.2-1.0) 01/17/20 21:30 AST 8 U/L (15-37) L 01/17/20 21:30 ALT 30 U/L (12-78) 01/17/20 21:30 Alkaline Phosphatase 110 U/L (45-117) 01/17/20 21:30 Triglycerides 125 mg/dL (<150) 01/18/20 05:22 Cholesterol 226 mg/dL (<200) H 01/18/20 05:22 HDL Cholesterol 68 mg/dL (40-60) H 01/18/20 05:22 Cholesterol/HDL Ratio 3.32 01/18/20 05:22 Lipase 95 U/L (73-393) 01/17/20 15:45 Home Medications: Insulin Glargine Human [Lantus*] 15 units SQ BEDTIME #1 vial 09/25/19 Insulin 70/30 NPH/Reg Human [Novolin 70/30*] See Protocol SQ BID 01/18/20 Lisinopril [Zestril] 20 mg PO DAILY 01/18/20
[2020-01-20] MEDS ORDERED: INSULIN GLARGINE 100 UNITS/ML SQ SCH (21:00)
== END 2020-01-20 12:50 | disposition left against medical advice (07) | DRG 638 ==
LOC: SUPCPDRO 15:27 → ER 15:27 → ERHOLD 17:57 → 3RD-ICU 01-18 12:58
PROVIDERS: ADMIT Internal Medicine Sleep Medicine; ATTEND Family Medicine
DX: E10.10 Type 1 diabetes mellitus with ketoacidosis without coma (principal); N17.9 Acute kidney failure, unspecified; E87.0 Hyperosmolality and hypernatremia; Z88.1 Allergy status to other antibiotic agents; Z88.8 Allergy status to other drugs, medicaments and biological substances; Z79.4 Long term (current) use of insulin; Z79.899 Other long term (current) drug therapy; Z86.718 Personal history of other venous thrombosis and embolism; Z86.14 Personal history of Methicillin resistant Staphylococcus aureus infection; Z89.422 Acquired absence of other left toe(s); Z89.421 Acquired absence of other right toe(s); I12.9 Hypertensive chronic kidney disease with stage 1 through stage 4 chronic kidney disease, or unspecified chronic kidney disease; E10.40 Type 1 diabetes mellitus with diabetic neuropathy, unspecified; E86.0 Dehydration; E10.51 Type 1 diabetes mellitus with diabetic peripheral angiopathy without gangrene; E87.6 Hypokalemia; D72.829 Elevated white blood cell count, unspecified; N18.3 Chronic kidney disease, stage 3 (moderate); E10.22 Type 1 diabetes mellitus with diabetic chronic kidney disease
CPT/HCPCS: 36415; 51702; 70450; 71045; 80048; 80053; 80061; 80069; 80076; 80307; 80320; 81003; 82010; 82140; 82570; 82805; 82947; 83690; 83735; 83880; 84100; 84132; 84145; 84156; 84300; 84443; 84484; 84550; 85025; 85610; 87040; 87205; 93005; 96361; 96365; 96366; 96375; 99251; 99285; J0360; J1630; J1650; J1815; J3010; J3411; J3486; J7030; J7040

== ENCOUNTER 2020-01-30 19:26 | Inpatient (IN) | payer SELFPAY ==
[2020-01-30] MEDS ORDERED: NA CHLORIDE 0.9% 1,000 ML ONE ×2 (19:48→22:59)
--- OUTSIDE RECORDS SUMMARY | 2020-01-30 19:53 | XMS REPORT | Continuity of Care Document ---
:1970 Author Organization [facility] t Address [address] [place] [address] Care Team Providers Name Role Phone Unavailable Unavailable Unavailable Payers Payer Name Policy Type Policy Number Effective Date Expiration Date S ource Problems This patient has no known problems. Allergies, Adverse Reactions, Alerts Allergy Allergy Status Severity Reaction(s) Onset Inactive Treating Comm ents Source Name Type Date Date Clinician sulfamet DA Active U 2020-0 [facility] hoxazole 1-04 Clear 00:00: [facility] trimetho DA Active U 2020-0 [facility] prim 1-04 Clear 00:00: [facility] prometha DA Active U 2020-0 [facility] zine -04 Clear 00:00: [facility] vancomyc DA Active U 2020-0 [facility] in 1-04 Clear 00:00: [facility] levoflox DA Active U 2020-0 [facility] acin 04 Clear 00:00: [facility] flurbipr DA Active [place] [facility] ofen 2-12 Clear 00:00: [facility] azithrom DA Active [place] [facility] ycin 2-12 Clear 00:00: [facility] ketorola DA [place] [facility] c 2-12 Clear 00:00: [facility] Medications This patient has no known medications. Procedures This patient has no known procedures. Results Test Description Test Time Test Comments Results Result Comments Source GLUBED 2019-09-05 16:22:00 Test Item Value Reference Range Interpretation Comme nts GLUBED (test code = GLUBED) 339 MG/DL 70-110 H Performed by certified self propelled hot mix roller operator at [facility] [id number] 15:12:00 Test Item Value Reference Range Interpretation Comments GLUBED (test code = 417 MG/DL 70-110 H Performe d by certified GLUBED) self propelled hot mix roller operator at [facility] - XR UROGRAM [id number] 13:23:00 FAX: Naeem Messina MD [phone] [place]: St: ADM FAX: Abel Hidalgo [phone] Name: GUILLERMINA SHIN [facility] : 1970 Age/S: 49/M [address] [place] [address] Unit #: [id number] Loc: G.22 [place] [address] Phys: Abel Piper MD Acct: [id number] Dis Date: Status: ADM IN PHONE #: [phone] Exam Date: 09/05/2019 0855 FAX #: [phone] Reason: RT RENAL STONE EXAMS: CPT CODE: [id number] XR UROGRAM RETRO [id number] Intraprocedural fluoroscopy was provided by the Department of Radiology. Any images obtained were interpreted by the surgeon intraoperatively. Reference air kerma: 21.8 mGy, fluoroscopy time 36 seconds SL: [id number] at 1323 Reported and signed by: Hood Bledsoe M.D. CC: Naeem Dickerson MD; Abel Piper MD Technologist: Nirali Mcneil, RT(R) Trncord Date/Time/By: 09/05/2019 (1323) : By: [email or web address] Orig Print D/T: S: 09/05/2019 (2426) PAGE 1 Signed ReportGLUBED 2019-09-05 11:47:00 Test Item Value Reference Range Interpretation Comments GLUBED (test code = 417 MG/DL 70-110 H Performe d by certified GLUBED) self propelled hot mix roller operator at [facility] [id number] 10:22:00 Test Item Value Reference Range Interpretation Comments GLUBED (test code = 227 MG/DL 70-110 H Performe d by certified GLUBED) self propelled hot mix roller operator at [facility] [id number] 10:13:00 Test Item Value Reference Range Interpretation Comments GLUBED (test code = 273 MG/DL 70-110 H Performe d by certified GLUBED) self propelled hot mix roller operator at [facility] [id number] 08:44:00 Test Item Value Reference Range Interpretation Comments GLUBED (test code = 229 MG/DL 70-110 H Performe d by certified GLUBED) self propelled hot mix roller operator at [facility] CBC W/AUTO [id number] 08:43:00 Test Item Value Reference Range Interpretation [...] (test code NO = MDIFF) BASIC METABOLIC [id number] 08:40:00 Test Item Value Reference Range Interpretation [...] = 8.5 mg/dL 8.0-10.5 N CA) PROTHROMBIN [id number] 07:11:00 Test Item Value Reference Range Interpretation [...] o prevent recurre nt infarct). THROMBOPLASTIN TIME [id number] 07:11:00 Test Item Value Reference Range Interpretation Comments THROMBOPLASTIN TIME 27.3 Seconds 25.0-39.5 N Ther apeutic PARTIAL (test code = Range: 50.4 - 88.3 PTT) Seconds Effective 12/14/2018 [id number] 20:46:00 Test Item Value Reference Range Interpretation Comments GLUBED (test code = 305 MG/DL 70-110 H Performe d by certified GLUBED) self propelled hot mix roller operator at [facility] [id number] 17:06:00 Test Item Value Reference Range Interpretation Comments GLUBED (test code = 403 MG/DL 70-110 H Performe d by certified GLUBED) self propelled hot mix roller operator at [facility] - XR CHEST 2 [id number] 15:39:00 FAX: Naeem Messina MD [phone] [place]: St: ADM FAX: Abel Hidalgo [phone] Name: GUILLERMINA SHIN [facility] : 1970 Age/S: 49/M [address] [place], [place] [address]vd Unit #: [id number] Loc: G.M122 [place] [address] Phys: Abel Piper MD Acct: G [id number] Dis Date: Status: ADM IN PHONE #: [phone] Exam Date: 09/04/2019 1538 FAX #: [phone] Reason: Urological Surgery Pre Op EXAMS: CPT CODE: [id number] XR CHEST 2 V 60121 Patient: GUILLERMINA SHIN. : 1970; Age: 49 years; Gender: Male. MR: [id number]. Ordering physician: Abel Piper MD. CHEST 2 [...] No acute disease in the chest. SL: [id number] at 1539 Reported and signed by: Gatito Almanzar M.D. CC: Naeem Dickerson MD; Abel Piper MD Technologist: RT Faisal(R) Trnscrd Date/Time/By: 09/04/2019 (1537) : By: [email or web address] Orig Print D/T: S: 09/04/2019 (6205) PAGE 1 Signed [id number] 11:34:00 Test Item Value Reference Range Interpretation Comments GLUBED (test code = 328 MG/DL 70-110 H Performe d by certified GLUBED) self propelled hot mix roller operator at [facility] CBC W/AUTO [id number] 09:43:00 Test Item Value Reference Range Interpretation [...] HGBA1C%) 12.6 %A1C 4.8-6.0 H COMPREHENSIVE METABOLIC [id number] 09:02:00 Test Item Value Reference Range Interpretation [...] TOTAL (test code = ALKP) CBC W/AUTO [id number] 08:41:00 Test Item Value Reference Range Interpretation [...] DIFF REQUIRED (test NO code = MDIFF) [id number] 08:10:00 Test Item Value Reference Range Interpretation Comments GLUBED (test code = 257 MG/DL 70-110 H Performe d by certified GLUBED) self propelled hot mix roller operator at [facility] [id number] 21:05:00 Test Item Value Reference Range Interpretation Comments GLUBED (test code = 312 MG/DL 70-110 H Performe d by certified GLUBED) self propelled hot mix roller operator at [facility] [id number] 17:05:00 Test Item Value Reference Range Interpretation Comments GLUBED (test code = 272 MG/DL 70-110 H Performe d by certified GLUBED) self propelled hot mix roller operator at [facility] [id number] 14:12:00 Test Item Value Reference Range Interpretation Comments GLUBED (test code = 348 MG/DL 70-110 H Performe d by certified GLUBED) self propelled hot mix roller operator at [facility] [id number] 10:01:00 Test Item Value Reference Range Interpretation Comments GLUBED (test code = 372 MG/DL 70-110 H Performe d by certified GLUBED) self propelled hot mix roller operator at [facility] [id number] 08:39:00 Test Item Value Reference Range Interpretation Comments GLUBED (test code = 345 MG/DL 70-110 H Performe d by certified GLUBED) self propelled hot mix roller operator at [facility] COMPREHENSIVE METABOLIC [id number] 07:22:00 Test Item Value Reference Range Interpretation [...] TOTAL (test code = ALKP) COMPREHENSIVE METABOLIC [id number] 07:14:00 Test Item Value Reference Range Interpretation [...] IUnit/L 20-125 code = ALKP) CBC W/AUTO [id number] 07:08:00 Test Item Value Reference Range Interpretation [...] REQUIRED (test NO code = MDIFF) URINALYSIS [id number] 07:02:00 Test Item Value Reference Range Interpretation [...]
[2020-01-30 20:14] LABS: Urine Blood 2+ (NEG); Urine Glucose 2+ (NEG); Urine Protein NEGATIVE (NEG); Urine Specific Gravity <1.005 (1.005-1.030)
[2020-01-30 20:28] LABS: Barbiturates NEGATIVE (NEGATIVE); Benzodiazepines NEGATIVE (NEGATIVE); Cocaine NEGATIVE (NEGATIVE); METHAMPHETAM NEGATIVE (NEGATIVE); Methadone NEGATIVE (NEGATIVE); Opiates NEGATIVE (NEGATIVE); Phencyclidine NEGATIVE (NEGATIVE); THC Cannibis NEGATIVE (NEGATIVE)
[2020-01-30 20:36] LABS: Absolute Lymphocytes (CBC) 0.9 K/uL (0.7-4.9); Basophils % 0.2 % (0-1.3); Lymphocytes % 8.1 % (15.3-44.8); MPV 9.6 fL (7.6-11.3); RBC Red Blood Cell Count 5.74 M/uL (4.33-5.43)
[2020-01-30 20:37] LABS: Protime INR 0.89
[2020-01-30 20:49] LABS: ALT/SGPT 30 U/L (12-78); AST/SGOT 8 U/L (15-37); Albumin 3.3 g/dL (3.4-5.0); Alkaline Phosphatase 125 U/L (45-117); BUN Blood Urea Nitrogen 53 mg/dL (7-18); Bicarbonate 18 mmol/L (21-32); Bilirubin Direct 0.1 mg/dL (0-0.2); Bilirubin Total 0.6 mg/dL (0.2-1.0); Glucose Level 1125 mg/dL (74-106); Magnesium 2.9 mg/dL (1.8-2.4); NT PRO-BNP 10 pg/mL (<125); Protein, Total 8.9 g/dL (6.4-8.2); Sodium Level 137 mmol/L (136-145); Troponin (Emerg Dept Use Only) < 0.02 ng/mL (0.0-0.045)
[2020-01-30 20:55] LABS: Potassium 5.7 mmol/L (3.5-5.1)
--- NOTE | 2020-01-30 21:01 | RAD REPORT ---
EXAM DESCRIPTION: RAD - Chest Single View - 01/30/2020 8:37 pm CLINICAL HISTORY: altered mental status Chest pain. COMPARISON: Chest Single View dated 01/17/2020; Chest Single View dated 12/19/2018; Chest Pa And Lat ( 2 Views) dated 12/18/2018; Chest Single View dated 12/17/2018 FINDINGS: Portable technique limits examination quality. Mild bilateral pulmonary opacities are present which may represent interstitial pneumonitis or inters titial edema. No focal consolidation typical of bacterial pneumonia. The heart is normal in size. No displaced fractures.
--- NOTE | 2020-01-30 21:02 | RAD REPORT ---
EXAM DESCRIPTION: CT - Head Brain Wo Cont - 01/30/2020 8:47 pm CLINICAL HISTORY: altered mental status Headache, drowsiness COMPARISON: Head Brain Wo Cont dated 01/17/2020 TECHNIQUE: All CT scans are performed using dose optimization technique as appropriate and may inclu de automated exposure control or mA/KV adjustment according to patient size. FINDINGS: No intracranial hemorrhage, hydrocephalus or extra-axial fluid collection.No areas of brai n edema or evidence of midline shift. The paranasal sinuses and mastoids are clear. The calvarium is intact. IMPRESSION: No acute intracranial abnormality.
[2020-01-30] MEDS ORDERED: INSULIN -REGULAR HUMAN 50 UNIT/0.5 ML ML ONE ×2 (21:12→21:31)
[2020-01-30] MEDS ORDERED: NA CHLORIDE 0.9% 100 ML IV ONE (21:12)
[2020-01-30 21:34] LABS: Blood Morphology Comment NOT SEEN (NOT SEEN); Platelet Estimate ADEQ
[2020-01-30 21:42] LABS: Arterial Blood Carboxyhemoglob 1.6 % (0-1.5); Blood O2 Saturation 92.4 % (92-98.5)
[2020-01-30 22:29] LABS: Potassium 5.4 mmol/L (3.5-5.1)
--- NOTE | 2020-01-30 22:57 | ER ---
Nurse's Notes [facility] Name: Flex Del Valle Age: 49 yrs Sex: Male : 1970 Arrival Date: 01/30/2020 Time: 19:29 Bed 15 Private MD: Diagnosis: Altered mental status. DKA. Severe hyperglycemia Presentation: 01/29 19:30 Chief complaint: Spouse and/or significant other states: called and stated patient vc started becoming altered the night before, patient was not acting like himself when she called 911. EMS states: "Patients called EMS stating he was only responsive to his name.". 19:30 Acuity: AB 1 vc 19:30 Coronavirus screen: vc 19:30 Method Of Arrival: EMS: [facility] vc 19:30 Ebola Screen: No symptoms or risks identified at this time. Initial Sepsis Screen: Does vc the patient meet any 2 criteria? Altered Mental Status. HR > 90 bpm. Yes Does the patient have a suspected source of infection? No. Patient's initial sepsis screen is negative. Risk Assessment: Do you want to hurt yourself or someone else? Unable to obtain. Onset of symptoms was January 29, 2020 at 21:00. 19:30 Onset of symptoms is unknown. vc Triage Assessment: 19:30 General: Appears distressed, uncomfortable, Behavior is uncooperative, unresponsive. vc Pain: Unable to use pain scale. Patient is disoriented. Patient is unresponsive. Historical: - Allergies: 19:30 BACLOFEN; vc 19:30 Bactrim; vc 19:30 Clindamycin; vc 19:30 Ibuprofen; vc 19:30 Levaquin; vc 19:30 NSAIDS; vc 19:30 Phenergan; vc 19:30 Toradol; vc 19:30 Zithromax; vc - Home Meds: 19:30 insulin [Active]; losartan Oral [Active]; vc - PMHx: 19:30 Diabetes - IDDM; DVT; EDEMA; Hypertension; Kidney stones; neuropathy; osteomyelitis; vc osteomyolitis; - Immunization history:: Adult Immunizations unknown. - Social history:: Smoking status: unknown. Screenin:00 Fall Risk Fall in past 12 months (25 points). Secondary diagnosis (15 points) DKA, vc Altered. IV access (20 points). Ambulatory Aid- None/Bed Rest/Nurse Assist (0 pts). Gait- Weak (10 pts.). Mental Status- Overestimates/Forgets Limitations (15 pts.). Total Virk Fall Scale indicates High Risk Score (45 or more points). Fall prevention measures have been instituted. Side Rails Up X 2 Placed Close to Nursing Station Frequent Obs/Assessments Occuring As available patient and family educated on Fall Prevention Program and Strategies. 22:44 Abuse screen: Patient unable to answer. Nutritional screening: No deficits noted. vc Tuberculosis screening: No symptoms or risk factors identified. Assessment: 19:30 General: Appears uncomfortable, unkempt, Behavior is listless, unresponsive. PATIENT vc WILL OPEN EYES TO NAME, PATIENT NOT TALKING BROWN. 19:30 Pain: Unable to use pain scale. Patient is disoriented. Patient is unresponsive. Neuro: vc Level of Consciousness is lethargic, listless, obtunded, Oriented to person. Cardiovascular: Capillary refill < 3 seconds Patient's skin is warm and dry. Rhythm is sinus tachycardia. Respiratory: Airway is patent Respiratory effort is even, shallow, Respiratory pattern is regular, symmetrical, apnea Breath sounds are clear the patient has mild shortness of breath. GI: No signs and/or symptoms were reported involving the gastrointestinal system. : Urine is clear, PATIENT URINATING FREQUENTLY. EENT: No signs and/or symptoms were reported regarding the EENT system. Derm: Skin is intact, is healthy with good turgor, Skin temperature is warm. Musculoskeletal: Circulation, motion, and sensation intact. Range of motion: intact in all extremities. 20:00 Reassessment:. Reassessment: PATIENT UP AT THE END OF THE BED PULLING PENIS OUT OF vc PANTS, PATIENT PULLS OUT IV AND URINATES ON THE FLOOR. 20:30 Reassessment: Patient appears in no apparent distress at this time. Patient and/or vc family updated on plan of care and expected duration. Pain level reassessed. 21:00 Reassessment: PATIENT WALKS OUT OF ROOM PULLING IV LINE, PATIENT STARTS TO PULL DOWN vc HIS PANTS. PATIENT IS PLACED BACK IN ROOM AND PROVIDED WITH URINAL. PATIENT URINATES IN URINAL, ON THE FLOOR, AND ON MY PANTS. PATIENT PLACED BACK IN BED AND INSTRUCTED HE MUST STAY IN BED. PATIENT IS CONFUSED. CURTAIN IS TO REMAIN OPEN. PATIENT CAN BE SEEN FROM NURSING STATION. 21:30 Reassessment: Patient appears in no apparent distress at this time. No changes from vc previously documented assessment. Patient and/or family updated on plan of care and expected duration. Pain level reassessed. 22:30 Reassessment: Patient appears in no apparent distress at this time. No changes from vc previously documented assessment. Patient and/or family updated on plan of care and expected duration. Pain level reassessed. 23:30 Reassessment: Patient appears in no apparent distress at this time. No changes from vc previously documented assessment. Patient and/or family updated on plan of care and expected duration. Pain level reassessed. 01/30 00:00 Reassessment: PATIENT FOUND SITTING ON THE FLOOR IN A PILE OF FLUIDS, PATIENT HAS PANTS vc DOWN AGAIN. PATIENT REASSESSED. NO SIGNS OF LUMPS OR BRUISED NOTED. WILL CONTINUE TO MONITOR PATIENT. Vital Signs: 01/29 19:30 BP 132 / 104; Pulse 138; Resp 20; Temp 98.6(T); Pulse Ox 100% on R/A; Weight 104.5 kg; vc 21:17 Weight 104.5 kg; vc 22:00 BP 133 / 99; Pulse 129; Resp 20; Temp 98.3(TE); Pulse Ox 98% ; vc 22:43 BP 116 / 96; Pulse 129; Resp 20; Pulse Ox 97% on R/A; vc ED Course: 19:29 Patient arrived in ED. cf2 19:30 Arm band placed on right wrist. vc 19:30 Patient has correct armband on for positive identification. Placed in gown. Side rails vc up X2. Curtains left open, patient in visual site of nursing station. bill sorter on. Pulse ox on. NIBP on. 19:35 Enoch Zuniga MD is Attending Physician. pkl 19:52 Andreia Arriaza RN is Primary Nurse. vc 20:37 XRAY Chest (1 view) In Process Unspecified. EDMS 20:46 CT Head Brain wo Cont In Process Unspecified. EDMS 21:00 No provider procedures requiring assistance completed. Inserted saline lock: 20 gauge vc in right hand, using aseptic technique. 22:49 Triage completed. vc 22:55 Fabian Cornelius MD is Hospitalizing Provider. pkl 23:21 Hemoglobin A1c Sent. mg2 01/30 00:00 Patient admitted, IV remains in place. vc Administered Medications: 01/29 20:05 Drug: NS 0.9% 1000 ml Route: IV; Rate: 1000 ml; Site: right hand; vc 21:13 Drug: Insulin Regular Human 10 units {Co-Signature: tao (Adriana Curiel RN).} Route: IVP; vc Site: right hand; 21:14 Drug: Insulin Drip - (Insulin Regular Human 100 units, NS 0.9% 100 ml) {Co-Signature: vc (Adriana Curiel RN).} Route: IV; Rate: calculated rate; Site: right hand; 21:25 Drug: Insulin Regular Human 10 units {Co-Signature: mg2 (Blaze Shepard RN).} Route: vc IVP; Site: right hand; Outcome: 22:56 Decision to Hospitalize by Provider. pkl 01/30 00:14 Patient left the ED. mg2 00:14 Admitted to ICU accompanied by nurse, accompanied by tech, via stretcher, room 6, on vc monitor, with chart, Other PATIENT ON INSULIN DRIP Report called to BEDSIDE REPORT GIVEN 00:14 Condition: stable vc 00:14 Instructed on the need for admit. Signatures: Dispatcher [employer] EDMS Enoch Zuniga MD MD Blaze Griffin RN RN [facility] [place] [facility]anc[facility] cf2 Andreia Arriaza RN RN Adriana Curiel RN Blaze Shepard RN mg2 Corrections: (The following items were deleted from the chart) 01:01/29 22:44 Abuse screen: Denies threats or abuse. vc vc 01/30 01:01/29 22:44 Fall Risk Fall in past 12 months (25 points). Secondary diagnosis (15 vc points) DKA, Altered. vc
--- NOTE | 2020-01-30 22:58 | EDPHYS ---
Physician Documentation [facility] Name: Flex Del Valle Age: 49 yrs Sex: Male : 1970 Arrival Date: 01/30/2020 Time: 19:29 Bed 15 Private MD: ED Physician Enoch Zuniga HPI: 01/29 20:05 This 49 yrs old Black Male presents to ER via Unassigned with complaints of Passed Out pkl Prior To Arrival. 20:05 The patient presents with decreased mental status. Onset: The symptoms/episode pkl began/occurred just prior to arrival. Patient was admitted to this hospital about 2 weeks ago for similar complaint. Diagnosed with DKA and severe hyperglycemia. Historical: - Allergies: 19:30 BACLOFEN; vc 19:30 Bactrim; vc 19:30 Clindamycin; vc 19:30 Ibuprofen; vc 19:30 Levaquin; vc 19:30 NSAIDS; vc 19:30 Phenergan; vc 19:30 Toradol; vc 19:30 Zithromax; vc - Home Meds: 19:30 insulin [Active]; losartan Oral [Active]; vc - PMHx: 19:30 Diabetes - IDDM; DVT; EDEMA; Hypertension; Kidney stones; neuropathy; osteomyelitis; vc osteomyolitis; - Immunization history:: Adult Immunizations unknown. - Social history:: Smoking status: unknown. ROS: 20:11 Eyes: Negative for injury, pain, redness, and discharge, ENT: Negative for injury, pkl pain, and discharge, Neck: Negative for injury, pain, and swelling, Cardiovascular: Negative for chest pain, palpitations, and edema, Respiratory: Negative for shortness of breath, cough, wheezing, and pleuritic chest pain, Abdomen/GI: Negative for abdominal pain, nausea, vomiting, diarrhea, and constipation, Back: Negative for injury and pain, : Negative for injury, bleeding, discharge, and swelling, MS/Extremity: Negative for injury and deformity, Skin: Negative for injury, rash, and discoloration. 20:11 Neuro: Positive for altered mental status, Non verbal. Exam: 20:11 Head/Face: Normocephalic, atraumatic. Eyes: Pupils equal round and reactive to light, pkl extra-ocular motions intact. Lids and lashes normal. Conjunctiva and sclera are non-icteric and not injected. Cornea within normal limits. Periorbital areas with no swelling, redness, or edema. ENT: Nares patent. No nasal discharge, no septal abnormalities noted. Tympanic membranes are normal and external auditory canals are clear. Oropharynx with no redness, swelling, or masses, exudates, or evidence of obstruction, uvula midline. Mucous membranes moist. Neck: Trachea midline, no thyromegaly or masses palpated, and no cervical lymphadenopathy. Supple, full range of motion without nuchal rigidity, or vertebral point tenderness. No Meningismus. Chest/axilla: Normal chest wall appearance and motion. Nontender with no deformity. No lesions are appreciated. Cardiovascular: Regular rate and rhythm with a normal S1 and S2. No gallops, murmurs, or rubs. Normal PMI, no JVD. No pulse deficits. Respiratory: Lungs have equal breath sounds bilaterally, clear to auscultation and percussion. No rales, rhonchi or wheezes noted. No increased work of breathing, no retractions or nasal flaring. Abdomen/GI: Soft, non-tender, with normal bowel sounds. No distension or tympany. No guarding or rebound. No evidence of tenderness throughout. Back: No spinal tenderness. No costovertebral tenderness. Full range of motion. Skin: Warm, dry with normal turgor. Normal color with no rashes, no lesions, and no evidence of cellulitis. MS/ Extremity: Pulses equal, no cyanosis. Neurovascular intact. Full, normal range of motion. 20:11 Neuro: Orientation: unable to test, Non verbal, Cranial nerves: unable to test, Non verbal, Motor: moves all fours. Vital Signs: 19:30 BP 132 / 104; Pulse 138; Resp 20; Temp 98.6(T); Pulse Ox 100% on R/A; Weight 104.5 kg; vc 21:17 Weight 104.5 kg; vc 22:00 BP 133 / 99; Pulse 129; Resp 20; Temp 98.3(TE); Pulse Ox 98% ; vc 22:43 BP 116 / 96; Pulse 129; Resp 20; Pulse Ox 97% on R/A; vc MDM: 19:36 Patient medically screened. pkl 22:53 Data reviewed: vital signs, nurses notes, lab test result(s), EKG, radiologic studies, pkl CT scan, plain films. ED course: Talked to Dr. Cornelius, admit to ICU. 01/29 19:46 Order name: Glucose, Ancillary Testing; Complete Time: 19:56 EDMS 01/29 19:56 Order name: Glucose vc 01/29 19:59 Order name: CBC with Diff; Complete Time: 22:18 pkl 01/29 19:59 Order name: LFT's; Complete Time: 21:13 pkl 01/29 19:59 Order name: Magnesium; Complete Time: 21:13 pkl 01/29 19:59 Order name: NT PRO-BNP; Complete Time: 21:13 pkl 01/29 19:59 Order name: PT-INR; Complete Time: 20:54 pkl 01/29 19:59 Order name: Troponin (emerg Dept Use Only); Complete Time: 21:13 pkl 01/29 19:59 Order name: UDS; Complete Time: 20:29 pkl 01/29 19:59 Order name: Hemoglobin A1c pkl 01/29 19:59 Order name: ABG; Complete Time: 22:18 pkl 01/29 19:59 Order name: Acetone, Serum; Complete Time: 21:13 pkl 01/29 20:09 Order name: Urine Dipstick--Ancillary (enter results) mt 01/29 20:15 Order name: Urine Dipstick-Ancillary; Complete Time: 20:29 EDMS 01/29 20:21 Order name: Alcohol Serum/Plasma; Complete Time: 20:54 EDMS 01/29 20:21 Order name: Basic Metabolic Panel; Complete Time: 21:13 EDMS 01/29 20:47 Order name: Manual Differential; Complete Time: 22:18 EDMS 01/29 21:46 Order name: BMP; Complete Time: 22:32 vc 01/29 22:08 Order name: Glucose, Ancillary Testing; Complete Time: 22:18 EDMS 01/29 23:54 Order name: Acetone Level EDMS 01/29 23:54 Order name: Acetone Level EDMS 01/29 23:54 Order name: Basic Metabolic Panel EDMS 01/29 23:54 Order name: Basic Metabolic Panel EDMS 01/29 23:54 Order name: Calcium Level EDMS 01/29 23:54 Order name: Calcium Level EDMS 01/29 23:54 Order name: Calcium Level EDMS 01/29 23:54 Order name: Calcium Level EDMS 01/29 23:54 Order name: CBC with Automated Diff EDMS 01/29 23:54 Order name: CBC with Automated Diff EDMS / 23:54 Order name: CBC with Automated Diff EDMS 01/29 23:54 Order name: CBC with Automated Diff EDMS / 23:54 Order name: Lipid Profile EDMS 01/29 23:54 Order name: Lipid Profile EDMS 01/29 23:54 Order name: Magnesium EDMS 01/29 23:54 Order name: Magnesium EDMS 01/29 23:54 Order name: Magnesium EDMS 01/29 23:54 Order name: Magnesium EDMS 01/29 23:54 Order name: Phosphorus EDMS 01/29 23:54 Order name: Phosphorus EDMS 01/29 23:54 Order name: Phosphorus EDMS 01/29 23:54 Order name: Phosphorus EDMS 01/29 23:58 Order name: Magnesium EDMS 01/29 23:58 Order name: Magnesium EDMS 01/29 23:58 Order name: Magnesium EDMS 01/29 23:58 Order name: Magnesium EDMS 01/29 23:58 Order name: Magnesium EDMS 01/30 00:04 Order name: Basic Metabolic Panel EDMS 01/30 00:04 Order name: Basic Metabolic Panel EDMS 01/30 00:04 Order name: Basic Metabolic Panel EDMS 01/30 00:04 Order name: Basic Metabolic Panel EDMS 01/30 00:04 Order name: Basic Metabolic Panel EDMS 01/29 19:59 Order name: XRAY Chest (1 view) pkl 01/29 19:59 Order name: EKG; Complete Time: 20:03 pkl 01/29 19:59 Order name: Cardiac monitoring; Complete Time: 23:05 pkl 01/29 19:59 Order name: EKG - Nurse/Tech; Complete Time: 23:05 pkl 01/29 19:59 Order name: IV Saline Lock; Complete Time: 23:05 pkl 01/29 19:59 Order name: Labs collected and sent; Complete Time: 23:05 pkl 01/29 19:59 Order name: O2 Per Protocol; Complete Time: 23:05 pkl 01/29 19:59 Order name: O2 Sat Monitoring; Complete Time: 21:17 pkl 01/29 19:59 Order name: CT Head Brain wo Cont pkl 01/29 20:01 Order name: Urine Dipstick-Ancillary (obtain specimen); Complete Time: 21:16 vc 01/29 23:54 Order name: CONS Pharmacy Consult EDMS 01/29 23:54 Order name: NPO EDMS 01/30 00:04 Order name: Basic Metabolic Panel EDMS 01/30 00:04 Order name: Basic Metabolic Panel EDMS 01/30 00:04 Order name: Basic Metabolic Panel EDMS 01/30 00:04 Order name: Basic Metabolic Panel EDMS Administered Medications: 20:05 Drug: NS 0.9% 1000 ml Route: IV; Rate: 1000 ml; Site: right hand; vc 21:13 Drug: Insulin Regular Human 10 units {Co-Signature: tao (Adriana Curiel RN).} Route: IVP; vc Site: right hand; 21:14 Drug: Insulin Drip - (Insulin Regular Human 100 units, NS 0.9% 100 ml) {Co-Signature: vc (Adriana Curiel RN).} Route: IV; Rate: calculated rate; Site: right hand; 21:25 Drug: Insulin Regular Human 10 units {Co-Signature: mg2 (Blaze Shepard RN).} Route: vc IVP; Site: right hand; Disposition: 22:53 Critical Care:. pkl Disposition: 01/30/20 22:56 Hospitalization ordered by Fabian Cornelius for Inpatient Admission. Preliminary diagnosis is Altered mental status. DKA. Severe hyperglycemia. - Bed requested for Intensive Care Unit. - Status is Inpatient Admission. mg2 - Condition is Stable. - Problem is new. - Symptoms are unchanged. Critical care time excluding procedures: 22:53 Critical care time: Bedside Care: 45 minutes. Total time: 45 minutes pkl Signatures: Dispatcher [employer] EDMS Enoch Zuniga MD MD pkSaba Gomez RN RN Blaze Shepard RN RN mg2 Andreia Arriaza RN RN Adriana Shepard RN mg2 Corrections: (The following items were deleted from the chart) 20:02 19:59 Arellano ordered. pkl pkl 20:19 19:56 BASIC METABOLIC PANEL+C.LAB.BRZ ordered. EDMS EDMS 20:19 20:05 ETHANOL+C.LAB.BRZ ordered. EDMS EDMS 23:59 22:56 Hospitalization Ordered by Fabian Cornelius MD for Inpatient Admission. Preliminary cg diagnosis is Altered mental status. DKA. Severe hyperglycemia. Bed requested for Intensive Care Unit. Status is Inpatient Admission. Condition is Stable. Problem is new. Symptoms are unchanged. pkl 01/30 00:03 01/29 23:58 Basic Metabolic Panel ordered. EDOH EDMS 01/30 00:03 01/29 23:58 Basic Metabolic Panel ordered. EDOH EDOH 01/30 00:03 01/29 23:58 Basic Metabolic Panel ordered. EDOH EDMS 01/30 00:03 01/29 23:58 Basic Metabolic Panel ordered. EDOH EDOH 01/30 00:03 01/29 23:58 Basic Metabolic Panel ordered. EDOH EDOH 01/30 00:03 01/29 23:58 Basic Metabolic Panel ordered. EDOH EDMS 01/30 00:03 01/29 23:58 Basic Metabolic Panel ordered. EDOH EDMS 01/30 00:03 01/29 23:58 Basic Metabolic Panel ordered. EDOH EDOH 01/30 00:04 01/29 23:58 Basic Metabolic Panel ordered. [facility] EDOH 01/30 00:14 01/29 23:59 01/30/2020 22:56 Hospitalization Ordered by Fabian Cornelius MD for Inpatient mg2 Admission. Preliminary diagnosis is Altered mental status. DKA. Severe hyperglycemia. Bed requested for Intensive Care Unit. Status is Inpatient Admission. Condition is Stable. Problem is new. Symptoms are unchanged. cg
[2020-01-30] MEDS ORDERED: METOPROLOL TARTRATE 5 MG/5 ML INJ IV ONE (22:59)
[2020-01-30] MEDS ORDERED: NA CHLORIDE 0.9% 1,000 ML IV SCH (23:45)
[2020-01-30] MEDS ORDERED: ONDANSETRON 4 MG/2 ML VIAL IV PRN (23:49)
[2020-01-31] MEDS: CEFTRIAXONE/SWI 1gm 1 GM/10 ML SYR IV SCH ×2 (01:04→09:40)
--- NOTE | 2020-01-31 05:36 | P.HP ---
Certification for Inpatient Patient admitted to: Inpatient With expected LOS: >2 Midnights Patient will require the following post-hospital care: None Practitioner: I am a practitioner with admitting privileges, knowledge of patient current condition, hospital course, and medical plan of care. Services: Services provided to patient in accordance with Admission requirements found in Title 42 Section 412.3 of the Code of Federal Regulations Patient History Date of Service: 01/31/20 Reason for admission: Diabetic ketoacidosis; acute renal failure; altered mental status History of Present Illness: Patient is a 49-year-old gentleman who has a history of diabetes and diabetic foot ulcers who presents to the hospital if with altered mentation. Patient was found have acute renal insufficiency. Patient's workup revealed that he also had diabetic ketoacidosis. Patient apparently has had poorly-controlled diabetes for quite a while. He has some renal insufficiency as well as amputations of the lower extremity. He has had a toe amputated and has a couple diabetic foot wounds. In the emergency room his mentation was altered. He will be admitted to the hospital for treatment of his diabetic ketoacidosis, his acute renal insufficiency, and his altered mentation. Allergies ketorolac tromethamine [From Toradol] Allergy (Unknown, Verified 09/23/19 22:54) Shortness of breath azithromycin [From Zithromax] Allergy (Verified 09/23/19 22:54) Unknown baclofen Allergy (Verified 09/23/19 22:54) Unknown ibuprofen Allergy (Verified 09/23/19 22:54) Unknown levofloxacin [From Levaquin] Allergy (Verified 09/23/19 22:54) Itching/Hives/Rash promethazine [From Phenergan] Allergy (Verified 09/23/19 22:54) Unknown sulfamethoxazole [From Bactrim] Allergy (Verified 09/23/19 22:54) Unknown trimethoprim [From Bactrim] Allergy (Verified 09/23/19 22:54) Unknown NSAIDS Allergy (Uncoded 09/23/19 22:54) Unknown Home Medications: Insulin Glargine Human [Lantus*] 15 units SQ BEDTIME #1 vial 09/25/19 Insulin 70/30 NPH/Reg Human [Novolin 70/30*] See Protocol SQ BID 01/18/20 Amlodipine Besylate [Norvasc] 10 mg PO DAILY 30 Days #30 tablet 01/20/20 - Past Medical/Surgical History Diabetic: Yes -: diabetes mellitus II -: Hx of DVT-2 left leg/1 on the right leg -: HTN -: MRSA left foot -: kidney stones -: toes amputation - bilateral feet -: right kidney stent(2-3 weeks ago) -: Lithotripsy - Family History Father Medical History: Hypertension Mother Medical History: Diabetes, Other (see notes) Notes: - Social History Smoking Status: Current every day smoker Alcohol use: Yes CD- Drugs: Yes Caffeine use: Yes Place of Residence: Home Review of Systems 10-point ROS is otherwise unremarkable Physical Examination - Vital Signs Temperature: 98.3 F Blood Pressure: 116/96 Pulse: 129 Respirations: 20 - Physical Exam General: In no apparent distress, Confused HEENT: Atraumatic, PERRLA, Mucous membr. moist/pink, EOMI, Sclerae nonicteric Neck: Supple, 2+ carotid pulse no bruit, No LAD, Without JVD or thyroid abnormality Respiratory: Clear to auscultation bilaterally, Normal air movement Cardiovascular: Regular rate/rhythm, Normal S1 S2, No murmurs Gastrointestinal: Normal bowel sounds, Soft and benign, Non-distended, No tenderness Musculoskeletal: No clubbing, No swelling, No tenderness Integumentary: Diabetic ulcer (right and left foot) Neurological: Sensation intact, Cranial nerves 3-12 intact, Abnormal strength Lymphatics: No axilla or inguinal lymphadenopathy - Studies Laboratory Data (last 24 hrs) 01/30/20 21:56: Sodium 145, Potassium 5.4 H, BUN 54 H, Creatinine 1.92 H, Glucose 888 H* 01/30/20 19:50: PT 10.5, INR 0.89 01/30/20 19:50: Sodium 137, Potassium 5.7 H*, BUN 53 H D, Creatinine 1.84 H, Glucose 1125 H*, Magnesium 2.9 H D, Total Bilirubin 0.6, AST 8 L, ALT 30, Alkaline Phosphatase 125 H 01/30/20 19:50: WBC 11.2 H, Hgb 15.5, Hct 50.0 H, Plt Count 346 D 01/30/20 19:50: Sodium Cancelled, Potassium Cancelled, BUN Cancelled, Creatinine Cancelled, Glucose Cancelled Assessment & Plan - Problems (Diagnosis) (1) DKA (diabetic ketoacidoses) Current Visit: No Status: Acute Qualifiers: Diabetes mellitus type: type 1 (2) BRIEN (acute kidney injury) Current Visit: Yes Status: Acute (3) AMS (altered mental status) Current Visit: Yes Status: Acute Qualifiers: Altered mental status type: delirium Qualified Code(s): R41.0 - Disorientation, unspecified (4) Diabetes mellitus Onset Date: 12/07/17 Current Visit: No Status: Chronic Qualifiers: Diabetes mellitus type: type 1 (5) HTN (hypertension) Onset Date: 12/07/17 Current Visit: No Status: Chronic Qualifiers: Hypertension type: essential hypertension (6) Hx of deep venous thrombosis Onset Date: 12/07/17 Current Visit: No Status: Chronic - Plan Plan: 1. IV fluids 2. Insulin drip 3. Monitor labs 4. Blood sugar q1hr 5. Diabetic education 6. Monitor renal function 7. Neurochecks 8. GI/DVT prophylaxis Discharge Plan: Home Plan to discharge in: Greater than 2 days - Advance Directives Does patient have a Living Will: No Does patient have a Durable POA for Healthcare: No - Code Status/Comfort Care Code Status Assessed: Yes Code Status: Full Code Critical Care: Yes Time Spent Managing PTS Care (In Minutes): 45
[2020-01-31 05:55] LABS: BUN Blood Urea Nitrogen 49 mg/dL (7-18); Bicarbonate 25 mmol/L (21-32); Glucose Level 437 mg/dL (74-106); HDL Cholesterol 55 mg/dL (40-60); LDL Cholesterol, Calculated 189 (<130); Magnesium 3.2 mg/dL (1.8-2.4); Phosphorus 1.6 mg/dL (2.5-4.9); Potassium 4.1 mmol/L (3.5-5.1); Sodium Level 157 mmol/L (136-145)
[2020-01-31] MEDS ORDERED: D5W 1,000 ML IV SCH ×3 (07:00→20:00)
[2020-01-31 07:07] LABS: Absolute Lymphocytes (CBC) 1.6 K/uL (0.7-4.9); Basophils % 0.4 % (0-1.3); Hematocrit 52.3 % (39.6-49.0); Lymphocytes % 7.3 % (15.3-44.8); MPV 9.3 fL (7.6-11.3); RBC Red Blood Cell Count 6.27 M/uL (4.33-5.43)
[2020-01-31] MEDS: INSULIN -REGULAR HUMAN 100 UNIT in NA CHLORIDE 0.9% 100 ML IV SCH ×2 (07:19→16:19)
[2020-01-31] MEDS: ENOXAPARIN 40 MG/0.4 ML SQ SCH (09:39)
[2020-01-31] MEDS ORDERED: METOPROLOL TARTRATE 5 MG/5 ML INJ IV PRN (09:51)
[2020-01-31 10:13] LABS: Magnesium 3.2 mg/dL (1.8-2.4); Potassium 3.7 mmol/L (3.5-5.1)
[2020-01-31] MEDS ORDERED: POTASSIUM CL 40 MEQ in NA CHLORIDE 0.9% 500 ML IV SCH (12:00)
[2020-01-31] MEDS ORDERED: NACHLORIDE 0.45% 1,000 ML IV SCH (12:00)
[2020-01-31] MEDS ORDERED: D5W 1,000 ML with POTASSIUM CL 20 MEQ IV SCH ×2 (12:00)
--- NOTE | 2020-01-31 12:51 | CON ---
Date of Consultation: 01/31/2020 Reason For Consultation: Acidosis, elevated BUN and creatinine, hypernatremia. History Of Present Illness: All the information has been obtained from the by the bedside as th e patient is confused. Patient is a 49-year-old gentleman with significant past medical history of d iabetes complicated with neuropathy and retinopathy, foot ulcer, recurrent admission with diabetic ke toacidosis. Last admission a few weeks ago, DVT on the right leg, hypertension, nephrolithiasis, sta tus post stent placement and lithotripsy. The patient came to the hospital because of altered mental status, found to have DKA and acute kidney injury. For that reason, we have been consulted. Accord ing to the , the patient run out of his insulin for the last few days, then gradually started edith ng obtunded and altered mental status. For that reason, he was brought to the hospital. Upon arriva l to the hospital, the patient has severe leukocytosis of 21,000 and patient had acidosis with bicarb of 18 and on the ABG, pH 7.31, the patient's base axis was -9. The patient was started on insulin d rip and IV fluid. Patient is still confused. Past Medical History: 1.Diabetes. 2.Peripheral vascular disease, status post toe amputation. 3.Chronic kidney disease, status post acute kidney injury recently, normalized after hydration. Upo n discharge on the January 19, creatinine 0.9 with normal GFR. 4.Nephrolithiasis, status post lithotripsy and stent. Family History: Positive for hypertension. Social History: Active smoker, active alcohol. Denies drugs abuse. Home Medications: Include, 1.Insulin. 2.Amlodipine. Allergies: KETOROLAC, AZITHROMYCIN, IBUPROFEN, LEVAQUIN, SULFA, TRIAMTERENE. Surgical History: Includes toe amputation. Review of Systems: None obtainable. Physical Examination: General: When I saw the patient, the patient was lying in bed, slightly confused, agitated. Vital Signs: Blood pressure 148/110, pulse of 110, afebrile. The patient had good urine output of 8 00. Chest: Clear to auscultation. Heart: S1, S2 regular. Abdomen: Soft, nontender. EXTREMITIES: No edema. Right second toe amputation. Laboratory Data: Sodium 159, potassium 3.7, bicarb 23, chloride 126, BUN 49, creatinine 1.7, calcium 10.3, magnesium 3.2. WBC 21.1, H and H 16.7/52.3, platelets of 374. Upon discharge, H and H 14.5/4 5.5. Urinalysis; specific gravity of 1.005. Negative for infection. Assessment And Plan: 1.Acute kidney injury secondary to prerenal, secondary to glucose diuresis. Rule out obstructive ur opathy giving the history of lithotripsy before. I am going to go ahead and get renal ultrasound. 2.Hypertension, uncontrolled. I am going to place the patient on clonidine patch. 3.We will continue hydration. 4.Acidosis, secondary to diabetic ketoacidosis. Continue per protocol. We will increase insulin dr ip. 5.Hypokalemia with the presence of acidosis. I am going to be supplement aggressively. 6.Hypernatremia, corrected sodium around 162. Continue hydration. We will have more aggressive glucose control. 7.Hypercalcemia, secondary to dehydration. Continue IV fluid. PRAFUL/[place] Voice ID: [id number] Report ID: [id number]
[2020-01-31] MEDS ORDERED: HYDRALAZINE HCL 20 MG/ML VIAL IV PRN (13:03)
[2020-01-31 14:27] LABS: Urine Appearance CLOUDY; Urine Bilirubin NEGATIVE (NEG); Urine Blood 3+ (NEG); Urine Color YELLOW; Urine Glucose 3+ (NEG); Urine Protein 1+ (NEG); Urine Specific Gravity 1.025 (1.005-1.030); Urine Urobilinogen 0.2 mg/dL (0.2-1.0)
[2020-01-31 14:42] LABS: Urine Amorphous Sediment 1+ /HPF (NONE SEEN); Urine Bacteria <20 /HPF (NONE SEEN); Urine Culture Reflex Order NOT NEEDED
--- NOTE | 2020-01-31 16:48 | RAD REPORT ---
EXAM DESCRIPTION: RAD - Chest Single View - 01/31/2020 4:26 pm CLINICAL HISTORY: Device placement PICC line placement IMPRESSION: PICC line with its tip in the distal superior vena cava
[2020-01-31 17:04] LABS: BUN Blood Urea Nitrogen 49 mg/dL (7-18); Bicarbonate 20 mmol/L (21-32); Glucose Level 152 mg/dL (74-106); Potassium 4.9 mmol/L (3.5-5.1); Sodium Level 160 mmol/L (136-145)
[2020-01-31 17:34] LABS: Magnesium 2.4 mg/dL (1.8-2.4); Potassium 4.5 mmol/L (3.5-5.1)
[2020-01-31] MEDS: TAMSULOSIN 0.4 MG SR CAP PO SCH (19:07)
--- NOTE | 2020-01-31 19:26 | EKG ---
Test Date: 2020-01-30 Test Time: 22:49:31 Customs Examiner: MEASUREMENT RESULTS: Intervals: Rate: 131 OH: 140 QRSD: 100 QT: 292 QTc: 431 [place]: P: 61 OH: 140 QRS: 83 T: 21 INTERPRETIVE STATEMENTS: Sinus tachycardia Otherwise normal ECG Compared to ECG 01/17/2020 15:57:43 Right-axis deviation no longer present Electronically Signed On 01-31-20 19:24:03 CDT by Fransisco Vega
[2020-01-31 21:26] LABS: Magnesium 2.3 mg/dL (1.8-2.4); Potassium 3.7 mmol/L (3.5-5.1)
[2020-01-31 21:47] VITALS: O2SAT 100
[2020-01-31] MEDS ORDERED: FUROSEMIDE 40 MG/4 ML VIAL IV ONE (22:54)
[2020-01-31] MEDS: D5W 1,000 ML with POTASSIUM CL 20 MEQ IV SCH ×2 (23:00)
--- NOTE | 2020-02-01 01:34 | P.PN ---
Subjective Date of Service: 02/01/20 Patient is still confused. Patient is lethargic. Electrolytes are abnormal. Still correcting them slowly. Continue monitoring closely. Review of Systems 10-point ROS is otherwise unremarkable Physical Examination - Vital Signs Temperature: 97.8 F Blood Pressure: 124/90 Pulse: 112 Respirations: 13 Pulse Ox (%): 100 - Physical Exam General: Alert, In no apparent distress, Oriented x1 Respiratory: Clear to auscultation bilaterally, Normal air movement Cardiovascular: Regular rate/rhythm, Normal S1 S2, No murmurs Gastrointestinal: Normal bowel sounds, Soft and benign, Non-distended, No tenderness Musculoskeletal: No clubbing, No swelling, No tenderness - Studies Medications List Reviewed: Yes Assessment & Plan - Problems (Diagnosis) (1) DKA (diabetic ketoacidoses) Current Visit: No Status: Acute Qualifiers: Diabetes mellitus type: type 1 (2) BRIEN (acute kidney injury) Current Visit: Yes Status: Acute (3) AMS (altered mental status) Current Visit: Yes Status: Acute Qualifiers: Altered mental status type: delirium Qualified Code(s): R41.0 - Disorientation, unspecified (4) Diabetes mellitus Onset Date: 12/07/17 Current Visit: No Status: Chronic Qualifiers: Diabetes mellitus type: type 1 (5) HTN (hypertension) Onset Date: 12/07/17 Current Visit: No Status: Chronic Qualifiers: Hypertension type: essential hypertension Qualified Code(s): I10 - Essential (primary) hypertension (6) Hx of deep venous thrombosis Onset Date: 12/07/17 Current Visit: No Status: Chronic - Plan Plan: Continue with current plan of care: 1. Continue with IV fluids 2. Insulin drip continued 3. Monitoring labs closely 4. Blood sugar q1hr 5. Monitor neuro status closely; mentation slowly improving 6. Monitor renal function 7. Neurochecks 8. GI/DVT prophylaxis Discharge Plan: Home Plan to discharge in: Greater than 2 days - Advance Directives Does patient have a Living Will: No Does patient have a Durable POA for Healthcare: No - Code Status/Comfort Care Code Status: Full Code Critical Care: No Time Spent Managing PTS Care (In Minutes): 35
[2020-02-01 04:19] LABS: Magnesium 2.1 mg/dL (1.8-2.4); Potassium 3.9 mmol/L (3.5-5.1)
[2020-02-01] MEDS: D5W 1,000 ML with POTASSIUM CL 20 MEQ IV SCH ×2 (05:44)
[2020-02-01 06:32] LABS: Phosphorus 2.6 mg/dL (2.5-4.9); Potassium 3.7 mmol/L (3.5-5.1)
[2020-02-01 06:40] LABS: Thyroid Stimulating Hormone 0.406 uIU/mL (0.360-3.740)
[2020-02-01 06:49] LABS: Absolute Lymphocytes (CBC) 2.1 K/uL (0.7-4.9); Basophils % 0.2 % (0-1.3); Hematocrit 41.5 % (39.6-49.0); Lymphocytes % 11.1 % (15.3-44.8); MPV 8.8 fL (7.6-11.3); RBC Red Blood Cell Count 4.96 M/uL (4.33-5.43)
[2020-02-01] MEDS ORDERED: D5W 1,000 ML with POTASSIUM CL 20 MEQ IV SCH ×4 (07:00→08:00)
[2020-02-01 07:18] VITALS: BMI 23.8
[2020-02-01] MEDS ORDERED: D50W 25 GM/50 ML SYRINGE/VIAL IV PRN ×2 (07:22→10:20)
[2020-02-01] MEDS ORDERED: GLUCAGON 1 MG/VIAL IM PRN ×2 (07:22→10:20)
[2020-02-01] MEDS ORDERED: INSULIN GLARGINE 100 UNITS/ML SQ SCH ×2 (08:00→21:00)
[2020-02-01] MEDS: CEFTRIAXONE/SWI 1gm 1 GM/10 ML SYR IV SCH (08:12)
[2020-02-01] MEDS: ENOXAPARIN 40 MG/0.4 ML SQ SCH (08:12)
[2020-02-01] MEDS: TAMSULOSIN 0.4 MG SR CAP PO SCH (08:12)
[2020-02-01] MEDS ORDERED: METOPROLOL TAR 50 MG TAB PO SCH (09:00)
[2020-02-01] MEDS ORDERED: POTASSIUM CL SA 10 MEQ TAB PO ONE (10:51)
[2020-02-01] MEDS ORDERED: TRAMADOL HCL 50 MG TAB PO PRN (11:00)
[2020-02-01] MEDS ORDERED: HYDROCODONE/APAP 7.5/325 MG TAB PO PRN (11:00)
[2020-02-01] MEDS: INSULIN -REGULAR HUMAN 50 UNIT/0.5 ML ML SQ SCH ×2 (11:29→12:36)
--- NOTE | 2020-02-01 11:31 | PN ---
Date of Progress Note: 02/01/2020 Subjective: Patient was admitted with DKA, developed hypernatremia. Patient had urinary retention. Objective: Vital Signs: When I saw the patient, blood pressure of 124/90, pulse of 110, afebrile. Patient had good urine output of 2800. Patient positive of 2500. Chest: Clear to auscultation. Heart: S1, S2. Regular. Abdomen: Soft, nontender. Extremities: No edema. Neuro: Alert, oriented. No focality. Laboratory Data: WBC 19, H and H 13.4/41.5, platelets 217. Sodium 150, potassium 3.7, bicarb 25, BU N 36, creatinine 1.2, calcium 9, phosphorus 2.6, magnesium of 2. Blood sugar still above 200. Current Medications: Insulin drip has been discontinued. Patient was started on Lantus, ceftriaxone , Flomax 0.4, metoprolol 50 b.i.d., Zofran. Assessment And Plan: 1.Acute kidney injury secondary to prerenal, recovered, resolved. 2.Hypercalcemia secondary to dehydration, resolved. 3.Acidosis secondary to diabetic ketoacidosis, resolved. 4.Hypernatremia secondary to dehydration, prerenal, currently trending down. Patient starts p.o. di et. I am going to discontinue IV fluid. We will have a close monitoring. I will start the patient on aggressive sliding scale and we will monitor. 5.Urinary retention, status post Arellano placement. We will remove the Arellano and continue Flomax. 6.Hypertension, not controlled. I am going to go ahead and start the patient on lisinopril. 7.Hypokalemia. We will start lisinopril. We will give oral supplement. 8.Diabetes as by primary. MA/MODL Voice ID: [id number] Report ID: [id number]
[2020-02-01 14:02] LABS: Magnesium 1.5 mg/dL (1.8-2.4); Potassium 3.7 mmol/L (3.5-5.1)
[2020-02-01] MEDS ORDERED: EPINEPHrine 1 MG/10 ML SYR IV ONE (14:43)
[2020-02-01] MEDS ORDERED: EPHEDRINE SULF 50 MG/ML VIAL IM ONE (14:43)
[2020-02-01] MEDS ORDERED: EPINEPHrine 1 MG/10 ML SYR ONE (14:44)
[2020-02-01 14:56] LABS: Albumin 2.4 g/dL (3.4-5.0); Bilirubin Total 0.4 mg/dL (0.2-1.0); Magnesium 1.9 mg/dL (1.8-2.4); Potassium 3.8 mmol/L (3.5-5.1); Protein, Total 5.9 g/dL (6.4-8.2)
[2020-02-01] MEDS ORDERED: LORazepam 2 MG/ML VIAL ONE (15:20)
--- NOTE | 2020-02-01 16:32 | P.DS ---
Admission Date: 01/30/20 Discharge Date: 02/01/20 Primary Care Provider: unknown Disposition: Reason for Admission: Diabetic ketoacidosis; acute renal failure; altered mental status Consultations: Nephrology-Dr. Thompson Procedures: CT Head: FINDINGS: No intracranial hemorrhage, hydrocephalus or extra-axial fluid collection.No areas of brain edema or evidence of midline shift. The paranasal sinuses and mastoids are clear. The calvarium is intact. IMPRESSION: No acute intracranial abnormality. Medical Problem List: Acute cardiopulmonary arrest with PEA, etiology unknown suspect abnormal cardiac arrhythmia Metabolic encephalopathy secondary to DKA, resolved with history of diabetes type 1 uncontrolled with hyperglycemia Acute renal injury with hypercalcemia/hypokalemia secondary to dehydration Urinary retention with possible UTI HTN Brief History of Present Illness: 49-year-old male with history of type 1 diabetes, hypertension presented to the emergency room with altered mental status. Patient found to have diabetic ketoacidosis with hypercalcemia. Patient admitted for treatment. Hospital Course: Patient presented with altered mental status secondary to metabolic encephalopathy related to DKA. Patient with history of diabetes mellitus type 1 uncontrolled with hyperglycemia. Patient also found to have acute renal injury with hypercalcemia and hypokalemia secondary to dehydration. The patient was admitted to ICU. Patient was placed on a insulin drip. Nephrology was consulted to further address and monitor. Patient also with underlying urinary retention and hypertension. During the course of his stay CT head was unr emarkable. Urine drug screen was negative. The patient was placed on Rocephin for suspected UTI. Urine was unremarkable. Blood culture negative. His DKA resolved. Patient was seen by nephrology who recommended to transition patient to the floor. The hospitalization was further complicated when he went to the medical floor. While there rylan quintanilla was called after he was found unresponsive. reports that the patient became very rigid and shaking. At that point the patient was placed to the bed and CPR was initiated. When I arrived to the code, patient was unresponsive. No pulse was noted. There was evidence that the patient had urinated on himself. Patient required multiple rounds of epinephrine, bicarb, and continued CPR. ET tube was placed by [facility] under supervision with ER physician. Appropriate placement was noted. CPR continued. CPR was continued for about 40-45 min. After exhausting measures and medications, the patient was pronounced . Lab had been obtained during the course of CPR. Potassium within normal range. Patient was not acidotic. Bicarb within normal range. Patient had no elevated anion gap. Prior information reviewed. Case discussed with nephrology. Acute cardiopulmonary arrest with PEA noted. Etiology unknown suspect abnormal cardiac arrhythmia or event. His significant other has been informed. She was there during the course of CPR. May he rest in peace. Vital Signs/Physical Exam: Temp Pulse Resp BP Pulse Ox 97.1 F 94 H 18 143/93 H 96 02/01/20 08:00 02/01/20 09:00 02/01/20 11:28 02/01/20 13:00 02/01/20 11:28 General: Other (Patient ) Laboratory Data at Discharge: WBC 19.0 K/uL (4.3-10.9) H 02/01/20 06:40 Hgb 13.4 g/dL (13.6-17.9) L D 02/01/20 06:40 Hct 41.5 % (39.6-49.0) D 02/01/20 06:40 Plt Count 217 K/uL (152-406) D 02/01/20 06:40 PT 10.5 SECONDS (9.5-12.5) 01/30/20 19:50 INR 0.89 01/30/20 19:50 Sodium 141 mmol/L (136-145) 02/01/20 14:29 Potassium 3.8 mmol/L (3.5-5.1) 02/01/20 14:29 BUN 38 mg/dL (7-18) H 02/01/20 14:29 Creatinine 1.63 mg/dL (0.55-1.3) H 02/01/20 14:29 Glucose 490 mg/dL (74-106) H* 02/01/20 14:29 Phosphorus 2.6 mg/dL (2.5-4.9) D 02/01/20 05:46 Magnesium 1.9 mg/dL (1.8-2.4) 02/01/20 14:29 Total Bilirubin 0.4 mg/dL (0.2-1.0) 02/01/20 14:29 AST 57 U/L (15-37) H 02/01/20 14:29 ALT 35 U/L (12-78) 02/01/20 14:29 Alkaline Phosphatase 83 U/L (45-117) 02/01/20 14:29 Triglycerides 245 mg/dL (<150) H 01/31/20 05:04 Cholesterol 293 mg/dL (<200) H 01/31/20 05:04 HDL Cholesterol 55 mg/dL (40-60) 01/31/20 05:04 Cholesterol/HDL Ratio 5.33 01/31/20 05:04 Lipase 30 U/L (73-393) L 02/01/20 05:46 Home Medications: Insulin Glargine Human [Lantus*] 15 units SQ BEDTIME #1 vial 09/25/19 Insulin 70/30 NPH/Reg Human [Novolin 70/30*] See Protocol SQ BID 01/18/20 Amlodipine Besylate [Norvasc] 10 mg PO DAILY 30 Days #30 tablet 01/20/20 Patient Discharge Instructions: Patient . May he rest in peace. Time spent managing pt's care (in minutes): 55 (Critical care provided: 55 min)
[2020-02-02] MEDS ORDERED: lisinopriL 10 MG TAB PO SCH (09:00)
[2020-02-03 03:24] VITALS: BP 124/90; TEMP 97.8
== END 2020-02-01 14:44 | disposition expired | DRG 637 ==
LOC: ER 19:26 → ERHOLD 23:50 → 3RD-ICU 01-31 00:13 → 4TH 02-01 14:19
PROVIDERS: ADMIT Hospitalist; ATTEND Hospitalist
PROC: 02HV33Z Insertion of Infusion Device into Superior Vena Cava, Percutaneous Approach (ICD-10-PCS; 2020-01-31)
PROC: 5A12012 Performance of Cardiac Output, Single, Manual (ICD-10-PCS; principal; 2020-02-01)
PROC: 0BH17EZ Insertion of Endotracheal Airway into Trachea, Via Natural or Artificial Opening (ICD-10-PCS; 2020-02-01)
DX: E10.10 Type 1 diabetes mellitus with ketoacidosis without coma (principal); L89.894 Pressure ulcer of other site, stage 4; G93.41 Metabolic encephalopathy; N17.9 Acute kidney failure, unspecified; E87.0 Hyperosmolality and hypernatremia; N39.0 Urinary tract infection, site not specified; E44.1 Mild protein-calorie malnutrition; F17.200 Nicotine dependence, unspecified, uncomplicated; T38.3X6A Underdosing of insulin and oral hypoglycemic [antidiabetic] drugs, initial encounter; E10.51 Type 1 diabetes mellitus with diabetic peripheral angiopathy without gangrene; E10.22 Type 1 diabetes mellitus with diabetic chronic kidney disease; I12.9 Hypertensive chronic kidney disease with stage 1 through stage 4 chronic kidney disease, or unspecified chronic kidney disease; N18.9 Chronic kidney disease, unspecified; E87.6 Hypokalemia; E83.52 Hypercalcemia; E86.0 Dehydration; R33.9 Retention of urine, unspecified; I49.9 Cardiac arrhythmia, unspecified; I46.8 Cardiac arrest due to other underlying condition; Z88.1 Allergy status to other antibiotic agents; Z79.4 Long term (current) use of insulin; Z89.422 Acquired absence of other left toe(s); Z79.899 Other long term (current) drug therapy; Z86.14 Personal history of Methicillin resistant Staphylococcus aureus infection; Z89.421 Acquired absence of other right toe(s); Z86.718 Personal history of other venous thrombosis and embolism; Z88.8 Allergy status to other drugs, medicaments and biological substances; Z68.23 Body mass index [BMI] 23.0-23.9, adult
CPT/HCPCS: 36415; 36569; 70450; 71045; 80048; 80053; 80061; 80076; 80307; 80320; 81001; 81003; 82010; 82140; 82805; 82947; 83036; 83605; 83690; 83735; 83880; 84100; 84145; 84439; 84443; 84484; 85025; 85610; 87040; 93005; 96374; 97162; 99291; 99292; J0171; J0360; J0696; J1650; J1815; J1940; J7030; J7040